=== PATIENT | male | born 1965 | race Caucasian/White ===

== ENCOUNTER → 2022-07-23 | Outpatient (CLI) | payer BC ==
--- NOTE | 2022-07-23 12:33 | NM ---
EXAMINATION TYPE: NM stress lexiscan cardiolite DATE OF EXAM: 07/23/2022 COMPARISON: NONE CLINICAL INDICATION: Male, 57 years old with history of I25.10 atherosclerotic heart disease; TECHNIQUE: After the intravenous administration of 10.07 mCi Tc 99m Sestamibi - Cardiolite resting S PECT images acquired 45 minutes post injection. The patient received 0.4mg Lexiscan, 25.3 mCi Tc 99m Sestamibi - Stress images obtained [address] injection FINDINGS: Review of stress and rest SPECT images demonstrates no distinct perfusion abnormality. Gated analysi s shows normal wall motion with an estimated left ventricular ejection fraction of 55 %. IMPRESSION: No scintigraphic evidence for reversible ischemia.
--- NOTE | 2022-07-24 18:45 | CA ---
Lexiscan Nuclear Stress Test Report Name: Darien Chen Exam Date: 07/23/2022 09:19 Exam Location: [facility] Stress Ht (in): 68 Wt (lb): 168 BSA: 1.90 Ordering Phys: Sammy James MD Referring Phys: SAMMY JAMES,, Technologist: PARMINDER,, Age: 57 Gender: M : 1965 Procedure CPT: Indications: I25.10 aterosclerotic heart disease ICD-10 Codes: Patient History: ASCAD Medications: Meds past 24 hrs: Pretest Chest Pain: STRESS TEST Lexiscan Protocol Exercise Duration (min:sec): 02:[address] Depressions (mm): Angina Score: Arboleda Score: Resting HR (bpm): 64 Peak HR (bpm): 82 Resting BP (mmHg): 116 / 77 Peak BP (mmHg): 130 / 83 MPHR: 163 Target HR: 139 % MPHR: 50 METS: 1.0 Total Dose: Peak Dose: Atropine: Double Product: 89423 BP Response: Stress Termination: Infusion complete Stress Symptoms: No chest pain or symptoms Stress Summary: ECG ANALYSIS Resting ECG: Stress ECG: CONCLUSIONS Nondiagnostic stress test Dr. Luis Miguel Hampton MD (Electronically Signed) Final Date: 24 July 2022 18:44
== END | disposition home or self-care (01) ==
LOC: RADNMMAIN 07:54
PROVIDERS: ATTEND Family Medicine
DX: I25.10 Atherosclerotic heart disease of native coronary artery without angina pectoris (principal)
CPT/HCPCS: 93017; 78452; A9500

== ENCOUNTER 2022-10-15 13:20 | Day surgery (SDC) | payer BC ==
[~2022-10-15 13:20] MED LIST: SODIUM CHLORIDE 0.9% 500 ML 500 ML in EMPTY BAG 1 BAG IV PRN
[2022-10-15 13:43] VITALS: RESP 18; TEMP 98
--- NOTE | 2022-10-15 14:19 | XR ---
EXAMINATION TYPE: XR chest 1V portable DATE OF EXAM: 10/15/2022 COMPARISON: NONE HISTORY: Postthoracentesis TECHNIQUE: Single frontal view of the chest is obtained. FINDINGS: There is approximate 30-40% right-sided pneumothorax. Mediport catheter noted. Left lung c lear. Apical bullous changes compatible COPD. Surgical clips in the abdomen. Arthropathy of the shoul ders. IMPRESSION: 1. No sizable fluid but there is a 30-40% right-sided pneumothorax. Report called to the referring cl inician to 10/15/2022 at 2:17 pm.
--- NOTE | 2022-10-15 14:35 | P.PCN ---
Date of Procedure: 10/15/22 Preoperative Diagnosis: pleural fluid, side Postoperative Diagnosis: pleural fluid, right sided Procedure(s) Performed: thoracentesis Anesthesia: local Surgeon: Obdulia Serra Estimated Blood Loss (ml): 0 Pathology: other Condition: stable Disposition: same day Description of Procedure: A time out was performed and the chest x-ray was reviewed, the appropriate side was confirmed and marked. My hands were washed immediately prior to the procedure. I wore a surgical cap, mask with protective eyewear, sterile gown and sterile gloves throughout the procedure. The patient was prepped and draped in a sterile manner using chlorhexidine scrub after the appropriate level was percussed and confirmed by ultrasound. 1% lidocaine was used to anesthesize the skin, subcutaneous tissue, superior aspect of the rib periosteum and parietal pleura. A finder needle was then introduced over the superior aspect of the rib to locate the pleural fluid; 2colored fluid was aspirated at a depth of approximately 2 cm. A 10-blade scalpel was used to abhi the skin at the insertion site. The [id number] needle was then introduced through the skin incision into the pleural space using negative aspiration pressure and the red colometric indicator to confirm appropriate positioning of the needle. The thoracentesis catheter was then threaded without difficulty. 800ml of turbid colored fluid was removed without difficulty. The catheter was then removed. No immediate complications were noted during the procedure. A post-procedure chest x-ray showed elevated right lower lobe pneumothorax. This is pneumothorax ex vacuo probably related to trapped lungs due to his underlying stage IV lung cancer. The patient remains clinically stable. In fact his shortness of breath improved following thoracentesis. His pulse ox was 98% on 2 L of oxygen by nasal cannula. As such, the patient will be sent home.. The fluid will not be sent for studies. Estimated blood loss is 0cc Plan Plan for Pleurx catheter insertion at the later stage. Will work for Pleurx catheter insertion with the thoracic surgeons.
[2022-10-15 15:03] VITALS: BP 108/67; PULSE 102
== END 2022-10-15 15:42 | disposition home or self-care (01) ==
LOC: PROCWHC3 13:20
PROVIDERS: ATTEND Internal Medicine Critical Care Medicine
DX: J93.9 Pneumothorax, unspecified (principal); J44.9 Chronic obstructive pulmonary disease, unspecified; I10 Essential (primary) hypertension; Z79.51 Long term (current) use of inhaled steroids; Z79.52 Long term (current) use of systemic steroids; Z79.899 Other long term (current) drug therapy; Z90.49 Acquired absence of other specified parts of digestive tract; Z80.9 Family history of malignant neoplasm, unspecified
CPT/HCPCS: 32554; 71045

== ENCOUNTER 2022-10-26 13:11 | Observation (INO) | payer BC ==
[2022-10-26 14:30] LABS: HCT 25.4 % (39.0-53.0); HGB 8.8 gm/dL (13.0-17.5); MCH 30.9 pg (25.0-35.0); MCHC 34.8 g/dL (31.0-37.0); MCV 88.7 fL (80.0-100.0); Mean Platelet Volume 9.8; Platelet Count 129 k/uL (150-450); RBC 2.86 m/uL (4.30-5.90); WBC 2.9 k/uL (3.8-10.6)
[2022-10-26 14:34] LABS: ALT 18 U/L (4-49); AST 26 U/L (17-59); African American GFR (CKD) >90 (>60 ml/min/1.73 sqM); Albumin 3.4 g/dL (3.5-5.0); Alkaline Phosphatase 73 U/L (38-126); Anion Gap 10 mmol/L; Blood Urea Nitrogen 14 mg/dL (9-20); Carbon Dioxide 27 mmol/L (22-30); Chloride 99 mmol/L (98-107); Glucose 88 mg/dL (74-99); Non-African American GFR(CKD) >90 (>60 ml/min/1.73 sqM); Sodium 136 mmol/L (137-145); Total Bilirubin 0.9 mg/dL (0.2-1.3); Total Protein 6.6 g/dL (6.3-8.2)
[2022-10-26 14:46] LABS: Potassium 2.7 mmol/L (3.5-5.1)
[2022-10-26 14:47] LABS: Magnesium 0.9 mg/dL (1.6-2.3)
[2022-10-26] MEDS ORDERED: POTASSIUM CHLORIDE ER 20 MEQ TAB.ER PO STA (15:08)
[2022-10-26] MEDS ORDERED: ACETAMINOPHEN TAB 325 MG TAB PO PRN (15:41)
[2022-10-26] MEDS ORDERED: HYDROmorphone 0.5 MG/0.5 ML SYRINGE IVP PRN (15:41)
[2022-10-26] MEDS ORDERED: NALOXONE 0.4 MG/ML 1 ML VIAL IV PRN (15:41)
--- NOTE | 2022-10-26 15:48 | ED ---
General Adult HPI - General Chief complaint: Recheck/Abnormal Lab/Rx Stated complaint: abnormal labs Time Seen by Provider: 10/26/22 13:18 Source: patient, RN notes reviewed, old records reviewed Mode of arrival: ambulatory Limitations: no limitations - History of Present Illness Initial comments: 57-year-old male who presents with abnormal outpatient lab testing. Patient had an outpatient lab testing of potassium at 2.4 and was requested to present to the emergency department for replacement. He's scheduled for catheter placement for right-sided pleural effusion secondary to cancer diagnosis. - Related Data Home Medications Medication Instructions Recorded Confirmed Atorvastatin [Lipitor] 40 mg PO DAILY 10/26/22 10/26/22 Benzonatate [Tessalon Perles] 100 mg PO DAILY PRN 10/26/22 10/26/22 Cholecalciferol [Vitamin D3 (25 50 mcg PO DAILY 10/26/22 10/26/22 Mcg = 1000 Iu)] Cyanocobalamin (Vitamin B-12) 2,000 mcg PO DAILY 10/26/22 10/26/22 [Vitamin B-12] FLUoxetine HCL [PROzac] 20 mg PO QAM 10/26/22 10/26/22 Fludrocortisone [Florinef] 0.1 mg PO QAM PRN 10/26/22 10/26/22 Folic Acid 1 mg PO DAILY 10/26/22 10/26/22 Hydrocortisone [Cortef] 5 mg PO BID 10/26/22 10/26/22 Ibuprofen [Advil] 200 - 400 mg PO Q8HR PRN 10/26/22 10/26/22 Zolpidem Tartrate [Zolpidem 6.25 mg PO HS 10/26/22 10/26/22 Tartrate ER] Previous Rx's Medication Instructions Recorded Magnesium Oxide [Mag-Ox] 400 mg PO ONCE #1 tablet 10/26/22 Potassium Chloride ER [K-Dur 20] 40 meq PO ONCE #1 tab 10/26/22 Allergies Allergy/AdvReac Type Severity Reaction Status Date / Time No Known Allergies Allergy Verified 10/26/22 13:19 Review of Systems ROS Statement: Those systems with pertinent positive or pertinent negative responses have been documented in the HPI. ROS Other: All systems not noted in ROS Statement are negative. Past Medical History Past Medical History: COPD, Pneumonia Additional Past Medical History / Comment(s): Wears O2@3L NC ATC,recurrent rt lung CA receiving chemo last dose 10-08-22 @ [facility] due 10-29-22/ thorocentesis in last 5 weeks, 1rst dx 2020 of stage 4 lung CA and adrenal left gland, had pneumonitis, 17 day stay in ICU with intial chemo and immuno therapy, emphysema,b/p runs low now since cancer dx and treatment had prior htn hx-has dizziness w/ falls at times improved with cortef History of Any Multi-Drug Resistant Organisms: None Reported Past Surgical History: Cholecystectomy Additional Past Surgical History / Comment(s): rt port a cath (power port) Past Anesthesia/Blood Transfusion Reactions: No Reported Reaction Additional Past Anesthesia/Blood Transfusion Reaction / Comment(s): no hx blood transfusions Past Psychological History: Anxiety Smoking Status: Former smoker - Past Family History Mother Family Medical History: No Reported History Father Family Medical History: Cancer Additional Family Medical History / Comment(s): rt lung CA General Exam Limitations: no limitations General appearance: alert, in no apparent distress Head exam: Present: atraumatic, normocephalic Eye exam: Present: normal appearance, PERRL Respiratory exam: Present: decreased breath sounds. Absent: respiratory distress Cardiovascular Exam: Present: regular rate, normal rhythm GI/Abdominal exam: Present: soft. Absent: distended, tenderness Course Vital Signs 10/26/22 13:19 Temperature 98.1 F Pulse Rate 84 Respiratory 16 Rate Blood Pressure 93/65 O2 Sat by Pulse 98 Oximetry Medical Decision Making - Medical Decision Making Was pt. sent in by a medical professional or institution (, PA, COMPTOMETER OPERATOR, urgent care, hospital, or half-way...) When possible be specific @ -[Sent in by cardiothoracic surgery for electrolyte replacement Did you speak to anyone other than the patient for history (EMS, parent, family, police, friend...)? What history was obtained from this source @ -No Did you review nursing and triage notes (agree or disagree)? Why? @ -I reviewed and agree with nursing and triage notes Were old charts reviewed (outside hosp., previous admission, EMS record, old EKG, old radiological studies, urgent care reports/EKG's, half-way records)? Report findings @ -No old charts were reviewed Differential Diagnosis (chest pain, altered mental status, abdominal pain women, abdominal pain men, vaginal bleeding, weakness, fever, dyspnea, syncope, headache, dizziness, GI bleed, back pain, seizure, CVA, palpatations, mental health, musculoskeletal)? @ -Hypokalemia, hypomagnesemia EKG interpreted by me (3pts min.). @ Sinus rhythm rate of 83, incomplete right bundle-branch block, CA interval 156, QRS duration 93, QTC 405, no ST segment elevation. X-rays interpreted by me (1pt min.). @ -None done CT interpreted by me (1pt min.). @ -None done U/S interpreted by me (1pt. min.). @ -None done What testing was considered but not performed or refused? (CT, X-rays, U/S, labs)? Why? @ -None What meds were considered but not given or refused? Why? @ -None Did you discuss the management of the patient with other professionals (professionals i.e. , PA, COMPTOMETER OPERATOR, lab, RT, psych nurse, social services director, analyst market intelligence, teacher, enforcement officer, case resolution specialist)? Give summary @ -[Admitted to cardiothoracic surgery for electrolyte replacement Was smoking cessation discussed for >3mins.? @ -No Was critical care preformed (if so, how long)? @ -No Were there social determinants of health that impacted care today? How? (Homelessness, low income, unemployed, alcoholism, drug addiction, transportati on, low edu. Level, literacy, decrease access to med. care, snf, rehab)? @ -No Was there de-escalation of care discussed even if they declined (Discuss DNR or withdrawal of care, Hospice)? DNR status @ -No What co-morbidities impacted this encounter? (DM, HTN, Smoking, COPD, CAD, Cancer, CVA, ARF, Chemo, Hep., AIDS, mental health diagnosis, sleep apnea, morbid obesity)? @ -[ cancer with metastases, electrolyte abnormalities Was patient admitted / discharged? Hospital course, mention meds given and route, prescriptions, significant lab abnormalities, going to OR and other pertinent info. @ Repeat laboratory testing is obtained, shows that he is hypokalemic and hypomagnesemic. He is in the sinus rhythm with stable vitals. He will be admitted for electrolyte replacement and scheduled procedure tomorrow. Undiagnosed new problem with uncertain prognosis? @ -No Drug Therapy requiring intensive monitoring for toxicity (Heparin, Nitro, Insulin, Cardizem)? @ -No Were any procedures done? @ -No Diagnosis/symptom? @ -Hypokalemia, hypomagnesemia, pleural effusion Acute, or Chronic, or Acute on Chronic? @ -[Acute on chronic Uncomplicated (without systemic symptoms) or Complicated (systemic symptoms)? @ -[Complicated Side effects of treatment? @ -No Exacerbation, Progression, or Severe Exacerbation? @ -No Poses a threat to life or bodily function? How? (Chest pain, USA, MT, pneumonia, PE, COPD, DKA, ARF, appy, cholecystitis, CVA, Diverticulitis, Homicidal, Suicidal, threat to staff... and all critical care pts) @ -[Yes, electrolyte abnormality, arrhythmia - Lab Data Result diagrams: 10/26/22 13:58 10/26/22 13:58 Lab Results 10/26/22 10/26/22 Range/Units 13:58 13:58 WBC 2.9 L (3.8-10.6) k/uL RBC 2.86 L (4.30-5.90) m/uL Hgb 8.8 L (13.0-17.5) gm/dL Hct 25.4 L (39.0-53.0) % MCV 88.7 (80.0-100.0) fL MCH 30.9 (25.0-35.0) pg MCHC 34.8 (31.0-37.0) g/dL RDW 15.0 (11.5-15.5) % Plt Count 129 L (150-450) k/uL MPV 9.8 Sodium 136 L (137-145) mmol/L Potassium 2.7 L* (3.5-5.1) mmol/L Chloride 99 (98-107) mmol/L Carbon Dioxide 27 (22-30) mmol/L Anion Gap 10 mmol/L BUN 14 (9-20) mg/dL Creatinine 0.72 (0.66-1.25) mg/dL Est GFR (CKD-EPI)AfAm >90 (>60 ml/min/1.73 sqM) Est GFR (CKD-EPI)NonAf >90 (>60 ml/min/1.73 sqM) Glucose 88 (74-99) mg/dL Calcium 9.0 (8.4-10.2) mg/dL Magnesium 0.9 L* (1.6-2.3) mg/dL Total Bilirubin 0.9 (0.2-1.3) mg/dL AST 26 (17-59) U/L ALT 18 (4-49) U/L Alkaline Phosphatase 73 (38-126) U/L Total Protein 6.6 (6.3-8.2) g/dL Albumin 3.4 L (3.5-5.0) g/dL Disposition Clinical Impression: Hypokalemia, Hypomagnesemia Disposition: ADMITTED IP TO THIS HOSP Condition: Stable Prescriptions: Potassium Chloride ER [K-Dur 20] 40 meq PO ONCE #1 tab Magnesium Oxide [Mag-Ox] 400 mg PO ONCE #1 tablet Is patient prescribed a controlled substance at d/c from ED?: No Referrals: Sammy James MD [Primary Care Provider] - 1-2 days Time of Disposition: 15:47
[2022-10-26] MEDS ORDERED: POTASSIUM CHLORIDE 10 MEQ in WATER FOR INJECTION 1 100ML.BAG IVPB SCH (16:00)
--- NOTE | 2022-10-26 16:01 | P.GSHP ---
History of Present Illness H&P Date: 10/26/22 Chief Complaint: Recurrent right-sided malignant pleural effusions This is a 57-year-old gentleman who follows outpatient with Dr. Nadeem lieberman for primary care, and Dr. Serra for pulmonology, and he follows at the [facility] in [place] for his lung cancer. He has a previous medical history of stage IV adenocarcinoma of the lung, adrenal adenoma, emphysema/COPD on home oxygen [id number], previous tobacco dependence, hypertension, GERD. This gentleman has had recurrent right-sided malignant pleural effusions and has undergone right-sided thoracentesis 4 times since August 2022, each train draining 1-2 L of fluid. He is receiving outpatient systemic chemotherapy with carboplatinum and alimta. He continues to complain of shortness of breath. He was referred to Dr. Martinez for right-sided Pleurx catheter placement for palliative home removal of right-sided effusion. Right-sided Pleurx catheter was to be placed tomorrow, 10/27/2022 as an outpatient procedure, however preoperative labs indicated severe hypokalemia and hypomagnesemia and the patient was instructed to report to the emergency room for IV electrolyte replacement. - Review of Systems Comment: The of systems was completed and was negative except as noted - Respiratory Respiratory: Reports dyspnea Past Medical History Past Medical History: Cancer, COPD, Hypertension, Pneumonia Additional Past Medical History / Comment(s): Wears O2@3L [place] ATC,recurrent rt lung CA receiving chemo last dose 10-08-22 @ [facility]-Next cheom due 10-29-22 thorocentesis in last 5 weeks, 1rst dx 2020 of stage 4 lung CA and adrenal left gland, had pneumonitis, 17 day stay in ICU with intial chemo and immuno therapy, emphysema,b/p runs low now since cancer dx and treatment had prior htn hx-has dizziness w/ falls at times improved with cortef; recurrent right-sided malignant pleural effusion History of Any Multi-Drug Resistant Organisms: None Reported Past Surgical History: Cholecystectomy Additional Past Surgical History / Comment(s): rt port a cath (power port); right sided thoracentesis 4 Past Anesthesia/Blood Transfusion Reactions: No Reported Reaction Additional Past Anesthesia/Blood Transfusion Reaction / Comment(s): no hx blood transfusions Past Psychological History: Anxiety Smoking Status: Former smoker Past Drug Use History: Marijuana - Past Family History Mother Family Medical History: No Reported History Father Family Medical History: Cancer Additional Family Medical History / Comment(s): rt lung CA Medications and Allergies Home Medications Medication Instructions Recorded Confirmed Type Atorvastatin [Lipitor] 40 mg PO DAILY 10/26/22 10/26/22 History Benzonatate [Tessalon Perles] 100 mg PO DAILY PRN 10/26/22 10/26/22 History Cholecalciferol [Vitamin D3 (25 50 mcg PO DAILY 10/26/22 10/26/22 History Mcg = 1000 Iu)] Cyanocobalamin (Vitamin B-12) 2,000 mcg PO DAILY 10/26/22 10/26/22 History [Vitamin B-12] FLUoxetine HCL [PROzac] 20 mg PO QAM 10/26/22 10/26/22 History Fludrocortisone [Florinef] 0.1 mg PO QAM PRN 10/26/22 10/26/22 History Folic Acid 1 mg PO DAILY 10/26/22 10/26/22 History Hydrocortisone [Cortef] 5 mg PO BID 10/26/22 10/26/22 History Ibuprofen [Advil] 200 - 400 mg PO Q8HR PRN 10/26/22 10/26/22 History Magnesium Oxide [Mag-Ox] 400 mg PO ONCE #1 tablet 10/26/22 Rx Potassium Chloride ER [K-Dur 20] 40 meq PO ONCE #1 tab 10/26/22 Rx Zolpidem Tartrate [Zolpidem 6.25 mg PO HS 10/26/22 10/26/22 History Tartrate ER] Allergies Allergy/AdvReac Type Severity Reaction Status Date / Time No Known Allergies Allergy Verified 10/26/22 13:19 Surgical - Exam Vital Signs Temp Pulse Resp BP Pulse Ox 98.1 F 84 16 93/65 98 10/26/22 13:19 10/26/22 13:19 10/26/22 13:19 10/26/22 13:10/26/22 13:19 CONSTITUTIONAL: Awake and alert, appears comfortable, cooperative, well- developed, well-nourished, no pain, no acute distress EYES: Pupils equal, round, reactive to light, normal ocular movement ENT: Moist mucous membranes without oral lesions present NECK: No masses, no bruits, trachea midline RESPIRATORY: Lungs sounds are diminished on the right. Respirations even, nonlabored. Currently on 2 L nasal cannula CARDIOVASCULAR: S1, S2 present. Regular rate and rhythm. Palpable peripheral pulses bilaterally. No edema present GASTROINTESTINAL: Abdomen soft, nontender, nondistended without masses or organomegaly noted. There is no rebound or guarding present. Active bowel sounds present 4 quadrants. GENITOURINARY: Deferred INTEGUMENTARY: Skin is warm and dry with evidence of good perfusion. NEUROLOGIC: Cranial nerves II through XII intact, normal coordination, no obvi ous motor or sensory deficits, speech is normal MUSKULOSKELETAL: Able to move all extremities, strength equal bilaterally, normal posture PSYCHIATRIC: Alert and oriented to person place and time, appropriate affect, intact judgment and insight Results - Labs 10/26/22 13:58 10/26/22 13:58 Abnormal Lab Results - Last 24 Hours (Table) 10/26/22 10/26/22 Range/Units 13:58 13:58 WBC 2.9 L (3.8-10.6) k/uL RBC 2.86 L (4.30-5.90) m/uL Hgb 8.8 L (13.0-17.5) gm/dL Hct 25.4 L (39.0-53.0) % Plt Count 129 L (150-450) k/uL Sodium 136 L (137-145) mmol/L Potassium 2.7 L* (3.5-5.1) mmol/L Magnesium 0.9 L* (1.6-2.3) mg/dL Albumin 3.4 L (3.5-5.0) g/dL Diabetes panel 10/26/22 Range/Units 13:58 Sodium 136 L (137-145) mmol/L Potassium 2.7 L* (3.5-5.1) mmol/L Chloride 99 (98-107) mmol/L Carbon Dioxide 27 (22-30) mmol/L BUN 14 (9-20) mg/dL Creatinine 0.72 (0.66-1.25) mg/dL Glucose 88 (74-99) mg/dL Calcium 9.0 (8.4-10.2) mg/dL AST 26 (17-59) U/L ALT 18 (4-49) U/L Alkaline Phosphatase 73 (38-126) U/L Total Protein 6.6 (6.3-8.2) g/dL Albumin 3.4 L (3.5-5.0) g/dL Calcium panel 10/26/22 Range/Units 13:58 Calcium 9.0 (8.4-10.2) mg/dL Albumin 3.4 L (3.5-5.0) g/dL Pituitary panel 10/26/22 Range/Units 13:58 Sodium 136 L (137-145) mmol/L Potassium 2.7 L* (3.5-5.1) mmol/L Chloride 99 (98-107) mmol/L Carbon Dioxide 27 (22-30) mmol/L BUN 14 (9-20) mg/dL Creatinine 0.72 (0.66-1.25) mg/dL Glucose 88 (74-99) mg/dL Calcium 9.0 (8.4-10.2) mg/dL Adrenal panel 10/26/22 Range/Units 13:58 Sodium 136 L (137-145) mmol/L Potassium 2.7 L* (3.5-5.1) mmol/L Chloride 99 (98-107) mmol/L Carbon Dioxide 27 (22-30) mmol/L BUN 14 (9-20) mg/dL Creatinine 0.72 (0.66-1.25) mg/dL Glucose 88 (74-99) mg/dL Calcium 9.0 (8.4-10.2) mg/dL Total Bilirubin 0.9 (0.2-1.3) mg/dL AST 26 (17-59) U/L ALT 18 (4-49) U/L Alkaline Phosphatase 73 (38-126) U/L Total Protein 6.6 (6.3-8.2) g/dL Albumin 3.4 L (3.5-5.0) g/dL Assessment and Plan Assessment: Hypokalemia, hypomagnesemia Pancytopenia Stage IV adenocarcinoma of the lung, currently receiving chemotherapy Recurrent right-sided malignant pleural effusion, status post thoracentesis 4 Adrenal adenoma Emphysema/COPD on home oxygen [id number] Previous tobacco dependence Hypertension GERD Plan: The patient was seen and examined in the emergency room. Multiple conversations had with the patient via phone regarding need for electrolyte replacement. The patient came into the emergency room to receive IV potassium and magnesium, will take several hours so patient will remain in the hospital overnight on the observation unit with plans for right-sided Pleurx catheter placement tomorrow, 10/27/[address] Martinez. He will be nothing by mouth after midnight. We will repeat labs in the morning and replace as necessary. Home care will be ordered to follow after discharge for Pleurx drainage and teaching. Increase activity as tolerated. Home meds will be reordered. Patient will be discharged to home tomorrow after Pleurx catheter placement. Follow-up appointments will be made.
[2022-10-26] MEDS: MAGNESIUM SULFATE-D5W PMX 1 GM in DEXTROSE/WATER 1 100ML.BAG IVPB SCH ×2 (16:04→16:15)
[2022-10-26] MEDS ORDERED: FLUDROCORTISONE 0.1 MG TAB PO PRN (17:13)
[2022-10-26] MEDS ORDERED: IBUPROFEN 200 MG TAB PO PRN (17:13)
[2022-10-26] MEDS ORDERED: DOCUSATE 100 MG CAP PO PRN (17:13)
[2022-10-26] MEDS ORDERED: ALPRAZolam 0.25 MG TAB PO PRN (17:13)
[2022-10-26] MEDS ORDERED: polyethylene glycoL 3350 17 GM POWD.PACK PO PRN (17:13)
[2022-10-26] MEDS ORDERED: ALBUTEROL HFA INHALER INHALATION PRN (17:13)
[2022-10-26] MEDS ORDERED: BENZONATATE 100 MG CAP PO PRN (17:13)
[2022-10-26] MEDS ORDERED: IPRATROPIUM-ALBUTEROL 3 ML NEB INHALATION PRN (17:13)
[2022-10-26] MEDS ORDERED: MAGNESIUM SULFATE-D5W PMX 1 GM in DEXTROSE/WATER 1 100ML.BAG IVPB ONE (17:30)
[2022-10-26] MEDS: POTASSIUM CHLORIDE 10 MEQ in WATER FOR INJECTION 1 100ML.BAG IVPB SCH ×3 (17:41→21:16)
[2022-10-26 17:48] LABS: Band Neutrophils % 2 %; Eosinophils # (M) 0.12 k/uL (0-0.7); Lymphocytes # (M) 0.46 k/uL (1.0-4.8); Monocytes # (M) 0.44 k/uL (0-1.0); Myelocytes # (M) 0.03 k/uL (0); Myelocytes % 1 %; Neutrophils % (M) 64 %; Nucleated Red Blood Cells 0 /100 WBC (0-0); Total Cells Counted 200
[2022-10-26] MEDS: SYMBICORT 160-4.5 MCG INHALER INHALATION SCH (19:45)
[2022-10-26] MEDS: IPRATROPIUM 0.5 MG/2.5 ML NEBU INHALATION SCH (19:48)
[2022-10-26] MEDS: HYDROCORTISONE 10 MG TAB PO SCH (20:24)
[2022-10-26] MEDS: ONDANSETRON 4 MG TAB PO SCH (20:24)
[2022-10-26] MEDS ORDERED: ZOLPIDEM 5 MG TAB PO SCH (21:00)
[2022-10-27 05:56] LABS: African American GFR (CKD) >90 (>60 ml/min/1.73 sqM); Anion Gap 9 mmol/L; Blood Urea Nitrogen 13 mg/dL (9-20); Calcium 8.5 mg/dL (8.4-10.2); Carbon Dioxide 26 mmol/L (22-30); Chloride 100 mmol/L (98-107); Glucose 98 mg/dL (74-99); Magnesium 1.4 mg/dL (1.6-2.3); Non-African American GFR(CKD) >90 (>60 ml/min/1.73 sqM); Potassium 3.2 mmol/L (3.5-5.1); Sodium 135 mmol/L (137-145)
[2022-10-27] MEDS ORDERED: Potassium Replacement Protocol 1 EACH MISC MISCELLANE PRN (06:57)
[2022-10-27] MEDS ORDERED: Magnesium Replacement Protocol 1 EACH MISC MISCELLANE PRN (06:58)
[2022-10-27] MEDS ORDERED: POTASSIUM BICARBONATE/CIT AC 20 MEQ TABLET.EFF PO STA (06:59)
[2022-10-27] MEDS: IPRATROPIUM 0.5 MG/2.5 ML NEBU INHALATION SCH ×2 (08:27→12:25)
[2022-10-27] MEDS: SYMBICORT 160-4.5 MCG INHALER INHALATION SCH (08:27)
[2022-10-27] MEDS: HYDROCORTISONE 10 MG TAB PO SCH (08:49)
[2022-10-27] MEDS: POTASSIUM CHLORIDE 10 MEQ in WATER FOR INJECTION 1 100ML.BAG IVPB SCH ×3 (08:50→11:07)
[2022-10-27] MEDS: MAGNESIUM SULFATE-D5W PMX 1 GM in DEXTROSE/WATER 1 100ML.BAG IVPB SCH ×2 (08:51→09:34)
[2022-10-27] MEDS ORDERED: FOLIC ACID 1 MG TAB PO SCH (09:00)
[2022-10-27] MEDS ORDERED: ATORVASTATIN 40 MG TAB PO SCH (09:00)
[2022-10-27] MEDS ORDERED: FLUoxetine HCL 20 MG CAP PO SCH (09:00)
[2022-10-27] MEDS ORDERED: CHOLECALCIFEROL 25 MCG (1000 IU) TABLET PO SCH (09:00)
[2022-10-27] MEDS ORDERED: PANTOPRAZOLE 40 MG TABLET PO SCH (09:00)
[2022-10-27] MEDS ORDERED: CYANOCOBALAMIN 500 MCG TAB PO SCH (09:00)
[2022-10-27] MEDS: ONDANSETRON 4 MG TAB PO SCH (09:33)
[2022-10-27] MEDS ORDERED: IV FLUID CONTINUATION 500 ML IV ONE (13:01)
[2022-10-27] MEDS ORDERED: SODIUM CHLORIDE 0.9% 100 ML BAG ONE (13:18)
[2022-10-27] MEDS ORDERED: fentaNYL (PF) 50 MCG/ML 2 ML AMP ONE (13:18)
[2022-10-27] MEDS ORDERED: MIDAZOLAM 2 MG/2 ML VIAL ONE (13:18)
[2022-10-27] MEDS ORDERED: ceFAZolin 1,000 MG VIAL ONE (13:18)
[2022-10-27] MEDS ORDERED: PROPOFOL 10 MG/ML 20 ML VIAL IV ONE (13:18)
[2022-10-27] MEDS ORDERED: KETAMINE 10 MG/ML 20 ML VIAL ONE (13:18)
[2022-10-27] MEDS ORDERED: SODIUM CHLORIDE 0.9% 50 ML with ceFAZolin 2,000 MG IV ONE ×2 (13:38)
[2022-10-27] MEDS ORDERED: LIDOCAINE 1% INJ 10MG/ML (20 ML MDV) SQ ONE ×2 (13:42)
[2022-10-27] MEDS ORDERED: HYDROmorphone 0.5 MG/0.5 ML SYRINGE IVP ONE (14:20)
[2022-10-27 14:26] VITALS: TEMP 96.8
--- NOTE | 2022-10-27 14:51 | XR ---
EXAMINATION TYPE: XR chest 1V portable DATE OF EXAM: 10/27/2022 COMPARISON: NONE HISTORY: post pleurx cath TECHNIQUE: Single frontal view of the chest is obtained. FINDINGS: A chest tube seen with the resolution of pneumothorax. Large area of midlung consolidation and apical pleural thickening stable. A somewhat irregular density in the left lung apex seen defini tively on prior exam could be in the basis of atelectasis. There is a chronic elevation of the right hemidiaphragm. Surgical clips in the abdomen. Underlying COPD. Heart enlarged. Cardiomegaly noted. Me diport catheter is incidentally noted. IMPRESSION: 1. Chest tube appears in good position with resolution of pneumothorax. Persistent masslike area of c onsolidation in the right lung stable. Right apical pleural thickening stable. 2. COPD. Suspect irregular density in the left suprahilar region may be related to superimposed struc tures. Follow-up PA and lateral view of the chest recommended as the patient's condition tolerates.
--- NOTE | 2022-10-27 15:28 | OP ---
OPERATIVE REPORT DATE OF SERVICE : 10/27/2022 ANESTHESIA: Local with IV sedation. PREOPERATIVE DIAGNOSIS: Recurrent malignant right pleural effusion, partially trapped lung. POSTOPERATIVE DIAGNOSIS: Recurrent malignant right pleural effusion, partially trapped lung. PROCEDURE PERFORMED: Insertion of a right PleurX catheter. INDICATION FOR SURGERY: The patient is a 57-year-old with a known recurrence of primary adenocarcinoma of the right lung. The patient had a total of 3 thoracocentesis within 6 weeks. The last one was around 1 week ago with partial relief. His x-ray post thoracentesis showed trapped lung and some air-fluid level. Discussion with the patient followed and he seemed to have improved clinically after the last thoracocentesis despite the trapped lung. Discussion with the grapple yarder operator also followed and decision was made to proceed with the right PleurX catheter, hoping for some partial relief. Risks, benefits, and alternatives including infection and bleeding were discussed with him. DESCRIPTION OF THE PROCEDURE: The patient in supine position. IV sedation was administered. The chest and abdomen were prepped and draped using ChloraPrep. Local anesthesia was ensured with a total of 20 mL of 1% lidocaine without epinephrine. We initially accessed with fine needle with pleural cavity and got air and fluid. With that, an exit site at the level of the right upper quadrant was marked and the potential tunnel between the chest access incision and the exit point was anesthetized with lidocaine 1%. A counter incision was made in the right upper quadrant and a PleurX catheter was tunneled with exit at the level of the small incision at the chest entry site. Subsequently, over a Seldinger technique, a dilator and subsequently peel-away sheath were inserted into the right pleural cavity with exit of a lot of fluid. The catheter was pushed into the peel-away sheath, which was split and removed and the catheter pushed in place ensuring no kinking. The catheter was connected to a vacuum bottle and we got initial 500 mL, but also mixed of air and fluid. He had pain and I thought that might be a little more air and another vacuum bottle was used and that evacuated more air than fluid and the patient had relief. For that reason, I decided to connect him to a Pleur-evac, which at this point shows no leak. We will be repeating the x-ray at this point. MMODL / IJN: [id number] /
[2022-10-27 15:42] VITALS: BP 105/70; PULSE 71; RESP 17
[2022-10-27] MEDS ORDERED: HEPARIN SODIUM,PORCINE 100 UNIT/ML 5 ML VIAL IV ONE (15:51)
== END 2022-10-27 16:02 | disposition home health service (06) ==
LOC: EC 13:11 → 5NMEDONC 15:41
PROVIDERS: ADMIT Surgery; ATTEND Surgery
DX: J91.0 Malignant pleural effusion (principal); C34.90 Malignant neoplasm of unspecified part of unspecified bronchus or lung; D35.00 Benign neoplasm of unspecified adrenal gland; J43.9 Emphysema, unspecified; Z99.81 Dependence on supplemental oxygen; Z87.891 Personal history of nicotine dependence; I10 Essential (primary) hypertension; K21.9 Gastro-esophageal reflux disease without esophagitis; E87.6 Hypokalemia; E83.42 Hypomagnesemia; C34.91 Malignant neoplasm of unspecified part of right bronchus or lung; Z90.49 Acquired absence of other specified parts of digestive tract; F41.9 Anxiety disorder, unspecified; Z79.899 Other long term (current) drug therapy
CPT/HCPCS: 96368 ×2; 96365; 96366 ×2; 96375; 99284; 99285; 36415; 94640 ×3; 93005; 80053; 80048; 83735 ×2; 85025; 71045; G0378 ×2; J2250; J1642; J0690; J2001; J3010; J3475 ×2; J3480 ×2; J2704; J1170

== ENCOUNTER 2022-11-06 09:34 | Inpatient (IN) | payer BC ==
--- NOTE | 2022-11-06 10:15 | ED ---
General Adult HPI - General Chief complaint: Shortness of Breath Stated complaint: swelling in neck and chest Time Seen by Provider: 11/06/22 09:35 Source: patient, RN notes reviewed, old records reviewed Mode of arrival: ambulatory Limitations: no limitations - History of Present Illness Initial comments: This is a 57-year-old male who presents emergency department stating that he's got swelling in his chest and up into his neck. Patient states he had a tube in his chest to drain fluid and that is been removed but over the last few days she's noticed increased swelling today was pushing on his throat and it made his throat somewhat worse so he decided come to the emergency department. Patient states he is mildly short of breath. Patient does have a history of stage IV lung cancer. Patient denies any anterior chest pain he does state that the swelling is chronic and she when he presses on it. Patient denies fever chills. Patient denies lightheadedness or dizziness. - Related Data Home Medications Medication Instructions Recorded Confirmed ALPRAZolam [Xanax] 0.25 mg PO DAILY PRN 10/26/22 11/06/22 Albuterol Sulfate [Albuterol 2 puff PO RT-Q6H PRN 10/26/22 11/06/22 Sulfate Hfa] Atorvastatin [Lipitor] 40 mg PO DAILY 10/26/22 11/06/22 Benzonatate [Tessalon Perles] 100 mg PO TID PRN 10/26/22 11/06/22 Budesonide/Glycopyr/Formoterol 2 puff INHALATION RT-BID 10/26/22 11/06/22 [Breztri Aerosphere Inhaler] Cholecalciferol [Vitamin D3 (25 50 mcg PO DAILY 10/26/22 11/06/22 Mcg = 1000 Iu)] Cyanocobalamin (Vitamin B-12) 2,000 mcg PO DAILY 10/26/22 11/06/22 [Vitamin B-12] Docusate Sodium [Dok] 100 mg PO BID PRN 10/26/22 11/06/22 FLUoxetine HCL [PROzac] 20 mg PO DAILY 10/26/22 11/06/22 Fludrocortisone [Florinef] 0.1 mg PO QAM PRN 10/26/22 11/06/22 Folic Acid 1 mg PO DAILY 10/26/22 11/06/22 Hydrocortisone [Cortef] 10 mg PO AC-SUPPER 10/26/22 11/06/22 Ibuprofen [Advil] 200 - 400 mg PO Q8HR PRN 10/26/22 11/06/22 Ipratropium-Albuterol Nebulize 3 ml INHALATION RT-TID PRN 10/26/22 11/06/22 [Duoneb 0.5 mg-3 mg/3 ml Soln] Pantoprazole Sodium [Protonix] 40 mg PO DAILY 10/26/22 11/06/22 Zolpidem Tartrate [Zolpidem 6.25 mg PO HS 10/26/22 11/06/22 Tartrate ER] ondansetron HCL [Zofran] 8 mg PO BID 10/26/22 11/06/22 polyethylene glycoL 3350 [Miralax] 17 gm PO DAILY PRN 10/26/22 11/06/22 Hydrocortisone [Cortef] 20 mg PO DAILY 11/06/22 11/06/22 Potassium Chloride [Klor-Con M20] 20 meq PO DAILY 11/06/22 11/06/22 Sennosides-Docusate Sodium 1 tab PO HS 11/06/22 11/06/22 [Senokot-S] Slow-Mag 71.5mg 143 mg PO DAILY 11/06/22 11/06/22 Previous Rx's Medication Instructions Recorded Acetaminophen Tab [Tylenol] 650 mg PO Q6HR PRN tab 10/27/22 HYDROcodone/APAP 5-325MG [Bertrand 2 tab PO Q6HR PRN 3 Days #24 tab 10/28/22 5-325] Allergies Allergy/AdvReac Type Severity Reaction Status Date / Time No Known Allergies Allergy Verified 11/06/22 10:36 Review of Systems ROS Statement: Those systems with pertinent positive or pertinent negative responses have been documented in the HPI. ROS Other: All systems not noted in ROS Statement are negative. Past Medical History Past Medical History: Cancer, COPD, Hypertension, Pneumonia Additional Past Medical History / Comment(s): Wears O2@3L NC ATC,recurrent rt lung CA receiving chemo last dose 10-08-22 @ [facility] due 10-29-22/ thorocentesis in last 5 weeks, 1rst dx 2020 of stage 4 lung CA and adrenal left gland, had pneumonitis, 17 day stay in ICU with intial chemo and immuno therapy, emphysema,b/p runs low now since cancer dx and treatment had prior htn hx-has dizziness w/ falls at times improved with cortef; recurrent right-sided malignant pleural effusion History of Any Multi-Drug Resistant Organisms: None Reported Past Surgical History: Cholecystectomy Additional Past Surgical History / Comment(s): rt port a cath (power port); right sided thoracentesis 4 Past Anesthesia/Blood Transfusion Reactions: No Reported Reaction Additional Past Anesthesia/Blood Transfusion Reaction / Comment(s): no hx blood transfusions Past Psychological History: Anxiety Smoking Status: Former smoker Past Alcohol Use History: None Reported Past Drug Use History: Marijuana - Past Family History Mother Family Medical History: No Reported History Father Family Medical History: Cancer Additional Family Medical History / Comment(s): rt lung CA General Exam - General Exam Comments Initial Comments: GENERAL: Patient is well-developed and well-nourished. Patient is nontoxic and well- hydrated and is in mild distress. ENT: Neck is soft and supple. No significant lymphadenopathy is noted. Oropharynx is clear. Moist mucous membranes. Neck has full range of motion without eliciting any pain. EYES: The sclera were anicteric and conjunctiva were pink and moist. Extraocular movements were intact and pupils were equal round and reactive to light. Eyelids were unremarkable. PULMONARY: Patient has diminished breath sounds on the right upper CARDIOVASCULAR: Patient is tachycardic at about 110 bpm. Patient has subcutaneous air in the upper chest and into the neck ABDOMEN: Soft and nontender with normal bowel sounds. SKIN: Skin is clear with no lesions or rashes and otherwise unremarkable. NEUROLOGIC: Patient is alert and oriented x3. Cranial nerves II through XII are grossly intact. Motor and sensory are also intact. Normal speech, volume and content. Symmetrical smile. MUSCULOSKELETAL: Normal extremities with adequate strength and full range of motion. No lower extremity swelling or edema. No calf tenderness. LYMPHATICS: No significant lymphadenopathy is noted PSYCHIATRIC: Normal psychiatric evaluation. Limitations: no limitations Course Vital Signs 11/06/22 11/06/22 09:35 13:26 Temperature 98.4 F Pulse Rate 111 H 100 Respiratory 28 H 18 Rate Blood Pressure 87/62 104/79 O2 Sat by Pulse 100 99 Oximetry Medical Decision Making - Medical Decision Making EKG is interpreted by myself. EKG shows a sinus rhythm at 96 bpm SD interval 168 QRSs 86 QT interval 319 QTC is [address] segment elevation. Was pt. sent in by a medical professional or institution (, [facility], ADOLESCENT PSYCHIATRIST, urgent care, hospital, or prison...) When possible be specific @ -No Did you speak to anyone other than the patient for history (EMS, parent, family, police, friend...)? What history was obtained from this source @ -No Did you review nursing and triage notes (agree or disagree)? Why? @ -I reviewed and agree with nursing and triage notes Were old charts reviewed (outside hosp., previous admission, EMS record, old EKG, old radiological studies, urgent care reports/EKG's, prison records)? Report findings @ -I reviewed prior lab work and prior charts on this patient Differential Diagnosis (chest pain, altered mental status, abdominal pain women, abdominal pain men, vaginal bleeding, weakness, fever, dyspnea, syncope, headache, dizziness, GI bleed, back pain, seizure, CVA, palpatations, mental health, musculoskeletal)? @ -Differential Dyspnea: Coronary syndrome, arrhythmia, tamponade, asthma, COPD, pulmonary embolism, pneumonia, pneumothorax, pulmonary effusion, anaphylaxis, diabetic ketoacidosis, flailed chest, pulmonary contusion, diaphragmatic rupture, anemia, neuromuscular, this is not meant to be an all-inclusive list. EKG interpreted by me (3pts min.). @ -As above X-rays interpreted by me (1pt min.). @ -Chest x-ray shows a questionable pneumothorax CT interpreted by me (1pt min.). @ -Computed tomography scan shows a hydropneumothorax U/S interpreted by me (1pt. min.). @ -None done What testing was considered but not performed or refused? (CT, X-rays, U/S, labs)? Why? @ -None What meds were considered but not given or refused? Why? @ -None Did you discuss the management of the patient with other professionals (professionals i.e. [facility] Roger, ADOLESCENT PSYCHIATRIST, lab, RT, psych nurse, protective services social worker, yardmaster, teacher, ammunition officer, spring encaser)? Give summary @ -I spoke to cardiology thoracic surgery and they agree to be on consult and will come down and see the patient Was smoking cessation discussed for >3mins.? @ -No Was critical care preformed (if so, how long)? @ -No Were there social determinants of health that impacted care today? How? (Homelessness, low income, unemployed, alcoholism, drug addiction, transportatio n, low edu. Level, literacy, decrease access to med. care, snf, rehab)? @ -No Was there de-escalation of care discussed even if they declined (Discuss DNR or withdrawal of care, Hospice)? DNR status @ -No What co-morbidities impacted this encounter? (DM, HTN, Smoking, COPD, CAD, Cancer, CVA, ARF, Chemo, Hep., AIDS, mental health diagnosis, sleep apnea, morbid obesity)? @ -None Was patient admitted / discharged? Hospital course, mention meds given and route, prescriptions, significant lab abnormalities, going to OR and other pertinent info. @ -Cardiothoracic surgery came down and saw the patient emergency department and the patient up to a pleural vac. I spoke with Dr. Smieon she agreed to admit the patient and the patient wrote admitting orders and consulted cardiothoracic surgery Undiagnosed new problem with uncertain prognosis? @ -No Drug Therapy requiring intensive monitoring for toxicity (Heparin, Nitro, Insulin, Cardizem)? @ -No Were any procedures done? @ -No Diagnosis/symptom? @ -Hydropneumothorax Acute, or Chronic, or Acute on Chronic? @ -Acute on chronic Uncomplicated (without systemic symptoms) or Complicated (systemic symptoms)? @ -Complicated Side effects of treatment? @ -No Exacerbation, Progression, or Severe Exacerbation? @ -No Poses a threat to life or bodily function? How? (Chest pain, USA, DC, pneumonia, PE, COPD, DKA, ARF, appy, cholecystitis, CVA, Diverticulitis, Homicidal, Suicidal, threat to staff... and all critical care pts) @ -No - Lab Data Result diagrams: 11/06/22 10:07 11/06/22 10:07 Lab Results 11/06/22 11/06/22 11/06/22 Range/Units 10:07 10:07 10:07 WBC 3.1 L (3.8-10.6) k/uL RBC 2.71 L (4.30-5.90) m/uL Hgb 8.5 L (13.0-17.5) gm/dL Hct 24.3 L (39.0-53.0) % MCV 89.6 (80.0-100.0) fL MCH 31.5 (25.0-35.0) pg MCHC 35.1 (31.0-37.0) g/dL RDW 15.7 H (11.5-15.5) % Plt Count 128 L (150-450) k/uL MPV 9.4 Neutrophils % 78 % Lymphocytes % 16 % Monocytes % 3 % Eosinophils % 1 % Basophils % 0 % Neutrophils # 2.4 (1.3-7.7) k/uL Lymphocytes # 0.5 L (1.0-4.8) k/uL Monocytes # 0.1 (0-1.0) k/uL Eosinophils # 0.0 (0-0.7) k/uL Basophils # 0.0 (0-0.2) k/uL Sodium 136 L (137-145) mmol/L Potassium 3.5 (3.5-5.1) mmol/L Chloride 103 (98-107) mmol/L Carbon Dioxide 24 (22-30) mmol/L Anion Gap 9 mmol/L BUN 19 (9-20) mg/dL Creatinine 0.69 (0.66-1.25) mg/dL Est GFR (CKD-EPI)AfAm >90 (>60 ml/min/1.73 sqM) Est GFR (CKD-EPI)NonAf >90 (>60 ml/min/1.73 sqM) Glucose 89 (74-99) mg/dL Calcium 9.0 (8.4-10.2) mg/dL Total Bilirubin 1.2 (0.2-1.3) mg/dL AST 30 (17-59) U/L ALT 26 (4-49) U/L Alkaline Phosphatase 79 (38-126) U/L Troponin I <0.012 (0.000-0.034) ng/mL Total Protein 6.7 (6.3-8.2) g/dL Albumin 3.6 (3.5-5.0) g/dL Disposition Clinical Impression: Hydropneumothorax Disposition: ADMITTED IP TO THIS [facility] Referrals: Sammy James MD [Primary Care Provider] - 1-2 days Time of Disposition: 14:25
[2022-11-06 10:26] LABS: Basophils % (A) 0 %; Eosinophils % (A) 1 %; HCT 24.3 % (39.0-53.0); HGB 8.5 gm/dL (13.0-17.5); Lymphocytes # (A) 0.5 k/uL (1.0-4.8); Lymphocytes % (A) 16 %; MCH 31.5 pg (25.0-35.0); MCHC 35.1 g/dL (31.0-37.0); MCV 89.6 fL (80.0-100.0); Mean Platelet Volume 9.4; Monocytes # (A) 0.1 k/uL (0-1.0); Monocytes % (A) 3 %; Neutrophils # (A) 2.4 k/uL (1.3-7.7); Neutrophils % (A) 78 %; Platelet Count 128 k/uL (150-450); RBC 2.71 m/uL (4.30-5.90); RDW 15.7 % (11.5-15.5); WBC 3.1 k/uL (3.8-10.6)
--- NOTE | 2022-11-06 10:33 | XR ---
EXAMINATION TYPE: XR chest 1V portable DATE OF EXAM: 11/06/2022 COMPARISON: 10/27/2022 HISTORY: Subcutaneous air TECHNIQUE: Single frontal view of the chest is obtained. FINDINGS: There is extensive subcutaneous emphysema greater on the right. Chest tube on the right wi th Mediport catheter and volume loss. Cannot exclude a right-sided pneumothorax. Left lung is clear w ith biapical pleural thickening. Atherosclerotic change aorta. Right perihilar soft tissue density no yoly stable. IMPRESSION: Diffuse right-sided subcutaneous emphysema. Cannot exclude a lower lobe pneumothorax.
[2022-11-06 10:53] LABS: ALT 26 U/L (4-49); AST 30 U/L (17-59); African American GFR (CKD) >90 (>60 ml/min/1.73 sqM); Albumin 3.6 g/dL (3.5-5.0); Alkaline Phosphatase 79 U/L (38-126); Anion Gap 9 mmol/L; Blood Urea Nitrogen 19 mg/dL (9-20); Carbon Dioxide 24 mmol/L (22-30); Chloride 103 mmol/L (98-107); Glucose 89 mg/dL (74-99); Non-African American GFR(CKD) >90 (>60 ml/min/1.73 sqM); Potassium 3.5 mmol/L (3.5-5.1); Sodium 136 mmol/L (137-145); Total Bilirubin 1.2 mg/dL (0.2-1.3); Total Protein 6.7 g/dL (6.3-8.2)
--- NOTE | 2022-11-06 12:06 | CT ---
EXAMINATION TYPE: CT chest wo con DATE OF EXAM: 11/06/2022 COMPARISON: None available. HISTORY: Evaluate subcutaneous air. CT DLP: 368.1 mGycm. Automated Exposure Control for Dose Reduction was Utilized. TECHNIQUE: CT scan of the thorax is performed without IV contrast. FINDINGS: CHEST WALL: Right-sided Mediport has its catheter tip in the superior vena cava. There is extensive s ubcutaneous emphysema seen throughout the right chest wall. Mediastinum and Eugenia: There is no axillary, mediastinal or hilar lymphadenopathy. Pleural and Pericardial spaces: There is a large right hydropneumothorax. A pigtail catheter chest tu be is seen within the posterior pleural space on the right side. Upper Abdomen: There is a 3.9 cm mass within the dome of the right lobe of the liver which may repres ent a metastatic lesion. There is some scattered colonic diverticuli seen throughout the visualized p ortions of the colon. Cardiovascular: The thoracic aorta is normal in size. Lung Parenchyma and Airways: Large right-sided hydropneumothorax is seen. Right suprahilar mass measu res approximately 8.6 x 3.3 cm in diameter. There is centrilobular and paraseptal emphysema with larg e bulla in the apices. Bones: No fracture or aggressive osseous lesion. IMPRESSION: 1. Large right-sided hydropneumothorax with small chest tube in place in the posterior pleural space. 2. Large right suprahilar mass suspicious for malignancy. 3. Moderate to significant emphysema. 4. Liver mass could represent a metastatic lesion or malignancy.
[2022-11-06] MEDS ORDERED: HYDROmorphone 0.5 MG/0.5 ML SYRINGE IVP STA (13:16)
[2022-11-06] MEDS ORDERED: HYDROmorphone 0.5 MG/0.5 ML SYRINGE IVP PRN (14:29)
[2022-11-06] MEDS ORDERED: HYDROcodone/APAP 5-325MG 1 EACH TAB PO PRN ×2 (16:29→16:30)
[2022-11-06] MEDS ORDERED: MELATONIN 3 MG TABLET PO PRN (16:29)
[2022-11-06] MEDS ORDERED: ONDANSETRON 4 MG/2 ML VIAL IVP PRN (16:29)
[2022-11-06] MEDS ORDERED: ACETAMINOPHEN TAB 325 MG TAB PO PRN ×2 (16:29→16:30)
[2022-11-06] MEDS ORDERED: NALOXONE 0.4 MG/ML 1 ML VIAL IV PRN (16:29)
[2022-11-06] MEDS ORDERED: IPRATROPIUM-ALBUTEROL 3 ML NEB INHALATION PRN (16:30)
[2022-11-06] MEDS ORDERED: ALBUTEROL NEBULIZED 2.5 MG/3 ML INHALATION PRN (16:30)
[2022-11-06] MEDS ORDERED: IBUPROFEN 400 MG TAB PO PRN (16:30)
--- NOTE | 2022-11-06 16:36 | P.HPIM ---
History of Present Illness H&P Date: 11/06/22 Chief Complaint: swelling Patient is a 57-year-old male with known adenocarcinoma of the lung stage IV being followed at, [facility] complicated by adrenal insufficiency, HLD, Chornic hypoxic respiraotry failure on 3L NC, and CPOD who presented to the ER with complaints of swelling over his left chest and neck. Patient had a right-sided Pleurx catheter placed on 10/27/22. On arrival to the ER he was tachycardic with a pulse of 111 and a respiratory rate of 28. He was slightly hypotensive with a blood pressure of 87/62. Laboratory analysis included CBC, basic metabolic profile, liver enzymes, and troponin which were remarkable for white blood cell count 3.1, hemoglobin 8.5, and platelets of 128. Initial checks x-ray demonstrated diffuse right-sided subcutaneous emphysema. CT of the chest demonstrated large right-sided hydropneumothorax with small chest tube in place in the posterior pleural space, large right suprahilar mass suspicious for malignancy, moderate emphysema, and possible liver mass. Cardiothoracic surgery was contacted by the ER. Arrangements were made for admission. Patient seen and examined at bedside. He reports he was initially doing well after placement of his Pleurx catheter. However several days later he noted some swelling around the catheter site and starting approximately 5 days ago sig nificant swelling extending up into his right neck. Some crepitus was noted as well. Him and his noted that he was having some difficulty with breathing again, and that his voice sounded different. He has not had any difficulty swallowing or eating. He has not had any unusual weakness. He had one episode of vomiting on the way to the hospital today has otherwise been in his typical state of health since starting chemo again in August. He states that he has known masses in bilateral lungs, and that he had masses in the adrenal gland which were radiated and caused adrenal insufficiency, but no other lesions. Vital signs reviewed General: nontoxic, no distress, appears older than stated age Derm: warm, dry Eyes: EOMI, no lid lag, anicteric sclera, pupils equal round reactive to light ENT: Nose and ears atraumatic, no thrush, no pharyngeal erythema Cardiovascular: S1S2 reg, no murmur, positive posterior tibial pulse bilateral, no edema, capillary refill less than 2 seconds Lungs: crackles right base, no rhonchi, no rales, no wheeze, no accessory muscle use Abdominal: soft, nontender to palpation, no guarding, no appreciable organomegaly, normal bowel sounds Ext: no gross muscle atrophy, no contractures Neuro: CN II-XII grossly intact, lno focal neuro deficits Psych: Alert, oriented, appropriate affect Assessment/Plan: Right sided hydropneumothorax s/p pigtail cath on 10/27/22 Stage IV lung cancer COPD without exacerbation Chronic hypoxic respiratory failure at 3 L nasal cannula Adrenal insufficiency related to treatment Chronic: Prior hypertension now has episodes of hypotension Dyslipidemia Imaging: As per HPI Data Review: As per HPI The patient is admitted with an anticipated greater than 2 midnight stay for evaluation of hydropneuthorax. Surrogate decision-maker: CODE STATUS:full, no prolonged mechanical ventilation DVT prophylaxis: lovenox Anticipated discharge date: Pending Clinical course Anticipated discharge place: Pending Clinical course This dictation was prepared using [employer] voice recognition software. Though every attempt is made to correct errors during dictation some may still exist. Past Medical History Past Medical History: Cancer, COPD, Hypertension, Pneumonia Additional Past Medical History / Comment(s): Wears O2@3L NC ATC,recurrent rt lung CA receiving chemo last dose 10-08-22 @ [facility] due 10-29-22 thorocentesis in last 5 weeks, 1rst dx 2020 of stage 4 lung CA and adrenal left gland, had pneumonitis, 17 day stay in ICU with intial chemo and immuno therapy, emphysema,b/p runs low now since cancer dx and treatment had prior htn hx-has dizziness w/ falls at times improved with cortef; recurrent right-sided malignant pleural effusion History of Any Multi-Drug Resistant Organisms: None Reported Past Surgical History: Cholecystectomy Additional Past Surgical History / Comment(s): rt port a cath (power port); righ t sided thoracentesis 4 Past Anesthesia/Blood Transfusion Reactions: No Reported Reaction Additional Past Anesthesia/Blood Transfusion Reaction / Comment(s): no hx blood transfusions Past Psychological History: Anxiety Smoking Status: Former smoker Past Alcohol Use History: None Reported Past Drug Use History: Marijuana - Past Family History Mother Family Medical History: No Reported History Father Family Medical History: Cancer Additional Family Medical History / Comment(s): rt lung CA Medications and Allergies Home Medications Medication Instructions Recorded Confirmed Type ALPRAZolam [Xanax] 0.25 mg PO DAILY PRN 10/26/22 11/06/22 History Albuterol Sulfate [Albuterol 2 puff PO RT-Q6H PRN 10/26/22 11/06/22 History Sulfate Hfa] Atorvastatin [Lipitor] 40 mg PO DAILY 10/26/22 11/06/22 History Benzonatate [Tessalon Perles] 100 mg PO TID PRN 10/26/22 11/06/22 History Budesonide/Glycopyr/Formoterol 2 puff INHALATION RT-BID 10/26/22 11/06/22 History [Breztri Aerosphere Inhaler] Cholecalciferol [Vitamin D3 (25 50 mcg PO DAILY 10/26/22 11/06/22 History Mcg = 1000 Iu)] Cyanocobalamin (Vitamin B-12) 2,000 mcg PO DAILY 10/26/22 11/06/22 History [Vitamin B-12] Docusate Sodium [Dok] 100 mg PO BID PRN 10/26/22 11/06/22 History FLUoxetine HCL [PROzac] 20 mg PO DAILY 10/26/22 11/06/22 History Fludrocortisone [Florinef] 0.1 mg PO QAM 10/26/22 11/06/22 History Folic Acid 1 mg PO DAILY 10/26/22 11/06/22 History Hydrocortisone [Cortef] 10 mg PO AC-SUPPER 10/26/22 11/06/22 History Ibuprofen [Advil] 200 - 400 mg PO Q8HR PRN 10/26/22 11/06/22 History Ipratropium-Albuterol Nebulize 3 ml INHALATION RT-TID PRN 10/26/22 11/06/22 History [Duoneb 0.5 mg-3 mg/3 ml Soln] Pantoprazole Sodium [Protonix] 40 mg PO DAILY 10/26/22 11/06/22 History Zolpidem Tartrate [Zolpidem 6.25 mg PO HS 10/26/22 11/06/22 History Tartrate ER] ondansetron HCL [Zofran] 8 mg PO BID 10/26/22 11/06/22 History polyethylene glycoL 3350 [Miralax] 17 gm PO DAILY PRN 10/26/22 11/06/22 History Acetaminophen Tab [Tylenol] 650 mg PO Q6HR PRN tab 10/27/22 11/06/22 Rx HYDROcodone/APAP 5-325MG [Braddock 2 tab PO Q6HR PRN 3 Days #24 tab 10/28/22 Rx 5-325] Hydrocortisone [Cortef] 20 mg PO DAILY 11/06/22 11/06/22 History Hydrocortisone [Cortef] 20 mg PO DAILY 11/06/22 11/06/22 History Potassium Chloride [Klor-Con M20] 20 meq PO DAILY 11/06/22 11/06/22 History Sennosides-Docusate Sodium 1 tab PO HS 11/06/22 11/06/22 History [Senokot-S] Slow-Mag 71.5mg 143 mg PO DAILY 11/06/22 11/06/22 History Allergies Allergy/AdvReac Type Severity Reaction Status Date / Time No Known Allergies Allergy Verified 11/06/22 10:36 Physical Exam Osteopathic Statement: *. No significant issues noted on an osteopathic structural exam other than those noted in the History and Physical/Consult. Vitals: Vital Signs Temp Pulse Resp BP Pulse Ox 11/06/22 13:26 100 18 104/79 99 11/06/22 09:35 98.4 F 111 H 28 H 87/62 100 Intake and Output 11/06/22 11/06/22 11/06/22 06:59 14:59 22:59 Other: Weight 71.214 kg Results CBC & Chem 7: 11/06/22 10:07 11/06/22 10:07 Labs: Abnormal Lab Results - Last 24 Hours (Table) 11/06/22 11/06/22 Range/Units 10:07 10:07 WBC 3.1 L (3.8-10.6) k/uL RBC 2.71 L (4.30-5.90) m/uL Hgb 8.5 L (13.0-17.5) gm/dL Hct 24.3 L (39.0-53.0) % RDW 15.7 H (11.5-15.5) % Plt Count 128 L (150-450) k/uL Lymphocytes # 0.5 L (1.0-4.8) k/uL Sodium 136 L (137-145) mmol/L
[2022-11-06] MEDS ORDERED: HYDROCORTISONE 10 MG TAB PO ONE (17:00)
[2022-11-06] MEDS: MORPHINE SULFATE 4 MG/ML SYRINGE IVP PRN (17:12)
[2022-11-06] MEDS: BENZONATATE 100 MG CAP PO PRN (18:06)
--- NOTE | 2022-11-06 18:13 | P.GSCN ---
History of Present Illness Consult date: 11/06/22 Reason for Consult: Right-sided hydropneumothorax, subcu emphysema Requesting physician: Ryder Fowler History of present illness: This is a 57-year-old gentleman who follows on an outpatient basis with Dr. James for his primary care, Dr. Serra for his pulmonary management and with [facility] for his lung cancer. He is a past medical history significant for stage IV adenocarcinoma of the lung, adrenal adenoma, recurrent right sided malignant pleural effusions and subsequent right Pleurx catheter placement on 10/27/2022, emphysema/COPD and is on home oxygen 3 L nasal cannula as an outpatient, remote history of tobacco dependence, history of hypertension, recently hypotensive and GERD. The patient presented to the emergency department here at [facility] today with complaints of swelling in his chest and neck with complaints of hoarseness due to the swelling. He also had some complaints of nausea and vomiting. He denies any recent fever, sore throat, constipation, diarrhea, dizziness, chest pain, shortness of breath, lightheadedness, headache, presyncope or syncope. The patient reports since he has had his right Pleurx catheter placed he has had some crackling feeling to his right chest. Subsequently the swelling worsened over the last 24 hours and decided to present to the emergency department. A 12-lead EKG was completed which showed normal sinus rhythm, with a left anterior fascicular block with a heart rate of 96 BPM. A chest x-ray was completed which showed diffuse right-sided subcutaneous emphysema and could not exclude a lower lobe pneumothorax. For further evaluation a computed tomography scan of the chest was completed without contrast which demonstrated a large right-sided hydropneumothorax with small chest tube in place in the posterior pleural space, large right-sided suprahilar mass suspicious for malignancy, moderate to significant subcutaneous emphysema emphysema and a liver mass which could represent a metastatic lesion or malignancy. Laboratory results in the emergency department showed a WBC count of 3.1, hemoglobin 8.5, hematocrit 24.3, platelets 128, sodium 136, potassium 3.5, BUN 19, creatinine 0.69, glucose 89, calcium 9.0, AST 30, ALT 26, troponin less than 0.012, and albumin 3.6. Subsequently due to the patient's subcutaneous emphysema a consult was placed to Dr. Sudhir Martinez from cardiothoracic surgery for further evaluation and treatment recommendations. Review of Systems A 14 point review of systems was completed and was negative except as mentioned in the HPI. Past Medical History Past Medical History: Cancer, COPD, Hyperlipidemia, Hypertension, Pneumonia Additional Past Medical History / Comment(s): Wears O2@3L NC ATC,recurrent rt lung CA receiving chemo last dose 10-08-22 @ [facility]-Next cheom due 10-29-22/ thorocentesis in last 5 weeks, 1rst dx 2020 of stage 4 lung CA and adrenal left gland, had pneumonitis, 17 day stay in ICU with intial chemo and immuno therapy, emphysema,b/p runs low now since cancer dx and treatment had prior htn hx-has dizziness w/ falls at times improved with cortef; recurrent right-sided malignant pleural effusion History of Any Multi-Drug Resistant Organisms: None Reported Past Surgical History: Cholecystectomy Additional Past Surgical History / Comment(s): rt port a cath (power port); right sided thoracentesis 4, status post right Pleurx catheter placement on 10/27/2022 Past Anesthesia/Blood Transfusion Reactions: No Reported Reaction Additional Past Anesthesia/Blood Transfusion Reaction / Comm: no hx blood transfusions Past Psychological History: Anxiety Smoking Status: Former smoker Past Alcohol Use History: None Reported Past Drug Use History: Marijuana - Past Family History Father Family Medical History: Cancer Additional Family Medical History / Comment(s): rt lung CA Mother Additional Family Medical History / Comment(s): Kidney failure, status post kidney transplant history of manic depressive Medications and Allergies Home Medications Medication Instructions Recorded Confirmed Type ALPRAZolam [Xanax] 0.25 mg PO DAILY PRN 10/26/22 11/06/22 History Albuterol Sulfate [Albuterol 2 puff PO RT-Q6H PRN 10/26/22 11/06/22 History Sulfate Hfa] Atorvastatin [Lipitor] 40 mg PO DAILY 10/26/22 11/06/22 History Benzonatate [Tessalon Perles] 100 mg PO TID PRN 10/26/22 11/06/22 History Budesonide/Glycopyr/Formoterol 2 puff INHALATION RT-BID 10/26/22 11/06/22 History [Breztri Aerosphere Inhaler] Cholecalciferol [Vitamin D3 (25 50 mcg PO DAILY 10/26/22 11/06/22 History Mcg = 1000 Iu)] Cyanocobalamin (Vitamin B-12) 2,000 mcg PO DAILY 10/26/22 11/06/22 History [Vitamin B-12] Docusate Sodium [Dok] 100 mg PO BID PRN 10/26/22 11/06/22 History FLUoxetine HCL [PROzac] 20 mg PO DAILY 10/26/22 11/06/22 History Fludrocortisone [Florinef] 0.1 mg PO QAM 10/26/22 11/06/22 History Folic Acid 1 mg PO DAILY 10/26/22 11/06/22 History Hydrocortisone [Cortef] 10 mg PO AC-SUPPER 10/26/22 11/06/22 History Ibuprofen [Advil] 200 - 400 mg PO Q8HR PRN 10/26/22 11/06/22 History Ipratropium-Albuterol Nebulize 3 ml INHALATION RT-TID PRN 10/26/22 11/06/22 History [Duoneb 0.5 mg-3 mg/3 ml Soln] Pantoprazole Sodium [Protonix] 40 mg PO DAILY 10/26/22 11/06/22 History Zolpidem Tartrate [Zolpidem 6.25 mg PO HS 10/26/22 11/06/22 History Tartrate ER] ondansetron HCL [Zofran] 8 mg PO BID 10/26/22 11/06/22 History polyethylene glycoL 3350 [Miralax] 17 gm PO DAILY PRN 10/26/22 11/06/22 History Acetaminophen Tab [Tylenol] 650 mg PO Q6HR PRN tab 10/27/22 11/06/22 Rx HYDROcodone/APAP 5-325MG [[place] 2 tab PO Q6HR PRN 3 Days #24 tab 10/28/22 11/06/22 Rx 5-325] Hydrocortisone [Cortef] 20 mg PO DAILY 11/06/22 11/06/22 History Hydrocortisone [Cortef] 20 mg PO DAILY 11/06/22 11/06/22 History Potassium Chloride [Klor-Con M20] 20 meq PO DAILY 11/06/22 11/06/22 History Sennosides-Docusate Sodium 1 tab PO HS 11/06/22 11/06/22 History [Senokot-S] Slow-Mag 71.5mg 143 mg PO DAILY 11/06/22 11/06/22 History Allergies Allergy/AdvReac Type Severity Reaction Status Date / Time No Known Allergies Allergy Verified 11/06/22 10:36 Surgical - Exam Vital Signs Temp Pulse Resp BP Pulse Ox 98.4 F 111 H 28 H 87/62 100 11/06/22 09:35 11/06/22 09:35 11/06/22 09:35 11/06/22 09:35 11/06/22 09:35 - General Mild pain with palpation to his right neck subcutaneous emphysema well developed, well nourished, no distress, chronically ill - Eyes PERRL, normal ocular movement, no pale, no icteric - ENT normal pinna, normal nares, normal mucosa, no hearing loss, no congestion - Neck Subcutaneous emphysema to his neck no masses, no bruits, trachea midline, no venous distension - Respiratory Lung sounds essentially diminished throughout his right lobes with crackles to his right lower lobe. No rhonchi, rales or wheezes. Respirations are symmetrical and nonlabored. Oxygen saturation 99% on 3 L nasal cannula. - Cardiovascular Regular rhythm and rate. S1 and S2 present, negative for S3, gallop or murmur. No edema present. - Abdomen Abdomen is soft, nontender and nondistended. Active bowel sounds present in all 4 abdominal quadrants. No guarding or rigidity. No organomegaly appreciated. - Genitourinary Deferred - Rectum Deferred - Integumentary Subcutaneous emphysema present to his right chest and neck, some mild tenderness with palpation. Skin is warm, dry without cyanosis or clubbing. no rash, no growths, no abnormal pigmentation - Neurologic No focal deficit. normal coordination, normal sensation - Musculoskeletal Moves all 4 extremities with equal strength bilateral. - Psychiatric oriented to time, oriented to person, oriented to place, speech is normal, memory intact Results - Labs 11/12/22 06:00 11/12/22 06:00 Abnormal Lab Results - Last 24 Hours (Table) 11/06/22 11/06/22 Range/Units 10:07 10:07 WBC 3.1 L (3.8-10.6) k/uL RBC 2.71 L (4.30-5.90) m/uL Hgb 8.5 L (13.0-17.5) gm/dL Hct 24.3 L (39.0-53.0) % RDW 15.7 H (11.5-15.5) % Plt Count 128 L (150-450) k/uL Lymphocytes # 0.5 L (1.0-4.8) k/uL Sodium 136 L (137-145) mmol/L Diabetes panel 11/06/22 Range/Units 10:07 Sodium 136 L (137-145) mmol/L Potassium 3.5 (3.5-5.1) mmol/L Chloride 103 (98-107) mmol/L Carbon Dioxide 24 (22-30) mmol/L BUN 19 (9-20) mg/dL Creatinine 0.69 (0.66-1.25) mg/dL Glucose 89 (74-99) mg/dL Calcium 9.0 (8.4-10.2) mg/dL AST 30 (17-59) U/L ALT 26 (4-49) U/L Alkaline Phosphatase 79 (38-126) U/L Total Protein 6.7 (6.3-8.2) g/dL Albumin 3.6 (3.5-5.0) g/dL Calcium panel 11/06/22 Range/Units 10:07 Calcium 9.0 (8.4-10.2) mg/dL Albumin 3.6 (3.5-5.0) g/dL Pituitary panel 11/06/22 Range/Units 10:07 Sodium 136 L (137-145) mmol/L Potassium 3.5 (3.5-5.1) mmol/L Chloride 103 (98-107) mmol/L Carbon Dioxide 24 (22-30) mmol/L BUN 19 (9-20) mg/dL Creatinine 0.69 (0.66-1.25) mg/dL Glucose 89 (74-99) mg/dL Calcium 9.0 (8.4-10.2) mg/dL Adrenal panel 11/06/22 Range/Units 10:07 Sodium 136 L (137-145) mmol/L Potassium 3.5 (3.5-5.1) mmol/L Chloride 103 (98-107) mmol/L Carbon Dioxide 24 (22-30) mmol/L BUN 19 (9-20) mg/dL Creatinine 0.69 (0.66-1.25) mg/dL Glucose 89 (74-99) mg/dL Calcium 9.0 (8.4-10.2) mg/dL Total Bilirubin 1.2 (0.2-1.3) mg/dL AST 30 (17-59) U/L ALT 26 (4-49) U/L Alkaline Phosphatase 79 (38-126) U/L Total Protein 6.7 (6.3-8.2) g/dL Albumin 3.6 (3.5-5.0) g/dL - Imaging Chest x-ray: report reviewed, image reviewed CT scan - chest: report reviewed, image reviewed Assessment and Plan Assessment: Right-sided hydropneumothorax with subcutaneous emphysema to his right chest and neck History of recurrent right-sided malignant pleural effusions, status post right Pleurx catheter placement on 10/27/2022 Stage IV lung cancer COPD without exacerbation Chronic hypoxic respiratory failure on 3 L nasal cannula continuously as an outpatient Adrenal insufficiency related to treatment History of hypertension History of hypotension Dyslipidemia Anxiety Plan: The patient was seen and examined at his bedside in the emergency department wi th his present at his bedside. The patient was seen and examined in conjunction with Dr. Sudhir Martinez from cardiothoracic surgery. His chart and diagnostic were reviewed. Due to the findings on the computed tomography scan of the chest and obvious subcutaneous emphysema to his right chest and neck his right Pleurx catheter has been placed to low continuous wall suction -30 centimeters H2O. Once his chest tube was placed to low continuous wall suction there was a intermittent air leak present to his Pleur-evac. His subcutaneous emphysema was also reduced with manual compression. The patient reports he feels somewhat better since the chest tube has been placed to low continuous wall suction and after manual compression of his subcutaneous emphysema. We will continue to monitor his daily chest x-rays. Encourage use of his incentive spirometry 10 times every hour while awake. Medical management and other comorbidities per primary care service. More recommendations to follow based on patient's clinical course. Thank you for this consult and we'll look for to working with you in the care of this patient. I have personally seen and examined the patient, performed the documentation and the assessment and plan as written. 30 minutes spent on the visit . Arnold BRISCOE I have personally seen and examined the patient and agree with the assessment and plan as dictated by the DOOR TO DOOR SALES REPRESENTATIVE. 40 min spent on visit. Mimi Martinez MD
[2022-11-06] MEDS: IPRATROPIUM 0.5 MG/2.5 ML NEBU INHALATION SCH (19:28)
[2022-11-06] MEDS: SYMBICORT 160-4.5 MCG INHALER INHALATION SCH (19:28)
[2022-11-06] MEDS ORDERED: NON FORMULARY DRUG (Budesonide/Glycopyr/Formoterol [Breztri Aerosphere Inhaler] 10.7 GM Gm INHALATION SCH (20:00)
[2022-11-06] MEDS ORDERED: ZOLPIDEM 5 MG TAB PO SCH (21:00)
[2022-11-06] MEDS: HYDROcodone/APAP 5-325MG 1 EACH TAB PO PRN (21:47)
[2022-11-06] MEDS: ALPRAZolam 0.25 MG TAB PO PRN (21:48)
[2022-11-06] MEDS: SENNOSIDES-DOCUSATE SODIUM 1 EACH TAB PO SCH (21:48)
[2022-11-06] MEDS: ONDANSETRON 4 MG TAB PO SCH (21:48)
[2022-11-07] MEDS: BENZONATATE 100 MG CAP PO PRN ×3 (06:31→20:49)
[2022-11-07] MEDS: MORPHINE SULFATE 4 MG/ML SYRINGE IVP PRN ×4 (06:31→20:49)
[2022-11-07 07:48] LABS: HCT 22.8 % (39.0-53.0); HGB 7.9 gm/dL (13.0-17.5); MCH 31.6 pg (25.0-35.0); MCHC 34.6 g/dL (31.0-37.0); MCV 91.5 fL (80.0-100.0); Mean Platelet Volume 10.6; Platelet Count 105 k/uL (150-450); RBC 2.49 m/uL (4.30-5.90); RDW 15.8 % (11.5-15.5); WBC 3.3 k/uL (3.8-10.6)
--- NOTE | 2022-11-07 08:01 | XR ---
EXAMINATION TYPE: XR chest 1V portable DATE OF EXAM: 11/07/2022 CLINICAL HISTORY: Difficulty breathing progress study. Right-sided hydropneumothorax and subcutaneou s emphysema TECHNIQUE: Single AP portable upright view of the chest is obtained. COMPARISON: Chest x-ray and CT from one day earlier FINDINGS: Stable right-sided Mediport catheter. Background chronic emphysematous change with extensive right-sided subcutaneous emphysema extending i nto the left neck redemonstrated. Right basilar pneumothorax again seen. Adjacent right lung atelecta sis redemonstrated. Left lung remains clear. Cardiac silhouette size stable and within normal limits. Osseous structures are intact. Cholecystectomy clips are redemonstrated. IMPRESSION: 1. Right basilar pneumothorax with adjacent right lung atelectasis and extensive overlying subcutaneo us emphysema on background chronic emphysematous changes are all redemonstrated. No significant medellin e from most recent studies.
[2022-11-07 08:17] LABS: African American GFR (CKD) >90 (>60 ml/min/1.73 sqM); Anion Gap 8 mmol/L; Blood Urea Nitrogen 25 mg/dL (9-20); Calcium 8.8 mg/dL (8.4-10.2); Carbon Dioxide 27 mmol/L (22-30); Chloride 101 mmol/L (98-107); Glucose 88 mg/dL (74-99); Non-African American GFR(CKD) >90 (>60 ml/min/1.73 sqM); Potassium 4.2 mmol/L (3.5-5.1); Sodium 136 mmol/L (137-145)
[2022-11-07] MEDS: SYMBICORT 160-4.5 MCG INHALER INHALATION SCH ×2 (08:59→19:16)
[2022-11-07] MEDS: IPRATROPIUM 0.5 MG/2.5 ML NEBU INHALATION SCH ×4 (08:59→19:16)
[2022-11-07] MEDS: FLUDROCORTISONE 0.1 MG TAB PO SCH (09:59)
[2022-11-07] MEDS: FLUoxetine HCL 20 MG CAP PO SCH (09:59)
[2022-11-07] MEDS: ATORVASTATIN 40 MG TAB PO SCH (09:59)
[2022-11-07] MEDS: HYDROCORTISONE 20 MG TAB PO SCH (09:59)
[2022-11-07] MEDS: POTASSIUM CHLORIDE ER 20 MEQ TAB.ER PO SCH (09:59)
[2022-11-07] MEDS: PANTOPRAZOLE 40 MG TABLET PO SCH (09:59)
[2022-11-07] MEDS: CHOLECALCIFEROL 25 MCG (1000 IU) TABLET PO SCH (09:59)
[2022-11-07] MEDS: FOLIC ACID 1 MG TAB PO SCH (09:59)
[2022-11-07] MEDS: ONDANSETRON 4 MG TAB PO SCH ×2 (09:59→20:49)
[2022-11-07] MEDS: CYANOCOBALAMIN 500 MCG TAB PO SCH (09:59)
[2022-11-07] MEDS: MAGNESIUM OXIDE 400 MG TAB PO SCH (09:59)
[2022-11-07] MEDS: ENOXAPARIN 40 MG/0.4 ML SYRINGE SQ SCH (10:00)
--- NOTE | 2022-11-07 11:04 | P.PN ---
Subjective Progress Note Date: 11/07/22 Principal diagnosis: Right-sided hydropneumothorax, subcu emphysema. Past medical history significant for stage IV adenocarcinoma of the lung, adrenal adenoma, recurrent right sided malignant pleural effusions and subsequent right Pleurx catheter placement on 10/27/2022, emphysema/COPD and is on home oxygen 3 L nasal cannula as an outpatient, remote history of tobacco dependence, history of hypertension, recently hypotensive and GERD. The patient was seen and examined in follow-up today 11/07/2022 at his bedside on the third floor cardiac stepdown unit. Currently he is sitting up in bed eating his breakfast, is awake, alert, oriented 3 and is in no acute distress. Denies any complaints of pain or shortness of breath at this time and reports he feels much improved today since his right Pleurx catheter was placed to low continuous wall suction. Oxygen saturation are 100% on 3 L nasal cannula and he is achieving 1500 mL on his incentive spirometry was encouraged. Remote telemetry showing normal sinus rhythm heart rate 84 BPM. Right Pleurx catheter is connected to a Pleur-evac system on low continuous wall suction at -30 cm H2O, intermittent air leak is present. Draining thin serosanguineous drainage with 70 mL output in the last 8 hours and 170 mL output in the last 24 hours. Patient does continue to have some subcutaneous emphysema present to his neck and right chest, although is much improved from yesterday. Chest x-ray was reviewed. Objective - Vital Signs Vital signs: Vital Signs Temp 97.7 F 11/07/22 09:48 Pulse 90 11/07/22 10:26 Resp 18 11/07/22 10:26 BP 104/69 11/07/22 09:48 Pulse Ox 98 11/07/22 09:48 FiO2 Intake & Output 11/06/22 11/07/22 11/07/22 18:59 06:59 18:59 Intake Total 240 Output Total 170 Balance -170 240 Weight 71.214 kg 71.214 kg Intake: Oral 240 Output: Chest Tube Drainage 170 Pleural Catheter Right 170 Lower Other: Voiding Method Bedside Commode Bedside Commode Urinal Urinal # Voids 1 - Exam CONSTITUTIONAL: Appears comfortable, cooperative, no acute distress RESPIRATORY: Lungs sounds diminished bilaterally. Respirations are symmetrical, nonlabored. Currently on 3 L nasal cannula with oxygen saturation 100%. Able to achieve 1500 mL on incentive spirometry. Strong cough. CARDIOVASCULAR: S1, S2 present. Regular rate and rhythm, sinus rhythm on telemetry. Palpable peripheral pulses bilaterally. No edema present. No calf pain or tenderness noted. SCDs present. GASTROINTESTINAL: Abdomen soft, nontender, nondistended. Active bowel sounds present 4 quadrants. Tolerating diet. Positive bowel movement. GENITOURINARY: Continues to void clear, yellow urine INTEGUMENTARY: Skin is warm and dry with evidence of good perfusion. Right chest Pleurx catheter dressing clean, dry and intact. Subcutaneous emphysema present to his right chest and neck. NEUROLOGIC: Cranial nerves II through XII intact. No focal deficits. MUSKULOSKELETAL: Able to move all extremities, strength equal bilaterally, gait normal PSYCHIATRIC: Alert and oriented to person place and time, appropriate affect, intact judgment and insight INVASIVE LINES AND TUBES: Pleurx catheter is connected to Pleur-evac on low continuous wall suction -30 cm H2O. Intermittent air leak is present. Draining thin serosanguineous drainage. - Allied health notes Allied health notes reviewed: nursing - Labs CBC & Chem 7: 11/07/22 07:30 11/07/22 07:30 Labs: Abnormal Lab Results - Last 24 Hours (Table) 11/07/22 11/07/22 Range/Units 07:30 07:30 WBC 3.3 L (3.8-10.6) k/uL RBC 2.49 L (4.30-5.90) m/uL Hgb 7.9 L (13.0-17.5) gm/dL Hct 22.8 L (39.0-53.0) % RDW 15.8 H (11.5-15.5) % Plt Count 105 L (150-450) k/uL Sodium 136 L (137-145) mmol/L BUN 25 H (9-20) mg/dL - Imaging and Cardiology Chest x-ray: report reviewed, image reviewed Assessment and Plan Assessment: Right-sided hydropneumothorax with subcutaneous emphysema to his right chest and neck History of recurrent right-sided malignant pleural effusions, status post right Pleurx catheter placement on 10/27/2022 Stage IV lung cancer COPD without exacerbation Chronic hypoxic respiratory failure on 3 L nasal cannula continuously as an outpatient Adrenal insufficiency related to treatment History of hypertension History of hypotension Dyslipidemia Anxiety Plan: Keep right Pleurx catheter connected to Pleur-evac on low continuous wall suction -30 cm H2O. Continue to record strict inaccurate I's and O's. Encourage use of incentive spirometry 10 times every hour while awake. Pain control per current when necessary orders. Increase activity as tolerated May add suction extension tubing to the Pleur- evac to allow the patient ambulate in his room. Medical management and other comorbidities per primary care service. Continue to monitor daily chest x-rays. More recommendations follow based on patient's clinical course. Time with Patient: Less than 30
[2022-11-07] MEDS ORDERED: ZOLPIDEM 5 MG TAB PO PRN (15:10)
--- NOTE | 2022-11-07 15:11 | P.PN ---
Subjective Progress Note Date: 11/07/22 (delayed charting seen at 0930) Patient is a 57-year-old male with known adenocarcinoma of the lung stage IV being followed at, [facility] complicated by adrenal insufficie ncy, HLD, Chornic hypoxic respiraotry failure on 3L NC, and CPOD who presented to the ER with complaints of swelling over his left chest and neck. Patient had a right-sided Pleurx catheter placed on 10/27/22. On arrival to the ER he was tachycardic with a pulse of 111 and a respiratory rate of 28. He was slightly hypotensive with a blood pressure of 87/62. Laboratory analysis included CBC, basic metabolic profile, liver enzymes, and troponin which were remarkable for white blood cell count 3.1, hemoglobin 8.5, and platelets of 128. Initial checks x-ray demonstrated diffuse right-sided subcutaneous emphysema. CT of the chest demonstrated large right-sided hydropneumothorax with small chest tube in place in the posterior pleural space, large right suprahilar mass suspicious for malignancy, moderate emphysema, and possible liver mass. Cardiothoracic surgery was contacted by the ER. Arrangements were made for admission. His pleurx cath was hooked to a chest tube and sucction. Patient seen and examined at bedside. He is feeling less pressure in his neck but states that some of the crepitus has progressed to the left side with th right-sided swelling going down significantly as well. Left chest wall. He denies any worsening shortness of breath or chest discomfort. Denies any nausea or vomiting. Vital signs reviewed General: nontoxic, no distress, appears older than stated age Cardiovascular: S1S2 reg, no murmur, positive posterior tibial pulse bilateral, Lungs: Decreased bs right, crepitus over right chest wall, no rhonchi, no rales , no accessory muscle use,pleurx in place with air bubbles Abdominal: soft, nontender to palpation, no guarding, no appreciable organomegaly, Ext: no gross muscle atrophy, no edema b/l lower extremities, no contractures Neuro: CN II-XI grossly intact, no focal neuro deficits Psych: Alert, oriented, appropriate affect Assessment/Plan: Right sided hydropneumothorax s/p pigtail cath on 10/27/22 Stage IV lung cancer COPD without exacerbation Chronic hypoxic respiratory failure at 3 L nasal cannula Thrombocytopenia - Pleurx cath to suction - CT surgery note reviewed: continue to suction, daily CXR - follow CBC - Albuterol every 6 hours and needed, Symbicort 2 puffs twice daily -Follow CBC -Continue with O2 supplementation to maintain SpO2 greater than or equal to 90% - incentive spirometer Adrenal insufficiency, secondary related to lung cancer treatment -Florinef 0.1 mg in the morning, Cortef 10 mg in the morning and 10 mg at night Chronic: Prior hypertension now has episodes of hypotension Dyslipidemia Imaging: CXR as reviewed by myself on 11/07: continue subcutaneous air with residual pneumothorax Data Review: Vitals reviewed in afebrile for the last 24 hours. DVT prophylaxis: lovenox Anticipated discharge date: Pending Clinical course Anticipated discharge place: Pending Clinical course This dictation was prepared using [employer] voice recognition software. Though every attempt is made to correct errors during dictation some may still exist. Objective - Vital Signs Vital signs: Vital Signs Temp 97.7 F 11/07/22 09:48 Pulse 64 11/07/22 14:22 Resp 18 11/07/22 14:22 BP 107/75 11/07/22 11:21 Pulse Ox 100 11/07/22 11:21 FiO2 Intake & Output 11/06/22 11/07/22 11/07/22 18:59 06:59 18:59 Intake Total 480 Output Total 170 Balance -170 480 Weight 71.214 kg 71.214 kg Intake: Oral 480 Output: Chest Tube Drainage 170 Pleural Catheter Right 170 Lower Other: Voiding Method Bedside Commode Bedside Commode Urinal Urinal # Voids 1 - Labs CBC & Chem 7: 11/07/22 07:30 11/07/22 07:30 Labs: Abnormal Lab Results - Last 24 Hours (Table) 11/07/22 11/07/22 Range/Units 07:30 07:30 WBC 3.3 L (3.8-10.6) k/uL RBC 2.49 L (4.30-5.90) m/uL Hgb 7.9 L (13.0-17.5) gm/dL Hct 22.8 L (39.0-53.0) % RDW 15.8 H (11.5-15.5) % Plt Count 105 L (150-450) k/uL Sodium 136 L (137-145) mmol/L BUN 25 H (9-20) mg/dL
[2022-11-07] MEDS: HYDROCORTISONE 10 MG TAB PO SCH (17:07)
[2022-11-07] MEDS: ALPRAZolam 0.25 MG TAB PO PRN (20:49)
[2022-11-07] MEDS: SENNOSIDES-DOCUSATE SODIUM 1 EACH TAB PO SCH (20:49)
[2022-11-08] MEDS: MORPHINE SULFATE 4 MG/ML SYRINGE IVP PRN ×3 (00:59→11:19)
--- NOTE | 2022-11-08 07:05 | XR ---
EXAMINATION TYPE: XR chest 1V portable DATE OF EXAM: 11/08/2022 CLINICAL HISTORY: Difficulty breathing progress study. TECHNIQUE: Single AP portable upright view of the chest is obtained. COMPARISON: Chest x-ray from one day earlier and older studies. FINDINGS: Stable right-sided Mediport catheter. Background chronic emphysematous change with extensive right-sided subcutaneous emphysema extending i nto the left neck redemonstrated. Right basilar pneumothorax remains present. Adjacent right mid to l ower lung lung atelectasis redemonstrated. Left lung remains clear. Cardiac silhouette size stable an d upper limits of normal. Osseous structures are intact. Cholecystectomy clips are redemonstrated. IMPRESSION: Right basilar pneumothorax with adjacent right lung atelectasis and extensive overlying subcutaneous emphysema on background chronic emphysematous changes are all redemonstrated. No signifi cant change from one day earlier.
[2022-11-08] MEDS: BENZONATATE 100 MG CAP PO PRN ×2 (08:06→21:20)
[2022-11-08] MEDS: MAGNESIUM OXIDE 400 MG TAB PO SCH (08:06)
[2022-11-08] MEDS: CYANOCOBALAMIN 500 MCG TAB PO SCH (08:06)
[2022-11-08] MEDS: PANTOPRAZOLE 40 MG TABLET PO SCH (08:06)
[2022-11-08] MEDS: POTASSIUM CHLORIDE ER 20 MEQ TAB.ER PO SCH (08:06)
[2022-11-08] MEDS: CHOLECALCIFEROL 25 MCG (1000 IU) TABLET PO SCH (08:06)
[2022-11-08] MEDS: ONDANSETRON 4 MG TAB PO SCH ×2 (08:06→21:20)
[2022-11-08] MEDS: ATORVASTATIN 40 MG TAB PO SCH (08:06)
[2022-11-08] MEDS: FLUoxetine HCL 20 MG CAP PO SCH (08:06)
[2022-11-08] MEDS: FOLIC ACID 1 MG TAB PO SCH (08:06)
[2022-11-08] MEDS: HYDROCORTISONE 20 MG TAB PO SCH (08:06)
[2022-11-08] MEDS: FLUDROCORTISONE 0.1 MG TAB PO SCH (08:07)
[2022-11-08] MEDS: ENOXAPARIN 40 MG/0.4 ML SYRINGE SQ SCH (08:07)
[2022-11-08] MEDS: SYMBICORT 160-4.5 MCG INHALER INHALATION SCH ×2 (08:35→20:17)
[2022-11-08] MEDS: IPRATROPIUM 0.5 MG/2.5 ML NEBU INHALATION SCH ×4 (08:39→20:18)
--- NOTE | 2022-11-08 08:52 | P.PN ---
Subjective Progress Note Date: 11/08/22 Principal diagnosis: Right-sided hydropneumothorax, subcu emphysema. Past medical history significant for stage IV adenocarcinoma of the lung, adrenal adenoma, recurrent right sided malignant pleural effusions and subsequent right Pleurx catheter placement on 10/27/2022, emphysema/COPD and is on home oxygen 3 L nasal cannula as an outpatient, remote history of tobacco dependence, history of hypertension, recently hypotensive and GERD. The patient was seen and examined in follow-up today's 2022 at his bedside on the third floor cardiac stepdown unit. Currently sitting up in bed, is awake, alert, oriented 3 and is in no acute apparent distress. Tolerating his breakfast. Denies any complaints of pain or shortness of breath at this time and reports his voice is almost back to normal. His subcutaneous emphysema has significantly improved, he does report when chewing he can hear some crepitus or crackling behind his right ear. There is still some subcutaneous emphysema present with palpitation to his right chest, to his right and left neck and to his right back. Chest x-ray was reviewed. Oxygen saturations are 100% on 3 L nasal cannula and he is achieving 1850 mL on his incentive spirometry the encouragement. Right chest Pleurx catheter remains in place to Pleur-evac which is connected to low continuous wall suction -30 cm H2O. Intermittent air leak is present. Draining thin serosanguineous drainage with 160 mL output in the last 24 hours. Objective - Vital Signs Vital signs: Vital Signs Temp 98.1 F 11/08/22 08:00 Pulse 85 11/08/22 08:00 Resp 18 11/08/22 08:00 BP 108/72 11/08/22 08:00 Pulse Ox 100 11/08/22 08:00 FiO2 Intake & Output 11/07/22 11/08/22 11/08/22 18:59 06:59 18:59 Intake Total 480 Output Total 680 Balance 480 -680 Intake: Oral 480 Output: Chest Tube Drainage 180 Pleural Catheter Right 180 Lower Urine 500 Other: Voiding Method Bedside Commode Bedside Commode Urinal Urinal # Voids 1 - Exam CONSTITUTIONAL: Appears comfortable, cooperative, no acute distress RESPIRATORY: Lungs sounds diminished to his right lobes, essentially clear to his left lobes. Respirations are symmetrical, nonlabored. Currently on 3 L nasal cannula with oxygen saturation 100%. Able to achieve 1850 mL on his incentive spirometry. Strong cough. CARDIOVASCULAR: S1, S2 present. Regular rate and rhythm, sinus rhythm on telemetry. Palpable peripheral pulses bilaterally. No edema present. No calf pain or tenderness noted. GASTROINTESTINAL: Abdomen soft, nontender, nondistended. Active bowel sounds present 4 quadrants. Tolerating diet. GENITOURINARY: Continues to void clear, yellow urine. INTEGUMENTARY: Skin is warm and dry with evidence of good perfusion. Right chest Pleurx catheter dressing clean, dry and intact. Subcutaneous emphysema improved, although remains present with palpitation to his right chest, right and left neck and to his right back. NEUROLOGIC: Cranial nerves II through XII intact. No focal deficits. MUSKULOSKELETAL: Able to move all extremities, strength equal bilaterally, gait normal PSYCHIATRIC: Alert and oriented to person place and time, appropriate affect, intact judgment and insight INVASIVE LINES AND TUBES: Pleurx catheter is connected to Pleur-evac on low continuous wall suction -30 cm H2O. Intermittent air leak is present. Draining thin serosanguineous drainage. - Allied health notes Allied health notes reviewed: nursing - Labs CBC & Chem 7: 11/07/22 07:30 11/07/22 07:30 - Imaging and Cardiology Chest x-ray: report reviewed, image reviewed Assessment and Plan Assessment: Right-sided hydropneumothorax with subcutaneous emphysema to his right chest and neck History of recurrent right-sided malignant pleural effusions, status post right Pleurx catheter placement on 10/27/2022 Stage IV lung cancer COPD without exacerbation Chronic hypoxic respiratory failure on 3 L nasal cannula continuously as an outpatient Adrenal insufficiency related to treatment History of hypertension History of hypotension Dyslipidemia Anxiety Plan: Keep right Pleurx catheter connected to Pleur-evac on low continuous wall suction -30 cm H2O. Continue to record strict inaccurate I's and O's. Encourage use of incentive spirometry 10 times every hour while awake. Pain control per current when necessary orders. Increase activity as tolerated extension tubing added to the Pleur-evac to allow the patient ambulate in his room. Medical management and other comorbidities per primary care service. Continue to monitor daily chest x-rays. More recommendations follow based on patient's clinical course. Time with Patient: Less than 30
[2022-11-08 12:01] LABS: HCT 21.7 % (39.0-53.0); HGB 7.5 gm/dL (13.0-17.5); MCH 31.1 pg (25.0-35.0); MCHC 34.5 g/dL (31.0-37.0); MCV 90.1 fL (80.0-100.0); Mean Platelet Volume 11.3; RBC 2.41 m/uL (4.30-5.90); RDW 15.7 % (11.5-15.5); WBC 3.1 k/uL (3.8-10.6)
[2022-11-08 12:02] LABS: African American GFR (CKD) >90 (>60 ml/min/1.73 sqM); Anion Gap 6 mmol/L; Blood Urea Nitrogen 22 mg/dL (9-20); Calcium 8.8 mg/dL (8.4-10.2); Carbon Dioxide 33 mmol/L (22-30); Chloride 95 mmol/L (98-107); Glucose 102 mg/dL (74-99); Non-African American GFR(CKD) >90 (>60 ml/min/1.73 sqM); Potassium 3.7 mmol/L (3.5-5.1); Sodium 134 mmol/L (137-145)
[2022-11-08 12:14] LABS: Platelet Count 75 k/uL (150-450)
--- NOTE | 2022-11-08 14:34 | P.PN ---
Subjective Progress Note Date: 11/08/22 (delayed charting seen at 10 am) Patient is a 57-year-old male with known adenocarcinoma of the lung stage IV being followed at, [facility] complicated by adrenal insuffici ency, HLD, Chornic hypoxic respiraotry failure on 3L NC, and CPOD who presented to the ER with complaints of swelling over his left chest and neck. Patient had a right-sided Pleurx catheter placed on 10/27/22. On arrival to the ER he was tachycardic with a pulse of 111 and a respiratory rate of 28. He was slightly hypotensive with a blood pressure of 87/62. Laboratory analysis included CBC, basic metabolic profile, liver enzymes, and troponin which were remarkable for white blood cell count 3.1, hemoglobin 8.5, and platelets of 128. Initial checks x-ray demonstrated diffuse right-sided subcutaneous emphysema. CT of the chest demonstrated large right-sided hydropneumothorax with small chest tube in place in the posterior pleural space, large right suprahilar mass suspicious for malignancy, moderate emphysema, and possible liver mass. Cardiothoracic surgery was contacted by the ER. Arrangements were made for admission. His pleurx cath was hooked to a chest tube and sucction. Patient seen and examined at bedside. He continues to have some chest discomfort from the crepitus. He states his neck swelling is slightly better. He has no other complaints currently. He has not yet had a bowel movement. Vital signs reviewed General: nontoxic, no distress, appears older than stated age Cardiovascular: S1S2 reg, no murmur, positive posterior tibial pulse bilateral, Lungs: Decreased bs right, crepitus over right chest wall, no rhonchi, no rales , no accessory muscle use,pleurx in place with air bubbles Abdominal: soft, nontender to palpation, no guarding, no appreciable organomegaly, Ext: no gross muscle atrophy, no edema b/l lower extremities, no contractures Neuro: CN II-XI grossly intact, no focal neuro deficits Psych: Alert, oriented, appropriate affect Assessment/Plan: Right sided hydropneumothorax s/p pigtail cath on 10/27/22 Stage IV lung cancer COPD without exacerbation Chronic hypoxic respiratory failure at 3 L nasal cannula Thrombocytopenia, chronic but worsening - Pleurx cath to suction - case discussed with cardiothoracic surgery. Suction has been decreased from - 30 to -20. We'll continue to monitor. - Albuterol every 6 hours and needed, Symbicort 2 puffs twice daily - Continue with O2 supplementation to maintain SpO2 greater than or equal to 90% - incentive spirometer - Discontinue Lovenox - repeat CBC in AM Adrenal insufficiency, secondary related to lung cancer treatment -Florinef 0.1 mg in the morning, Cortef 10 mg in the morning and 10 mg at night Chronic: Prior hypertension now has episodes of hypotension Dyslipidemia Imaging: Chest x-ray as reviewed by myself from 11/08/22, continue to significant subcutaneous emphysema with right basilar pneumothorax Data Review: Vital signs reviewed and afebrile the last 24 hours. Labs reviewed included CBC and basic metabolic profile which are remarkable for white blood cell count 3.1, hemoglobin 7.5, platelets 75, sodium 134, BUN 22 DVT prophylaxis: lovenox Anticipated discharge date: Pending Clinical course Anticipated discharge place: Pending Clinical course This dictation was prepared using Head[employer] voice recognition software. Though every attempt is made to correct errors during dictation some may still exist. Objective - Vital Signs Vital signs: Vital Signs Temp 98.1 F 11/08/22 08:00 Pulse 88 11/08/22 11:47 Resp 18 11/08/22 09:40 BP 108/72 11/08/22 08:00 Pulse Ox 100 11/08/22 08:00 FiO2 Intake & Output 11/07/22 11/08/22 11/08/22 18:59 06:59 18:59 Intake Total 480 120 Output Total 680 Balance 480 -680 120 Intake: Oral 480 120 Output: Chest Tube Drainage 180 Pleural Catheter Right 180 Lower Urine 500 Other: Voiding Method Bedside Commode Bedside Commode Bedside Commode Urinal Urinal Urinal # Voids 1 - Labs CBC & Chem 7: 11/08/22 11:33 11/08/22 11:33 Labs: Abnormal Lab Results - Last 24 Hours (Table) 11/08/22 11/08/22 Range/Units 11:33 11:33 WBC 3.1 L (3.8-10.6) k/uL RBC 2.41 L (4.30-5.90) m/uL Hgb 7.5 L (13.0-17.5) gm/dL Hct 21.7 L (39.0-53.0) % RDW 15.7 H (11.5-15.5) % Plt Count 75 L (150-450) k/uL Sodium 134 L (137-145) mmol/L Chloride 95 L (98-107) mmol/L Carbon Dioxide 33 H (22-30) mmol/L BUN 22 H (9-20) mg/dL Glucose 102 H (74-99) mg/dL
[2022-11-08] MEDS: HYDROmorphone 0.5 MG/0.5 ML SYRINGE IVP PRN ×2 (16:48→21:19)
[2022-11-08] MEDS: HYDROCORTISONE 10 MG TAB PO SCH (16:48)
[2022-11-08] MEDS: ALPRAZolam 0.25 MG TAB PO PRN (21:20)
[2022-11-08] MEDS: SENNOSIDES-DOCUSATE SODIUM 1 EACH TAB PO SCH (21:20)
[2022-11-08] MEDS: BACITRACIN OINT 1 EACH PACKET TOPICAL SCH (21:42)
[2022-11-09] MEDS: SYMBICORT 160-4.5 MCG INHALER INHALATION SCH ×2 (07:59→20:41)
[2022-11-09] MEDS: IPRATROPIUM 0.5 MG/2.5 ML NEBU INHALATION SCH ×4 (08:00→20:41)
[2022-11-09] MEDS: BACITRACIN OINT 1 EACH PACKET TOPICAL SCH ×3 (08:20→20:44)
[2022-11-09] MEDS: CYANOCOBALAMIN 500 MCG TAB PO SCH (08:20)
[2022-11-09] MEDS: ATORVASTATIN 40 MG TAB PO SCH (08:20)
[2022-11-09] MEDS: CHOLECALCIFEROL 25 MCG (1000 IU) TABLET PO SCH (08:20)
[2022-11-09] MEDS: HYDROCORTISONE 20 MG TAB PO SCH (08:21)
[2022-11-09] MEDS: BENZONATATE 100 MG CAP PO PRN ×2 (08:21→20:38)
[2022-11-09] MEDS: FLUoxetine HCL 20 MG CAP PO SCH (08:21)
[2022-11-09] MEDS: FLUDROCORTISONE 0.1 MG TAB PO SCH (08:21)
[2022-11-09] MEDS: FOLIC ACID 1 MG TAB PO SCH (08:21)
[2022-11-09] MEDS: POTASSIUM CHLORIDE ER 20 MEQ TAB.ER PO SCH (08:32)
[2022-11-09] MEDS: MAGNESIUM OXIDE 400 MG TAB PO SCH (08:33)
[2022-11-09] MEDS: PANTOPRAZOLE 40 MG TABLET PO SCH (08:33)
[2022-11-09] MEDS: ONDANSETRON 4 MG TAB PO SCH ×2 (08:36→20:38)
[2022-11-09 09:24] LABS: Basophils % (A) 0 %; Eosinophils # (A) 0.1 k/uL (0-0.7); Eosinophils % (A) 2 %; HGB 7.5 gm/dL (13.0-17.5); Lymphocytes # (A) 0.3 k/uL (1.0-4.8); Lymphocytes % (A) 10 %; MCH 31.1 pg (25.0-35.0); MCHC 34.2 g/dL (31.0-37.0); MCV 90.8 fL (80.0-100.0); Mean Platelet Volume 10.4; Monocytes # (A) 0.2 k/uL (0-1.0); Monocytes % (A) 7 %; Neutrophils # (A) 2.2 k/uL (1.3-7.7); Neutrophils % (A) 80 %; RBC 2.42 m/uL (4.30-5.90); RDW 15.4 % (11.5-15.5); WBC 2.8 k/uL (3.8-10.6)
[2022-11-09 09:28] LABS: Platelet Count 47 k/uL (150-450)
[2022-11-09 09:40] LABS: African American GFR (CKD) >90 (>60 ml/min/1.73 sqM); Anion Gap 9 mmol/L; Blood Urea Nitrogen 27 mg/dL (9-20); Calcium 9.1 mg/dL (8.4-10.2); Carbon Dioxide 31 mmol/L (22-30); Chloride 94 mmol/L (98-107); Glucose 106 mg/dL (74-99); Non-African American GFR(CKD) >90 (>60 ml/min/1.73 sqM); Potassium 3.3 mmol/L (3.5-5.1); Sodium 134 mmol/L (137-145)
--- NOTE | 2022-11-09 10:19 | P.PN ---
Subjective Progress Note Date: 11/09/22 Principal diagnosis: Right-sided hydropneumothorax, subcu emphysema. Past medical history significant for stage IV adenocarcinoma of the lung, adrenal adenoma, recurrent right sided malignant pleural effusions and subsequent right Pleurx catheter placement on 10/27/2022, emphysema/COPD and is on home oxygen 3 L nasal cannula as an outpatient, remote history of tobacco dependence, history of hypertension, recently hypotensive and GERD. Patient was seen and examined in follow-up today 11/09/2022 at his bedside on the third floor cardiac stepdown unit. Currently sitting up in bed, eating his breakfast, is awake, alert, oriented 3 and is in no acute apparent distress. Denies any complaints of pain or shortness of breath at this time. He states that he feels like the subcutaneous emphysema has much improved since admission. Still reports hearing some crackling behind his right ear with chewing, and still has some subcu emphysema present to his right chest, right arm, and to his right and left neck. Oxygen saturation are 100% on 3 L nasal cannula and he is achieving 1500 mL to 1850 mL on his incentive spirometry with encouragement. Right Pleurx catheter remains in place and connected to Pleur-evac system on low continuous wall suction -20 cm H2O. Continuous air leak is present. He's been draining thin serosanguineous drainage with 150 mL output in the last 24 hours. The patient reports she has been up ambulating in his room independently. Chest x-ray was reviewed. Objective - Vital Signs Vital signs: Vital Signs Temp 98.2 F 11/09/22 08:13 Pulse 88 11/09/22 08:13 Resp 18 11/09/22 08:13 BP 98/66 11/09/22 08:13 Pulse Ox 99 11/09/22 08:13 FiO2 Intake & Output 11/08/22 11/09/22 11/09/22 18:59 06:59 18:59 Intake Total 120 118 Output Total 150 Balance 120 -150 118 Intake: Oral 120 118 Output: Chest Tube Drainage 150 Pleural Catheter Right 150 Lower Other: Voiding Method Bedside Commode Bedside Commode Bedside Commode Urinal Urinal Urinal # Voids 2 - Exam CONSTITUTIONAL: Appears comfortable, cooperative, no acute distress RESPIRATORY: Lungs sounds diminished to his right lobes, essentially clear to his left lobes. Respirations are symmetrical, nonlabored. Currently on 3 L nasal cannula with oxygen saturation 100%. Able to achieve 8235-0221 mL on his incentive spirometry. Strong cough. CARDIOVASCULAR: S1, S2 present. Regular rate and rhythm, sinus rhythm on telemetry. Palpable peripheral pulses bilaterally. No edema present. No calf pain or tenderness noted. GASTROINTESTINAL: Abdomen soft, nontender, nondistended. Active bowel sounds present 4 quadrants. Tolerating diet. GENITOURINARY: Continues to void clear, yellow urine. INTEGUMENTARY: Skin is warm and dry with evidence of good perfusion. Right chest Pleurx catheter dressing clean, dry and intact. Subcutaneous emphysema improved, although remains present with palpitation to his right chest, right arm, right and left neck. a NEUROLOGIC: Cranial nerves II through XII intact. No focal deficits. MUSKULOSKELETAL: Able to move all extremities, strength equal bilaterally, gait normal PSYCHIATRIC: Alert and oriented to person place and time, appropriate affect, intact judgment and insight INVASIVE LINES AND TUBES: Pleurx catheter is connected to Pleur-evac on low continuous wall suction -20 cm H2O. Continuous air leak is present. Draining thin serosanguineous drainage. - Allied health notes Allied health notes reviewed: nursing - Labs CBC & Chem 7: 11/09/22 08:51 11/09/22 08:51 Labs: Abnormal Lab Results - Last 24 Hours (Table) 11/08/22 11/08/22 11/09/22 Range/Units 11:33 11:33 08:51 WBC 3.1 L (3.8-10.6) k/uL RBC 2.41 L (4.30-5.90) m/uL Hgb 7.5 L (13.0-17.5) gm/dL Hct 21.7 L (39.0-53.0) % RDW 15.7 H (11.5-15.5) % Plt Count 75 L (150-450) k/uL Lymphocytes # (1.0-4.8) k/uL Sodium 134 L 134 L (137-145) mmol/L Potassium 3.3 L (3.5-5.1) mmol/L Chloride 95 L 94 L (98-107) mmol/L Carbon Dioxide 33 H 31 H (22-30) mmol/L BUN 22 H 27 H (9-20) mg/dL Glucose 102 H 106 H (74-99) mg/dL 09/25/23 Range/Units 08:51 WBC 2.8 L (3.8-10.6) k/uL RBC 2.42 L (4.30-5.90) m/uL Hgb 7.5 L (13.0-17.5) gm/dL Hct 22.0 L (39.0-53.0) % RDW (11.5-15.5) % Plt Count 47 L (150-450) k/uL Lymphocytes # 0.3 L (1.0-4.8) k/uL Sodium (137-145) mmol/L Potassium (3.5-5.1) mmol/L Chloride (98-107) mmol/L Carbon Dioxide (22-30) mmol/L BUN (9-20) mg/dL Glucose (74-99) mg/dL - Imaging and Cardiology Chest x-ray: report reviewed, image reviewed Assessment and Plan Assessment: Right-sided hydropneumothorax with subcutaneous emphysema to his right chest and neck History of recurrent right-sided malignant pleural effusions, status post right Pleurx catheter placement on 10/27/2022 Stage IV lung cancer COPD without exacerbation Chronic hypoxic respiratory failure on 3 L nasal cannula continuously as an outpatient Adrenal insufficiency related to treatment History of hypertension History of hypotension Dyslipidemia Anxiety Plan: Keep right Pleurx catheter connected to Pleur-evac on low continuous wall suction -20 cm H2O. Continue to record strict inaccurate I's and O's. Encourage use of incentive spirometry 10 times every hour while awake. Pain control per current when necessary orders. Increase activity as tolerated, extra extension tubing added to the Pleur-evac to allow the patient ambulate in his room. Medical management and other comorbidities per primary care service. Continue to monitor daily chest x-rays. More recommendations follow based on patient's clinical course. Time with Patient: Greater than 30
[2022-11-09] MEDS: HYDROcodone/APAP 5-325MG 1 EACH TAB PO PRN ×2 (10:38→20:38)
[2022-11-09] MEDS ORDERED: POTASSIUM CHLORIDE ER 20 MEQ TAB.ER PO STA (13:20)
[2022-11-09] MEDS ORDERED: LIDOCAINE 1% INJ 10MG/ML (20 ML MDV) ONE (14:55)
[2022-11-09] MEDS ORDERED: HYDROmorphone 2 MG TAB PO STA (15:17)
[2022-11-09] MEDS ORDERED: HYDROmorphone 1 MG/ML 1 ML SYRINGE IVP STA (15:20)
--- NOTE | 2022-11-09 15:59 | XR ---
EXAMINATION TYPE: XR chest 1V DATE OF EXAM: 11/09/2022 COMPARISON: 11/09/2022 INDICATION: Chest tube TECHNIQUE: Single frontal view of the chest is obtained. FINDINGS: The heart size is normal. The pulmonary vasculature is normal. Right-sided chest tube is present. Right basilar pneumothorax is present. Subcutaneous emphysema is p resent at the neck bilaterally and along the right lateral chest. Second chest tube may lie along the posterior diaphragm on the right. Port is present on the right with the tip in the superior vena cav a region. IMPRESSION: 1. Loculated right base pneumothorax. A second new chest tube is been placed at the right costophreni c angle. 2. Extensive subcutaneous emphysema along the right lateral chest and bilaterally at the neck. 3. Findings appear stable from comparison.
[2022-11-09] MEDS: HYDROCORTISONE 10 MG TAB PO SCH (17:17)
--- NOTE | 2022-11-09 17:18 | P.PN ---
Subjective Progress Note Date: 11/09/22 (delayed charting seen at 1045) Patient is a 57-year-old male with known adenocarcinoma of the lung stage IV being followed at, [facility] complicated by adrenal insufficie ncy, HLD, Chornic hypoxic respiraotry failure on 3L NC, and CPOD who presented to the ER with complaints of swelling over his left chest and neck. Patient had a right-sided Pleurx catheter placed on 10/27/22. On arrival to the ER he was tachycardic with a pulse of 111 and a respiratory rate of 28. He was slightly hypotensive with a blood pressure of 87/62. Laboratory analysis included CBC, basic metabolic profile, liver enzymes, and troponin which were remarkable for white blood cell count 3.1, hemoglobin 8.5, and platelets of 128. Initial checks x-ray demonstrated diffuse right-sided subcutaneous emphysema. CT of the chest demonstrated large right-sided hydropneumothorax with small chest tube in place in the posterior pleural space, large right suprahilar mass suspicious for malignancy, moderate emphysema, and possible liver mass. Cardiothoracic surgery was contacted by the ER. Arrangements were made for admission. His pleurx cath was hooked to a chest tube and sucction. Patient seen and examined at bedside with present. His swelling in his back is much better than yesterday. His breathing is unchanged. He has been eating well but did vomit twice yesterday. All questions answered. Vital signs reviewed General: nontoxic, no distress, appears older than stated age, improved crepitus over right and left neck Cardiovascular: S1S2 reg, no murmur, positive posterior tibial pulse bilateral, Lungs: Decreased bs right, crepitus over right chest wall, no rhonchi, no rales , no accessory muscle use ,pleurx in place with air bubbles Abdominal: soft, nontender to palpation, no guarding, no appreciable organomegaly, Ext: no gross muscle atrophy, no edema b/l lower extremities, no contractures Neuro: CN II-XI grossly intact, no focal neuro deficits Psych: Alert, oriented, appropriate affect Assessment/Plan: Right sided hydropneumothorax s/p pigtail cath on 10/27/22 Stage IV lung cancer COPD without exacerbation Chronic hypoxic respiratory failure at 3 L nasal cannula - Pleurx cath to suction - Cardio thorasic note reviewed: continue CT to suction - Albuterol every 6 hours and needed, Symbicort 2 puffs twice daily - Continue with O2 supplementation to maintain SpO2 greater than or equal to 90% - incentive spirometer - Discontinue Lovenox Pancytopenia, worsening with plt 47 - alerted to look for signs of bleeding -No indication for transfusion at this time - Consult hematology oncology. Patient is currently being treated for metastatic lung cancer. On 10/29 he underwent chemotherapy with carbo and an additional agent. - off lovenox Adrenal insufficiency, secondary related to lung cancer treatment -Florinef 0.1 mg in the morning, Cortef 20 mg in the morning and 10 mg at night Chronic: Prior hypertension now has episodes of hypotension Dyslipidemia Imaging: Chest x-ray as reviewed by myself from 11/09/22, continue to significant subcutaneous emphysema with right basilar pneumothorax Data Review: Vitals were reviewed and patient afebrile the last 24 hours. Labs reviewed included CBC, basic metabolic profile. CBC remarkable for white blood cell count 2.8, hemoglobin 7.5, platelets of 47, BMP remarkable for sodium 134, potassium 3.3, chloride 94, Carbon dioxide 31, BUN 27, and glucose 106. DVT prophylaxis: SCDs Anticipated discharge date: Pending Clinical course Anticipated discharge place: Pending Clinical course This dictation was prepared using [employer] voice recognition software. Though every attempt is made to correct errors during dictation some may still exist. Objective - Vital Signs Vital signs: Vital Signs Temp 98.2 F 11/09/22 16:00 Pulse 86 11/09/22 16:00 Resp 18 11/09/22 16:00 BP 110/75 11/09/22 16:00 Pulse Ox 100 11/09/22 11:44 FiO2 Intake & Output 11/08/22 11/09/22 11/09/22 18:59 06:59 18:59 Intake Total 120 236 Output Total 150 125 Balance 120 -150 111 Intake: Oral 120 236 Output: Chest Tube Drainage 150 Pleural Catheter Right 150 Lower Urine 125 Other: Voiding Method Bedside Commode Bedside Commode Bedside Commode Urinal Urinal Urinal # Voids 2 1 - Labs CBC & Chem 7: 11/09/22 08:51 11/09/22 08:51 Labs: Abnormal Lab Results - Last 24 Hours (Table) 11/09/22 11/09/22 Range/Units 08:51 08:51 WBC 2.8 L (3.8-10.6) k/uL RBC 2.42 L (4.30-5.90) m/uL Hgb 7.5 L (13.0-17.5) gm/dL Hct 22.0 L (39.0-53.0) % Plt Count 47 L (150-450) k/uL Lymphocytes # 0.3 L (1.0-4.8) k/uL Sodium 134 L (137-145) mmol/L Potassium 3.3 L (3.5-5.1) mmol/L Chloride 94 L (98-107) mmol/L Carbon Dioxide 31 H (22-30) mmol/L BUN 27 H (9-20) mg/dL Glucose 106 H (74-99) mg/dL
[2022-11-09] MEDS: HYDROmorphone 0.5 MG/0.5 ML SYRINGE IVP PRN ×2 (18:52→21:46)
[2022-11-09] MEDS: SENNOSIDES-DOCUSATE SODIUM 1 EACH TAB PO SCH (20:38)
[2022-11-09] MEDS: ALPRAZolam 0.25 MG TAB PO PRN (20:42)
--- NOTE | 2022-11-09 22:38 | XR ---
EXAMINATION TYPE: XR chest 1V portable DATE OF EXAM: 11/09/2022 6:50 AM CLINICAL INDICATION:Male, 57 years old with history of Right hydropneumothorax; [facility] COMPARISON: Chest radiographs from 11/08/2022 TECHNIQUE: XR chest 1V portable Frontal view of the chest. FINDINGS: Lungs/Pleura: Blunting of the right costophrenic angle with likely pneumothorax remaining present. Th ere is no evidence of left pleural effusion, focal consolidation, or left pneumothorax. Pulmonary vascularity: Unremarkable. Heart/mediastinum: Cardiomediastinal silhouette is unremarkable. Musculoskeletal: No acute osseous pathology. Other findings: Subcutaneous emphysema scattered throughout the visualized thorax. Lines/Tubes: [id number] projecting over the right hemithorax with distal tip at the cavoatrial junction. Right thoracotomy tube is present without evidence of pneumothorax. IMPRESSION: 1. Similar subcutaneous emphysema. Right chest wall [id number] is present. 2. Right thoracotomy tube present suspected persistent right hydropneumothorax.. The subcutaneous em physema does obscure evaluation for pneumothorax.
[2022-11-10] MEDS: HYDROmorphone 0.5 MG/0.5 ML SYRINGE IVP PRN ×6 (01:21→21:46)
[2022-11-10] MEDS: HYDROcodone/APAP 5-325MG 1 EACH TAB PO PRN ×2 (03:01→15:07)
[2022-11-10] MEDS: SYMBICORT 160-4.5 MCG INHALER INHALATION SCH ×2 (08:09→20:48)
[2022-11-10] MEDS: IPRATROPIUM 0.5 MG/2.5 ML NEBU INHALATION SCH ×4 (08:10→20:50)
[2022-11-10] MEDS: ATORVASTATIN 40 MG TAB PO SCH (08:12)
[2022-11-10] MEDS: PANTOPRAZOLE 40 MG TABLET PO SCH (08:12)
[2022-11-10] MEDS: MAGNESIUM OXIDE 400 MG TAB PO SCH (08:12)
[2022-11-10] MEDS: FLUoxetine HCL 20 MG CAP PO SCH (08:12)
[2022-11-10] MEDS: CHOLECALCIFEROL 25 MCG (1000 IU) TABLET PO SCH (08:12)
[2022-11-10] MEDS: ONDANSETRON 4 MG TAB PO SCH ×2 (08:12→20:10)
[2022-11-10] MEDS: CYANOCOBALAMIN 500 MCG TAB PO SCH (08:13)
[2022-11-10] MEDS: FLUDROCORTISONE 0.1 MG TAB PO SCH (08:13)
[2022-11-10] MEDS: POTASSIUM CHLORIDE ER 20 MEQ TAB.ER PO SCH (08:13)
[2022-11-10] MEDS: BENZONATATE 100 MG CAP PO PRN ×2 (08:13→18:03)
[2022-11-10] MEDS: FOLIC ACID 1 MG TAB PO SCH (08:13)
[2022-11-10] MEDS: HYDROCORTISONE 20 MG TAB PO SCH (08:14)
[2022-11-10] MEDS: BACITRACIN OINT 1 EACH PACKET TOPICAL SCH ×3 (08:14→20:11)
[2022-11-10] MEDS ORDERED: POTASSIUM CHLORIDE ER 20 MEQ TAB.ER PO SCH (09:00)
[2022-11-10 09:30] LABS: Basophils % (A) 0 %; Eosinophils # (A) 0.1 k/uL (0-0.7); Eosinophils % (A) 4 %; Lymphocytes # (A) 0.4 k/uL (1.0-4.8); Lymphocytes % (A) 16 %; MCH 30.9 pg (25.0-35.0); MCHC 34.5 g/dL (31.0-37.0); MCV 89.7 fL (80.0-100.0); Mean Platelet Volume 11.1; Monocytes # (A) 0.1 k/uL (0-1.0); Monocytes % (A) 6 %; Neutrophils # (A) 1.6 k/uL (1.3-7.7); Neutrophils % (A) 71 %; RBC 2.16 m/uL (4.30-5.90); RDW 15.3 % (11.5-15.5); WBC 2.2 k/uL (3.8-10.6)
[2022-11-10 09:32] LABS: African American GFR (CKD) >90 (>60 ml/min/1.73 sqM); Anion Gap 5 mmol/L; Blood Urea Nitrogen 25 mg/dL (9-20); Calcium 8.7 mg/dL (8.4-10.2); Carbon Dioxide 31 mmol/L (22-30); Chloride 96 mmol/L (98-107); Glucose 92 mg/dL (74-99); Non-African American GFR(CKD) >90 (>60 ml/min/1.73 sqM); Potassium 3.7 mmol/L (3.5-5.1); Sodium 132 mmol/L (137-145)
--- NOTE | 2022-11-10 09:33 | P.PN ---
Subjective Progress Note Date: 11/10/22 Principal diagnosis: Right-sided hydropneumothorax, subcu emphysema. Past medical history significant for stage IV adenocarcinoma of the lung, adrenal adenoma, recurrent right sided malignant pleural effusions and subsequent right Pleurx catheter placement on 10/27/2022, emphysema/COPD and is on home oxygen 3 L nasal cannula as an outpatient, remote history of tobacco dependence, history of hypertension, recently hypotensive and GERD. Status post day #1 placement of right chest tube The patient was seen and examined in follow-up today 11/10/2022 at his bedside on the cardiac stepdown unit. He is sitting up in his bed, eating his breakfast, is awake, alert, oriented 3 and is in no acute distress. Oxygen saturation are 97% on 3 L nasal cannula and he is achieving 1500 mL on his incentive spirometry. The patient underwent a right chest tube placement yesterday 11/09/[address] Lu. Patient tolerated the procedure well. The right pleural chest tube and right Pleurx catheter remains in place with Pleur- evac and low continuous wall suction -20 cm H2O. No air leak present on the Pleurx catheter today, although there is an intermittent air leak on the right pleural chest tube. No drainage from the right pleural chest tube. 80 mL of thin serosanguineous drainage output in the last 24 hours from the right Pleurx catheter. Remote telemetry showing sinus tachycardia 106 bpm heart rate. Patient reports he has been up ambulating in his room independently. Chest x- ray was reviewed. Denies any complaints of shortness of breath at this time, although is complaining of some pain to his right chest tube insertion site, which is being controlled with his current pain medication regimen. Objective - Vital Signs Vital signs: Vital Signs Temp 97.4 F L 11/10/22 08:00 Pulse 63 11/10/22 08:00 Resp 18 11/10/22 08:00 BP 100/69 11/10/22 08:00 Pulse Ox 97 11/10/22 08:11 FiO2 Intake & Output 11/09/22 11/10/22 11/10/22 18:59 06:59 18:59 Intake Total 476 10 200 Output Total 125 480 Balance 351 -470 200 Intake: IV 10 0.9 10 Oral 476 200 Output: Chest Tube Drainage 130 Chest Tube Right Lateral 0 Chest Pleural Catheter Right 130 Lower Urine 125 350 Other: Voiding Method Bedside Commode Bedside Commode Urinal Urinal # Voids 1 1 - Exam CONSTITUTIONAL: Appears comfortable, cooperative, no acute distress RESPIRATORY: Lungs sounds diminished to his right lobes, essentially clear to his left lobes. Respirations are symmetrical, nonlabored. Currently on 3 L nasal cannula with oxygen saturation 97%. Able to achieve 1500 mL on his incentive spirometry. Strong cough. CARDIOVASCULAR: S1, S2 present. Regular rate and rhythm, sinus rhythm on telemetry. Palpable peripheral pulses bilaterally. No edema present. No calf pain or tenderness noted. GASTROINTESTINAL: Abdomen soft, nontender, nondistended. Active bowel sounds present 4 quadrants. Tolerating diet. GENITOURINARY: Continues to void clear, yellow urine. INTEGUMENTARY: Skin is warm and dry with evidence of good perfusion. Right ch est Pleurx catheter dressing clean, dry and intact. Subcutaneous emphysema improved, although remains present with palpitation to his right chest, right arm, right and left neck. Dressing to his right sided chest tube remained clean, dry and intact. NEUROLOGIC: Cranial nerves II through XII intact. No focal deficits. MUSKULOSKELETAL: Able to move all extremities, strength equal bilaterally, gait normal PSYCHIATRIC: Alert and oriented to person place and time, appropriate affect, intact judgment and insight INVASIVE LINES AND TUBES: Pleurx catheter is connected to Pleur-evac on low continuous wall suction -20 cm H2O. Continuous air leak is present. Draining thin serosanguineous drainage. Right pleural chest tube connected to low continuous wall suction -20 cm H2O. Intermittent air leak is present. No drainage present. - Allied health notes Allied health notes reviewed: nursing - Labs CBC & Chem 7: 11/09/22 08:51 11/09/22 08:51 Labs: Abnormal Lab Results - Last 24 Hours (Table) 11/09/22 11/09/22 Range/Units 08:51 08:51 WBC 2.8 L (3.8-10.6) k/uL RBC 2.42 L (4.30-5.90) m/uL Hgb 7.5 L (13.0-17.5) gm/dL Hct 22.0 L (39.0-53.0) % Plt Count 47 L (150-450) k/uL Lymphocytes # 0.3 L (1.0-4.8) k/uL Sodium 134 L (137-145) mmol/L Potassium 3.3 L (3.5-5.1) mmol/L Chloride 94 L (98-107) mmol/L Carbon Dioxide 31 H (22-30) mmol/L BUN 27 H (9-20) mg/dL Glucose 106 H (74-99) mg/dL - Imaging and Cardiology Chest x-ray: report reviewed, image reviewed Assessment and Plan Assessment: Right-sided hydropneumothorax with subcutaneous emphysema to his right chest and neck History of recurrent right-sided malignant pleural effusions, status post right Pleurx catheter placement on 10/27/2022 Stage IV lung cancer COPD without exacerbation Chronic hypoxic respiratory failure on 3 L nasal cannula continuously as an outpatient Adrenal insufficiency related to treatment History of hypertension History of hypotension Dyslipidemia Anxiety Plan: Keep right Pleurx catheter and right pleural chest tube connected to Pleur-evac on low continuous wall suction -20 cm H2O. Continue to record strict inaccurate I's and O's. Encourage use of incentive spirometry 10 times every hour while awake. Pain control per current when necessary orders. Increase activity as tolerated, extra extension tubing added to the Pleur-evac to allow the patient ambulate in his room. Medical management and other comorbidities per primary care service. Continue to monitor daily chest x-rays. More recommendations follow based on patient's clinical course. Time with Patient: Greater than 30
[2022-11-10 09:44] LABS: HCT 19.3 % (39.0-53.0); HGB 6.7 gm/dL (13.0-17.5); Platelet Count 27 k/uL (150-450)
--- NOTE | 2022-11-10 10:37 | XR ---
EXAMINATION TYPE: XR chest 1V portable DATE OF EXAM: 11/10/2022 COMPARISON: 11/09/2022 HISTORY: Right hydropneumothorax TECHNIQUE: Single frontal view of the chest is obtained. FINDINGS: Diffuse subcutaneous and cemented. There is no sizable pneumothorax is seen. Chest tube se en in position. Volume loss and right-sided consolidation stable. Left lung clear. Heart size stable. Osseous structures stable. IMPRESSION: 1. Diffuse right-sided subcutaneous emphysema extending in the left neck. No sizable pneumothorax. St able right-sided consolidation.
--- NOTE | 2022-11-10 14:26 | P.CONS ---
History of Present Illness - Reason for Consult Consult date: 11/10/22 thrombocytopenia Requesting physician: Marlene Simeon - Chief Complaint hydropneumothorax - History of Present Illness Mr Chen is a 57-year-old patient with we have been asked to see because of pancytopenia. Patient hashistory stage IV lung cancer, metastatic to bilateral adrenal glands at the time of diagnosis, back in 2020 at [facility] in [place], followed currently by Med Onc Dr. Dawson. He was treated first-line carbo/Alimta/keytruda, followed by maintenance Alimta and keytruda. On follow- up 05/06 patient was found to have a pulmonary nodule with increased FDG a ctivity, lesion was treated with SBRT. He also received radiation to right hilar lymph nodes. He continued on Alimta and Keytruda until July 2021 when patient had symptoms and imaging suggestive of pneumonitis. IO was held, he was started on a steroid taper. His symptoms recurred several times over the next few months, he was hospitalized for acute on chronic hypoxic respiratory failure. [place] that pt had incompletely treated pneumonia versus a drug-induced pneumonitis. He ultimately recovered and was back on room air by Nov. He did well on nothing until April 2022, imaging showed a new lesion in the left adrenal gland, this was treated with SBRT. August 2022 patient had enlarging left upper lobe mass, liquid biopsy performed, no targetable mutations found. He ultimately resumed carboplatin and Alimta, he is currently status post 3 cycles, his last cycle was 10/29/22. In the past 6 weeks patient has had thoracentesis approximately 4 times. He did have a Pleurx catheter placed 10/27/22. Just prior to admit patient was complaining of a fullness sensation in his neck, when his took a look at him she noted his neck was significantly swollen, felt like "rice crispies" when touched, there was swelling in the chest, back and arms. Came to the ER, CXR reports diffuse right-sided subcutaneous emphysema, could not exclude a lower lobe pneumothorax. CT chest without contrast reports large right-sided hydropneumothorax with small chest tube in place in the posterior pleural space, large right-sided suprahilar mass, subcutaneous emphysema and a liver mass, which could represent a metastatic lesion or malignancy. He was seen by CTS, 2 chest tubes are inserted currently. Patient reporting significant improvement in subcutaneous emphysema. Today WBC 2.2, ANC 1.6, hemoglobin 6.7, 1 unit of PRBCs is ordered, platelets are 27,000. No unusual bleeding to report at this time. Patient denies G-CSF administration now or in the past. He has no history of transfusion of PRBCs or platelets, he did have a delay in treatment about 1 year ago for low platelet counts. He t akes potassium and magnesium supplements. Review of Systems 10 point review of systems is negative except as stated in HPI Past Medical History Past Medical History: Cancer, COPD, Hyperlipidemia, Hypertension, Pneumonia Additional Past Medical History / Comment(s): Wears O2@3L NC ATC,recurrent rt lung CA receiving chemo last dose 10/29/22 [facility]. 4 thorocentesis in last 5 weeks, Dx 2020 IV NSCLC, adrenal left gland, had pneumonitis, 17 day stay in ICU with intial chemo and immuno therapy, emphysema,b/p runs low now since cancer dx and treatment had prior htn hx-has dizziness w/ falls at times im proved with cortef; recurrent right-sided malignant pleural effusion History of Any Multi-Drug Resistant Organisms: None Reported Past Surgical History: Cholecystectomy Additional Past Surgical History / Comment(s): rt port a cath (power port); right sided thoracentesis 4, status post right Pleurx catheter placement on 01/2023 Past Anesthesia/Blood Transfusion Reactions: No Reported Reaction Additional Past Anesthesia/Blood Transfusion Reaction / Comm: no hx blood tr ansfusions Past Psychological History: Anxiety Smoking Status: Former smoker Past Alcohol Use History: None Reported Additional Past Alcohol Use History / Comment(s): quit smoking 2011,<1 ppd Past Drug Use History: Marijuana Additional Drug Use History / Comment(s): use marijuana gummies at bedtime - Past Family History Mother Family Medical History: No Reported History Additional Family Medical History / Comment(s): Kidney failure, status post kidney transplant history of manic depressive Father Family Medical History: Cancer Additional Family Medical History / Comment(s): rt lung CA Medications and Allergies Home Medications Medication Instructions Recorded Confirmed Type ALPRAZolam [Xanax] 0.25 mg PO DAILY PRN 10/26/22 11/06/22 History Albuterol Sulfate [Albuterol 2 puff PO RT-Q6H PRN 10/26/22 11/06/22 History Sulfate Hfa] Atorvastatin [Lipitor] 40 mg PO DAILY 10/26/22 11/06/22 History Benzonatate [Tessalon Perles] 100 mg PO TID PRN 10/26/22 11/06/22 History Budesonide/Glycopyr/Formoterol 2 puff INHALATION RT-BID 10/26/22 11/06/22 History [Breztri Aerosphere Inhaler] Cholecalciferol [Vitamin D3 (25 50 mcg PO DAILY 10/26/22 11/06/22 History Mcg = 1000 Iu)] Cyanocobalamin (Vitamin B-12) 2,000 mcg PO DAILY 10/26/22 11/06/22 History [Vitamin B-12] Docusate Sodium [Dok] 100 mg PO BID PRN 10/26/22 11/06/22 History FLUoxetine HCL [PROzac] 20 mg PO DAILY 10/26/22 11/06/22 History Fludrocortisone [Florinef] 0.1 mg PO QAM 10/26/22 11/06/22 History Folic Acid 1 mg PO DAILY 10/26/22 11/06/22 History Hydrocortisone [Cortef] 10 mg PO AC-SUPPER 10/26/22 11/06/22 History Ibuprofen [Advil] 200 - 400 mg PO Q8HR PRN 10/26/22 11/06/22 History Ipratropium-Albuterol Nebulize 3 ml INHALATION RT-TID PRN 10/26/22 11/06/22 History [Duoneb 0.5 mg-3 mg/3 ml Soln] Pantoprazole Sodium [Protonix] 40 mg PO DAILY 10/26/22 11/06/22 History Zolpidem Tartrate [Zolpidem 6.25 mg PO HS 10/26/22 11/06/22 History Tartrate ER] ondansetron HCL [Zofran] 8 mg PO BID 10/26/22 11/06/22 History polyethylene glycoL 3350 [Miralax] 17 gm PO DAILY PRN 10/26/22 11/06/22 History Acetaminophen Tab [Tylenol] 650 mg PO Q6HR PRN tab 10/27/22 11/06/22 Rx HYDROcodone/APAP 5-325MG [[place] 2 tab PO Q6HR PRN 3 Days #24 tab 10/28/22 11/06/22 Rx 5-325] Hydrocortisone [Cortef] 20 mg PO DAILY 11/06/22 11/06/22 History Hydrocortisone [Cortef] 20 mg PO DAILY 11/06/22 11/06/22 History Potassium Chloride [Klor-Con M20] 20 meq PO DAILY 11/06/22 11/06/22 History Sennosides-Docusate Sodium 1 tab PO HS 11/06/22 11/06/22 History [Senokot-S] Slow-Mag 71.5mg 143 mg PO DAILY 11/06/22 11/06/22 History Allergies Allergy/AdvReac Type Severity Reaction Status Date / Time No Known Allergies Allergy Verified 11/06/22 10:36 Physical Exam Vitals: Vital Signs Temp Pulse Pulse Resp BP Pulse Ox 11/10/22 08:11 97 11/10/22 08:00 97.4 F L 63 18 100/69 11/10/22 04:00 97.8 F 99 18 114/72 97 11/10/22 02:00 88 18 11/10/22 00:00 97.9 F 88 18 105/71 99 11/09/22 20:00 98.0 F 89 18 119/83 98 11/09/22 16:00 98.2 F 86 18 110/75 11/09/22 13:54 89 18 11/09/22 11:46 96 11/09/22 11:44 97.6 F 89 18 106/65 100 11/09/22 11:33 92 Intake and Output 11/09/22 11/10/22 11/10/22 22:59 06:59 14:59 Intake Total 250 200 Output Total 230 250 Balance 20 -250 200 Intake: IV 10 0.9 10 Oral 240 200 Output: Chest Tube Drainage 80 50 Chest Tube Right Lateral 0 0 Chest Pleural Catheter Right 80 50 Lower Urine 150 200 Other: Voiding Method Bedside Commode Bedside Commode Urinal Urinal # Voids 1 1 Subcutaneous emphysema palpated upper chest, bilateral neck, Right flank - Constitutional General appearance: average body habitus, cooperative, no acute distress - EENT Eyes: anicteric sclerae, EOMI ENT: hearing grossly normal - Neck Neck: no lymphadenopathy - Respiratory 2 chest tube insertion sites on the right side Respiratory: right: diminished, left: CTA - Cardiovascular Rhythm: regular Heart sounds: normal: S1, S2 Abnormal Heart Sounds: no systolic murmur, no diastolic murmur, no rub, no S3 Gallop, no S4 Gallop, no click, no other leg Peripheral Edema: bilateral: None - Gastrointestinal General gastrointestinal: no absent bowel sounds, no decreased bowel sounds, no distended, no hepatomegaly, no hyperactive bowel sounds, normal bowel sounds, no organomegaly, no rigid, no scaphoid, soft, no splenomegaly, no tenderness, no umbilical hernia, no ventral hernia - Integumentary Integumentary: normal - Neurologic Neurologic: CNII-XII intact - Musculoskeletal Musculoskeletal: strength equal bilaterally - Psychiatric Psychiatric: A&O x's 3, appropriate affect, intact judgment & insight Results CBC & Chem 7: 11/10/22 09:00 11/10/22 09:00 Labs: Abnormal Lab Results - Last 24 Hours (Table) 11/09/22 11/09/22 Range/Units 08:51 08:51 WBC 2.8 L (3.8-10.6) k/uL RBC 2.42 L (4.30-5.90) m/uL Hgb 7.5 L (13.0-17.5) gm/dL Hct 22.0 L (39.0-53.0) % Plt Count 47 L (150-450) k/uL Lymphocytes # 0.3 L (1.0-4.8) k/uL Sodium 134 L (137-145) mmol/L Potassium 3.3 L (3.5-5.1) mmol/L Chloride 94 L (98-107) mmol/L Carbon Dioxide 31 H (22-30) mmol/L BUN 27 H (9-20) mg/dL Glucose 106 H (74-99) mg/dL Chest x-ray: report reviewed CT scan - chest: report reviewed Assessment and Plan (1) Antineoplastic chemotherapy induced pancytopenia Current Visit: Yes Status: Acute Priority: High Code(s): D61.810 - ANTINEOPLASTIC CHEMOTHERAPY INDUCED PANCYTOPENIA; T45.1X5A - ADVERSE EFFECT OF ANTINEOPLASTIC AND IMMUNOSUP DRUGS, INIT SNOMED Code(s): 030781832332381 Plan: Air leak from Pleurx catheter, severe subcutaneous emphysema -Significantly improved since admit -Chest tube management CTS Chemotherapy-induced pancytopenia -Patient received treatment 12 days ago. Patient is currently in solange. His solange is being exacerbated by acute condition. -Agree with transfusion of PRBCs for hemoglobin of 6.7. Transfuse for a hem oglobin less than 7 or if patient is symptomatic -WBCs of 2.2, ANC adequate 1.6. No G-CSF at this time -Platelet had decreased pretty steadily since admit. At 27,000, no anticoagulation, aspirin, NSAIDs. SCDs for DVT prophylaxis at this time. Transfuse for platelets less than 10,000 or if symptomatic. Nothing on exam to suggest acute bleeding. Will check hit antibody as patient was on Lovenox. Check coags and fibrinogen, though less likely DIC situation. -CBC daily Metastatic non-small cell lung cancer -Treatment obviously on hold at this time pending resolution/stability of current situation -Continue follow-up at [facility] in [place] as planned.
--- NOTE | 2022-11-10 15:26 | P.PN ---
Subjective Progress Note Date: 11/10/22 Patient is a 57-year-old male with known adenocarcinoma of the lung stage IV being followed at, [facility] complicated by adrenal insufficiency, HLD, [place] hypoxic respiraotry failure on 3L NC, and CPOD who presented to the ER with complaints of swelling over his left chest and neck. Patient had a right-sided Pleurx catheter placed on 10/27/22. On arrival to the ER he was tachycardic with a pulse of 111 and a respiratory rate of 28. He was slightly hypotensive with a blood pressure of 87/62. Laboratory analysis included CBC, basic metabolic profile, liver enzymes, and troponin which were remarkable for white blood cell count 3.1, hemoglobin 8.5, and platelets of 128. Initial checks x-ray demonstrated diffuse right-sided subcutaneous emphysema. CT of the chest demonstrated large right-sided hydropneumothorax with small chest tube in place in the posterior pleural space, large right suprahilar mass suspicious for malignancy, moderate emphysema, and possible liver mass. Cardiothoracic surgery was contacted by the ER. Arrangements were made for admission. His pleurx cath was hooked to a chest tube and sucction. 11/10 Patient was seen and examined. Currently with chest tube to suction. Currently on 3L NC. He reports improvement in his breathing. Pain well control led on current pain regimen. 80 cc output from R pleurx catheter over the past 24H. reports last BM was on Wednesday. CBC shows WBC count 2.2, Hg 6.7, Hct 19.3, Plt 27. BMP shows Na 132, Cl 96, bicarb 31, BUN 25. CXR shows improved right subQ emphysema, no PTX, right chest consolidation. Vital signs reviewed General: nontoxic, no distress, appears older than stated age, improved crepitus over right and left neck Cardiovascular: S1S2 reg, no murmur Lungs: Decreased bs right, crepitus over right chest wall, no rhonchi, no rales , no accessory muscle use, pleurx in place Abdominal: soft, nontender to palpation, no guarding, no appreciable organomegaly, + BS Ext: no gross muscle atrophy, no edema b/l lower extremities, no contractures Neuro: no focal neuro deficits Psych: Alert, oriented, appropriate affect Right sided hydropneumothorax s/p pigtail cath on 10/27/22 Stage IV lung cancer COPD without exacerbation Chronic hypoxic respiratory failure at 3 L nasal cannula Pancytopenia, worsening with Hg 6.7 and Plt 27 Adrenal insufficiency, secondary related to lung cancer treatment Chronic: Prior hypertension now has episodes of hypotension, Dyslipidemia Based on my assessment of this patient, this patient meets a high complexity level of care. Patient has an acute diagnosis of right hydroPTX that poses a threat to life or bodily function. He also has worsening pancytopenia with Hg 6.7 today requiring 1 PRBC and Plt 27. Right sided hydropneumothorax s/p pigtail cath on 10/27/22: CT surgery note reviewed, continue chest tube to suction with strict Ins and Outs, daily CXRs. Stage IV lung cancer: Hematology/Oncology consulted and on board. COPD without exacerbation: Tessalon pearles PRN for cough. Synbicort INH. Atrovent INH QID. DuoNeb PRN for SOB. Chronic hypoxic respiratory failure at 3 L nasal cannula Pancytopenia, worsening with Hg 6.7 and Plt 27: Transfuse 1 unit PRBC today. Transfuse PRBC if Hg < 7.Transfuse Plt if signs of bleeding of < 10. HIT panel ordered. Adrenal insufficiency, secondary related to lung cancer treatment: Cortef 10 mg PO QHS. Cortef 20 mg PO QD. Lovenox SQ for DVT prophylaxis. FULL CODE. I have reviewed the following cycle consultant notes: Hematology, CT surgery note. I have reviewed the results of the following tests: CBC. BMP. I have ordered the following tests: Agree with daily CXR. Agree with CBC, CMP. I have discussed the care of this patient with the following independent historian: I have independently interpreted the following test below: CXR as above. I have discussed the management of this patient with the following physician: Objective - Vital Signs Vital signs: Vital Signs Temp 98.2 F 11/10/22 14:56 Pulse 81 11/10/22 14:56 Resp 17 11/10/22 14:56 BP 115/72 11/10/22 14:56 Pulse Ox 100 11/10/22 14:56 FiO2 Intake & Output 11/09/22 11/10/22 11/10/22 18:59 06:59 18:59 Intake Total 476 10 800 Output Total 125 480 70 Balance 351 -470 730 Intake: IV 10 0.9 10 Oral 476 800 Blood Product 0 Unit 0 Output: Chest Tube Drainage 130 70 Chest Tube Right Lateral 0 30 Chest Pleural Catheter Right 130 40 Lower Urine 125 350 Other: Voiding Method Bedside Commode Bedside Commode Bedside Commode Urinal Urinal Urinal # Voids 1 1 2 - Labs CBC & Chem 7: 11/10/22 09:00 11/10/22 09:00 Labs: Abnormal Lab Results - Last 24 Hours (Table) 11/10/22 11/10/22 11/10/22 Range/Units 09:00 09:00 11:30 WBC 2.2 L (3.8-10.6) k/uL RBC 2.16 L (4.30-5.90) m/uL Hgb 6.7 L* (13.0-17.5) gm/dL Hct 19.3 L* (39.0-53.0) % Plt Count 27 L (150-450) k/uL Lymphocytes # 0.4 L (1.0-4.8) k/uL Sodium 132 L (137-145) mmol/L Chloride 96 L (98-107) mmol/L Carbon Dioxide 31 H (22-30) mmol/L BUN 25 H (9-20) mg/dL Crossmatch See Detail
[2022-11-10] MEDS: HYDROCORTISONE 10 MG TAB PO SCH (18:02)
[2022-11-10 18:30] LABS: Prothrombin Time 10.3 sec (9.0-12.0)
[2022-11-10] MEDS: SENNOSIDES-DOCUSATE SODIUM 1 EACH TAB PO SCH (20:11)
[2022-11-10] MEDS: ALPRAZolam 0.25 MG TAB PO PRN (21:47)
[2022-11-11] MEDS: HYDROmorphone 0.5 MG/0.5 ML SYRINGE IVP PRN ×5 (00:50→20:50)
[2022-11-11] MEDS: BENZONATATE 100 MG CAP PO PRN ×2 (04:23→18:36)
--- NOTE | 2022-11-11 08:25 | XR ---
EXAMINATION TYPE: XR chest 1V portable DATE OF EXAM: 11/11/2022 COMPARISON: 11/11/2019 HISTORY: Right hydropneumothorax TECHNIQUE: Single frontal view of the chest is obtained. FINDINGS: Diffuse subcutaneous and cemented. There is no sizable pneumothorax is seen. Chest tube se en in position. Volume loss and right-sided consolidation stable. Left lung clear. Heart size stable. Osseous structures stable. IMPRESSION: Stable diffuse subcutaneous emphysema, volume loss on the right. Consolidation. No sizab le pneumothorax
--- NOTE | 2022-11-11 08:41 | P.PN ---
Subjective Progress Note Date: 11/11/22 Principal diagnosis: Right-sided hydropneumothorax with subcutaneous emphysema. History of recurrent right-sided malignant pleural effusions status post right Pleurx catheter plac ement on 10/27/2022, stage IV lung cancer, COPD, chronic hypoxic respiratory failure on 3 L nasal cannula continuously as an outpatient, adrenal insufficiency related to treatment, hypertension, dyslipidemia, anxiety POD#2 placement of additional right sided chest tube The patient was seen and examined sitting up in bed on the cardiac stepdown unit in no acute distress eating breakfast. States he feels better than when he came into the hospital, subq emphysema much less present. Has been ambulatory in the room. Right pleurx cath and extra chest tube to continuous wall suction, continuous air leak with expiration in both tubes. Objective - Vital Signs Vital signs: Vital Signs Temp 98.0 F 11/11/22 04:16 Pulse 86 11/11/22 04:16 Resp 17 11/11/22 04:16 BP 107/71 11/11/22 04:16 Pulse Ox 100 11/11/22 04:16 FiO2 Intake & Output 11/10/22 11/11/22 11/11/22 18:59 06:59 18:59 Intake Total 1110 Output Total 310 369 Balance 800 -369 Intake: Oral 800 Blood Product 310 Rc As-1 Unit 310 [id number] Output: Chest Tube Drainage 70 94 Chest Tube Right Lateral 30 34 Chest Pleural Catheter Right 40 60 Lower Urine 240 275 Other: Voiding Method Bedside Commode Bedside Commode Urinal Urinal # Voids 2 2 - Exam CONSTITUTIONAL: Appears comfortable, cooperative, no acute distress RESPIRATORY: Lungs sounds diminished bilaterally. Respirations even, nonlabored. Currently on 3 LPM NC with oxygen saturation 100%. Able to achieve 1500 mL on incentive spirometry. Strong cough. CARDIOVASCULAR: S1, S2 present. Regular rate and rhythm, sinus rhythm on telemetry. Palpable peripheral pulses bilaterally. No edema present GASTROINTESTINAL: Abdomen soft, nontender, nondistended. Active bowel sounds present 4 quadrants. Tolerating diet GENITOURINARY: Continues to void INTEGUMENTARY: Skin is warm and dry with evidence of good perfusion NEUROLOGIC: Cranial nerves II through XII intact MUSKULOSKELETAL: Able to move all extremities, strength equal bilaterally, gait normal PSYCHIATRIC: Alert and oriented to person place and time, appropriate affect, intact judgment and insight INVASIVE LINES AND TUBES: Right pleurx cath present and connected to wall suction, continuous air leak present with expiration, 34 mL serosanguineous drainage overnight, 200 mL in the last 24 hours. Right pleural chest tube no drainage, continuous air leak present with expiration - Allied health notes Allied health notes reviewed: nursing - Labs CBC & Chem 7: 11/10/22 09:00 11/10/22 09:00 Labs: Abnormal Lab Results - Last 24 Hours (Table) 11/10/22 11/10/22 11/10/22 Range/Units 09:00 09:00 11:30 WBC 2.2 L (3.8-10.6) k/uL RBC 2.16 L (4.30-5.90) m/uL Hgb 6.7 L* (13.0-17.5) gm/dL Hct 19.3 L* (39.0-53.0) % Plt Count 27 L (150-450) k/uL Lymphocytes # 0.4 L (1.0-4.8) k/uL Fibrinogen (200-500) mg/dL Sodium 132 L (137-145) mmol/L Chloride 96 L (98-107) mmol/L Carbon Dioxide 31 H (22-30) mmol/L BUN 25 H (9-20) mg/dL Crossmatch See Detail 11/10/22 Range/Units 14:26 WBC (3.8-10.6) k/uL RBC (4.30-5.90) m/uL Hgb (13.0-17.5) gm/dL Hct (39.0-53.0) % Plt Count (150-450) k/uL Lymphocytes # (1.0-4.8) k/uL Fibrinogen 574 H (200-500) mg/dL Sodium (137-145) mmol/L Chloride (98-107) mmol/L Carbon Dioxide (22-30) mmol/L BUN (9-20) mg/dL Crossmatch - Imaging and Cardiology Chest x-ray: image reviewed Assessment and Plan Assessment: Right-sided hydropneumothorax with subcutaneous emphysema to his right chest and neck, status post placement of additional right pleural chest tube History of recurrent right-sided malignant pleural effusions, status post right Pleurx catheter placement on 10/27/2022 Stage IV lung cancer COPD without exacerbation Chronic hypoxic respiratory failure on 3 L nasal cannula continuously as an outpatient Adrenal insufficiency related to treatment History of hypertension History of hypotension Dyslipidemia Anxiety Plan: Keep right Pleurx catheter and right pleural chest tube connected to Pleur-evac on low continuous wall suction -20 cm H2O. Continue to record strict inaccurate I's and O's. Encourage use of incentive spirometry 10 times every hour while awake. Pain control per current when necessary orders. Increase activity as tolerated, extra extension tubing added to the Pleur-evac to allow the patient ambulate in his room. Medical management and other comorbidities per primary care service. Continue to monitor daily chest x-rays. More recommendations follow based on patient's clinical course.
[2022-11-11] MEDS: SYMBICORT 160-4.5 MCG INHALER INHALATION SCH ×2 (09:19→21:03)
[2022-11-11] MEDS: IPRATROPIUM 0.5 MG/2.5 ML NEBU INHALATION SCH ×4 (09:20→21:07)
[2022-11-11] MEDS: PANTOPRAZOLE 40 MG TABLET PO SCH (09:37)
[2022-11-11] MEDS: ONDANSETRON 4 MG TAB PO SCH ×2 (09:37→20:50)
[2022-11-11] MEDS: FLUoxetine HCL 20 MG CAP PO SCH (09:38)
[2022-11-11] MEDS: FOLIC ACID 1 MG TAB PO SCH (09:38)
[2022-11-11] MEDS: FLUDROCORTISONE 0.1 MG TAB PO SCH (09:38)
[2022-11-11] MEDS: POTASSIUM CHLORIDE ER 20 MEQ TAB.ER PO SCH (09:38)
[2022-11-11] MEDS: BACITRACIN OINT 1 EACH PACKET TOPICAL SCH ×3 (09:38→20:58)
[2022-11-11] MEDS: CYANOCOBALAMIN 500 MCG TAB PO SCH (09:38)
[2022-11-11] MEDS: ATORVASTATIN 40 MG TAB PO SCH (09:39)
[2022-11-11] MEDS: CHOLECALCIFEROL 25 MCG (1000 IU) TABLET PO SCH (09:39)
[2022-11-11] MEDS: HYDROCORTISONE 20 MG TAB PO SCH (09:39)
[2022-11-11] MEDS: MAGNESIUM OXIDE 400 MG TAB PO SCH (09:39)
[2022-11-11] MEDS: HYDROcodone/APAP 5-325MG 1 EACH TAB PO PRN ×2 (11:34→17:03)
[2022-11-11 12:00] LABS: Basophils % (A) 0 %; Eosinophils # (A) 0.1 k/uL (0-0.7); Eosinophils % (A) 5 %; HCT 20.5 % (39.0-53.0); HGB 7.4 gm/dL (13.0-17.5); Lymphocytes # (A) 0.3 k/uL (1.0-4.8); Lymphocytes % (A) 11 %; MCHC 35.9 g/dL (31.0-37.0); MCV 89.2 fL (80.0-100.0); Mean Platelet Volume 11.4; Monocytes # (A) 0.3 k/uL (0-1.0); Monocytes % (A) 10 %; Neutrophils % (A) 72 %; RDW 14.6 % (11.5-15.5); WBC 2.7 k/uL (3.8-10.6)
[2022-11-11 12:18] LABS: ALT 19 U/L (4-49); AST 23 U/L (17-59); African American GFR (CKD) >90 (>60 ml/min/1.73 sqM); Albumin 3.2 g/dL (3.5-5.0); Alkaline Phosphatase 73 U/L (38-126); Anion Gap 7 mmol/L; Blood Urea Nitrogen 17 mg/dL (9-20); Calcium 8.4 mg/dL (8.4-10.2); Carbon Dioxide 31 mmol/L (22-30); Chloride 92 mmol/L (98-107); Glucose 100 mg/dL (74-99); Non-African American GFR(CKD) >90 (>60 ml/min/1.73 sqM); Potassium 3.4 mmol/L (3.5-5.1); Sodium 130 mmol/L (137-145); Total Bilirubin 0.9 mg/dL (0.2-1.3)
[2022-11-11 12:37] LABS: Platelet Count 17 k/uL (150-450)
--- NOTE | 2022-11-11 16:45 | P.PN ---
Subjective Progress Note Date: 11/11/22 Patient is a 57-year-old male with known adenocarcinoma of the lung stage IV being followed at, [facility] complicated by adrenal insufficiency, HLD, Chornic hypoxic respiraotry failure on 3L NC, and CPOD who presented to the ER with complaints of swelling over his left chest and neck. Patient had a right-sided Pleurx catheter placed on 10/27/22. On arrival to the ER he was tachycardic with a pulse of 111 and a respiratory rate of 28. He was slightly hypotensive with a blood pressure of 87/62. Laboratory analysis included CBC, basic metabolic profile, liver enzymes, and troponin which were remarkable for white blood cell count 3.1, hemoglobin 8.5, and platelets of 128. Initial checks x-ray demonstrated diffuse right-sided subcutaneous emphysema. CT of the chest demonstrated large right-sided hydropneumothorax with small chest tube in place in the posterior pleural space, large right suprahilar mass suspicious for malignancy, moderate emphysema, and possible liver mass. Cardiothoracic surgery was contacted by the ER. Arrangements were made for admission. His pleurx cath was hooked to a chest tube and suction. 11/10 Patient was seen and examined. Currently with chest tube to suction. Currently on 3L NC. He reports improvement in his breathing. Pain well controll ed on current pain regimen. 80 cc output from R pleurx catheter over the past 24H. reports last BM was on Wednesday. CBC shows WBC count 2.2, Hg 6.7, Hct 19.3, Plt 27. BMP shows Na 132, Cl 96, bicarb 31, BUN 25. CXR shows improved right subQ emphysema, no PTX, right chest consolidation. 11/11 Patient was seen and examined. Breathing is stable. Currently with chest tube to suction. He was transfused [address] surgery recommends continued suction with daily CXR. CBC shows WBC count 2.7, Hg 7.4, Hct 20.5, Plt 17. BMP shows Na 130, K 3.4, Cl 92, bicarb 31, Cr 0.65. Mag 1.0. CXR shows stable right subQ emphysema, no PTX, right chest consolidation. Vital signs reviewed General: nontoxic, no distress, appears older than stated age, improved crepitus over right and left neck Cardiovascular: S1S2 reg, no murmur Lungs: Decreased bs right, crepitus over right chest wall, no rhonchi, no rales , no accessory muscle use, pleurx in place Abdominal: soft, nontender to palpation, no guarding, no appreciable organomegaly, + BS Ext: no gross muscle atrophy, no edema b/l lower extremities, no contractures Neuro: no focal neuro deficits Psych: Alert, oriented, appropriate affect Right sided hydropneumothorax s/p pigtail cath on 10/27/22 Stage IV lung cancer COPD without exacerbation Chronic hypoxic respiratory failure at 3 L nasal cannula Pancytopenia, worsening with Hg 6.7 and Plt 27 HypoMag Adrenal insufficiency, secondary related to lung cancer treatment Chronic: Prior hypertension now has episodes of hypotension, Dyslipidemia Based on my assessment of this patient, this patient meets a high complexity level of care. Patient has an acute diagnosis of right hydroPTX that poses a threat to life or bodily function. He also has worsening pancytopenia with Hg 6.7 today requiring 1 PRBC and Plt 27. Right sided hydropneumothorax s/p pigtail cath on 10/27/22: CT surgery note reviewed, continue chest tube to suction with strict Ins and Outs, daily CXRs. Stage IV lung cancer: Hematology/Oncology consulted and on board. COPD without exacerbation: Tessalon pearles PRN for cough. Synbicort INH. Atrovent INH QID. DuoNeb PRN for SOB. Chronic hypoxic respiratory failure at 3 L nasal cannula Pancytopenia, worsening with Hg 6.7-7.4 and Plt 27-17: s/p 1 unit PRBC 11/10. T ransfuse PRBC if Hg < 7.Transfuse Plt if signs of bleeding of < 10. HIT panel ordered. HypoMag Mag sulfate IV. Adrenal insufficiency, secondary related to lung cancer treatment: Cortef 10 mg PO QHS. Cortef 20 mg PO QD. Lovenox SQ for DVT prophylaxis. FULL CODE. I have reviewed the following cardiology clinical consultant notes: CT surgery note. I have reviewed the results of the following tests: CBC. BMP. Mag I have ordered the following tests: Agree with daily CXR. CBC, CMP, Mg. I have discussed the care of this patient with the following independent historian: I have independently interpreted the following test below: CXR as above. I have discussed the management of this patient with the following physician: Objective - Vital Signs Vital signs: Vital Signs Temp 98.6 F 11/11/22 11:14 Pulse 79 11/11/22 11:14 Resp 18 11/11/22 11:14 BP 104/67 11/11/22 11:14 Pulse Ox 100 11/11/22 11:14 FiO2 Intake & Output 11/10/22 11/11/22 11/11/22 18:59 06:59 18:59 Intake Total 1110 670 Output Total 310 369 570 Balance 800 -369 100 Intake: IV 10 Invasive Line 1 10 Oral 800 660 Blood Product 310 Rc As-1 Unit 310 [id number] Output: Chest Tube Drainage 70 94 70 Chest Tube Right Lateral 30 34 30 Chest Pleural Catheter Right 40 60 40 Lower Urine 240 275 500 Other: Voiding Method Bedside Commode Bedside Commode Bedside Commode Urinal Urinal Urinal # Voids 2 2 - Labs CBC & Chem 7: 11/11/22 11:50 11/11/22 11:50 Labs: Abnormal Lab Results - Last 24 Hours (Table) 11/10/22 11/10/22 11/11/22 Range/Units 11:30 14:26 11:50 WBC (3.8-10.6) k/uL RBC (4.30-5.90) m/uL Hgb (13.0-17.5) gm/dL Hct (39.0-53.0) % Plt Count (150-450) k/uL Lymphocytes # (1.0-4.8) k/uL Fibrinogen 574 H (200-500) mg/dL Sodium 130 L (137-145) mmol/L Potassium 3.4 L (3.5-5.1) mmol/L Chloride 92 L (98-107) mmol/L Carbon Dioxide 31 H (22-30) mmol/L Creatinine 0.65 L (0.66-1.25) mg/dL Glucose 100 H (74-99) mg/dL Magnesium (1.6-2.3) mg/dL Total Protein 6.0 L (6.3-8.2) g/dL Albumin 3.2 L (3.5-5.0) g/dL Crossmatch See Detail 11/11/22 11/11/22 Range/Units 11:50 11:50 WBC 2.7 L (3.8-10.6) k/uL RBC 2.30 L (4.30-5.90) m/uL Hgb 7.4 L (13.0-17.5) gm/dL Hct 20.5 L (39.0-53.0) % Plt Count 17 L* (150-450) k/uL Lymphocytes # 0.3 L (1.0-4.8) k/uL Fibrinogen (200-500) mg/dL Sodium (137-145) mmol/L Potassium (3.5-5.1) mmol/L Chloride (98-107) mmol/L Carbon Dioxide (22-30) mmol/L Creatinine (0.66-1.25) mg/dL Glucose (74-99) mg/dL Magnesium 1.0 L (1.6-2.3) mg/dL Total Protein (6.3-8.2) g/dL Albumin (3.5-5.0) g/dL Crossmatch
[2022-11-11] MEDS: HYDROCORTISONE 10 MG TAB PO SCH (17:03)
[2022-11-11] MEDS: MAGNESIUM SULFATE-D5W PMX 1 GM in DEXTROSE/WATER 1 100ML.BAG IVPB SCH ×4 (17:05→22:38)
[2022-11-11] MEDS: polyethylene glycoL 3350 17 GM POWD.PACK PO PRN (17:18)
--- NOTE | 2022-11-11 17:34 | P.PN ---
Subjective Progress Note Date: 11/11/22 Principal diagnosis: Stage IV non-small cell lung cancer, I do pneumothorax In follow-up today patient is doing pretty well, with assistance he is getting up and around the room, he denies any fevers, bleeding. Objective - Vital Signs Vital signs: Vital Signs Temp 98.3 F 11/11/22 16:30 Pulse 85 11/11/22 16:30 Resp 18 11/11/22 16:30 BP 101/68 11/11/22 16:30 Pulse Ox 99 11/11/22 16:30 FiO2 Intake & Output 11/10/22 11/11/22 11/11/22 18:59 06:59 18:59 Intake Total 1110 670 Output Total 310 369 570 Balance 800 -369 100 Intake: IV 10 Invasive Line 1 10 Oral 800 660 Blood Product 310 Rc As-1 Unit 310 [id number] Output: Chest Tube Drainage 70 94 70 Chest Tube Right Lateral 30 34 30 Chest Pleural Catheter Right 40 60 40 Lower Urine 240 275 500 Other: Voiding Method Bedside Commode Bedside Commode Bedside Commode Urinal Urinal Urinal # Voids 2 2 - Constitutional General appearance: Present: average body habitus, cooperative, no acute distress - EENT Eyes: Present: anicteric sclerae, EOMI ENT: Present: hearing grossly normal - Respiratory Details: Respirations even and unlabored at rest - Cardiovascular Details: Skin warm and dry to the touch - Peripheral edema leg Peripheral Edema: bilateral: None - Integumentary Integumentary: Present: normal - Neurologic Neurologic: Present: CNII-XII intact - Musculoskeletal Musculoskeletal: Present: strength equal bilaterally - Psychiatric Psychiatric: Present: A&O x's 3, appropriate affect, intact judgment & insight - Labs CBC & Chem 7: 11/11/22 11:50 11/11/22 11:50 Labs: Abnormal Lab Results - Last 24 Hours (Table) 11/10/22 11/10/22 11/11/22 Range/Units 11:30 14:26 11:50 WBC (3.8-10.6) k/uL RBC (4.30-5.90) m/uL Hgb (13.0-17.5) gm/dL Hct (39.0-53.0) % Plt Count (150-450) k/uL Lymphocytes # (1.0-4.8) k/uL Fibrinogen 574 H (200-500) mg/dL Sodium 130 L (137-145) mmol/L Potassium 3.4 L (3.5-5.1) mmol/L Chloride 92 L (98-107) mmol/L Carbon Dioxide 31 H (22-30) mmol/L Creatinine 0.65 L (0.66-1.25) mg/dL Glucose 100 H (74-99) mg/dL Magnesium (1.6-2.3) mg/dL Total Protein 6.0 L (6.3-8.2) g/dL Albumin 3.2 L (3.5-5.0) g/dL Crossmatch See Detail 11/11/22 11/11/22 Range/Units 11:50 11:50 WBC 2.7 L (3.8-10.6) k/uL RBC 2.30 L (4.30-5.90) m/uL Hgb 7.4 L (13.0-17.5) gm/dL Hct 20.5 L (39.0-53.0) % Plt Count 17 L* (150-450) k/uL Lymphocytes # 0.3 L (1.0-4.8) k/uL Fibrinogen (200-500) mg/dL Sodium (137-145) mmol/L Potassium (3.5-5.1) mmol/L Chloride (98-107) mmol/L Carbon Dioxide (22-30) mmol/L Creatinine (0.66-1.25) mg/dL Glucose (74-99) mg/dL Magnesium 1.0 L (1.6-2.3) mg/dL Total Protein (6.3-8.2) g/dL Albumin (3.5-5.0) g/dL Crossmatch - Imaging and Cardiology Chest x-ray: report reviewed Assessment and Plan (1) Antineoplastic chemotherapy induced pancytopenia Current Visit: Yes Status: Acute Priority: High Code(s): D61.810 - ANTINEOPLASTIC CHEMOTHERAPY INDUCED PANCYTOPENIA; T45.1X5A - ADVERSE EFFECT OF A NTINEOPLASTIC AND IMMUNOSUP DRUGS, INIT SNOMED Code(s): 547445817599399 Plan: Air leak from Pleurx catheter, severe subcutaneous emphysema -Significantly improved since admit -Chest tube management CTS Chemotherapy-induced pancytopenia -Patient received treatment 13 days ago. Patient is currently in solange. His solange is being exacerbated by acute condition. -Hemoglobin 7.4 after 1 unit of PRBCs for hemoglobin of 6.7. Transfuse for a hemoglobin less than 7 or if patient is symptomatic -WBCs of 2.7, ANC is 2 No G-CSF needed, vital signs are been stable, patient has been afebrile -Platelet Continue to decrease, 17,000 today. No anticoagulation, aspirin, NSAIDs. SCDs for DVT prophylaxis at this time. Transfuse for platelets less t bartholomew 10,000 or if symptomatic. Nothing on exam to suggest acute bleeding. Hit antibody was negative. Coags were within normal limits. Fibrinogen greater than 500. No DIC -Continue CBC daily Metastatic non-small cell lung cancer -Treatment obviously on hold at this time pending resolution/stability of current situation -Continue follow-up at [facility] in [place] as planned. Low potassium and magnesium -This is chronic for patient's he is on oral supplementation at home -Potassium today 3.4, magnesium level checked it was 1. Supplementation ordered. -Recheck lab values after additional supplementation
[2022-11-11] MEDS: SENNOSIDES-DOCUSATE SODIUM 1 EACH TAB PO SCH (20:50)
[2022-11-11] MEDS: ALPRAZolam 0.25 MG TAB PO PRN (22:38)
[2022-11-12] MEDS: HYDROmorphone 0.5 MG/0.5 ML SYRINGE IVP PRN ×6 (00:42→20:45)
--- NOTE | 2022-11-12 03:01 | P.CNPUL ---
History of Present Illness Consult date: 11/12/22 Requesting physician: Trista Rodriguez Reason for consult: pneumothorax Chief complaint: Neck and chest swelling after Pleurx catheter insertion History of present illness: I am seeing this patient in new consultation today 11/12/2022 after presenting to the emergency room back on November 06 for neck and chest swelling after Pleurx catheter insertion 10 days earlier. We were not consulted until yesterday afternoon. 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 This was reportedly diagnosed at an outside facility back in May,. He has been following with Dr. Williamson in the office over the last year. He follows with his oncologist Dr. Dawson out of [facility]. He is status post chemo/radiation. Previously maintained on a combination of CarboplatinAlimta/Keytruda. Apparently, back in May 2022 he started having issues with a right-sided pleural effusion. He's had the pleural effusion drained 3 times at [facility] and once at [facility]. A right sided Pleurx catheter was inserted by cardiothoracic surgery on his most recent admission back on October 27. 4 days after discharge, he started to notice increased chest and neck swelling. He states that when he moved his jaw it sounded like "Rice Krispies". He did come back to the emergency room back on November 06 for these symptoms. Chest CT showed a large right-sided hydropneumothorax with small chest tube in the posterior pleural space. There is a significant amount of subcutaneous emphysema. There was a large right suprahilar mass consistent with patient's known history of malignancy. Moderate to severe bullous emphysema. And a liver mass which could represent metastatic lesion or malignancy. Patient's Pleurx chest tube was hooked to a Pleur-evac and suction. Patient's hydropneumothorax persisted, and a large bore right thoracotomy tube was placed on November 09 by cardiothoracic surgery. Patient is currently sitting up in bed, on 3 L/m nasal cannula, in no acute d istress. There are 2 chest tubes as described above. Both Pleur-evacs have intermittent air leak and are hooked to suction at -20 cm H20. Most recent chest x-ray from yesterday continues to show significant amount of subcutaneous emphysema. Which makes it difficult to evaluate for small pneumothorax, however, no large pneumothorax appreciated. Incentive spirometry is at bedside. Most recent CBC from yesterday shows a WBC count of 2.7, hemoglobin 7.4, hematocrit 20.5, platelets 17,000. Patient did receive 1 unit PRBC 2 days ago for a hemoglobin of 6.7. BMP from yesterday shows sodium 130, potassium 3.4, chloride 92, serum bicarbonate 31, BUN 17, creatinine 0.65, glucose 100. Normal saline is infusing at 75 ml/hr. Patient appears hemodynamically stable at this time. Review of Systems REVIEW OF SYSTEMS: CONSTITUTIONAL: Denies any recent significant weight loss or weight gain. EYES: Denies change in vision. EARS, NOSE, MOUTH, THROAT: Denies headaches, denies sore throat. CARDIOVASCULAR: Denies palpitations or syncopal episodes. Admits some localized pain surrounding chest tube insertion site. RESPIRATORY: Denies shortness of breath, cough, congestion or hemoptysis. GASTROINTESTINAL: Denies change in appetite, abdominal pain, nausea and vomiting, or diarrhea GENITOURINARY: Denies hematuria, denies infections. MUSKULOSKELETAL: Denies pain, denies swelling. INTEGUMENTARY: Denies rash, denies eczema. NEUROLOGICAL: Denies recent memory loss, no recent seizure activity. PSYCHIATRIC: Denies anxiety, denies depression. HEMATOLOGIC/LYMPHATIC: Denies anemia, denies enlarged lymph node Past Medical History Past Medical History: Cancer, COPD, Hyperlipidemia, Hypertension, Pneumonia Additional Past Medical History / Comment(s): Wears O2@3L NC ATC,recurrent rt lung CA receiving chemo last dose 10/29/22 [facility]. 4 thorocentesis in last 5 weeks, Dx 2020 IV NSCLC, adrenal left gland, had pneumonitis, 17 day stay in ICU with intial chemo and immuno therapy, emphysema,b/p runs low now since cancer dx and treatment had prior htn hx-has dizziness w/ falls at times improved with cortef; recurrent right-sided malignant pleural effusion History of Any Multi-Drug Resistant Organisms: None Reported Past Surgical History: Cholecystectomy Additional Past Surgical History / Comment(s): rt port a cath (power port); right sided thoracentesis 4, status post right Pleurx catheter placement on 10/27/2022 Past Anesthesia/Blood Transfusion Reactions: No Reported Reaction Additional Past Anesthesia/Blood Transfusion Reaction / Comment(s): no hx blood transfusions Past Psychological History: Anxiety Smoking Status: Former smoker Past Alcohol Use History: None Reported Additional Past Alcohol Use History / Comment(s): quit smoking 2011,<1 ppd Past Drug Use History: Marijuana Additional Drug Use History / Comment(s): use marijuana gummies at bedtime - Past Family History Mother Family Medical History: No Reported History Additional Family Medical History / Comment(s): Kidney failure, status post kidney transplant history of manic depressive Father Family Medical History: Cancer Additional Family Medical History / Comment(s): rt lung CA Medications and Allergies Home Medications Medication Instructions Recorded Confirmed Type ALPRAZolam [Xanax] 0.25 mg PO DAILY PRN 10/26/22 11/06/22 History Albuterol Sulfate [Albuterol 2 puff PO RT-Q6H PRN 10/26/22 11/06/22 History Sulfate Hfa] Atorvastatin [Lipitor] 40 mg PO DAILY 10/26/22 11/06/22 History Benzonatate [Tessalon Perles] 100 mg PO TID PRN 10/26/22 11/06/22 History Budesonide/Glycopyr/Formoterol 2 puff INHALATION RT-BID 10/26/22 11/06/22 History [Breztri Aerosphere Inhaler] Cholecalciferol [Vitamin D3 (25 50 mcg PO DAILY 10/26/22 11/06/22 History Mcg = 1000 Iu)] Cyanocobalamin (Vitamin B-12) 2,000 mcg PO DAILY 10/26/22 11/06/22 History [Vitamin B-12] Docusate Sodium [Dok] 100 mg PO BID PRN 10/26/22 11/06/22 History FLUoxetine HCL [PROzac] 20 mg PO DAILY 10/26/22 11/06/22 History Fludrocortisone [Florinef] 0.1 mg PO QAM 10/26/22 11/06/22 History Folic Acid 1 mg PO DAILY 10/26/22 11/06/22 History Hydrocortisone [Cortef] 10 mg PO AC-SUPPER 10/26/22 11/06/22 History Ibuprofen [Advil] 200 - 400 mg PO Q8HR PRN 10/26/22 11/06/22 History Ipratropium-Albuterol Nebulize 3 ml INHALATION RT-TID PRN 10/26/22 11/06/22 History [Duoneb 0.5 mg-3 mg/3 ml Soln] Pantoprazole Sodium [Protonix] 40 mg PO DAILY 10/26/22 11/06/22 History Zolpidem Tartrate [Zolpidem 6.25 mg PO HS 10/26/22 11/06/22 History Tartrate ER] ondansetron HCL [Zofran] 8 mg PO BID 10/26/22 11/06/22 History polyethylene glycoL 3350 [Miralax] 17 gm PO DAILY PRN 10/26/22 11/06/22 History Acetaminophen Tab [Tylenol] 650 mg PO Q6HR PRN tab 10/27/22 11/06/22 Rx HYDROcodone/APAP 5-325MG [Savery 2 tab PO Q6HR PRN 3 Days #24 tab 10/28/22 11/06/22 Rx 5-325] Hydrocortisone [Cortef] 20 mg PO DAILY 11/06/22 11/06/22 History Hydrocortisone [Cortef] 20 mg PO DAILY 11/06/22 11/06/22 History Potassium Chloride [Klor-Con M20] 20 meq PO DAILY 11/06/22 11/06/22 History Sennosides-Docusate Sodium 1 tab PO HS 11/06/22 11/06/22 History [Senokot-S] Slow-Mag 71.5mg 143 mg PO DAILY 11/06/22 11/06/22 History Allergies Allergy/AdvReac Type Severity Reaction Status Date / Time No Known Allergies Allergy Verified 11/06/22 10:36 Physical Exam Vitals: Vital Signs Temp Pulse Resp BP Pulse Ox 11/12/22 00:39 88 18 125/79 99 11/11/22 20:40 98.2 F 79 18 112/74 99 11/11/22 20:00 79 11/11/22 16:30 98.3 F 85 18 101/68 99 11/11/22 11:14 98.6 F 79 18 104/67 100 11/11/22 08:00 85 18 11/11/22 07:48 98.1 F 85 18 109/73 100 11/11/22 04:16 98.0 F 86 17 107/71 100 Intake and Output 11/11/22 11/11/22 11/12/22 14:59 22:59 06:59 Intake Total 670 Output Total 270 1414 30 Balance 400 -1414 -30 Intake: IV 10 Invasive Line 1 10 Oral 660 Output: Chest Tube Drainage 70 54 30 Chest Tube Right Lateral 30 24 10 Chest Pleural Catheter Right 40 30 20 Lower Urine 200 1360 Other: Voiding Method Urinal Bedside Commode Urinal # Voids 1 GENERAL EXAM: Alert, 57-year-old white male appearing stated age, comfortable in no apparent distress. HEAD: Normocephalic and atraumatic EYES: Normal reaction of pupils, equal size. NOSE: Clear with pink turbinates. THROAT: No erythema or exudates. NECK: No masses, no JVD. CHEST: There are 2 thoracotomy chest tubes, which are hooked to Pleur-evac's and suction. There is still subcutaneous emphysema particularly on the right chest but going up to the patient's right neck and even extending down to the abdomen. There is a right chest Mediport. LUNGS: Equal air entry with no crackles, wheeze, rhonchi or dullness. on 3 L/m nasal cannula. No conversational dyspnea or accessory muscle use.. CVS: S1 and S2 normal with no audible murmur, regular rhythm. No extra heart sounds ABDOMEN: No hepatosplenomegaly, active bowel sounds, no guarding or rigidity. SPINE: No scoliosis or deformity SKIN: No rashes CENTRAL NERVOUS SYSTEM: No focal deficits, tone is normal in all 4 extremities. EXTREMITIES: There is no peripheral edema, clubbing, or cyanosis. Peripheral pulses are intact. Results - Laboratory Findings CBC and BMP: 11/11/22 11:50 11/11/22 11:50 PT/INR, D-dimer PT 10.3 sec (9.0-12.0) 11/10/22 14:26 INR 1.0 (<1.2) 11/10/22 14:26 Abnormal lab findings: Abnormal Labs 11/06/22 11/06/22 11/07/22 10:07 10:07 07:30 WBC 3.1 L 3.3 L RBC 2.71 L 2.49 L Hgb 8.5 L 7.9 L Hct 24.3 L 22.8 L RDW 15.7 H 15.8 H Plt Count 128 L 105 L Lymphocytes # 0.5 L Fibrinogen Sodium 136 L Potassium Chloride Carbon Dioxide BUN Creatinine Glucose Magnesium Total Protein Albumin Crossmatch 11/07/22 11/08/22 11/08/22 07:30 11:33 11:33 WBC 3.1 L RBC 2.41 L Hgb 7.5 L Hct 21.7 L RDW 15.7 H Plt Count 75 L Lymphocytes # Fibrinogen Sodium 136 L 134 L Potassium Chloride 95 L Carbon Dioxide 33 H BUN 25 H 22 H Creatinine Glucose 102 H Magnesium Total Protein Albumin Crossmatch 11/09/22 11/09/22 11/10/22 08:51 08:51 09:00 WBC 2.8 L 2.2 L RBC 2.42 L 2.16 L Hgb 7.5 L 6.7 L* Hct 22.0 L 19.3 L* RDW Plt Count 47 L 27 L Lymphocytes # 0.3 L 0.4 L Fibrinogen Sodium 134 L Potassium 3.3 L Chloride 94 L Carbon Dioxide 31 H BUN 27 H Creatinine Glucose 106 H Magnesium Total Protein Albumin Crossmatch 11/10/22 11/10/22 11/10/22 09:00 11:30 14:26 WBC RBC Hgb Hct RDW Plt Count Lymphocytes # Fibrinogen 574 H Sodium 132 L Potassium Chloride 96 L Carbon Dioxide 31 H BUN 25 H Creatinine Glucose Magnesium Total Protein Albumin Crossmatch See Detail 11/11/22 11/11/22 11/11/22 11:50 11:50 11:50 WBC 2.7 L RBC 2.30 L Hgb 7.4 L Hct 20.5 L RDW Plt Count 17 L* Lymphocytes # 0.3 L Fibrinogen Sodium 130 L Potassium 3.4 L Chloride 92 L Carbon Dioxide 31 H BUN Creatinine 0.65 L Glucose 100 H Magnesium 1.0 L Total Protein 6.0 L Albumin 3.2 L Crossmatch - Diagnostic Findings Chest x-ray: image reviewed CT scan - chest: image reviewed Assessment and Plan Assessment: Right-sided hydropneumothorax, with subcutaneous emphysema to his right chest an d neck, status post placement of additional right pleural chest tube. Continues to have a persistent intermittent air leak. History of recurrent right-sided pleural effusion, status post multiple th oracentesis and ultimately right Pleurx catheter placement on 10/27/2022. Metastatic non-small cell lung cancer Pancytopenia, related to systemic chemotherapy. Status post transfusion 1 unit PRBC. Hypokalemia, being replaced Hypomagnesemia, being replaced COPD, without exacerbation Chronic hypoxemic respiratory failure, on 3 L/m nasal cannula History of iatrogenic pneumonitis, related to Keytruda. Adrenal insufficiency from treatment, maintained on Cortef Benign essential hypertension Hyperlipidemia General anxiety disorder Plan: Patient's medications, labs, imaging reviewed Continue supplemental oxygen Continue chest tubes to suction, there continues to be a persistent intermittent air leak from both Pleur-evacs. Encourage incentive spirometer Repeat chest x-ray in the morning We will continue to follow, and further recommendations are forthcoming I have personally seen and examined the patient, performed the documentation and the assessment and plan as written. Number of minutes spent on the visit:20 . Time with Patient: Greater than 30
[2022-11-12] MEDS: BENZONATATE 100 MG CAP PO PRN ×2 (07:03→16:56)
[2022-11-12] MEDS: HYDROcodone/APAP 5-325MG 1 EACH TAB PO PRN ×3 (07:03→23:38)
[2022-11-12] MEDS: PANTOPRAZOLE 40 MG TABLET PO SCH (08:09)
[2022-11-12] MEDS: FLUoxetine HCL 20 MG CAP PO SCH (08:09)
[2022-11-12] MEDS: CYANOCOBALAMIN 500 MCG TAB PO SCH (08:09)
[2022-11-12] MEDS: POTASSIUM CHLORIDE ER 20 MEQ TAB.ER PO SCH ×3 (08:09→18:10)
[2022-11-12] MEDS: ONDANSETRON 4 MG TAB PO SCH ×2 (08:09→20:06)
[2022-11-12] MEDS: MAGNESIUM OXIDE 400 MG TAB PO SCH (08:09)
[2022-11-12] MEDS: FLUDROCORTISONE 0.1 MG TAB PO SCH (08:09)
[2022-11-12] MEDS: CHOLECALCIFEROL 25 MCG (1000 IU) TABLET PO SCH (08:09)
[2022-11-12] MEDS: FOLIC ACID 1 MG TAB PO SCH (08:09)
[2022-11-12] MEDS: ATORVASTATIN 40 MG TAB PO SCH (08:09)
--- NOTE | 2022-11-12 08:09 | XR ---
EXAMINATION TYPE: XR chest 1V portable DATE OF EXAM: 11/12/2022 Comparison: 11/11/2022 Clinical History: 57-year-old male pneumothorax Findings: Right anterior chest wall injection port with catheter tip at the cavoatrial junction. 2 right-sided chest tube is in place. Prominent subcutaneous emphysema persists along the right chest wall and also at the base of of the neck on both sides. Suspect similar ongoing loculated right basilar pneumothor ax. Patchy opacity throughout the right mid and lower lung is similar. Impression: 1. Suspect ongoing small loculated right basilar pneumothorax. Two right basilar chest tubes remain i n place. 2. Similar patchy opacities throughout the right mid and lower lung and ongoing subcutaneous emphysem a along the right side of chest and at the base of the neck on both sides.
[2022-11-12] MEDS: HYDROCORTISONE 20 MG TAB PO SCH (08:10)
[2022-11-12] MEDS: BACITRACIN OINT 1 EACH PACKET TOPICAL SCH ×3 (08:10→22:03)
[2022-11-12] MEDS: IPRATROPIUM 0.5 MG/2.5 ML NEBU INHALATION SCH ×4 (08:12→20:31)
[2022-11-12 08:26] LABS: ALT 19 U/L (4-49); AST 23 U/L (17-59); African American GFR (CKD) >90 (>60 ml/min/1.73 sqM); Albumin 3.2 g/dL (3.5-5.0); Alkaline Phosphatase 74 U/L (38-126); Anion Gap 4 mmol/L; Blood Urea Nitrogen 10 mg/dL (9-20); Calcium 8.5 mg/dL (8.4-10.2); Carbon Dioxide 34 mmol/L (22-30); Chloride 95 mmol/L (98-107); Glucose 80 mg/dL (74-99); Magnesium 1.8 mg/dL (1.6-2.3); Non-African American GFR(CKD) >90 (>60 ml/min/1.73 sqM); Sodium 133 mmol/L (137-145); Total Bilirubin 0.5 mg/dL (0.2-1.3); Total Protein 6.1 g/dL (6.3-8.2)
[2022-11-12 08:36] LABS: HCT 20.4 % (39.0-53.0); HGB 7.1 gm/dL (13.0-17.5); MCH 30.7 pg (25.0-35.0); MCV 87.6 fL (80.0-100.0); Mean Platelet Volume 10.1; RBC 2.32 m/uL (4.30-5.90); RDW 14.6 % (11.5-15.5); WBC 2.8 k/uL (3.8-10.6)
[2022-11-12 08:39] LABS: Platelet Count 17 k/uL (150-450)
--- NOTE | 2022-11-12 09:41 | P.PN ---
Subjective Progress Note Date: 11/12/22 Principal diagnosis: Right-sided hydropneumothorax, subcu emphysema. Past medical history significant for stage IV adenocarcinoma of the lung, adrenal adenoma, recurrent right sided malignant pleural effusions and subsequent right Pleurx catheter placement on 10/27/2022, emphysema/COPD and is on home oxygen 3 L nasal cannula as an outpatient, remote history of tobacco dependence, history of hypertension, recently hypotensive and GERD. Status post day #3 placement of right chest tube bu Dr Abhishek Lu The patient was seen and examined in follow-up today 11/12/2022 at his bedside on the third floor cardiac stepdown unit. Currently he is sitting up in bed, is awake, alert, oriented 3 and is in no acute apparent distress. He is tolerating his breakfast, denies any complaints of pain or shortness of breath at this time. He remains complaining of some subcutaneous emphysema to his right chest, right arm, and to his right and left neck. Denies any complaints of trouble swallowing. Oxygen saturations are 99% on 3 L nasal cannula and he is achieving 1767-6656 mL on his incentive spirometry with encouragement. Right Pleurx catheter and right pleural chest tube remained in place to low continuous wall suction -20 cm H2O. Continuous air leak present with the right pleural chest tube and it intermittent air leak present to the right rectus catheter chest tube with coughing. Right pleural chest tube with no drainage in the last 24 hours. Right chest Pleurx catheter with 110 mL output in the last 24 hours of thin serosanguineous drainage. He remains afebrile and the last 24 hours. Chest x-ray reviewed. It was discussed with the patient by Dr. Lu possible transfer to [facility] for [place] valve placement by interventional pulmonology. Objective - Vital Signs Vital signs: Vital Signs Temp 98.0 F 11/12/22 07:43 Pulse 82 11/12/22 07:43 Resp 18 11/12/22 07:43 BP 103/70 11/12/22 07:43 Pulse Ox 99 11/12/22 07:43 FiO2 Intake & Output 11/11/22 11/12/22 11/12/22 18:59 06:59 18:59 Intake Total 670 430 Output Total 608 1846 313 Balance 62 -1846 117 Intake: IV 10 10 Invasive Line 1 10 10 Oral 660 420 Output: Chest Tube Drainage 108 46 38 Chest Tube Right Lateral 48 16 8 Chest Pleural Catheter Right 60 30 30 Lower Urine 500 1800 275 Other: Voiding Method Bedside Commode Bedside Commode Urinal Urinal # Voids 1 - Exam CONSTITUTIONAL: Appears comfortable, cooperative, no acute distress RESPIRATORY: Lungs sounds diminished to his right lobes, essentially clear to his left lobes. Respirations are symmetrical, nonlabored. Currently on 3 L nasal cannula with oxygen saturation 99%. Able to achieve 1814-1195 mL on his incentive spirometry. Strong cough. CARDIOVASCULAR: S1, S2 present. Regular rate and rhythm, sinus rhythm on telemetry. Palpable peripheral pulses bilaterally. No edema present. No calf pain or tenderness noted. GASTROINTESTINAL: Abdomen soft, nontender, nondistended. Active bowel sounds present 4 quadrants. Tolerating diet. GENITOURINARY: Continues to void clear, yellow urine. INTEGUMENTARY: Skin is warm and dry with evidence of good perfusion. Right chest Pleurx catheter dressing clean, dry and intact. Subcutaneous emphysema improved, although remains present with palpitation to his right chest, right arm, right and left neck. Dressing to his right sided chest tube remained clean, dry and intact. NEUROLOGIC: Cranial nerves II through XII intact. No focal deficits. MUSKULOSKELETAL: Able to move all extremities, strength equal bilaterally, gait normal PSYCHIATRIC: Alert and oriented to person place and time, appropriate affect, intact judgment and insight INVASIVE LINES AND TUBES: Pleurx catheter is connected to Pleur-evac on low continuous wall suction -20 cm H2O. Intermittent air leak present to his right Pleurx catheter chest tube with coughing. Draining thin serosanguineous drainage. Right pleural chest tube connected to low continuous wall suction -20 cm H2O. Intermittent air leak is present. No drainage present. - Allied health notes Allied health notes reviewed: nursing - Labs CBC & Chem 7: 11/12/22 06:00 11/12/22 06:00 Labs: Abnormal Lab Results - Last 24 Hours (Table) 11/11/22 11/11/22 11/11/22 Range/Units 11:50 11:50 11:50 WBC 2.7 L (3.8-10.6) k/uL RBC 2.30 L (4.30-5.90) m/uL Hgb 7.4 L (13.0-17.5) gm/dL Hct 20.5 L (39.0-53.0) % Plt Count 17 L* (150-450) k/uL Lymphocytes # 0.3 L (1.0-4.8) k/uL Sodium 130 L (137-145) mmol/L Potassium 3.4 L (3.5-5.1) mmol/L Chloride 92 L (98-107) mmol/L Carbon Dioxide 31 H (22-30) mmol/L Creatinine 0.65 L (0.66-1.25) mg/dL Glucose 100 H (74-99) mg/dL Magnesium 1.0 L (1.6-2.3) mg/dL Total Protein 6.0 L (6.3-8.2) g/dL Albumin 3.2 L (3.5-5.0) g/dL 11/12/22 11/12/22 Range/Units 06:00 06:00 WBC 2.8 L (3.8-10.6) k/uL RBC 2.32 L (4.30-5.90) m/uL Hgb 7.1 L (13.0-17.5) gm/dL Hct 20.4 L (39.0-53.0) % Plt Count 17 L* (150-450) k/uL Lymphocytes # (1.0-4.8) k/uL Sodium 133 L (137-145) mmol/L Potassium 3.0 L (3.5-5.1) mmol/L Chloride 95 L (98-107) mmol/L Carbon Dioxide 34 H (22-30) mmol/L Creatinine 0.65 L (0.66-1.25) mg/dL Glucose (74-99) mg/dL Magnesium (1.6-2.3) mg/dL Total Protein 6.1 L (6.3-8.2) g/dL Albumin 3.2 L (3.5-5.0) g/dL - Imaging and Cardiology Chest x-ray: report reviewed, image reviewed Assessment and Plan Assessment: Right-sided hydropneumothorax with subcutaneous emphysema to his right chest and neck History of recurrent right-sided malignant pleural effusions, status post right Pleurx catheter placement on 10/27/2022 Stage IV lung cancer COPD without exacerbation Chronic hypoxic respiratory failure on 3 L nasal cannula continuously as an outpatient Adrenal insufficiency related to treatment History of hypertension History of hypotension Dyslipidemia Anxiety Remote history of nicotine dependence Plan: Keep right Pleurx catheter and right pleural chest tube connected to Pleur-evac on low continuous wall suction -20 cm H2O. Continue to record strict inaccurate I's and O's. Encourage use of incentive spirometry 10 times every hour while awake. Pain control per current when necessary orders. Increase activity as tolerated, extra extension tubing added to the Pleur-evac to allow the patient ambulate in his room. Medical management and other comorbidities per primary care service. Continue to monitor daily chest x-rays. Discussed with the patient the possible transferred to [facility] for possible [place] valve placement by interventional pulmonology. More recommendations follow based on patient's clinical course. Time with Patient: Less than 30
[2022-11-12] MEDS: SYMBICORT 160-4.5 MCG INHALER INHALATION SCH ×2 (11:38→20:30)
[2022-11-12] MEDS: bisacodyL 5 MG TABLET.DR PO PRN (11:44)
[2022-11-12] MEDS: DOCUSATE 100 MG CAP PO PRN (11:44)
[2022-11-12 13:37] VITALS: BMI 24.5
--- NOTE | 2022-11-12 14:36 | P.PN ---
Subjective Progress Note Date: 11/12/22 Principal diagnosis: Stage IV non-small cell lung cancer, I do pneumothorax In follow-up today patient is doing pretty well, with assistance he is getting up and around the room, he denies any fevers, bleeding. Objective - Vital Signs Vital signs: Vital Signs Temp 98.3 F 11/12/22 11:22 Pulse 75 11/12/22 11:22 Resp 18 11/12/22 11:22 BP 110/70 11/12/22 11:22 Pulse Ox 99 11/12/22 11:22 FiO2 Intake & Output 11/11/22 11/12/22 11/12/22 18:59 06:59 18:59 Intake Total 670 430 Output Total 608 1846 388 Balance 62 -1846 42 Weight 71.214 kg Intake: IV 10 10 Invasive Line 1 10 10 Oral 660 420 Output: Chest Tube Drainage 108 46 113 Chest Tube Right Lateral 48 16 23 Chest Pleural Catheter Right 60 30 90 Lower Urine 500 1800 275 Other: Voiding Method Bedside Commode Bedside Commode Bedside Commode Urinal Urinal Urinal # Voids 1 - Constitutional General appearance: Present: average body habitus, cooperative, no acute distress - EENT Eyes: Present: anicteric sclerae, EOMI ENT: Present: hearing grossly normal - Respiratory Details: rt chest tubes x 2 Resp are even and unlabored at rest - Cardiovascular Details: skin warm and dry to touch - Peripheral edema leg Peripheral Edema: bilateral: None - Neurologic Neurologic: Present: CNII-XII intact - Musculoskeletal Musculoskeletal: Present: strength equal bilaterally - Psychiatric Psychiatric: Present: A&O x's 3, appropriate affect, intact judgment & insight - Labs CBC & Chem 7: 11/12/22 06:00 11/12/22 06:00 Labs: Abnormal Lab Results - Last 24 Hours (Table) 11/12/22 11/12/22 Range/Units 06:00 06:00 WBC 2.8 L (3.8-10.6) k/uL RBC 2.32 L (4.30-5.90) m/uL Hgb 7.1 L (13.0-17.5) gm/dL Hct 20.4 L (39.0-53.0) % Plt Count 17 L* (150-450) k/uL Sodium 133 L (137-145) mmol/L Potassium 3.0 L (3.5-5.1) mmol/L Chloride 95 L (98-107) mmol/L Carbon Dioxide 34 H (22-30) mmol/L Creatinine 0.65 L (0.66-1.25) mg/dL Total Protein 6.1 L (6.3-8.2) g/dL Albumin 3.2 L (3.5-5.0) g/dL - Imaging and Cardiology Chest x-ray: report reviewed Assessment and Plan (1) Antineoplastic chemotherapy induced pancytopenia Current Visit: Yes Status: Acute Priority: High Code(s): D61.810 - ANTINEOPLASTIC CHEMOTHERAPY INDUCED PANCYTOPENIA; T45.1X5A - ADVERSE EFFECT OF ANTINEOPLASTIC AND IMMUNOSUP DRUGS, INIT SNOMED Code(s): 965059822516824 Plan: Air leak from Pleurx catheter, severe subcutaneous emphysema -Chest tube management CTS Chemotherapy-induced pancytopenia -Patient received treatment 14 days ago. He is at the end of solange. Would anticipate counts to stabilize here forward but, effects could be prolonged by acute condition. -Hemoglobin 7.1 today. Transfuse for a hemoglobin less than 7 or if patient is symptomatic -WBCs of 2.8, vital signs stable, patient has been afebrile -Platelet stable at 17,000 today. No anticoagulation, aspirin, NSAIDs. SCDs for DVT prophylaxis at this time. Transfuse for platelets less than 10,000 or if symptomatic. Nothing on exam to suggest acute bleeding at this time. Hit antibody was negative. Coags were within normal limits. Fibrinogen greater th an 500. No DIC -Continue CBC daily Metastatic non-small cell lung cancer -Treatment obviously on hold at this time pending resolution/stability of current situation -Continue follow-up at [facility] in [place] as planned. Low potassium and magnesium -This is chronic for patient's he is on oral supplementation at home -Potassium today 3 magnesium level after supplement 1.8. K+ Supplementation ordered. -Recheck lab values after additional supplementation
[2022-11-12] MEDS ORDERED: Potassium Replacement Protocol 1 EACH MISC MISCELLANE PRN (14:38)
--- NOTE | 2022-11-12 16:42 | P.PN ---
Subjective Progress Note Date: 11/12/22 Patient is a 57-year-old male with known adenocarcinoma of the lung stage IV being followed at, [facility] complicated by adrenal insufficiency, HLD, [place] hypoxic respiraotry failure on 3L NC, and CPOD who presented to the ER with complaints of swelling over his left chest and neck. Patient had a right-sided Pleurx catheter placed on 10/27/22. On arrival to the ER he was tachycardic with a pulse of 111 and a respiratory rate of 28. He was slightly hypotensive with a blood pressure of 87/62. Laboratory analysis included CBC, basic metabolic profile, liver enzymes, and troponin which were remarkable for white blood cell count 3.1, hemoglobin 8.5, and platelets of 128. Initial checks x-ray demonstrated diffuse right-sided subcutaneous emphysema. CT of the chest demonstrated large right-sided hydropneumothorax with small chest tube in place in the posterior pleural space, large right suprahilar mass suspicious for malignancy, moderate emphysema, and possible liver mass. Cardiothoracic surgery was contacted by the ER. Arrangements were made for admission. His pleurx cath was hooked to a chest tube and suction. 11/10 Patient was seen and examined. Currently with chest tube to suction. Currently on 3L NC. He reports improvement in his breathing. Pain well controll ed on current pain regimen. 80 cc output from R pleurx catheter over the past 24H. reports last BM was on Wednesday. CBC shows WBC count 2.2, Hg 6.7, Hct 19.3, Plt 27. BMP shows Na 132, Cl 96, bicarb 31, BUN 25. CXR shows improved right subQ emphysema, no PTX, right chest consolidation. 11/11 Patient was seen and examined. Breathing is stable. Currently with chest tube to suction. He was transfused [address] surgery recommends continued suction with daily CXR. CBC shows WBC count 2.7, Hg 7.4, Hct 20.5, Plt 17. BMP shows Na 130, K 3.4, Cl 92, bicarb 31, Cr 0.65. Mag 1.0. CXR shows stable right subQ emphysema, no PTX, right chest consolidation. 11/12 Patient was seen and examined this morning. No changes in clinical condition. CT surgery recommends continued suction with daily CXR with possible transfer for [place] valve placement by interventional pulmonology. CBC shows WBC count 2.8, Hg 7.1, Hct 20.4, Plt 17. BMP shows Na 133, K 3, Cl 95, bicarb 34, Cr 0.65. Mag 1.8. CXR shows stable right subQ emphysema, small loculated right basilar PTX, right chest consolidation. Vital signs reviewed General: nontoxic, no distress, appears older than stated age, improved crepitu s over right and left neck Cardiovascular: S1S2 reg, no murmur Lungs: Decreased bs right, crepitus over right chest wall, no rhonchi, no rales , no accessory muscle use, pleurx in place Abdominal: soft, nontender to palpation, no guarding, no appreciable organomegaly, + BS Ext: no gross muscle atrophy, no edema b/l lower extremities, no contractures Neuro: no focal neuro deficits Psych: Alert, oriented, appropriate affect Right sided hydropneumothorax s/p pigtail cath on 10/27/22 Stage IV lung cancer COPD without exacerbation Chronic hypoxic respiratory failure at 3 L nasal cannula Pancytopenia, worsening with Hg 6.7 and Plt 27 HypoMag Adrenal insufficiency, secondary related to lung cancer treatment Chronic: Prior hypertension now has episodes of hypotension, Dyslipidemia Based on my assessment of this patient, this patient meets a high complexity level of care. Patient has an acute diagnosis of right hydroPTX that poses a threat to life or bodily function. He also has worsening pancytopenia with Hg 6.7 today requiring 1 PRBC and Plt 27. Right sided hydropneumothorax s/p pigtail cath on 10/27/22: CT surgery note reviewed, continue chest tube to suction with strict Ins and Outs, daily CXRs. Stage IV lung cancer: Hematology/Oncology consulted and on board. COPD without exacerbation: Tessalon pearles PRN for cough. Synbicort INH. Atrovent INH QID. DuoNeb PRN for SOB. Chronic hypoxic respiratory failure at 3 L nasal cannula Pancytopenia, worsening with Hg 6.7-7.4-7.1 and Plt 27-17-17: s/p 1 unit PRBC 11/10. Transfuse PRBC if Hg < 7.Transfuse Plt if signs of bleeding of < 10. HIT panel ordered. HypoMag Mag sulfate IV. Adrenal insufficiency, secondary related to lung cancer treatment: Cortef 10 mg PO QHS. Cortef 20 mg PO QD. Lovenox SQ for DVT prophylaxis. FULL CODE. I have reviewed the following health analytics consultant notes: CT surgery note. I have reviewed the results of the following tests: CBC. BMP. Mag I have ordered the following tests: Agree with daily CXR. CBC, BMP, Mg. I have discussed the care of this patient with the following independent historian: I have independently interpreted the following test below: CXR as above. I have discussed the management of this patient with the following physician: Objective - Vital Signs Vital signs: Vital Signs Temp 98.3 F 11/12/22 11:22 Pulse 75 11/12/22 11:22 Resp 18 11/12/22 11:22 BP 110/70 11/12/22 11:22 Pulse Ox 99 11/12/22 11:22 FiO2 Intake & Output 11/11/22 11/12/22 11/12/22 18:59 06:59 18:59 Intake Total 670 440 Output Total 608 1846 638 Balance 62 -1846 -198 Weight 71.214 kg Intake: IV 10 20 Invasive Line 1 10 20 Oral 660 420 Output: Chest Tube Drainage 108 46 113 Chest Tube Right Lateral 48 16 23 Chest Pleural Catheter Right 60 30 90 Lower Urine 500 1800 525 Other: Voiding Method Bedside Commode Bedside Commode Bedside Commode Urinal Urinal Urinal # Voids 1 # Bowel Movements 1 - Labs CBC & Chem 7: 11/12/22 06:00 11/12/22 06:00 Labs: Abnormal Lab Results - Last 24 Hours (Table) 11/12/22 11/12/22 Range/Units 06:00 06:00 WBC 2.8 L (3.8-10.6) k/uL RBC 2.32 L (4.30-5.90) m/uL Hgb 7.1 L (13.0-17.5) gm/dL Hct 20.4 L (39.0-53.0) % Plt Count 17 L* (150-450) k/uL Sodium 133 L (137-145) mmol/L Potassium 3.0 L (3.5-5.1) mmol/L Chloride 95 L (98-107) mmol/L Carbon Dioxide 34 H (22-30) mmol/L Creatinine 0.65 L (0.66-1.25) mg/dL Total Protein 6.1 L (6.3-8.2) g/dL Albumin 3.2 L (3.5-5.0) g/dL
[2022-11-12] MEDS: HYDROCORTISONE 10 MG TAB PO SCH (16:56)
[2022-11-12] MEDS: SENNOSIDES-DOCUSATE SODIUM 1 EACH TAB PO SCH (20:06)
[2022-11-12] MEDS: ALPRAZolam 0.25 MG TAB PO PRN (22:25)
[2022-11-13] MEDS: BENZONATATE 100 MG CAP PO PRN ×2 (01:00→18:16)
[2022-11-13] MEDS: HYDROmorphone 0.5 MG/0.5 ML SYRINGE IVP PRN ×7 (01:00→23:15)
[2022-11-13] MEDS: HYDROcodone/APAP 5-325MG 1 EACH TAB PO PRN ×3 (06:48→20:44)
[2022-11-13] MEDS: IPRATROPIUM 0.5 MG/2.5 ML NEBU INHALATION SCH ×4 (07:39→21:25)
[2022-11-13] MEDS: SYMBICORT 160-4.5 MCG INHALER INHALATION SCH ×2 (07:39→21:25)
--- NOTE | 2022-11-13 08:24 | XR ---
EXAMINATION TYPE: XR chest 1V portable DATE OF EXAM: 11/13/2022 COMPARISON: 923 HISTORY: Pneumothorax TECHNIQUE: Single frontal view of the chest is obtained. FINDINGS: Right-sided chest tube with subcutaneous emphysema. There is a approximately 5% right side d thorax. Right-sided consolidation and volume loss stable. Mediport seen in the left side is clear with surgical clips in the right upper quadrant. IMPRESSION: Diffuse subcutaneous emphysema and small approximate 5% pneumothorax.
[2022-11-13] MEDS: ONDANSETRON 4 MG TAB PO SCH ×2 (09:18→19:54)
[2022-11-13] MEDS: CHOLECALCIFEROL 25 MCG (1000 IU) TABLET PO SCH (09:18)
[2022-11-13] MEDS: FLUoxetine HCL 20 MG CAP PO SCH (09:18)
[2022-11-13] MEDS: polyethylene glycoL 3350 17 GM POWD.PACK PO PRN (09:18)
[2022-11-13] MEDS: FLUDROCORTISONE 0.1 MG TAB PO SCH (09:18)
[2022-11-13] MEDS: FOLIC ACID 1 MG TAB PO SCH (09:18)
[2022-11-13] MEDS: PANTOPRAZOLE 40 MG TABLET PO SCH (09:18)
[2022-11-13] MEDS: MAGNESIUM OXIDE 400 MG TAB PO SCH (09:18)
[2022-11-13] MEDS: HYDROCORTISONE 20 MG TAB PO SCH (09:18)
[2022-11-13] MEDS: CYANOCOBALAMIN 500 MCG TAB PO SCH (09:18)
[2022-11-13] MEDS: BACITRACIN OINT 1 EACH PACKET TOPICAL SCH ×3 (09:19→22:42)
[2022-11-13] MEDS: POTASSIUM CHLORIDE ER 20 MEQ TAB.ER PO SCH (09:19)
[2022-11-13] MEDS: ATORVASTATIN 40 MG TAB PO SCH (09:24)
[2022-11-13 10:09] LABS: HCT 20.1 % (39.0-53.0); HGB 7.3 gm/dL (13.0-17.5); MCH 32.7 pg (25.0-35.0); MCHC 36.3 g/dL (31.0-37.0); MCV 89.9 fL (80.0-100.0); Mean Platelet Volume 10.9; RBC 2.23 m/uL (4.30-5.90); RDW 14.9 % (11.5-15.5); WBC 2.5 k/uL (3.8-10.6)
[2022-11-13 10:30] LABS: Platelet Count 16 k/uL (150-450)
[2022-11-13 10:36] LABS: ALT 18 U/L (4-49); AST 20 U/L (17-59); African American GFR (CKD) >90 (>60 ml/min/1.73 sqM); Alkaline Phosphatase 67 U/L (38-126); Anion Gap 6 mmol/L; Blood Urea Nitrogen 11 mg/dL (9-20); Calcium 8.4 mg/dL (8.4-10.2); Carbon Dioxide 32 mmol/L (22-30); Chloride 92 mmol/L (98-107); Glucose 115 mg/dL (74-99); Magnesium 1.1 mg/dL (1.6-2.3); Non-African American GFR(CKD) >90 (>60 ml/min/1.73 sqM); Potassium 3.4 mmol/L (3.5-5.1); Sodium 130 mmol/L (137-145); Total Bilirubin 0.7 mg/dL (0.2-1.3); Total Protein 5.8 g/dL (6.3-8.2)
--- NOTE | 2022-11-13 11:22 | P.PN ---
Subjective Progress Note Date: 11/13/22 Principal diagnosis: Right-sided hydropneumothorax with subcutaneous emphysema. History of recurrent right-sided malignant pleural effusions status post right Pleurx catheter plac ement on 10/27/2022, stage IV lung cancer with adenocarcinoma, COPD, chronic hypoxic respiratory failure on 3 L nasal cannula continuously as an outpatient, adrenal insufficiency related to treatment, hypertension, dyslipidemia, anxiety POD#4 placement of additional right sided chest tube, persistent air leak Pancytopenia, hypokalemia, hypomagnesemia The patient was seen and examined with Dr. Lu sitting up in bed on the cardiac stepdown unit in no acute distress. States he continues to feel good. Has been ambulatory in the room. Right pleurx cath and extra chest tube to continuous wall suction, no air leak this morning in pleurx, positive air leak with expiration in chest tube. Dr. Lu met with the patient and family today, discussed taking chest tubes off suction, if no increase in air leak may put heimlich valve in place over the weekend. If remains stable may discharge home early next week to follow up at [facility] as an outpatient. If patient doesn't improve will need transfer to [facility] Wednesday for [place] valve replacement. Objective - Vital Signs Vital signs: Vital Signs Temp 98.0 F 11/13/22 09:04 Pulse 103 H 11/13/22 09:04 Resp 20 11/13/22 09:04 BP 100/63 11/13/22 09:04 Pulse Ox 98 11/13/22 09:04 FiO2 Intake & Output 11/12/22 11/13/22 11/13/22 18:59 06:59 18:59 Intake Total 440 30 20 Output Total 704 685 Balance -264 -655 20 Weight 71.214 kg 68.2 kg Intake: IV 20 30 20 Invasive Line 1 20 30 20 Oral 420 Output: Chest Tube Drainage 179 85 Chest Tube Right Lateral 39 15 Chest Pleural Catheter Right 140 70 Lower Urine 525 600 Other: Voiding Method Bedside Commode Bedside Commode Urinal Urinal # Bowel Movements 1 - Exam CONSTITUTIONAL: Appears comfortable, cooperative, no acute distress RESPIRATORY: Lungs sounds diminished bilaterally. Respirations even, nonlabored. Currently on 3 LPM NC with oxygen saturation 98%. Able to achieve 1700 mL on incentive spirometry. Strong cough. CARDIOVASCULAR: S1, S2 present. Regular rate and rhythm, sinus rhythm on telemetry. Palpable peripheral pulses bilaterally. No edema present GASTROINTESTINAL: Abdomen soft, nontender, nondistended. Active bowel sounds present 4 quadrants. Tolerating diet GENITOURINARY: Continues to void INTEGUMENTARY: Skin is warm and dry with evidence of good perfusion NEUROLOGIC: Cranial nerves II through XII intact MUSKULOSKELETAL: Able to move all extremities, strength equal bilaterally, gait normal PSYCHIATRIC: Alert and oriented to person place and time, appropriate affect, intact judgment and insight INVASIVE LINES AND TUBES: Right pleurx cath present and connected to wall suction, no air leak today, 70 mL serosanguineous drainage overnight, 400 mL in the last 24 hours. Right pleural chest tube connected to wall suction with air leak present with expiration, 15 mL serous drainage overnight, 180 mL in the last 24 hours. - Allied health notes Allied health notes reviewed: nursing - Labs CBC & Chem 7: 11/13/22 09:40 11/13/22 09:40 - Imaging and Cardiology Chest x-ray: report reviewed, image reviewed Assessment and Plan Assessment: Right-sided hydropneumothorax with subcutaneous emphysema to his right chest and neck, status post placement of additional right pleural chest tube History of recurrent right-sided malignant pleural effusions, status post right Pleurx catheter placement on 10/27/2022 Stage IV lung cancer COPD without exacerbation Chronic hypoxic respiratory failure on 3 L nasal cannula continuously as an outpatient Adrenal insufficiency related to treatment History of hypertension History of hypotension Dyslipidemia Anxiety Plan: Right Pleurx catheter and right pleural chest tube placed to water seal Will repeat CXR at 2 pm Will cap pleurx tomorrow If same or decreased air leak in right pleural chest tube will place heimlich valve over the weekend Encourage use of incentive spirometry 10 times every hour while awake. Pain control per current when necessary orders. Increase activity as tolerated Medical management and other comorbidities per primary care service. Continue to monitor daily chest x-rays. More recommendations follow based on patient's clinical course.
[2022-11-13] MEDS: MAGNESIUM SULFATE-D5W PMX 1 GM in DEXTROSE/WATER 1 100ML.BAG IVPB SCH ×4 (12:27→17:09)
--- NOTE | 2022-11-13 13:35 | P.PN ---
Subjective Progress Note Date: 11/13/22 Principal diagnosis: Shortness of breath, pneumothorax. I am seeing this patient in new consultation today 11/12/2022 after presenting to the emergency room back on November 06 for neck and chest swelling after Pleurx catheter insertion 10 days earlier. We were not consulted until yesterday afternoon. 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 This was reportedly diagnosed at an outside facility back in May,. He has been following with Dr. Williamson in the office over the last year. He follows with his oncologist Dr. Dawson out of [facility]. He is status post chemo/radiation. Previously maintained on a combination of CarboplatinAlimta/Keytruda. Apparently, back in May 2022 he started having issues with a right-sided pleural effusion. He's had the pleural effusion drained 3 times at [facility] and once at [facility]. A right sided Pleurx catheter was inserted by cardiothoracic surgery on his most recent admission back on October 27. 4 days after discharge, he started to notice increased chest and neck swelling. He states that when he moved his jaw it sounded like "Rice Krispies". He did come back to the emergency room back on November 06 for these symptoms. Chest CT showed a large right-sided hydropneumothorax with small chest tube in the posterior pleural space. There is a significant amount of subcutaneous emphysema. There was a large right suprahilar mass consistent with patient's known history of malignancy. Moderate to severe bullous emphysema. And a liver mass which could represent metastatic lesion or malignancy. Patient's Pleurx chest tube was hooked to a Pleur-evac and suction. Patient's hydropneumothorax persisted, and a large bore right thoracotomy tube was placed on November 09 by cardiothoracic surgery. Patient is currently sitting up in bed, on 3 L/m nasal cannula, in no acute distress. There are 2 chest tubes as described above. Both Pleur-evacs have intermittent air leak and are hooked to suction at -20 cm H20. Most recent chest x-ray from yesterday continues to show significant amount of subcutaneous emphysema. Which makes it difficult to evaluate for small pneumothorax, however, no large pneumothorax appreciated. Incentive spirometry is at bedside. Most recent CBC from yesterday shows a WBC count of 2.7, hemoglobin 7.4, hematocrit 20.5, platelets 17,000. Patient did receive 1 unit PRBC 2 days ago for a hemoglobin of 6.7. BMP from yesterday shows sodium 130, potassium 3.4, chloride 92, serum bicarbonate 31, BUN 17, creatinine 0.65, glucose 100. Normal saline is infusing at 75 ml/hr. Patient appears hemodynamically stable at this time. Progress note dated 11/13/2022. 57-year-old male, who was seen in consultation yesterday. The patient has histo ry of metastatic lung adenocarcinoma. The patient developed significant subcutaneous emphysema, and had a Pleurx catheter placed for a malignant pleural effusion. Subsequent to that, the patient developed a hydropneumothorax and required a formal chest tube placement. Therefore, on the right side, the patient has both a Pleurx catheter, and a large bore chest tube. Both her to low continuous suction. I did speak to cardiothoracic surgery about the patient, and they're recommending continuous suction over the weekend. Should the pneumothorax improved, a Heimlich valve will be placed. If it does not improve, they recommended sending patient to [facility], for consideration of a [place] valve. The patient is currently on 3 L. He is not receiving any IV fluids. White count 2.5, heme him 7.3, hematocrit 20.1, and platelet count 16,000. Sodium 130, potassium 3.4, chlorides 92, CO2 32, BUN 11, creatinine 0.63. Chest x-ray shows diffuse subcutaneous emphysema, and a small right-sided pneumothorax. Objective - Vital Signs Vital signs: Vital Signs Temp 98.0 F 11/13/22 09:04 Pulse 99 11/13/22 12:34 Resp 18 11/13/22 12:34 BP 97/62 11/13/22 12:34 Pulse Ox 100 11/13/22 12:34 FiO2 Intake & Output 11/12/22 11/13/22 11/13/22 18:59 06:59 18:59 Intake Total 440 30 20 Output Total 468 685 375 Balance -264 -655 -355 Weight 71.214 kg 68.2 kg Intake: IV 20 30 20 Invasive Line 1 20 30 20 Oral 420 Output: Chest Tube Drainage 179 85 Chest Tube Right Lateral 39 15 Chest Pleural Catheter Right 140 70 Lower Urine 525 600 375 Other: Voiding Method Bedside Commode Bedside Commode Bedside Commode Urinal Urinal Urinal # Bowel Movements 1 - Exam No acute distress, oriented 3. Currently on nasal O2 at 3 L. No conversational dyspnea or use of accessory muscles. HEENT examination is grossly unremarkable. Neck supple. Full range of motion. No adenopathy thyromegaly or neck vein distention. Cardiovascular examination reveals regular rhythm rate. S1-S2 normal. No S3 or S4. No discernible murmur noted. Heart sounds are distant. Heart rate 99 bpm. Lungs reveal diminished breath sounds over the right chest. Scattered rhonchi and crackles are noted. The patient does have subcutaneous emphysema over the right chest area. Lung sounds on the left, seen reasonably clear. 3 L is 100%. Abdomen soft bowel sounds are heard. No masses or tenderness. Extremities are intact. No cyanosis clubbing or edema. Skin is without rash or lesion. Neurologic examination is brief but nonfocal. - Labs CBC & Chem 7: 11/13/22 09:40 11/13/22 09:40 Labs: Abnormal Lab Results - Last 24 Hours (Table) 11/13/22 11/13/22 Range/Units 09:40 09:40 WBC 2.5 L (3.8-10.6) k/uL RBC 2.23 L (4.30-5.90) m/uL Hgb 7.3 L (13.0-17.5) gm/dL Hct 20.1 L (39.0-53.0) % Plt Count 16 L* (150-450) k/uL Sodium 130 L (137-145) mmol/L Potassium 3.4 L (3.5-5.1) mmol/L Chloride 92 L (98-107) mmol/L Carbon Dioxide 32 H (22-30) mmol/L Creatinine 0.63 L (0.66-1.25) mg/dL Glucose 115 H (74-99) mg/dL Magnesium 1.1 L (1.6-2.3) mg/dL Total Protein 5.8 L (6.3-8.2) g/dL Albumin 3.0 L (3.5-5.0) g/dL Assessment and Plan Assessment: Right-sided hydropneumothorax, with subcutaneous emphysema to his right chest and neck, status post placement of additional right pleural chest tube. Continues to have a persistent intermittent air leak. History of recurrent right-sided pleural effusion, status post multiple thoracentesis and ultimately right Pleurx catheter placement on 10/27/2022. Metastatic non-small cell lung cancer. Pancytopenia, related to systemic chemotherapy. Hypokalemia. Hypomagnesemia. COPD, inactive. Chronic hypoxemic respiratory failure, on 3 L/m nasal cannula. 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 Adrenal insufficiency. Benign essential hypertension. Hyperlipidemia. General anxiety disorder. Plan: Plan dated 11/13/2022. The patient's doing reasonably well, and is reasonably stable. He's been here in the hospital now for 7 days. I spoke to cardiothoracic surgery about this patient. The plan is to keep the Pleurx catheter in the large-bore chest tube, to continuous low suction should pneumothorax, improved we'll, we may try a Heimlich valve. Should it not, we may send the patient to [facility] for consideration of a [place] valve. Labs, x-rays, and medications are reviewed. Prognosis is guarded. We will continue to follow and make r ecommendations along the way. Time with Patient: Less than 30
--- NOTE | 2022-11-13 14:02 | XR ---
EXAMINATION TYPE: XR chest 1V portable DATE OF EXAM: 11/13/2022 COMPARISON: 11/13/2022 HISTORY: Follow-up pneumothorax TECHNIQUE: Single frontal view of the chest is obtained. FINDINGS: Right-sided chest tube with subcutaneous emphysema. There is a approximately 5% right side d thorax. Right-sided consolidation and volume loss stable. Mediport seen in the left side is clear w ith surgical clips in the right upper quadrant. IMPRESSION: 1. A chest tube again appears in good position with a 5% or less right-sided pneumothorax and right-s ided consolidation stable. 2. Diffuse subcutaneous emphysema.
--- NOTE | 2022-11-13 15:17 | P.PN ---
Subjective Progress Note Date: 11/13/22 Principal diagnosis: SOB Patient is resting comfortably in bed, spouse of bedside. Patient reports improvement in breathing. Thoravent and Pleurx in place. SPO2 98% on 3 L. Den ies any acute episodes of bleeding Objective - Vital Signs Vital signs: Vital Signs Temp 98.0 F 11/13/22 09:04 Pulse 99 11/13/22 12:34 Resp 18 11/13/22 12:34 BP 97/62 11/13/22 12:34 Pulse Ox 100 11/13/22 12:34 FiO2 Intake & Output 11/12/22 11/13/22 11/13/22 18:59 06:59 18:59 Intake Total 440 30 242 Output Total 704 685 375 Balance -951 -911 -923 Weight 71.214 kg 68.2 kg Intake: IV 20 30 20 Invasive Line 1 20 30 20 Oral 420 222 Output: Chest Tube Drainage 179 85 Chest Tube Right Lateral 39 15 Chest Pleural Catheter Right 140 70 Lower Urine 525 600 375 Other: Voiding Method Bedside Commode Bedside Commode Bedside Commode Urinal Urinal Urinal # Bowel Movements 1 - Constitutional General appearance: Present: average body habitus, no acute distress - EENT Eyes: Present: anicteric sclerae, EOMI ENT: Present: hearing grossly normal - Respiratory Details: breathing even and unlabored - Cardiovascular Details: skin warm and dry - Integumentary Integumentary Comment(s): no petechiae Integumentary: Present: pale. Absent: cyanotic - Musculoskeletal Musculoskeletal: Present: strength equal bilaterally - Psychiatric Psychiatric: Present: A&O x's 3, appropriate affect, intact judgment & insight - Labs CBC & Chem 7: 11/13/22 09:40 11/13/22 09:40 Labs: Abnormal Lab Results - Last 24 Hours (Table) 11/13/22 11/13/22 Range/Units 09:40 09:40 WBC 2.5 L (3.8-10.6) k/uL RBC 2.23 L (4.30-5.90) m/uL Hgb 7.3 L (13.0-17.5) gm/dL Hct 20.1 L (39.0-53.0) % Plt Count 16 L* (150-450) k/uL Sodium 130 L (137-145) mmol/L Potassium 3.4 L (3.5-5.1) mmol/L Chloride 92 L (98-107) mmol/L Carbon Dioxide 32 H (22-30) mmol/L Creatinine 0.63 L (0.66-1.25) mg/dL Glucose 115 H (74-99) mg/dL Magnesium 1.1 L (1.6-2.3) mg/dL Total Protein 5.8 L (6.3-8.2) g/dL Albumin 3.0 L (3.5-5.0) g/dL Assessment and Plan (1) Non-small cell lung cancer Current Visit: Yes Status: Acute Priority: Medium Code(s): C34.90 - MALIGNANT NEOPLASM OF UNSP PART OF UNSP BRONCHUS OR LUNG SNOMED Code(s): 645596194 (2) Hydropneumothorax Current Visit: Yes Status: Acute Priority: High Code(s): J94.8 - OTHER SPECIFIED PLEURAL CONDITIONS SNOMED Code(s): 49583408 (3) Antineoplastic chemotherapy induced pancytopenia Current Visit: Yes Status: Acute Priority: High Code(s): D61.810 - ANTINEOPLASTIC CHEMOTHERAPY INDUCED PANCYTOPENIA; T45.1X5A - ADVERSE EFFECT OF ANTINEOPLASTIC AND IMMUNOSUP DRUGS, INIT SNOMED Code(s): 528442103080269 Plan: Air leak from Pleurx catheter, severe subcutaneous emphysema -Chest tube in place, management CTS Chemotherapy-induced pancytopenia -Patient received treatment 14 days ago. He is at the end of solange. Would anticipate counts to stabilize here forward but, effects could be prolonged by acute condition. -Hemoglobin 7.3 today. Transfuse for a hemoglobin less than 7 or if patient is symptomatic -WBCs 2.5, vital signs stable, patient has been afebrile -Platelet stable at 16,000 today. No anticoagulation, aspirin, NSAIDs. SCDs for DVT prophylaxis at this time. Transfuse for platelets less than 10,000 or if symptomatic. Nothing on exam to suggest acute bleeding at this time. Hit antibody was negative. Coags were within normal limits. Fibrinogen greater than 500. No DIC -Continue CBC daily -Patient has home care scheduled through his oncologist for weekly blood draws. Encouraged close f/u with oncology to closely monitor counts. Bleeding precautions discussed with pt and spouse Metastatic non-small cell lung cancer -Treatment on hold at this time pending resolution/stability of current si tuation -[facility] [place] as [facility]. Low potassium and magnesium -This is chronic for patient. He is on oral supplementation at home -Potassium today 3.4, magnesium 1.1. Potassium and magnesium supplementation ordered. -Will continue to monitor
--- NOTE | 2022-11-13 15:48 | P.PN ---
Subjective Progress Note Date: 11/13/22 Patient is a 57-year-old male with known adenocarcinoma of the lung stage IV being followed at, [facility] complicated by adrenal insufficiency, HLD, Chornic hypoxic respiraotry failure on 3L NC, and CPOD who presented to the ER with complaints of swelling over his left chest and neck. Patient had a right-sided Pleurx catheter placed on 10/27/22. On arrival to the ER he was tachycardic with a pulse of 111 and a respiratory rate of 28. He was slightly hypotensive with a blood pressure of 87/62. Laboratory analysis included CBC, basic metabolic profile, liver enzymes, and troponin which were remarkable for white blood cell count 3.1, hemoglobin 8.5, and platelets of 128. Initial checks x-ray demonstrated diffuse right-sided subcutaneous emphysema. CT of the chest demonstrated large right-sided hydropneumothorax with small chest tube in place in the posterior pleural space, large right suprahilar mass suspicious for malignancy, moderate emphysema, and possible liver mass. Cardiothoracic surgery was contacted by the ER. Arrangements were made for admission. His pleurx cath was hooked to a chest tube and suction. 11/10 Patient was seen and examined. Currently with chest tube to suction. Currently on 3L NC. He reports improvement in his breathing. Pain well controll ed on current pain regimen. 80 cc output from R pleurx catheter over the past 24H. reports last BM was on Wednesday. CBC shows WBC count 2.2, Hg 6.7, Hct 19.3, Plt 27. BMP shows Na 132, Cl 96, bicarb 31, BUN 25. CXR shows improved right subQ emphysema, no PTX, right chest consolidation. 11/11 Patient was seen and examined. Breathing is stable. Currently with chest tube to suction. He was transfused [address] surgery recommends continued suction with daily CXR. CBC shows WBC count 2.7, Hg 7.4, Hct 20.5, Plt 17. BMP shows Na 130, K 3.4, Cl 92, bicarb 31, Cr 0.65. Mag 1.0. CXR shows stable right subQ emphysema, no PTX, right chest consolidation. 11/12 Patient was seen and examined this morning. No changes in clinical condition. CT surgery recommends continued suction with daily CXR with possible transfer for Kelly valve placement by interventional pulmonology. CBC shows WBC count 2.8, Hg 7.1, Hct 20.4, Plt 17. BMP shows Na 133, K 3, Cl 95, bicarb 34, Cr 0.65. Mag 1.8. CXR shows stable right subQ emphysema, small loculated right basilar PTX, right chest consolidation. 11/13 Patient was seen and examined. Clinical condition unchanged. CBC shows WBC count 2.5, Hg 7.3 and Plt 16. BMP shows Na 130, K 3.4, Cl 92, bicarb 32, Cr 0.63, glucose 115. Mag 1.1. Albumin 3.0. CT surgery recommends taking the patient off suction, heimlich valve if improvement over the weekend. If he worsens, will need transfer for interventional pulmonary eval at [facility]. CXR shows diffuse SQ emphysema and 5% PTX. Vital signs reviewed General: nontoxic, no distress, appears older than stated age, improved crepitus over right and left neck Cardiovascular: S1S2 reg, no murmur Lungs: Decreased bs right, crepitus over right chest wall, no rhonchi, no rales , no accessory muscle use, pleurx in place Abdominal: soft, nontender to palpation, no guarding, no appreciable organomegaly, + BS Ext: no gross muscle atrophy, no edema b/l lower extremities, no contractures Neuro: no focal neuro deficits Psych: Alert, oriented, appropriate affect Right sided hydropneumothorax s/p pigtail cath on 10/27/22 Stage IV lung cancer COPD without exacerbation Chronic hypoxic respiratory failure at 3 L nasal cannula Pancytopenia, worsening with Hg 6.7 and Plt 27 HypoMag Adrenal insufficiency, secondary related to lung cancer treatment Chronic: Prior hypertension now has episodes of hypotension, Dyslipidemia Based on my assessment of this patient, this patient meets a high complexity level of care. Patient has an acute diagnosis of right hydroPTX that poses a threat to life or bodily function. He also has worsening pancytopenia with Hg 6.7 today requiring 1 PRBC and Plt 27. Right sided hydropneumothorax s/p pigtail cath on 10/27/22: CT surgery note reviewed, continue chest tube to suction with strict Ins and Outs, daily CXRs. Stage IV lung cancer: Hematology/Oncology consulted and on board. COPD without exacerbation: Tessalon pearles PRN for cough. Synbicort INH. Atrovent INH QID. DuoNeb PRN for SOB. Chronic hypoxic respiratory failure at 3 L nasal cannula Pancytopenia, worsening with Hg 6.7-7.4-7.1-7.3 and Plt 27-17-17-16: s/p 1 unit PRBC 11/10. Transfuse PRBC if Hg < 7.Transfuse Plt if signs of bleeding of < 10. HIT panel negative. HypoMag Mag sulfate IV. Adrenal insufficiency, secondary related to lung cancer treatment: Cortef 10 mg PO QHS. Cortef 20 mg PO QD. Lovenox SQ for DVT prophylaxis. FULL CODE. I have reviewed the following jewelry consultant notes: CT surgery, Pulmonology note. I have reviewed the results of the following tests: CBC. BMP. Mag I have ordered the following tests: Agree with daily CXR. CBC, BMP, Mg. I have discussed the care of this patient with the following independent historian: I have independently interpreted the following test below: CXR as above. I have discussed the management of this patient with the following physician: Objective - Vital Signs Vital signs: Vital Signs Temp 98.0 F 11/13/22 09:04 Pulse 99 11/13/22 12:34 Resp 18 11/13/22 12:34 BP 97/62 11/13/22 12:34 Pulse Ox 100 11/13/22 12:34 FiO2 Intake & Output 11/12/22 11/13/22 11/13/22 18:59 06:59 18:59 Intake Total 440 30 242 Output Total 704 685 375 Balance -615 -655 -133 Weight 71.214 kg 68.2 kg Intake: IV 20 30 20 Invasive Line 1 20 30 20 Oral 420 222 Output: Chest Tube Drainage 179 85 Chest Tube Right Lateral 39 15 Chest Pleural Catheter Right 140 70 Lower Urine 525 600 375 Other: Voiding Method Bedside Commode Bedside Commode Bedside Commode Urinal Urinal Urinal # Bowel Movements 1 - Labs CBC & Chem 7: 11/13/22 09:40 11/13/22 09:40 Labs: Abnormal Lab Results - Last 24 Hours (Table) 11/13/22 11/13/22 Range/Units 09:40 09:40 WBC 2.5 L (3.8-10.6) k/uL RBC 2.23 L (4.30-5.90) m/uL Hgb 7.3 L (13.0-17.5) gm/dL Hct 20.1 L (39.0-53.0) % Plt Count 16 L* (150-450) k/uL Sodium 130 L (137-145) mmol/L Potassium 3.4 L (3.5-5.1) mmol/L Chloride 92 L (98-107) mmol/L Carbon Dioxide 32 H (22-30) mmol/L Creatinine 0.63 L (0.66-1.25) mg/dL Glucose 115 H (74-99) mg/dL Magnesium 1.1 L (1.6-2.3) mg/dL Total Protein 5.8 L (6.3-8.2) g/dL Albumin 3.0 L (3.5-5.0) g/dL
[2022-11-13] MEDS: HYDROCORTISONE 10 MG TAB PO SCH (17:08)
[2022-11-13] MEDS: SENNOSIDES-DOCUSATE SODIUM 1 EACH TAB PO SCH (19:54)
[2022-11-13] MEDS: ALPRAZolam 0.25 MG TAB PO PRN (22:20)
[2022-11-14] MEDS: HYDROcodone/APAP 5-325MG 1 EACH TAB PO PRN ×3 (03:05→23:07)
[2022-11-14] MEDS: HYDROmorphone 0.5 MG/0.5 ML SYRINGE IVP PRN ×7 (03:06→23:08)
[2022-11-14] MEDS: BENZONATATE 100 MG CAP PO PRN ×4 (03:13→20:20)
[2022-11-14 07:25] LABS: ALT 18 U/L (4-49); AST 21 U/L (17-59); African American GFR (CKD) >90 (>60 ml/min/1.73 sqM); Albumin 2.9 g/dL (3.5-5.0); Alkaline Phosphatase 81 U/L (38-126); Anion Gap 5 mmol/L; Blood Urea Nitrogen 10 mg/dL (9-20); Calcium 8.4 mg/dL (8.4-10.2); Carbon Dioxide 33 mmol/L (22-30); Chloride 92 mmol/L (98-107); Glucose 98 mg/dL (74-99); Magnesium 1.7 mg/dL (1.6-2.3); Non-African American GFR(CKD) >90 (>60 ml/min/1.73 sqM); Potassium 3.2 mmol/L (3.5-5.1); Sodium 130 mmol/L (137-145); Total Bilirubin 0.8 mg/dL (0.2-1.3); Total Protein 5.6 g/dL (6.3-8.2)
[2022-11-14 07:30] LABS: MCH 31.5 pg (25.0-35.0); MCHC 35.2 g/dL (31.0-37.0); MCV 89.5 fL (80.0-100.0); Mean Platelet Volume 10.4; RDW 15.1 % (11.5-15.5); WBC 2.4 k/uL (3.8-10.6)
[2022-11-14 07:35] LABS: HCT 19.7 % (39.0-53.0); HGB 6.9 gm/dL (13.0-17.5)
[2022-11-14 07:36] LABS: Platelet Count 19 k/uL (150-450)
--- NOTE | 2022-11-14 07:42 | XR ---
EXAMINATION TYPE: XR chest 1V portable DATE OF EXAM: 11/14/2022 COMPARISON: 11/13/2022 HISTORY: Hydropneumothorax TECHNIQUE: Single frontal view of the chest is obtained. FINDINGS: There is a right chest 2V tip positioned in the right lung base. There is a small loculated pneumotho rax in the right lung base. There is a wedge-shaped consolidative opacity in the right mid lower lung which is stable. There is moderate subcutaneous emphysema which is stable. There is a Mediport catheter in the right with the tip in the SVC/R junction. The left lung remains clear. The osseous structures are intact IMPRESSION: 1. Right chest tube with small loculated pneumothorax in the right lung base. 2. No change in the right lung opacity. 3. No change in the subcutaneous emphysema. 4. Stable clear left lung and no pulmonary vascular congestion.
[2022-11-14] MEDS: IPRATROPIUM 0.5 MG/2.5 ML NEBU INHALATION SCH ×4 (08:47→21:55)
[2022-11-14] MEDS: SYMBICORT 160-4.5 MCG INHALER INHALATION SCH ×2 (08:47→21:53)
[2022-11-14] MEDS: CYANOCOBALAMIN 500 MCG TAB PO SCH (09:36)
[2022-11-14] MEDS: PANTOPRAZOLE 40 MG TABLET PO SCH (09:36)
[2022-11-14] MEDS: POTASSIUM CHLORIDE 10 MEQ in WATER FOR INJECTION 1 100ML.BAG IVPB SCH ×4 (09:36→20:21)
[2022-11-14] MEDS: ONDANSETRON 4 MG TAB PO SCH ×2 (09:36→20:20)
[2022-11-14] MEDS: FLUoxetine HCL 20 MG CAP PO SCH (09:36)
[2022-11-14] MEDS: bisacodyL 5 MG TABLET.DR PO PRN (09:36)
[2022-11-14] MEDS: FOLIC ACID 1 MG TAB PO SCH (09:36)
[2022-11-14] MEDS: POTASSIUM CHLORIDE ER 20 MEQ TAB.ER PO SCH (09:36)
[2022-11-14] MEDS: ATORVASTATIN 40 MG TAB PO SCH (09:36)
[2022-11-14] MEDS: CHOLECALCIFEROL 25 MCG (1000 IU) TABLET PO SCH (09:36)
[2022-11-14] MEDS: MAGNESIUM OXIDE 400 MG TAB PO SCH (09:36)
[2022-11-14] MEDS: HYDROCORTISONE 20 MG TAB PO SCH (09:37)
[2022-11-14] MEDS: BACITRACIN OINT 1 EACH PACKET TOPICAL SCH ×3 (09:37→22:41)
[2022-11-14] MEDS: FLUDROCORTISONE 0.1 MG TAB PO SCH (09:38)
[2022-11-14] MEDS ORDERED: bisacodyL 10 MG SUPP RECTAL STA (11:01)
--- NOTE | 2022-11-14 11:34 | P.PN ---
Subjective Progress Note Date: 11/14/22 Principal diagnosis: Right-sided hydropneumothorax with subcutaneous emphysema. History of recurrent right-sided malignant pleural effusions status post right Pleurx catheter plac ement on 10/27/2022, stage IV lung cancer with adenocarcinoma, COPD, chronic hypoxic respiratory failure on 3 L nasal cannula continuously as an outpatient, adrenal insufficiency related to treatment, hypertension, dyslipidemia, anxiety POD#5 placement of additional right sided chest tube, persistent air leak Pancytopenia, hypokalemia, hypomagnesemia The patient was seen and examined sitting up in bed on the cardiac stepdown unit in no acute distress. States he continues to feel good. Has been ambulatory in the room. Right pleurx cath and extra chest tube to waterseal, no air leak this morning in pleurx, positive air leak with expiration in chest tube. No increased subcu emphysema, air leak not worse. Patient states he doesn't feel any worse. His only complaint is lack of bowel movement. Objective - Vital Signs Vital signs: Vital Signs Temp 98.2 F 11/14/22 03:29 Pulse 90 11/14/22 03:29 Resp 22 11/14/22 03:29 BP 105/77 11/14/22 03:29 Pulse Ox 99 11/14/22 03:29 FiO2 Intake & Output 11/13/22 11/14/22 11/14/22 18:59 06:59 18:59 Intake Total 242 Output Total 575 100 Balance -333 -100 Intake: IV 20 Invasive Line 1 20 Oral 222 Output: Chest Tube Drainage 100 100 Chest Tube Right Lateral 10 80 Chest Pleural Catheter Right 90 20 Lower Urine 475 Other: Voiding Method Bedside Commode Bedside Commode Urinal Urinal # Voids 1 - Exam CONSTITUTIONAL: Appears comfortable, cooperative, no acute distress RESPIRATORY: Lungs sounds diminished bilaterally. Respirations even, nonlabored. Currently on 3 LPM NC with oxygen saturation 99%. Able to achieve 1500 mL on incentive spirometry. Strong cough. CARDIOVASCULAR: S1, S2 present. Regular rate and rhythm, sinus rhythm on telemetry. Palpable peripheral pulses bilaterally. No edema present GASTROINTESTINAL: Abdomen soft, nontender, nondistended. Active bowel sounds present 4 quadrants. Tolerating diet GENITOURINARY: Continues to void INTEGUMENTARY: Skin is warm and dry with evidence of good perfusion NEUROLOGIC: Cranial nerves II through XII intact MUSKULOSKELETAL: Able to move all extremities, strength equal bilaterally, gait normal PSYCHIATRIC: Alert and oriented to person place and time, appropriate affect, intact judgment and insight INVASIVE LINES AND TUBES: Right pleurx cath present to water seal, no air leak today. Right pleural chest tube to water seal with air leak present with expiration. - Allied health notes Allied health notes reviewed: nursing - Labs CBC & Chem 7: 11/14/22 06:27 11/14/22 06:27 Labs: Abnormal Lab Results - Last 24 Hours (Table) 11/13/22 11/13/22 11/14/22 Range/Units 09:40 09:40 06:27 WBC 2.5 L 2.4 L (3.8-10.6) k/uL RBC 2.23 L 2.20 L (4.30-5.90) m/uL Hgb 7.3 L 6.9 L* (13.0-17.5) gm/dL Hct 20.1 L 19.7 L* (39.0-53.0) % Plt Count 16 L* 19 L* (150-450) k/uL Sodium 130 L (137-145) mmol/L Potassium 3.4 L (3.5-5.1) mmol/L Chloride 92 L (98-107) mmol/L Carbon Dioxide 32 H (22-30) mmol/L Creatinine 0.63 L (0.66-1.25) mg/dL Glucose 115 H (74-99) mg/dL Magnesium 1.1 L (1.6-2.3) mg/dL Total Protein 5.8 L (6.3-8.2) g/dL Albumin 3.0 L (3.5-5.0) g/dL 11/14/22 Range/Units 06:27 WBC (3.8-10.6) k/uL RBC (4.30-5.90) m/uL Hgb (13.0-17.5) gm/dL Hct (39.0-53.0) % Plt Count (150-450) k/uL Sodium 130 L (137-145) mmol/L Potassium 3.2 L (3.5-5.1) mmol/L Chloride 92 L (98-107) mmol/L Carbon Dioxide 33 H (22-30) mmol/L Creatinine 0.61 L (0.66-1.25) mg/dL Glucose (74-99) mg/dL Magnesium (1.6-2.3) mg/dL Total Protein 5.6 L (6.3-8.2) g/dL Albumin 2.9 L (3.5-5.0) g/dL - Imaging and Cardiology Chest x-ray: report reviewed, image reviewed Assessment and Plan Assessment: Right-sided hydropneumothorax with subcutaneous emphysema to his right chest and neck, status post placement of additional right pleural chest tube History of recurrent right-sided malignant pleural effusions, status post right Pleurx catheter placement on 10/27/2022 Stage IV lung cancer COPD without exacerbation Chronic hypoxic respiratory failure on 3 L nasal cannula continuously as an outpatient Adrenal insufficiency related to treatment History of hypertension History of hypotension Dyslipidemia Anxiety Plan: Right Pleurx catheter capped. Right pleural chest tube to remain to water seal If same or decreased air leak in right pleural chest tube tomorrow will place heimlich valve Encourage use of incentive spirometry 10 times every hour while awake. Pain control per current when necessary orders. Increase activity as tolerated Medical management and other comorbidities per primary care service. Continue to monitor daily chest x-rays. Suppository added to bowel regimen More recommendations follow based on patient's clinical course.
--- NOTE | 2022-11-14 11:35 | P.PN ---
Subjective Progress Note Date: 11/14/22 Patient is a 57-year-old male with known adenocarcinoma of the lung stage IV being followed at, [facility] complicated by adrenal insufficiency, HLD, Chornic hypoxic respiraotry failure on 3L NC, and CPOD who presented to the ER with complaints of swelling over his left chest and neck. Patient had a right-sided Pleurx catheter placed on 10/27/22. On arrival to the ER he was tachycardic with a pulse of 111 and a respiratory rate of 28. He was slightly hypotensive with a blood pressure of 87/62. Laboratory analysis included CBC, basic metabolic profile, liver enzymes, and troponin which were remarkable for white blood cell count 3.1, hemoglobin 8.5, and platelets of 128. Initial checks x-ray demonstrated diffuse right-sided subcutaneous emphysema. CT of the chest demonstrated large right-sided hydropneumothorax with small chest tube in place in the posterior pleural space, large right suprahilar mass suspicious for malignancy, moderate emphysema, and possible liver mass. Cardiothoracic surgery was contacted by the ER. Arrangements were made for admission. His pleurx cath was hooked to a chest tube and suction. 11/10 Patient was seen and examined. Currently with chest tube to suction. Currently on 3L NC. He reports improvement in his breathing. Pain well controll ed on current pain regimen. 80 cc output from R pleurx catheter over the past 24H. reports last BM was on Wednesday. CBC shows WBC count 2.2, Hg 6.7, Hct 19.3, Plt 27. BMP shows Na 132, Cl 96, bicarb 31, BUN 25. CXR shows improved right subQ emphysema, no PTX, right chest consolidation. 11/11 Patient was seen and examined. Breathing is stable. Currently with chest tube to suction. He was transfused [address] surgery recommends continued suction with daily CXR. CBC shows WBC count 2.7, Hg 7.4, Hct 20.5, Plt 17. BMP shows Na 130, K 3.4, Cl 92, bicarb 31, Cr 0.65. Mag 1.0. CXR shows stable right subQ emphysema, no PTX, right chest consolidation. 11/12 Patient was seen and examined this morning. No changes in clinical condition. CT surgery recommends continued suction with daily CXR with possible transfer for [place] valve placement by interventional pulmonology. CBC shows WBC count 2.8, Hg 7.1, Hct 20.4, Plt 17. BMP shows Na 133, K 3, Cl 95, bicarb 34, Cr 0.65. Mag 1.8. CXR shows stable right subQ emphysema, small loculated right basilar PTX, right chest consolidation. 11/13 Patient was seen and examined. Clinical condition unchanged. CBC shows WBC count 2.5, Hg 7.3 and Plt 16. BMP shows Na 130, K 3.4, Cl 92, bicarb 32, Cr 0.63, glucose 115. Mag 1.1. Albumin 3.0. CT surgery recommends taking the patient off suction, heimlich valve if improvement over the weekend. If he worsens, will need transfer for interventional pulmonary eval at [facility]. CXR shows diffuse SQ emphysema and 5% PTX. 11/14 Patient was seen and examined. Clinical condition unchanged. No new complaints. Right pleurex catheter and chest tube placed to water seal. CBC shows WBC count 2.4, Hg 6.9 and Plt 19. BMP shows Na 130, K 3.2, Cl 92, bicarb 33, Cr 0.61. Mag 1.7. Albumin 2.9. Plans to transfuse 1 unit PRBC. CXR shows no changes from yesterday, stable. Vital signs reviewed General: nontoxic, no distress, appears older than stated age, improved crepitus over right and left neck Cardiovascular: S1S2 reg, no murmur Lungs: Decreased bs right, crepitus over right chest wall, no rhonchi, no rales , no accessory muscle use, pleurx in place Abdominal: soft, nontender to palpation, no guarding, no appreciable organomegaly, + BS Ext: no gross muscle atrophy, no edema b/l lower extremities, no contractures Neuro: no focal neuro deficits Psych: Alert, oriented, appropriate affect Right sided hydropneumothorax s/p pigtail cath on 10/27/22 Stage IV lung cancer COPD without exacerbation Chronic hypoxic respiratory failure at 3 L nasal cannula Pancytopenia, worsening with Hg 6.7 and Plt 27 Adrenal insufficiency, secondary related to lung cancer treatment Chronic: Prior hypertension now has episodes of hypotension, Dyslipidemia Based on my assessment of this patient, this patient meets a high complexity level of care. Patient has an acute diagnosis of right hydroPTX that poses a threat to life or bodily function. He also has worsening pancytopenia with Hg 6.9 today requiring 1 PRBC and Plt 19. Right sided hydropneumothorax s/p pigtail cath on 10/27/22: CT surgery note reviewed, right pleurex catheter and chest tube placed to water seal, heimlich valve if improvement over the weekend. Daily CXRs. Stage IV lung cancer: Hematology/Oncology consulted and on board. COPD without exacerbation: Tessalon pearles PRN for cough. Synbicort INH. Atrovent INH QID. DuoNeb PRN for SOB. Chronic hypoxic respiratory failure at 3 L nasal cannula Pancytopenia, worsening with Hg 6.7-7.4-7.1-7.3-6.9 and Plt 32-37-67-16-19: s/p 1 unit PRBC 11/10. 1 PRBC ordered 11/14. Transfuse PRBC if Hg < 7.Transfuse Plt if signs of bleeding of < 10. HIT panel negative. Adrenal insufficiency, secondary related to lung cancer treatment: Cortef 10 mg PO QHS. Cortef 20 mg PO QD. Lovenox SQ for DVT prophylaxis. FULL CODE. I have reviewed the following pharmacy consultant notes: I have reviewed the results of the following tests: CBC. BMP. Mag I have ordered the following tests: Agree with daily CXR. CBC, BMP, Mg. I have discussed the care of this patient with the following independent historian: I have independently interpreted the following test below: CXR as above. I have discussed the management of this patient with the following physician: Objective - Vital Signs Vital signs: Vital Signs Temp 98.0 F 11/14/22 08:00 Pulse 110 H 11/14/22 08:00 Resp 22 11/14/22 08:00 BP 124/79 11/14/22 08:00 Pulse Ox 97 11/14/22 08:00 FiO2 Intake & Output 11/13/22 11/14/22 11/14/22 18:59 06:59 18:59 Intake Total 242 340 Output Total 575 100 Balance -333 -100 340 Intake: IV 20 Invasive Line 1 20 Intake, IV Titration 100 Amount Magnesium Sulfate-D5w Pmx 100 1 gm In Dextrose/Water 1 100ml.bag @ 100 mls/hr IVPB Q1H NANI Rx#: [id number] Oral 222 240 Output: Chest Tube Drainage 100 100 Chest Tube Right Lateral 10 80 Chest Pleural Catheter Right 90 20 Lower Urine 475 Other: Voiding Method Bedside Commode Bedside Commode Bedside Commode Urinal Urinal Urinal # Voids 1 - Labs CBC & Chem 7: 11/14/22 06:27 11/14/22 06:27 Labs: Abnormal Lab Results - Last 24 Hours (Table) 11/14/22 11/14/22 11/14/22 Range/Units 06:27 06:27 09:06 WBC 2.4 L (3.8-10.6) k/uL RBC 2.20 L (4.30-5.90) m/uL Hgb 6.9 L* (13.0-17.5) gm/dL Hct 19.7 L* (39.0-53.0) % Plt Count 19 L* (150-450) k/uL Sodium 130 L (137-145) mmol/L Potassium 3.2 L (3.5-5.1) mmol/L Chloride 92 L (98-107) mmol/L Carbon Dioxide 33 H (22-30) mmol/L Creatinine 0.61 L (0.66-1.25) mg/dL Total Protein 5.6 L (6.3-8.2) g/dL Albumin 2.9 L (3.5-5.0) g/dL Crossmatch See Detail
[2022-11-14 12:28] LABS: Eosinophils # (M) 0.19 k/uL (0-0.7); Lymphocytes # (M) 0.48 k/uL (1.0-4.8); Monocytes # (M) 0.48 k/uL (0-1.0); Neutrophils # (M) 1.25 k/uL (1.3-7.7); Neutrophils % (M) 52 %; Nucleated Red Blood Cells 0 /100 WBC (0-0); Total Cells Counted 100
--- NOTE | 2022-11-14 14:03 | P.PN ---
Subjective Progress Note Date: 11/14/22 Principal diagnosis: Shortness of breath, pneumothorax. I am seeing this patient in new consultation today 11/12/2022 after presenting to the emergency room back on November 06 for neck and chest swelling after Pleurx catheter insertion 10 days earlier. We were not consulted until yesterday afternoon. 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 This was reportedly diagnosed at an outside facility back in May,. He has been following with Dr. Williamson in the office over the last year. He follows with his oncologist Dr. Dawson out of [facility]. He is status post chemo/radiation. Previously maintained on a combination of CarboplatinAlimta/Keytruda. Apparently, back in May 2022 he started having issues with a right-sided pleural effusion. He's had the pleural effusion drained 3 times at [facility] and once at [facility]. A right sided Pleurx catheter was inserted by cardiothoracic surgery on his most recent admission back on October 27. 4 days after discharge, he started to notice increased chest and neck swelling. He states that when he moved his jaw it sounded like "Rice Krispies". He did come back to the emergency room back on November 06 for these symptoms. Chest CT showed a large right-sided hydropneumothorax with small chest tube in the posterior pleural space. There is a significant amount of subcutaneous emphysema. There was a large right suprahilar mass consistent with patient's known history of malignancy. Moderate to severe bullous emphysema. And a liver mass which could represent metastatic lesion or malignancy. Patient's Pleurx chest tube was hooked to a Pleur-evac and suction. Patient's hydropneumothorax persisted, and a large bore right thoracotomy tube was placed on November 09 by cardiothoracic surgery. Patient is currently sitting up in bed, on 3 L/m nasal cannula, in no acute distress. There are 2 chest tubes as described above. Both Pleur-evacs have intermittent air leak and are hooked to suction at -20 cm H20. Most recent chest x-ray from yesterday continues to show significant amount of subcutaneous emphysema. Which makes it difficult to evaluate for small pneumothorax, however, no large pneumothorax appreciated. Incentive spirometry is at bedside. Most recent CBC from yesterday shows a WBC count of 2.7, hemoglobin 7.4, hematocrit 20.5, platelets 17,000. Patient did receive 1 unit PRBC 2 days ago for a hemoglobin of 6.7. BMP from yesterday shows sodium 130, potassium 3.4, chloride 92, serum bicarbonate 31, BUN 17, creatinine 0.65, glucose 100. Normal saline is infusing at 75 ml/hr. Patient appears hemodynamically stable at this time. Progress note dated 11/13/2022. 57-year-old male, who was seen in consultation yesterday. The patient has histo ry of metastatic lung adenocarcinoma. The patient developed significant subcutaneous emphysema, and had a Pleurx catheter placed for a malignant pleural effusion. Subsequent to that, the patient developed a hydropneumothorax and required a formal chest tube placement. Therefore, on the right side, the patient has both a Pleurx catheter, and a large bore chest tube. Both her to low continuous suction. I did speak to cardiothoracic surgery about the patient, and they're recommending continuous suction over the weekend. Should the pneumothorax improved, a Heimlich valve will be placed. If it does not improve, they recommended sending patient to [facility], for consideration of a Holliday valve. The patient is currently on 3 L. He is not receiving any IV fluids. White count 2.5, heme him 7.3, hematocrit 20.1, and platelet count 16,000. Sodium 130, potassium 3.4, chlorides 92, CO2 32, BUN 11, creatinine 0.63. Chest x-ray shows diffuse subcutaneous emphysema, and a small right-sided pneumothorax. Progress note dated 11/14/2022. 57-year-old male with a history of lung cancer, which is metastatic, and, a right-sided pneumothorax, status post Pleurx catheter placement, as well as placement of a large bore chest tube. The patient has a persistent hydropneumothorax, with an air leak. Cardiothoracic surgery saw the patient today and recommended In the Pleurx catheter, and keeping the large bore chest tube, to continuous suction. If the chest x-ray improves, or the week improves, they may choose a Heimlich valve, and discharge. Currently, the patient's getting saline at 10 mL an hour. He is also on oxygen at 3 L. Clinically he is about the same. White count 2.4, hemoglobin 6.9, hematocrit 19.7, and platelet count is 19,000. Sodium 130, potassium 3.2, chlorides 92, CO2 33, BUN 10, creatinine 0.61. The patient's chest x-ray shows no change in right lung opacity, and no change in the patient's subcutaneous emphysema. There is a small loculated pneumothorax at the right lung base. Objective - Vital Signs Vital signs: Vital Signs Temp 98.0 F 11/14/22 08:00 Pulse 96 11/14/22 12:00 Resp 22 11/14/22 08:00 BP 93/58 11/14/22 12:00 Pulse Ox 96 11/14/22 12:00 FiO2 Intake & Output 11/13/22 11/14/22 11/14/22 18:59 06:59 18:59 Intake Total 242 340 Output Total 575 100 Balance -333 -100 340 Intake: IV 20 Invasive Line 1 20 Intake, IV Titration 100 Amount Magnesium Sulfate-D5w Pmx 100 1 gm In Dextrose/Water 1 100ml.bag @ 100 mls/hr IVPB Q1H [facility] Rx#: [id number] Oral 222 240 Output: Chest Tube Drainage 100 100 Chest Tube Right Lateral 10 80 Chest Pleural Catheter Right 90 20 Lower Urine 475 Other: Voiding Method Bedside Commode Bedside Commode Bedside Commode Urinal Urinal Urinal # Voids 1 - Exam No acute distress, oriented 3. Currently on nasal O2 at 3 L. No conversational dyspnea or use of accessory muscles. HEENT examination is grossly unremarkable. Neck supple. Full range of motion. No adenopathy thyromegaly or neck vein distention. Cardiovascular examination reveals regular rhythm rate. S1-S2 normal. No S3 or S4. No discernible murmur noted. Heart sounds are distant. Heart rate 96 bpm. Lungs reveal diminished breath sounds over the right chest. Scattered rhonchi and crackles are noted. The patient does have subcutaneous emphysema over the right chest area. Lung sounds on the left, seen reasonably clear. 3 L is 96%. Abdomen soft bowel sounds are heard. No masses or tenderness. Extremities are intact. No cyanosis clubbing or edema. Skin is without rash or lesion. Neurologic examination is brief but nonfocal. - Labs CBC & Chem 7: 11/14/22 06:27 11/14/22 06:27 Labs: Abnormal Lab Results - Last 24 Hours (Table) 11/14/22 11/14/22 11/14/22 Range/Units 06:27 06:27 09:06 WBC 2.4 L (3.8-10.6) k/uL RBC 2.20 L (4.30-5.90) m/uL Hgb 6.9 L* (13.0-17.5) gm/dL Hct 19.7 L* (39.0-53.0) % Plt Count 19 L* (150-450) k/uL Neutrophils # (Manual) 1.25 L (1.3-7.7) k/uL Lymphocytes # (Manual) 0.48 L (1.0-4.8) k/uL Sodium 130 L (137-145) mmol/L Potassium 3.2 L (3.5-5.1) mmol/L Chloride 92 L (98-107) mmol/L Carbon Dioxide 33 H (22-30) mmol/L Creatinine 0.61 L (0.66-1.25) mg/dL Total Protein 5.6 L (6.3-8.2) g/dL Albumin 2.9 L (3.5-5.0) g/dL Crossmatch See Detail Assessment and Plan Assessment: Right-sided hydropneumothorax, with subcutaneous emphysema to his right chest and neck, status post placement of additional right pleural chest tube. Continues to have a persistent intermittent air leak. History of recurrent right-sided pleural effusion, status post multiple thoracentesis and ultimately right Pleurx catheter placement on 10/27/2022. Metastatic non-small cell lung cancer. Pancytopenia, related to systemic chemotherapy. Hypokalemia. Hypomagnesemia. COPD, inactive. Chronic hypoxemic respiratory failure, on 3 L/m nasal cannula. 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 Adrenal insufficiency. Benign essential hypertension. Hyperlipidemia. General anxiety disorder. Plan: Plan dated 11/13/2022. The patient's doing reasonably well, and is reasonably stable. He's been here in the hospital now for 7 days. I spoke to cardiothoracic surgery about this patient. The plan is to keep the Pleurx catheter in the large-bore chest tube, to continuous low suction should pneumothorax, improved we'll, we may try a Heimlich valve. Should it not, we may send the patient to [facility] for consideration of a Holliday valve. Labs, x-rays, and medications are reviewed. Prognosis is guarded. We will continue to follow and make recommendations along the way. Plan dated 11/14/2022. The patient was seen by cardiothoracic surgery today. They recommended keeping the large-bore chest tube, to continuous suction. They recommended capping off the Pleurx catheter. A chest x-ray will be done tomorrow. They may choose to use a Heimlich valve, on the large-bore chest tube. Additional recommendations and suggestions are forthcoming. The patient continues on oxygen at 3 L. The patient's overall prognosis remains guarded. A small loculated pneumothorax remains in the right lung base. Time with Patient: Less than 30
[2022-11-14] MEDS: HYDROCORTISONE 10 MG TAB PO SCH (16:02)
[2022-11-14] MEDS: SENNOSIDES-DOCUSATE SODIUM 1 EACH TAB PO SCH (20:20)
[2022-11-15] MEDS: HYDROmorphone 0.5 MG/0.5 ML SYRINGE IVP PRN ×7 (03:02→22:59)
[2022-11-15] MEDS: HYDROcodone/APAP 5-325MG 1 EACH TAB PO PRN (05:47)
[2022-11-15] MEDS: BENZONATATE 100 MG CAP PO PRN ×2 (05:49→16:43)
--- NOTE | 2022-11-15 08:44 | XR ---
EXAMINATION TYPE: XR chest 1V portable DATE OF EXAM: 11/15/2022 COMPARISON: 11/14/2022 HISTORY: Pneumothorax TECHNIQUE: Single frontal view of the chest is obtained. FINDINGS: There is a right-sided chest tube the tip of which is in the right lung base unchanged in position. T here is no definite pneumothorax on the right. The right mid lower lung infiltrate is unchanged. There is a Mediport catheter unchanged in position. The left lung remains clear. Heart size normal and the vasculature is not congested. The osseous structures are intact. There is moderate subcutaneous emphysema which is stable. IMPRESSION: 1.No definite right lung pneumothorax. 2. No change in the right chest tube position. 3. no change in the right lung infiltrate and subcutaneous emphysema. IMPRESSION: No acute process.
[2022-11-15 08:52] LABS: HCT 21.8 % (39.0-53.0); HGB 7.9 gm/dL (13.0-17.5); MCHC 36.2 g/dL (31.0-37.0); MCV 88.2 fL (80.0-100.0); Mean Platelet Volume 10.8; RBC 2.47 m/uL (4.30-5.90); RDW 15.9 % (11.5-15.5); WBC 2.4 k/uL (3.8-10.6)
--- NOTE | 2022-11-15 08:59 | P.PN ---
Subjective Progress Note Date: 11/15/22 Principal diagnosis: Right-sided hydropneumothorax with subcutaneous emphysema. History of recurrent right-sided malignant pleural effusions status post right Pleurx catheter plac ement on 10/27/2022, stage IV lung cancer with adenocarcinoma, COPD, chronic hypoxic respiratory failure on 3 L nasal cannula continuously as an outpatient, adrenal insufficiency related to treatment, hypertension, dyslipidemia, anxiety POD#6 placement of additional right sided chest tube, persistent air leak Pancytopenia, hypokalemia, hypomagnesemia The patient was seen and examined sitting up in bed on the cardiac stepdown unit in no acute distress. States he continues to feel good. Has been ambulatory in the room. Right pleurx cath capped yesterday, extra chest tube remains to waterseal, minimal air leak with coughing in chest tube. No increased subcu emphysema. Objective - Vital Signs Vital signs: Vital Signs Temp 98 F 11/15/22 03:22 Pulse 80 11/15/22 03:22 Resp 18 11/15/22 03:22 BP 105/69 11/15/22 03:22 Pulse Ox 100 11/15/22 03:22 FiO2 Intake & Output 11/14/22 11/15/22 11/15/22 18:59 06:59 18:59 Intake Total 1030 Output Total 0 120 Balance 1030 -120 Intake: Intake, IV Titration 300 Amount Magnesium Sulfate-D5w Pmx 100 1 gm In Dextrose/Water 1 100ml.bag @ 100 mls/hr IVPB Q1H [facility] Rx#: [id number] Potassium Chloride 10 meq 200 In Water For Injection 1 100ml.bag @ 100 mls/hr IVPB Q1HR [facility] Rx#: [id number] Oral 420 Blood Product 310 Rc As-1 Unit 310 [id number] Output: Chest Tube Drainage 0 120 Chest Tube Right Lateral 0 120 Chest Pleural Catheter Right 0 Lower Other: Voiding Method Bedside Commode Bedside Commode Urinal Urinal - Exam CONSTITUTIONAL: Appears comfortable, cooperative, no acute distress RESPIRATORY: Lungs sounds diminished bilaterally. Respirations even, nonlabored. Currently on 3 LPM NC with oxygen saturation 100%. Able to achieve 1500 mL on incentive spirometry. Strong cough. CARDIOVASCULAR: S1, S2 present. Regular rate and rhythm, sinus rhythm on telemetry. Palpable peripheral pulses bilaterally. No edema present GASTROINTESTINAL: Abdomen soft, nontender, nondistended. Active bowel sounds present 4 quadrants. Tolerating diet GENITOURINARY: Continues to void INTEGUMENTARY: Skin is warm and dry with evidence of good perfusion NEUROLOGIC: Cranial nerves II through XII intact MUSKULOSKELETAL: Able to move all extremities, strength equal bilaterally, gait normal PSYCHIATRIC: Alert and oriented to person place and time, appropriate affect, intact judgment and insight INVASIVE LINES AND TUBES: Right pleurx cath capped. Right pleural chest tube to water seal with minimal air leak present with coughing. - Allied health notes Allied health notes reviewed: nursing - Labs CBC & Chem 7: 11/15/22 08:09 11/14/22 06:27 Labs: Abnormal Lab Results - Last 24 Hours (Table) 11/14/22 11/14/22 Range/Units 06:27 09:06 Neutrophils # (Manual) 1.25 L (1.3-7.7) k/uL Lymphocytes # (Manual) 0.48 L (1.0-4.8) k/uL Crossmatch See Detail - Imaging and Cardiology Chest x-ray: report reviewed, image reviewed Assessment and Plan Assessment: Right-sided hydropneumothorax with subcutaneous emphysema to his right chest and neck, status post placement of additional right pleural chest tube History of recurrent right-sided malignant pleural effusions, status post right Pleurx catheter placement on 10/27/2022 Stage IV lung cancer COPD without exacerbation Chronic hypoxic respiratory failure on 3 L nasal cannula continuously as an outpatient Adrenal insufficiency related to treatment History of hypertension History of hypotension Dyslipidemia Anxiety Plan: Right Pleurx catheter capped. Will place a Heimlich valve to right pleural chest tube today Encourage use of incentive spirometry 10 times every hour while awake. Pain control per current when necessary orders. Increase activity as tolerated Medical management and other comorbidities per primary care service. Continue to monitor daily chest x-rays. More recommendations follow based on patient's clinical course.
[2022-11-15 09:01] LABS: Platelet Count 30 k/uL (150-450)
[2022-11-15] MEDS: SYMBICORT 160-4.5 MCG INHALER INHALATION SCH ×2 (09:06→20:04)
[2022-11-15] MEDS: IPRATROPIUM 0.5 MG/2.5 ML NEBU INHALATION SCH ×4 (09:10→20:04)
[2022-11-15] MEDS: polyethylene glycoL 3350 17 GM POWD.PACK PO PRN (09:29)
[2022-11-15] MEDS: bisacodyL 5 MG TABLET.DR PO PRN (09:30)
[2022-11-15] MEDS: CYANOCOBALAMIN 500 MCG TAB PO SCH (09:30)
[2022-11-15] MEDS: PANTOPRAZOLE 40 MG TABLET PO SCH (09:30)
[2022-11-15] MEDS: MAGNESIUM OXIDE 400 MG TAB PO SCH (09:30)
[2022-11-15] MEDS: ATORVASTATIN 40 MG TAB PO SCH (09:30)
[2022-11-15] MEDS: FLUoxetine HCL 20 MG CAP PO SCH (09:30)
[2022-11-15] MEDS: BACITRACIN OINT 1 EACH PACKET TOPICAL SCH ×3 (09:30→21:51)
[2022-11-15] MEDS: CHOLECALCIFEROL 25 MCG (1000 IU) TABLET PO SCH (09:30)
[2022-11-15] MEDS: FOLIC ACID 1 MG TAB PO SCH (09:30)
[2022-11-15] MEDS: POTASSIUM CHLORIDE ER 20 MEQ TAB.ER PO SCH ×3 (09:30→12:50)
[2022-11-15] MEDS: FLUDROCORTISONE 0.1 MG TAB PO SCH (09:31)
[2022-11-15] MEDS: DOCUSATE 100 MG CAP PO PRN (09:31)
[2022-11-15] MEDS: ONDANSETRON 4 MG TAB PO SCH ×2 (09:31→21:51)
[2022-11-15] MEDS: HYDROCORTISONE 20 MG TAB PO SCH (09:31)
[2022-11-15 09:35] LABS: African American GFR (CKD) >90 (>60 ml/min/1.73 sqM); Anion Gap 8 mmol/L; Blood Urea Nitrogen 11 mg/dL (9-20); Calcium 8.5 mg/dL (8.4-10.2); Carbon Dioxide 29 mmol/L (22-30); Chloride 94 mmol/L (98-107); Glucose 111 mg/dL (74-99); Magnesium 1.3 mg/dL (1.6-2.3); Non-African American GFR(CKD) >90 (>60 ml/min/1.73 sqM); Potassium 3.1 mmol/L (3.5-5.1); Sodium 131 mmol/L (137-145)
[2022-11-15] MEDS ORDERED: Magnesium Replacement Protocol 1 EACH MISC MISCELLANE PRN (10:22)
[2022-11-15] MEDS ORDERED: Potassium Replacement Protocol 1 EACH MISC MISCELLANE PRN (10:23)
[2022-11-15] MEDS: MAGNESIUM SULFATE-D5W PMX 1 GM in DEXTROSE/WATER 1 100ML.BAG IVPB SCH ×4 (10:45→16:32)
--- NOTE | 2022-11-15 12:37 | P.PN ---
Subjective Progress Note Date: 11/15/22 Patient is a 57-year-old male with known adenocarcinoma of the lung stage IV being followed at, [facility] complicated by adrenal insufficiency, HLD, Chornic hypoxic respiraotry failure on 3L NC, and CPOD who presented to the ER with complaints of swelling over his left chest and neck. Patient had a right-sided Pleurx catheter placed on 10/27/22. On arrival to the ER he was tachycardic with a pulse of 111 and a respiratory rate of 28. He was slightly hypotensive with a blood pressure of 87/62. Laboratory analysis included CBC, basic metabolic profile, liver enzymes, and troponin which were remarkable for white blood cell count 3.1, hemoglobin 8.5, and platelets of 128. Initial checks x-ray demonstrated diffuse right-sided subcutaneous emphysema. CT of the chest demonstrated large right-sided hydropneumothorax with small chest tube in place in the posterior pleural space, large right suprahilar mass suspicious for malignancy, moderate emphysema, and possible liver mass. Cardiothoracic surgery was contacted by the ER. Arrangements were made for admission. His pleurx cath was hooked to a chest tube and suction. 11/10 Patient was seen and examined. Currently with chest tube to suction. Currently on 3L NC. He reports improvement in his breathing. Pain well controll ed on current pain regimen. 80 cc output from R pleurx catheter over the past 24H. reports last BM was on Wednesday. CBC shows WBC count 2.2, Hg 6.7, Hct 19.3, Plt 27. BMP shows Na 132, Cl 96, bicarb 31, BUN 25. CXR shows improved right subQ emphysema, no PTX, right chest consolidation. 11/11 Patient was seen and examined. Breathing is stable. Currently with chest tube to suction. He was transfused [address] surgery recommends continued suction with daily CXR. CBC shows WBC count 2.7, Hg 7.4, Hct 20.5, Plt 17. BMP shows Na 130, K 3.4, Cl 92, bicarb 31, Cr 0.65. Mag 1.0. CXR shows stable right subQ emphysema, no PTX, right chest consolidation. 11/12 Patient was seen and examined this morning. No changes in clinical condition. CT surgery recommends continued suction with daily CXR with possible transfer for [place] valve placement by interventional pulmonology. CBC shows WBC count 2.8, Hg 7.1, Hct 20.4, Plt 17. BMP shows Na 133, K 3, Cl 95, bicarb 34, Cr 0.65. Mag 1.8. CXR shows stable right subQ emphysema, small loculated right basilar PTX, right chest consolidation. 11/13 Patient was seen and examined. Clinical condition unchanged. CBC shows WBC count 2.5, Hg 7.3 and Plt 16. BMP shows Na 130, K 3.4, Cl 92, bicarb 32, Cr 0.63, glucose 115. Mag 1.1. Albumin 3.0. CT surgery recommends taking the patient off suction, heimlich valve if improvement over the weekend. If he worsens, will need transfer for interventional pulmonary eval at [facility]. CXR shows diffuse SQ emphysema and 5% PTX. 11/14 Patient was seen and examined. Clinical condition unchanged. No new complaints. Right pleurex catheter and chest tube placed to water seal. CBC shows WBC count 2.4, Hg 6.9 and Plt 19. BMP shows Na 130, K 3.2, Cl 92, bicarb 33, Cr 0.61. Mag 1.7. Albumin 2.9. Plans to transfuse 1 unit PRBC. CXR shows no changes from yesterday, stable. 11/15 Patient was seen and examined. Right Pleurx catheter capped plans for Heimlich valve to right pleural chest tube today. Small bowel movement yesterday. Pain well controlled. CBC shows WBC count 2.4, Hg 7.9 and Plt 30. BMP shows Na 131, K 3.1, Cl 94, Cr 0.6, glucose 111. Mag 1.3. CXR shows no changes from yesterday, stable. Vital signs reviewed General: nontoxic, no distress, appears older than stated age, improved crepitus over right and left neck Cardiovascular: S1S2 reg, no murmur Lungs: Decreased bs right, crepitus over right chest wall, no rhonchi, no rales , no accessory muscle use, pleurx in place Abdominal: soft, nontender to palpation, no guarding, no appreciable organomegaly, + BS Ext: no gross muscle atrophy, no edema b/l lower extremities, no contractures Neuro: no focal neuro deficits Psych: Alert, oriented, appropriate affect Right sided hydropneumothorax s/p pigtail cath on 10/27/22 Stage IV lung cancer COPD without exacerbation Chronic hypoxic respiratory failure at 3 L nasal cannula Pancytopenia, worsening with Hg 6.7 and Plt 27 Adrenal insufficiency, secondary related to lung cancer treatment Chronic: Prior hypertension now has episodes of hypotension, Dyslipidemia Based on my assessment of this patient, this patient meets a high complexity level of care. Patient has an acute diagnosis of right hydroPTX that poses a threat to life or bodily function. He also has worsening pancytopenia status post 2 units PRBC. Right sided hydropneumothorax s/p pigtail cath on 10/27/22: CT surgery note re viewed, right pleurex catheter and chest tube placed to water seal, heimlich valve if improvement over the weekend. Daily CXRs. Stage IV lung cancer: Hematology/Oncology consulted and on board. COPD without exacerbation: Tessalon pearles PRN for cough. Synbicort INH. Atrovent INH QID. DuoNeb PRN for SOB. Chronic hypoxic respiratory failure at 3 L nasal cannula Pancytopenia, worsening with Hg 6.7-7.4-7.1-7.3-6.9-7.9 and Plt 43-41-43-16-19-30: s/p 1 unit PRBC 11/10 and 11/14. Transfuse PRBC if Hg < 7.Transfuse Plt if signs of bleeding of < 10. HIT panel negative. Adrenal insufficiency, secondary related to lung cancer treatment: Cortef 10 mg PO QHS. Cortef 20 mg PO QD. Lovenox SQ for DVT prophylaxis. FULL CODE. I have reviewed the following fitness sales consultant notes: I have reviewed the results of the following tests: CBC. BMP. Mag I have ordered the following tests: Agree with daily CXR. CBC, BMP, Mg. I have discussed the care of this patient with the following independent historian: I have independently interpreted the following test below: CXR as above. I have discussed the management of this patient with the following physician: Case discussed with Dr. Romero at bedside. Objective - Vital Signs Vital signs: Vital Signs Temp 98.0 F 11/15/22 08:00 Pulse 79 11/15/22 08:00 Resp 18 11/15/22 08:00 BP 102/67 11/15/22 08:00 Pulse Ox 100 11/15/22 08:00 FiO2 Intake & Output 11/14/22 11/15/22 11/15/22 18:59 06:59 18:59 Intake Total 1030 240 Output Total 0 120 Balance 1030 -120 240 Intake: Intake, IV Titration 300 Amount Magnesium Sulfate-D5w Pmx 100 1 gm In Dextrose/Water 1 100ml.bag @ 100 mls/hr IVPB Q1H [facility] Rx#: [id number] Potassium Chloride 10 meq 200 In Water For Injection 1 100ml.bag @ 100 mls/hr IVPB Q1HR [facility] Rx#: [id number] Oral 420 240 Blood Product 310 Rc As-1 Unit 310 [id number] Output: Chest Tube Drainage 0 120 Chest Tube Right Lateral 0 120 Chest Pleural Catheter Right 0 Lower Other: Voiding Method Bedside Commode Bedside Commode Bedside Commode Urinal Urinal Urinal - Labs CBC & Chem 7: 11/15/22 08:09 11/15/22 08:09 Labs: Abnormal Lab Results - Last 24 Hours (Table) 11/14/22 11/15/22 11/15/22 Range/Units 09:06 08:09 08:09 WBC 2.4 L (3.8-10.6) k/uL RBC 2.47 L (4.30-5.90) m/uL Hgb 7.9 L (13.0-17.5) gm/dL Hct 21.8 L (39.0-53.0) % RDW 15.9 H (11.5-15.5) % Plt Count 30 L D (150-450) k/uL Sodium 131 L (137-145) mmol/L Potassium 3.1 L (3.5-5.1) mmol/L Chloride 94 L (98-107) mmol/L Creatinine 0.60 L (0.66-1.25) mg/dL Glucose 111 H (74-99) mg/dL Magnesium 1.3 L (1.6-2.3) mg/dL Crossmatch See Detail
--- NOTE | 2022-11-15 13:18 | P.PN ---
Subjective Progress Note Date: 11/15/22 I am seeing this patient in new consultation today 11/12/2022 after presenting to the emergency room back on November 06 for neck and chest swelling after Pleurx catheter insertion 10 days earlier. We were not consulted until yesterday afternoon. 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 This was reportedly diagnosed at an outside facility back in May,. He has been following with Dr. Williamson in the office over the last year. He follows with his oncologist Dr. Dawson out of [facility]. He is status post chemo/radiation. Previously maintained on a combination of CarboplatinAlimta/Keytruda. Apparently, back in May 2022 he started having issues with a right-sided pleural effusion. He's had the pleural effusion drained 3 times at [facility] and once at [facility]. A right sided Pleurx catheter was inserted by cardiothoracic surgery on his most recent admission back on October 27. 4 days after discharge, he started to notice increased chest and neck swelling. He states that when he moved his jaw it sounded like "Rice Krispies". He did come back to the emergency room back on November 06 for these symptoms. Chest CT showed a large right-sided h ydropneumothorax with small chest tube in the posterior pleural space. There is a significant amount of subcutaneous emphysema. There was a large right suprahilar mass consistent with patient's known history of malignancy. Moderate to severe bullous emphysema. And a liver mass which could represent metastatic lesion or malignancy. Patient's Pleurx chest tube was hooked to a Pleur-evac and suction. Patient's hydropneumothorax persisted, and a large bore right thoracotomy tube was placed on November 09 by cardiothoracic surgery. Patient is currently sitting up in bed, on 3 L/m nasal cannula, in no acute distress. There are 2 chest tubes as described above. Both Pleur-evacs have intermittent air leak and are hooked to suction at -20 cm H20. Most recent chest x-ray from yesterday continues to show significant amount of subcutaneous emphysema. Which makes it difficult to evaluate for small pneumothorax, however, no large pneumothorax appreciated. Incentive spirometry is at bedside. Most recent CBC from yesterday shows a WBC count of 2.7, hemoglobin 7.4, hematocrit 20.5, platelets 17,000. Patient did receive 1 unit PRBC 2 days ago for a hemoglobin of 6.7. BMP from yesterday shows sodium 130, potassium 3.4, chloride 92, serum bicarbonate 31, BUN 17, creatinine 0.65, glucose 100. Normal saline is infusing at 75 ml/hr. Patient appears hemodynamically stable at this time. Progress note dated 11/13/2022. 57-year-old male, who was seen in consultation yesterday. The patient has history of metastatic lung adenocarcinoma. The patient developed significant subcutaneous emphysema, and had a Pleurx catheter placed for a malignant pleural effusion. Subsequent to that, the patient developed a hydropneumothorax and required a formal chest tube placement. Therefore, on the right side, the patient has both a Pleurx catheter, and a large bore chest tube. Both her to low continuous suction. I did speak to cardiothoracic surgery about the patient, and they're recommending continuous suction over the weekend. Should the pneumothorax improved, a Heimlich valve will be placed. If it does not improve, they recommended sending patient to [facility], for c onsideration of a Gilmer valve. The patient is currently on 3 L. He is not receiving any IV fluids. White count 2.5, heme him 7.3, hematocrit 20.1, and platelet count 16,000. Sodium 130, potassium 3.4, chlorides 92, CO2 32, BUN 11, creatinine 0.63. Chest x-ray shows diffuse subcutaneous emphysema, and a small right-sided pneumothorax. Progress note dated 11/14/2022. 57-year-old male with a history of lung cancer, which is metastatic, and, a right-sided pneumothorax, status post Pleurx catheter placement, as well as placement of a large bore chest tube. The patient has a persistent hydr opneumothorax, with an air leak. Cardiothoracic surgery saw the patient today and recommended In the Pleurx catheter, and keeping the large bore chest tube, to continuous suction. If the chest x-ray improves, or the week improves, they may choose a Heimlich valve, and discharge. Currently, the patient's getting saline at 10 mL an hour. He is also on oxygen at 3 L. Clinically he is about the same. White count 2.4, hemoglobin 6.9, hematocrit 19.7, and platelet count is 19,000. Sodium 130, potassium 3.2, chlorides 92, CO2 33, BUN 10, creatinine 0.61. The patient's chest x-ray shows no change in right lung opacity, and no change in the patient's subcutaneous emphysema. There is a small loculated pneumothorax at the right lung base. The patient is seen today 11/15/2022 in follow-up on the selective care unit. He is currently sitting up in chair. Awake and alert in no acute distress. He is maintaining good O2 saturations up to 100% on 3 L/m per nasal cannula. He's been afebrile. Hemodynamically stable. Today's chest x-ray reveals no definite right lung pneumothorax. No change in the right chest tube position. No change in the right lung infiltrate and subcutaneous emphysema. Right Pleurx catheter remains capped. Main chest tube remains to waterseal with minimal air leak with cough. He continues well with the incentive spirometer. White count 2.4. Hemoglobin 7.9. Platelets 30,000. Sodium 131. Potassium 3.1. Bicarb 29. BUN 11. Creatinine 0.60. He is status post 2 units of packed red blood cells this admission. He remains on DuoNeb inhalations, Symbicort, Cortef. Objective - Vital Signs Vital signs: Vital Signs Temp 98.0 F 11/15/22 08:00 Pulse 79 11/15/22 08:00 Resp 18 11/15/22 08:00 BP 102/67 11/15/22 08:00 Pulse Ox 100 11/15/22 08:00 FiO2 Intake & Output 11/14/22 11/15/22 11/15/22 18:59 06:59 18:59 Intake Total 1030 240 Output Total 0 120 Balance 1030 -120 240 Intake: Intake, IV Titration 300 Amount Magnesium Sulfate-D5w Pmx 100 1 gm In Dextrose/Water 1 100ml.bag @ 100 mls/hr IVPB Q1H [facility] Rx#: [id number] Potassium Chloride 10 meq 200 In Water For Injection 1 100ml.bag @ 100 mls/hr IVPB Q1HR [facility] Rx#: [id number] Oral 420 240 Blood Product 310 Rc As-1 Unit 310 [id number] Output: Chest Tube Drainage 0 120 Chest Tube Right Lateral 0 120 Chest Pleural Catheter Right 0 Lower Other: Voiding Method Bedside Commode Bedside Commode Bedside Commode Urinal Urinal Urinal - Exam GENERAL EXAM: Alert, pleasant 57-year-old male, on 3 L nasal cannula, fairly comfortable in no apparent distress. HEAD: Normocephalic. EYES: Normal reaction of pupils, equal size. NOSE: Clear with pink turbinates. THROAT: No erythema or exudates. NECK: No masses, no JVD. CHEST: No chest wall deformity. Subcutaneous emphysema over right chest. Right- sided Pleurx catheter and chest tube remain in place LUNGS: Equal air entry with crackles, diminished right chest. CVS: S1 and S2 normal with no audible murmur, regular rhythm. ABDOMEN: No hepatosplenomegaly, normal bowel sounds, no guarding or rigidity. SPINE: No scoliosis or deformity SKIN: No rashes CENTRAL NERVOUS SYSTEM: No focal deficits, tone is normal in all 4 extremities. EXTREMITIES: There is no peripheral edema. No clubbing, no cyanosis. Peripheral pulses are intact. - Labs CBC & Chem 7: 11/15/22 08:09 11/15/22 08:09 Labs: Abnormal Lab Results - Last 24 Hours (Table) 11/14/22 11/15/22 11/15/22 Range/Units 09:06 08:09 08:09 WBC 2.4 L (3.8-10.6) k/uL RBC 2.47 L (4.30-5.90) m/uL Hgb 7.9 L (13.0-17.5) gm/dL Hct 21.8 L (39.0-53.0) % RDW 15.9 H (11.5-15.5) % Plt Count 30 L D (150-450) k/uL Sodium 131 L (137-145) mmol/L Potassium 3.1 L (3.5-5.1) mmol/L Chloride 94 L (98-107) mmol/L Creatinine 0.60 L (0.66-1.25) mg/dL Glucose 111 H (74-99) mg/dL Magnesium 1.3 L (1.6-2.3) mg/dL Crossmatch See Detail Assessment and Plan Assessment: Right-sided hydropneumothorax, with subcutaneous emphysema to his right chest and neck, status post placement of additional right pleural chest tube. Continues to have a persistent intermittent air leak History of recurrent right-sided pleural effusion, status post multiple thoracentesis and ultimately right Pleurx catheter placement on 10/27/2022. Pleurx catheter capped 11/14/2022 Metastatic non-small cell lung cancer Pancytopenia, related to systemic chemotherapy Hypokalemia Hypomagnesemia COPD, inactive Chronic hypoxemic respiratory failure, on 3 L/m nasal cannula History of iatrogenic pneumonitis, related to Keytruda Adrenal insufficiency Benign essential hypertension Hyperlipidemia General anxiety disorder Plan: The patient was seen and evaluated Chest x-ray, labs and medications reviewed Pleurx catheter currently capped Regular chest tube with intermittent leak CT services considering Heimlich valve placement Start down the FiO2 as tolerated We will continue to follow I have personally seen and examined the patient, performed the documentation and the assessment and plan as written. Number of minutes spent on the visit: 10.
[2022-11-15] MEDS ORDERED: bisacodyL 10 MG SUPP RECTAL STA (15:21)
[2022-11-15] MEDS: HYDROCORTISONE 10 MG TAB PO SCH (16:32)
[2022-11-15 18:26] LABS: Magnesium 2.4 mg/dL (1.6-2.3); Potassium 3.1 mmol/L (3.5-5.1)
[2022-11-15] MEDS: SENNOSIDES-DOCUSATE SODIUM 1 EACH TAB PO SCH (21:51)
[2022-11-15] MEDS: ALPRAZolam 0.25 MG TAB PO PRN (21:53)
[2022-11-16] MEDS: POTASSIUM CHLORIDE ER 20 MEQ TAB.ER PO SCH ×3 (01:08→08:22)
[2022-11-16] MEDS: HYDROmorphone 0.5 MG/0.5 ML SYRINGE IVP PRN ×7 (02:12→21:20)
[2022-11-16] MEDS: PANTOPRAZOLE 40 MG TABLET PO SCH (08:21)
[2022-11-16] MEDS: CYANOCOBALAMIN 500 MCG TAB PO SCH (08:21)
[2022-11-16] MEDS: ONDANSETRON 4 MG TAB PO SCH ×2 (08:21→21:20)
[2022-11-16] MEDS: MAGNESIUM OXIDE 400 MG TAB PO SCH (08:21)
[2022-11-16] MEDS: CHOLECALCIFEROL 25 MCG (1000 IU) TABLET PO SCH (08:21)
[2022-11-16] MEDS: FLUoxetine HCL 20 MG CAP PO SCH (08:22)
[2022-11-16] MEDS: ATORVASTATIN 40 MG TAB PO SCH (08:22)
[2022-11-16] MEDS: FOLIC ACID 1 MG TAB PO SCH (08:22)
[2022-11-16] MEDS: FLUDROCORTISONE 0.1 MG TAB PO SCH (08:23)
[2022-11-16] MEDS: HYDROCORTISONE 20 MG TAB PO SCH (08:23)
[2022-11-16] MEDS: BACITRACIN OINT 1 EACH PACKET TOPICAL SCH ×3 (08:23→21:20)
[2022-11-16] MEDS: BENZONATATE 100 MG CAP PO PRN ×2 (08:30→16:50)
--- NOTE | 2022-11-16 08:33 | XR ---
EXAMINATION TYPE: XR chest 2V DATE OF EXAM: 11/16/2022 COMPARISON: 11/15/2022 TECHNIQUE: PA and lateral views submitted. HISTORY: Follow-up pneumothorax FINDINGS: There is a right-sided hydropneumothorax is stable. Area of consolidation in the right lung is unchan ged. Left lung clear. Heart size normal. Mediport catheter and surgical clips in the upper quadrant n oted. IMPRESSION: 1. Stable right-sided hydropneumothorax with the area of right mid lung consolidation\mass.
--- NOTE | 2022-11-16 08:34 | P.PN ---
Subjective Progress Note Date: 11/16/22 Principal diagnosis: Right-sided hydropneumothorax with subcutaneous emphysema. History of recurrent right-sided malignant pleural effusions status post right Pleurx catheter plac ement on 10/27/2022, stage IV lung cancer with adenocarcinoma, COPD, chronic hypoxic respiratory failure on 3 L nasal cannula continuously as an outpatient, adrenal insufficiency related to treatment, hypertension, dyslipidemia, anxiety POD#7 placement of additional right sided chest tube, persistent air leak Pancytopenia, hypokalemia, hypomagnesemia The patient was seen and examined sitting up in bed on the cardiac stepdown unit in no acute distress. Has been ambulatory in the room. Right pleural chest tube placed to Heimlich valve although patient continued to have more drainage than able to be captured comfortably in bag, nursing connected atrium for drainage collection. Air leak present with forceful coughing only. No increased subcu emphysema. Objective - Vital Signs Vital signs: Vital Signs Temp 98.5 F 11/16/22 04:55 Pulse 85 11/16/22 04:55 Resp 18 11/16/22 04:55 BP 103/67 11/16/22 04:55 Pulse Ox 99 11/16/22 04:55 FiO2 Intake & Output 11/15/22 11/16/22 11/16/22 18:59 06:59 18:59 Intake Total 640 Output Total 402 Balance 640 -402 Intake: Intake, IV Titration 400 Amount Magnesium Sulfate-D5w Pmx 400 1 gm In Dextrose/Water 1 100ml.bag @ 100 mls/hr IVPB Q1H [facility] Rx#: [id number] Oral 240 Output: Chest Tube Drainage 42 Chest Tube Right Lateral 42 Chest Urine 360 Other: Voiding Method Bedside Commode Bedside Commode Urinal Urinal # Voids 1 - Exam CONSTITUTIONAL: Appears comfortable, cooperative, no acute distress RESPIRATORY: Lungs sounds diminished bilaterally. Respirations even, nonlabored. Currently on 3 LPM NC with oxygen saturation 98%. Able to achieve 1500 mL on incentive spirometry. Strong cough. CARDIOVASCULAR: S1, S2 present. Regular rate and rhythm, sinus rhythm on telem etry. Palpable peripheral pulses bilaterally. No edema present GASTROINTESTINAL: Abdomen soft, nontender, nondistended. Active bowel sounds present 4 quadrants. Tolerating diet GENITOURINARY: Continues to void INTEGUMENTARY: Skin is warm and dry with evidence of good perfusion NEUROLOGIC: Cranial nerves II through XII intact MUSKULOSKELETAL: Able to move all extremities, strength equal bilaterally, gait normal PSYCHIATRIC: Alert and oriented to person place and time, appropriate affect, intact judgment and insight INVASIVE LINES AND TUBES: Right pleurx cath capped. Right pleural chest tube with Heimlich valve connected to pleura vac, 80 mL in atrium, air leak with coughing only - Allied health notes Allied health notes reviewed: nursing - Labs CBC & Chem 7: 11/16/22 08:33 11/16/22 08:33 Labs: Abnormal Lab Results - Last 24 Hours (Table) 11/15/22 11/15/22 11/15/22 Range/Units 08:09 08:09 17:47 WBC 2.4 L (3.8-10.6) k/uL RBC 2.47 L (4.30-5.90) m/uL Hgb 7.9 L (13.0-17.5) gm/dL Hct 21.8 L (39.0-53.0) % RDW 15.9 H (11.5-15.5) % Plt Count 30 L D (150-450) k/uL Sodium 131 L (137-145) mmol/L Potassium 3.1 L 3.1 L (3.5-5.1) mmol/L Chloride 94 L (98-107) mmol/L Creatinine 0.60 L (0.66-1.25) mg/dL Glucose 111 H (74-99) mg/dL Magnesium 1.3 L 2.4 H (1.6-2.3) mg/dL - Imaging and Cardiology Chest x-ray: image reviewed Assessment and Plan Assessment: Right-sided hydropneumothorax with subcutaneous emphysema to his right chest and neck, status post placement of additional right pleural chest tube History of recurrent right-sided malignant pleural effusions, status post right Pleurx catheter placement on 10/27/2022 Stage IV lung cancer COPD without exacerbation Chronic hypoxic respiratory failure on 3 L nasal cannula continuously as an outpatient Adrenal insufficiency related to treatment History of hypertension History of hypotension Dyslipidemia Anxiety Plan: Pleurx cath drained for about 100 cc. Heimlich valve clamped to see how much air accumulates in 24 hours Encourage use of incentive spirometry 10 times every hour while awake. Pain control per current when necessary orders. Increase activity as tolerated Medical management and other comorbidities per primary care service. Continue to monitor daily chest x-rays. More recommendations follow based on patient's clinical course.
[2022-11-16] MEDS: SYMBICORT 160-4.5 MCG INHALER INHALATION SCH ×2 (09:21→21:10)
[2022-11-16] MEDS: IPRATROPIUM 0.5 MG/2.5 ML NEBU INHALATION SCH ×4 (09:22→21:10)
[2022-11-16 09:26] LABS: Magnesium 1.5 mg/dL (1.6-2.3)
[2022-11-16 09:46] LABS: Potassium 3.2 mmol/L (3.5-5.1)
[2022-11-16 10:27] LABS: HGB 7.7 gm/dL (13.0-17.5); MCH 31.6 pg (25.0-35.0); MCHC 35.2 g/dL (31.0-37.0); MCV 89.7 fL (80.0-100.0); Mean Platelet Volume 10.3; RBC 2.45 m/uL (4.30-5.90); RDW 15.8 % (11.5-15.5); WBC 1.9 k/uL (3.8-10.6)
[2022-11-16 10:30] LABS: Platelet Count 39 k/uL (150-450)
[2022-11-16] MEDS: bisacodyL 10 MG SUPP RECTAL SCH (11:48)
[2022-11-16] MEDS: POTASSIUM CHLORIDE 10 MEQ in WATER FOR INJECTION 1 100ML.BAG IVPB SCH ×4 (11:49→18:14)
[2022-11-16] MEDS ORDERED: Magnesium Replacement Protocol 1 EACH MISC MISCELLANE PRN (11:56)
--- NOTE | 2022-11-16 12:43 | P.PN ---
Subjective Progress Note Date: 11/16/22 Principal diagnosis: SOB Patient is resting comfortably in bed, spouse of bedside. Patient reports improvement in breathing. Thoravent and Pleurx in place. Reporting pain at robina st tube insertion site. SPO2 98% on 3 L. Denies any acute episodes of bleeding Objective - Vital Signs Vital signs: Vital Signs Temp 98.2 F 11/16/22 08:00 Pulse 81 11/16/22 11:59 Resp 16 11/16/22 11:59 BP 112/79 11/16/22 11:59 Pulse Ox 100 11/16/22 11:59 FiO2 Intake & Output 11/15/22 11/16/22 11/16/22 18:59 06:59 18:59 Intake Total 640 180 Output Total 402 Balance 640 -402 180 Intake: Intake, IV Titration 400 Amount Magnesium Sulfate-D5w Pmx 400 1 gm In Dextrose/Water 1 100ml.bag @ 100 mls/hr IVPB Q1H [facility] Rx#: [id number] Oral 240 180 Output: Chest Tube Drainage 42 Chest Tube Right Lateral 42 Chest Urine 360 Other: Voiding Method Bedside Commode Bedside Commode Bedside Commode Urinal Urinal Urinal # Voids 1 - Constitutional General appearance: Present: average body habitus, no acute distress - EENT Eyes: Present: anicteric sclerae, EOMI ENT: Present: hearing grossly normal - Respiratory Details: breathing is even and unlabored - Cardiovascular Details: skin warm and dry - Integumentary Integumentary: Present: pale. Absent: cyanotic - Neurologic Neurologic Comment(s): grossly intact - Musculoskeletal Musculoskeletal: Present: strength equal bilaterally - Psychiatric Psychiatric: Present: A&O x's 3, appropriate affect, intact judgment & insight - Labs CBC & Chem 7: 11/16/22 08:33 11/16/22 08:33 Labs: Abnormal Lab Results - Last 24 Hours (Table) 11/15/22 11/16/22 11/16/22 Range/Units 17:47 08:33 08:33 WBC 1.9 L (3.8-10.6) k/uL RBC 2.45 L (4.30-5.90) m/uL Hgb 7.7 L (13.0-17.5) gm/dL Hct 22.0 L (39.0-53.0) % RDW 15.8 H (11.5-15.5) % Plt Count 39 L (150-450) k/uL Potassium 3.1 L 3.2 L (3.5-5.1) mmol/L Magnesium 2.4 H 1.5 L (1.6-2.3) mg/dL - Imaging and Cardiology Chest x-ray: report reviewed Assessment and Plan (1) Non-small cell lung cancer Current Visit: Yes Status: Acute Priority: Medium Code(s): C34.90 - MALIGNANT NEOPLASM OF UNSP PART OF UNSP BRONCHUS OR LUNG SNOMED Code(s): 023921253 (2) Hydropneumothorax Current Visit: Yes Status: Acute Priority: High Code(s): J94.8 - OTHER SPECIFIED PLEURAL CONDITIONS SNOMED Code(s): 33093173 (3) Antineoplastic chemotherapy induced pancytopenia Current Visit: Yes Status: Acute Priority: High Code(s): D61.810 - ANTINEOPLASTIC CHEMOTHERAPY INDUCED PANCYTOPENIA; T45.1X5A - ADVERSE EFFECT OF ANTINEOPLASTIC AND IMMUNOSUP DRUGS, INIT SNOMED Code(s): 274577949026149 Plan: Air leak from Pleurx catheter, severe subcutaneous emphysema -Chest tube in place, management CTS -Repeat chest x-ray today revealed stable right-sided hydropneumothorax Chemotherapy-induced pancytopenia -Patient received treatment approx 3 weeks ago. He is at the end of solange. Would anticipate counts to stabilize but effects could be prolonged by acute condition. -Hemoglobin 7.7 today. Transfuse for a hemoglobin less than 7 or if patient is symptomatic -WBCs 1.9, vital signs stable, patient has been afebrile -Platelet improved, 39,000 today. No anticoagulation, aspirin, NSAIDs. SCDs for DVT prophylaxis at this time. Transfuse for platelets less than 10,000 or if symptomatic. Nothing on exam to suggest acute bleeding at this time. Hit antibody was negative. Coags were within normal limits. Fibrinogen greater than 500. No DIC -Continue CBC daily -Patient has home care scheduled through his oncologist for weekly blood draws. Encouraged close f/u with oncology to closely monitor counts. Bleeding precautions discussed with pt and spouse Metastatic non-small cell lung cancer -Treatment on hold at this time pending resolution/stability of current situation -Continue follow-up at [facility] in [place] as planned. Low potassium and magnesium -This is chronic for patient. He is on oral supplementation at home -Potassium today 3.2, magnesium 1.5. Potassium and magnesium supplementation o rdered. -Will continue to monitor
--- NOTE | 2022-11-16 13:26 | P.PN ---
Subjective Progress Note Date: 11/16/22 Patient is a 57-year-old male with known adenocarcinoma of the lung stage IV being followed at, [facility] complicated by adrenal insufficiency, HLD, Chornic hypoxic respiraotry failure on 3L NC, and CPOD who presented to the ER with complaints of swelling over his left chest and neck. Patient had a right-sided Pleurx catheter placed on 10/27/22. On arrival to the ER he was tachycardic with a pulse of 111 and a respiratory rate of 28. He was slightly hypotensive with a blood pressure of 87/62. Laboratory analysis included CBC, basic metabolic profile, liver enzymes, and troponin which were remarkable for white blood cell count 3.1, hemoglobin 8.5, and platelets of 128. Initial checks x-ray demonstrated diffuse right-sided subcutaneous emphysema. CT of the chest demonstrated large right-sided hydropneumothorax with small chest tube in place in the posterior pleural space, large right suprahilar mass suspicious for malignancy, moderate emphysema, and possible liver mass. Cardiothoracic surgery was contacted by the ER. Arrangements were made for admission. His pleurx cath was hooked to a chest tube and suction. 11/10 Patient was seen and examined. Currently with chest tube to suction. Currently on 3L NC. He reports improvement in his breathing. Pain well controll ed on current pain regimen. 80 cc output from R pleurx catheter over the past 24H. reports last BM was on Wednesday. CBC shows WBC count 2.2, Hg 6.7, Hct 19.3, Plt 27. BMP shows Na 132, Cl 96, bicarb 31, BUN 25. CXR shows improved right subQ emphysema, no PTX, right chest consolidation. 11/11 Patient was seen and examined. Breathing is stable. Currently with chest tube to suction. He was transfused [address] surgery recommends continued suction with daily CXR. CBC shows WBC count 2.7, Hg 7.4, Hct 20.5, Plt 17. BMP shows Na 130, K 3.4, Cl 92, bicarb 31, Cr 0.65. Mag 1.0. CXR shows stable right subQ emphysema, no PTX, right chest consolidation. 11/12 Patient was seen and examined this morning. No changes in clinical condition. CT surgery recommends continued suction with daily CXR with possible transfer for Grandy valve placement by interventional pulmonology. CBC shows WBC count 2.8, Hg 7.1, Hct 20.4, Plt 17. BMP shows Na 133, K 3, Cl 95, bicarb 34, Cr 0.65. Mag 1.8. CXR shows stable right subQ emphysema, small loculated right basilar PTX, right chest consolidation. 11/13 Patient was seen and examined. Clinical condition unchanged. CBC shows WBC count 2.5, Hg 7.3 and Plt 16. BMP shows Na 130, K 3.4, Cl 92, bicarb 32, Cr 0.63, glucose 115. Mag 1.1. Albumin 3.0. CT surgery recommends taking the patient off suction, heimlich valve if improvement over the weekend. If he worsens, will need transfer for interventional pulmonary eval at [facility]. CXR shows diffuse SQ emphysema and 5% PTX. 11/14 Patient was seen and examined. Clinical condition unchanged. No new complaints. Right pleurex catheter and chest tube placed to water seal. CBC shows WBC count 2.4, Hg 6.9 and Plt 19. BMP shows Na 130, K 3.2, Cl 92, bicarb 33, Cr 0.61. Mag 1.7. Albumin 2.9. Plans to transfuse 1 unit PRBC. CXR shows no changes from yesterday, stable. 11/15 Patient was seen and examined. Right Pleurx catheter capped plans for Heimlich valve to right pleural chest tube today. Small bowel movement yesterday. Pain well controlled. CBC shows WBC count 2.4, Hg 7.9 and Plt 30. BMP shows Na 131, K 3.1, Cl 94, Cr 0.6, glucose 111. Mag 1.3. CXR shows no changes from yesterday, stable. 11/16 Patient was seen and examined. CT surgery on board. Small bowel movement yesterday. Has received 2 suppositories over the past 2 days. Pain well controlled. CBC shows WBC count 1.9, Hg 7.7 and Plt 39. K 3.2, Mag 1.5. CXR shows stable changes. Vital signs reviewed General: nontoxic, no distress, appears older than stated age, improved crepitus over right and left neck Cardiovascular: S1S2 reg, no murmur Lungs: Decreased bs right, crepitus over right chest wall, no rhonchi, no rales , no accessory muscle use, pleurx in place Abdominal: soft, nontender to palpation, no guarding, no appreciable org anomegaly, + BS Ext: no gross muscle atrophy, no edema b/l lower extremities, no contractures Neuro: no focal neuro deficits Psych: Alert, oriented, appropriate affect Right sided hydropneumothorax s/p pigtail cath on 10/27/22 Stage IV lung cancer COPD without exacerbation Chronic hypoxic respiratory failure at 3 L nasal cannula Pancytopenia, worsening with Hg 6.7 and Plt 27 Adrenal insufficiency, secondary related to lung cancer treatment Chronic: Prior hypertension now has episodes of hypotension, Dyslipidemia Based on my assessment of this patient, this patient meets a high complexity lev el of care. Patient has an acute diagnosis of right hydroPTX that poses a threat to life or bodily function. He also has worsening pancytopenia status post 2 units PRBC. Right sided hydropneumothorax s/p pigtail cath on 10/27/22: CT surgery note reviewed, right Pleurx catheter capped, will remove atrium, will drain pleurx cath. Daily CXRs. Stage IV lung cancer: Hematology/Oncology consulted and on board. COPD without exacerbation: Tessalon pearles PRN for cough. Synbicort INH. Atrovent INH QID. DuoNeb PRN for SOB. Chronic hypoxic respiratory failure at 3 L nasal cannula Pancytopenia, worsening with Hg 6.7-7.4-7.1-7.3-6.9-7.9-7.7 and Plt [id number]: s/p 1 unit PRBC 11/10 and 11/14. Transfuse PRBC if Hg < 7.Transfuse Plt if signs of bleeding of < 10. HIT panel negative. Adrenal insufficiency, secondary related to lung cancer treatment: Cortef 10 mg PO QHS. Cortef 20 mg PO QD. Lovenox SQ for DVT prophylaxis. FULL CODE. I have reviewed the following food consultant notes: CT surgery and hematology note. I have reviewed the results of the following tests: CBC. K. Mag. CXR I have ordered the following tests: Agree with daily CXR. CBC, BMP, Mg. KUB to evaluate for constipation. I have discussed the care of this patient with the following independent historian: I have independently interpreted the following test below: I have discussed the management of this patient with the following physician: Objective - Vital Signs Vital signs: Vital Signs Temp 98.2 F 11/16/22 08:00 Pulse 81 11/16/22 11:59 Resp 16 11/16/22 11:59 BP 112/79 11/16/22 11:59 Pulse Ox 100 11/16/22 11:59 FiO2 Intake & Output 11/15/22 11/16/22 11/16/22 18:59 06:59 18:59 Intake Total 640 180 Output Total 402 Balance 640 -402 180 Intake: Intake, IV Titration 400 Amount Magnesium Sulfate-D5w Pmx 400 1 gm In Dextrose/Water 1 100ml.bag @ 100 mls/hr IVPB Q1H [facility] Rx#: [id number] Oral 240 180 Output: Chest Tube Drainage 42 Chest Tube Right Lateral 42 Chest Urine 360 Other: Voiding Method Bedside Commode Bedside Commode Bedside Commode Urinal Urinal Urinal # Voids 1 - Labs CBC & Chem 7: 11/16/22 08:33 11/16/22 08:33 Labs: Abnormal Lab Results - Last 24 Hours (Table) 11/15/22 11/16/22 11/16/22 Range/Units 17:47 08:33 08:33 WBC 1.9 L (3.8-10.6) k/uL RBC 2.45 L (4.30-5.90) m/uL Hgb 7.7 L (13.0-17.5) gm/dL Hct 22.0 L (39.0-53.0) % RDW 15.8 H (11.5-15.5) % Plt Count 39 L (150-450) k/uL Potassium 3.1 L 3.2 L (3.5-5.1) mmol/L Magnesium 2.4 H 1.5 L (1.6-2.3) mg/dL
--- NOTE | 2022-11-16 14:00 | P.PN ---
Subjective Progress Note Date: 11/16/22 I am seeing this patient in new consultation today 11/12/2022 after presenting to the emergency room back on November 06 for neck and chest swelling after Pleurx catheter insertion 10 days earlier. We were not consulted until yesterday afternoon. 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 This was reportedly diagnosed at an outside facility back in May,. He has been following with Dr. Williamson in the office over the last year. He follows with his oncologist Dr. Dawosn out of [facility]. He is status post chemo/radiation. Previously maintained on a combination of CarboplatinAlim ta/Keytruda. Apparently, back in May 2022 he started having issues with a right-sided pleural effusion. He's had the pleural effusion drained 3 times at [facility] and once at [facility]. A right sided Pleurx catheter was inserted by cardiothoracic surgery on his most recent admission back on October 27. 4 days after discharge, he started to notice increased chest and neck swelling. He states that when he moved his jaw it sounded like "Rice Krispies". He did come back to the emergency room back on November 06 for these symptoms. Chest CT showed a large right-sided hydropneumothorax with small chest tube in the posterior pleural space. There is a significant amount of subcutaneous emphysema. There was a large right suprahilar mass consistent with patient's known history of malignancy. Moderate to severe bullous emphysema. And a liver mass which could represent metastatic lesion or malignancy. Patient's Pleurx chest tube was hooked to a Pleur-evac and suction. Patient's hydropneumothorax persisted, and a large bore right thoracotomy tube was placed on November 09 by cardiothoracic surgery. Patient is currently sitting up in bed, on 3 L/m nasal cannula, in no acute distress. There are 2 chest tubes as described above. Both Pleur-evacs have intermittent air leak and are hooked to suction at -20 cm H20. Most recent chest x-ray from yesterday continues to show significant amount of subcutaneous emphysema. Which makes it difficult to evaluate for small pneumothorax, however, no large pneumothorax appreciated. Incentive spirometry is at bedside. Most recent CBC from yesterday shows a WBC count of 2.7, hemoglobin 7.4, hematocrit 20.5, platelets 17,000. Patient did receive 1 unit PRBC 2 days ago for a hemoglobin of 6.7. BMP from yesterday shows sodium 130, potassium 3.4, chloride 92, serum bicarbonate 31, BUN 17, creatinine 0.65, glucose 100. Normal saline is infusing at 75 ml/hr. Patient appears hemodynamically stable at this time. Progress note dated 11/13/2022. 57-year-old male, who was seen in consultation yesterday. The patient has history of metastatic lung adenocarcinoma. The patient developed significant subcutaneous emphysema, and had a Pleurx catheter placed for a malignant pleural effusion. Subsequent to that, the patient developed a hydropneumothorax and required a formal chest tube placement. Therefore, on the right side, the patient has both a Pleurx catheter, and a large bore chest tube. Both her to low continuous suction. I did speak to cardiothoracic surgery about the patient, and they're recommending continuous suction over the weekend. Should the pneumothorax improved, a Heimlich valve will be placed. If it does not improve, they recommended sending patient to [facility], for consideration of a Horicon valve. The patient is currently on 3 L. He is not receiving any IV fluids. White count 2.5, heme him 7.3, hematocrit 20.1, and platelet count 16,000. Sodium 130, potassium 3.4, chlorides 92, CO2 32, BUN 11, creatinine 0.63. Chest x-ray shows diffuse subcutaneous emphysema, and a small right-sided pneumothorax. Progress note dated 11/14/2022. 57-year-old male with a history of lung cancer, which is metastatic, and, a right-sided pneumothorax, status post Pleurx catheter placement, as well as placement of a large bore chest tube. The patient has a persistent hy dropneumothorax, with an air leak. Cardiothoracic surgery saw the patient today and recommended In the Pleurx catheter, and keeping the large bore chest tube, to continuous suction. If the chest x-ray improves, or the week improves, they may choose a Heimlich valve, and discharge. Currently, the patient's getting saline at 10 mL an hour. He is also on oxygen at 3 L. Clinically he is about the same. White count 2.4, hemoglobin 6.9, hematocrit 19.7, and platelet count is 19,000. Sodium 130, potassium 3.2, chlorides 92, CO2 33, BUN 10, creatinine 0.61. The patient's chest x-ray shows no change in right lung opacity, and no change in the patient's subcutaneous emphysema. There is a small loculated pneumothorax at the right lung base. The patient is seen today 11/15/2022 in follow-up on the selective care unit. He is currently sitting up in chair. Awake and alert in no acute distress. He is maintaining good O2 saturations up to 100% on 3 L/m per nasal cannula. He's been afebrile. Hemodynamically stable. Today's chest x-ray reveals no definite right lung pneumothorax. No change in the right chest tube position. No change in the right lung infiltrate and subcutaneous emphysema. Right Pleurx catheter remains capped. Main chest tube remains to waterseal with minimal air leak with cough. He continues well with the incentive spirometer. On today's evaluation of 11/16/2022, the patient has been stable. No significant subcu emphysema. He is on 3 L of Oxymizer nasal cannula with a pulse ox of 99%. A repeat chest x-ray was done today and showed a stable right-sided hydropneumothorax. Output from the chest tube is minimal at this point in time. There is no evidence of any air leak. Note that the patient has a right-sided chest tube in place with a Heimlich valve and he also has a Pleurx catheter in place. The chest tube was inserted approximately week ago and the patient is currently postop day #7. Is known to have stage IV adenocarcinoma of the lung. Hematologically, the patient's hemoglobin is stable at 7.7. White second is low at 1.9. Platelet counts continue to improve and it's up to 39. Potassium levels at 3.2. magnesium level is at 1.5. He continues to use incentive spirometer. he was complaining of discomfort of the chest tube ins ertion site. No nausea. No emesis. No altered mentation. Objective - Vital Signs Vital signs: Vital Signs Temp 98.2 F 11/16/22 08:00 Pulse 81 11/16/22 11:59 Resp 16 11/16/22 11:59 BP 112/79 11/16/22 11:59 Pulse Ox 100 11/16/22 11:59 FiO2 Intake & Output 11/15/22 11/16/22 11/16/22 18:59 06:59 18:59 Intake Total 640 180 Output Total 402 Balance 640 -402 180 Intake: Intake, IV Titration 400 Amount Magnesium Sulfate-D5w Pmx 400 1 gm In Dextrose/Water 1 100ml.bag @ 100 mls/hr IVPB Q1H [facility] Rx#: [id number] Oral 240 180 Output: Chest Tube Drainage 42 Chest Tube Right Lateral 42 Chest Urine 360 Other: Voiding Method Bedside Commode Bedside Commode Bedside Commode Urinal Urinal Urinal # Voids 1 - Exam CONSTITUTIONAL: Appears comfortable, cooperative, no acute distress RESPIRATORY: Lungs sounds diminished bilaterally. Respirations even, nonlabored. Currently on 3 LPM NC with oxygen saturation 98%. Able to achieve 1500 mL on incentive spirometry. Strong cough. CARDIOVASCULAR: S1, S2 present. Regular rate and rhythm, sinus rhythm on telemetry. Palpable peripheral pulses bilaterally. No edema present GASTROINTESTINAL: Abdomen soft, nontender, nondistended. Active bowel sounds present 4 quadrants. Tolerating diet GENITOURINARY: Continues to void INTEGUMENTARY: Skin is warm and dry with evidence of good perfusion NEUROLOGIC: Cranial nerves II through XII intact MUSKULOSKELETAL: Able to move all extremities, strength equal bilaterally, gait normal PSYCHIATRIC: Alert and oriented to person place and time, appropriate affect, intact judgment and insight INVASIVE LINES AND TUBES: Right pleurx cath capped. Right pleural chest tube with Heimlich valve connected to pleura vac, 80 mL in atrium, air leak with coughing only - Labs CBC & Chem 7: 11/16/22 08:33 11/16/22 08:33 Labs: Abnormal Lab Results - Last 24 Hours (Table) 11/15/22 11/16/22 11/16/22 Range/Units 17:47 08:33 08:33 WBC 1.9 L (3.8-10.6) k/uL RBC 2.45 L (4.30-5.90) m/uL Hgb 7.7 L (13.0-17.5) gm/dL Hct 22.0 L (39.0-53.0) % RDW 15.8 H (11.5-15.5) % Plt Count 39 L (150-450) k/uL Potassium 3.1 L 3.2 L (3.5-5.1) mmol/L Magnesium 2.4 H 1.5 L (1.6-2.3) mg/dL Assessment and Plan Plan: Stage IV adenocarcinoma of the lung Right-sided pleural effusion, recurrent and the patient is a Pleurx catheter in place Right-sided hydropneumothorax post right-sided chest tube insertion patient is postop day #7. No evidence of any active air leak at this point in time. The chest wasn't placed on waterseal and the patient has a Heimlich valve attached to the chest tube. Output is minimal. Hypoxic respiratory failure, acute on chronic currently on 3 L of oxygen by nasal cannula COPD Pancytopenia, hemoglobin is stable and the platelet counts are improving Hypertension Hyperlipidemia Chronic anxiety Chronic cachexia and the patient is a body mass index of 23.5, attributed to his lung cancer Plan Continue the use of incentive spirometer May need to clamp the right-sided chest tube. There is no worsening of septic in his emphysema or development of pneumothorax, the right-sided chest tube can be removed next 24 hours. Case was discussed with cardiothoracic surgery. Utilize a Pleurx catheter draining the pleural fluid periodically. Increase mobility Wean down FiO2 as tolerated Daily chest x-rays Laxatives of choice We'll continue to follow.
[2022-11-16] MEDS: MAGNESIUM SULFATE-D5W PMX 1 GM in DEXTROSE/WATER 1 100ML.BAG IVPB SCH ×2 (15:24→16:50)
--- NOTE | 2022-11-16 15:43 | XR ---
EXAMINATION TYPE: XR KUB DATE OF EXAM: 11/16/2022 COMPARISON: Chest radiograph of the same date. HISTORY: Constipation TECHNIQUE: Upright supine KUB image of the abdomen is obtained FINDINGS: Small bowel demonstrates no evidence for dilatation or air fluid levels. Gas and fecal material is seen throughout the colon and rectum. No convincing evidence for pneumoperitoneum. No unusual calcifications. Small right pleural effusion with partial position of chest tubes. The visualized portion of the left lung is clear. The osseous structures are intact. IMPRESSION: 1. Overall nonobstructive bowel gas pattern. Moderate colonic stool burden. 2. Small right pleural effusion with partial visualization of chest tubes.
[2022-11-16] MEDS: HYDROCORTISONE 10 MG TAB PO SCH (16:50)
[2022-11-16] MEDS: DOCUSATE 100 MG CAP PO SCH (21:20)
[2022-11-16] MEDS: SENNOSIDES-DOCUSATE SODIUM 1 EACH TAB PO SCH (21:20)
[2022-11-17] MEDS: HYDROmorphone 0.5 MG/0.5 ML SYRINGE IVP PRN ×7 (00:07→20:18)
[2022-11-17] MEDS: BENZONATATE 100 MG CAP PO PRN ×2 (03:31→20:18)
[2022-11-17] MEDS: SYMBICORT 160-4.5 MCG INHALER INHALATION SCH ×2 (07:49→21:55)
[2022-11-17] MEDS: IPRATROPIUM 0.5 MG/2.5 ML NEBU INHALATION SCH ×4 (07:50→21:55)
[2022-11-17 07:57] LABS: MCH 31.1 pg (25.0-35.0); MCHC 34.9 g/dL (31.0-37.0); MCV 89.3 fL (80.0-100.0); Mean Platelet Volume 9.6; RBC 2.57 m/uL (4.30-5.90); RDW 15.9 % (11.5-15.5); WBC 2.2 k/uL (3.8-10.6)
[2022-11-17 08:19] LABS: Platelet Count 48 k/uL (150-450)
[2022-11-17 08:56] LABS: Band Neutrophils % 1 %; Eosinophils # (M) 0.07 k/uL (0-0.7); Monocytes # (M) 0.29 k/uL (0-1.0); Neutrophils % (M) 51 %; Nucleated Red Blood Cells 0 /100 WBC (0-0); Total Cells Counted 100
[2022-11-17 08:59] LABS: Anisocytosis (M) Present; Polychromasia Present
--- NOTE | 2022-11-17 09:10 | XR ---
EXAMINATION TYPE: XR chest 2V DATE OF EXAM: 11/17/2022 COMPARISON: 11/16/2022 TECHNIQUE: PA and lateral views submitted. HISTORY: Postop FINDINGS: There is a right-sided hydropneumothorax is stable. Area of consolidation in the right lung is unchan ged. Left lung clear. Heart size normal. Mediport catheter and surgical clips in the upper quadrant n oted. IMPRESSION: 1. Stable small right-sided hydropneumothorax/area of consolidation.
[2022-11-17 09:12] LABS: African American GFR (CKD) >90 (>60 ml/min/1.73 sqM); Anion Gap 9 mmol/L; Blood Urea Nitrogen 8 mg/dL (9-20); Calcium 8.8 mg/dL (8.4-10.2); Carbon Dioxide 30 mmol/L (22-30); Chloride 93 mmol/L (98-107); Glucose 90 mg/dL (74-99); Non-African American GFR(CKD) >90 (>60 ml/min/1.73 sqM); Potassium 3.1 mmol/L (3.5-5.1); Sodium 132 mmol/L (137-145)
[2022-11-17] MEDS: MAGNESIUM SULFATE-D5W PMX 1 GM in DEXTROSE/WATER 1 100ML.BAG IVPB SCH ×4 (10:09→13:58)
[2022-11-17] MEDS: MAGNESIUM OXIDE 400 MG TAB PO SCH (10:18)
[2022-11-17] MEDS: HYDROCORTISONE 20 MG TAB PO SCH (10:18)
[2022-11-17] MEDS: BACITRACIN OINT 1 EACH PACKET TOPICAL SCH ×3 (10:18→21:25)
[2022-11-17] MEDS: bisacodyL 10 MG SUPP RECTAL SCH (10:18)
[2022-11-17] MEDS: FOLIC ACID 1 MG TAB PO SCH (10:19)
[2022-11-17] MEDS: CYANOCOBALAMIN 500 MCG TAB PO SCH (10:19)
[2022-11-17] MEDS: ONDANSETRON 4 MG TAB PO SCH ×2 (10:19→20:17)
[2022-11-17] MEDS: POTASSIUM CHLORIDE ER 20 MEQ TAB.ER PO SCH (10:19)
[2022-11-17] MEDS: FLUDROCORTISONE 0.1 MG TAB PO SCH (10:19)
[2022-11-17] MEDS: PANTOPRAZOLE 40 MG TABLET PO SCH (10:19)
[2022-11-17] MEDS: FLUoxetine HCL 20 MG CAP PO SCH (10:19)
[2022-11-17] MEDS: CHOLECALCIFEROL 25 MCG (1000 IU) TABLET PO SCH (10:20)
[2022-11-17] MEDS: ATORVASTATIN 40 MG TAB PO SCH (10:20)
[2022-11-17] MEDS: DOCUSATE 100 MG CAP PO SCH ×2 (10:20→20:18)
--- NOTE | 2022-11-17 10:55 | P.PN ---
Subjective Progress Note Date: 11/17/22 Principal diagnosis: Right-sided hydropneumothorax with subcutaneous emphysema. History of recurrent right-sided malignant pleural effusions status post right Pleurx catheter plac ement on 10/27/2022, stage IV lung cancer with adenocarcinoma, COPD, chronic hypoxic respiratory failure on 3 L nasal cannula continuously as an outpatient, adrenal insufficiency related to treatment, hypertension, dyslipidemia, anxiety POD#8 placement of additional right sided chest tube, persistent air leak Pancytopenia, hypokalemia, hypomagnesemia The patient was seen and examined sitting up in bed on the cardiac stepdown unit in no acute distress. Has been ambulatory in the room. Right pleural chest tube Heimlich valve clamped overnight, no increase air accumulation, discontinued this morning without incident. No increased subcu emphysema. Patient finally had bowel movement yesterday. States he feels good this morning. Objective - Vital Signs Vital signs: Vital Signs Temp 98.4 F 11/17/22 09:10 Pulse 80 11/17/22 09:10 Resp 18 11/17/22 09:10 BP 101/65 11/17/22 09:10 Pulse Ox 99 11/17/22 09:10 FiO2 Intake & Output 11/16/22 11/17/22 11/17/22 18:59 06:59 18:59 Intake Total 540 190 Balance 540 190 Intake: IV 10 Invasive Line 1 10 Oral 540 180 Other: Voiding Method Bedside Commode Bedside Commode Urinal Urinal # Voids 1 - Exam CONSTITUTIONAL: Appears comfortable, cooperative, no acute distress RESPIRATORY: Lungs sounds diminished bilaterally. Respirations even, nonlabored. Currently on 3 LPM NC with oxygen saturation 99%. Able to achieve 1500 mL on incentive spirometry. Strong cough. CARDIOVASCULAR: S1, S2 present. Regular rate and rhythm, sinus rhythm on telemetry. Palpable peripheral pulses bilaterally. No edema present GASTROINTESTINAL: Abdomen soft, nontender, nondistended. Active bowel sounds present 4 quadrants. Tolerating diet GENITOURINARY: Continues to void INTEGUMENTARY: Skin is warm and dry with evidence of good perfusion NEUROLOGIC: Cranial nerves II through XII intact MUSKULOSKELETAL: Able to move all extremities, strength equal bilaterally, gait normal PSYCHIATRIC: Alert and oriented to person place and time, appropriate affect, intact judgment and insight INVASIVE LINES AND TUBES: Right pleurx cath capped. Right pleural chest tube with Heimlich valve was clamped, since removed - Allied health notes Allied health notes reviewed: nursing - Labs CBC & Chem 7: 11/17/22 07:10 11/17/22 07:10 Labs: Abnormal Lab Results - Last 24 Hours (Table) 11/17/22 11/17/22 11/17/22 Range/Units 07:10 07:10 07:10 WBC 2.2 L (3.8-10.6) k/uL RBC 2.57 L (4.30-5.90) m/uL Hgb 8.0 L (13.0-17.5) gm/dL Hct 23.0 L (39.0-53.0) % RDW 15.9 H (11.5-15.5) % Plt Count 48 L (150-450) k/uL Neutrophils # (Manual) 1.10 L (1.3-7.7) k/uL Lymphocytes # (Manual) 0.70 L (1.0-4.8) k/uL Sodium 132 L (137-145) mmol/L Potassium 3.1 L (3.5-5.1) mmol/L Chloride 93 L (98-107) mmol/L BUN 8 L (9-20) mg/dL Creatinine 0.60 L (0.66-1.25) mg/dL Magnesium 1.4 L (1.6-2.3) mg/dL - Imaging and Cardiology Chest x-ray: report reviewed, image reviewed Assessment and Plan Assessment: Right-sided hydropneumothorax with subcutaneous emphysema to his right chest and neck, status post placement of additional right pleural chest tube History of recurrent right-sided malignant pleural effusions, status post right Pleurx catheter placement on 10/27/2022 Stage IV lung cancer COPD without exacerbation Chronic hypoxic respiratory failure on 3 L nasal cannula continuously as an outpatient Adrenal insufficiency related to treatment History of hypertension History of hypotension Dyslipidemia Anxiety Plan: Right pleural chest tube removed. Repeat chest x-ray in the morning Will drain Pleurx tomorrow Encourage use of incentive spirometry 10 times every hour while awake. Pain control per current when necessary orders. Increase activity as tolerated Medical management and other comorbidities per primary care service. Patient may be discharged home tomorrow from our standpoint when okay with other services
[2022-11-17] MEDS: HYDROcodone/APAP 5-325MG 1 EACH TAB PO PRN ×2 (11:20→23:41)
--- NOTE | 2022-11-17 12:16 | P.PN ---
Subjective Progress Note Date: 11/17/22 Patient is a 57-year-old male with known adenocarcinoma of the lung stage IV being followed at, [facility] complicated by adrenal insufficiency, HLD, [place] hypoxic respiraotry failure on 3L NC, and CPOD who presented to the ER with complaints of swelling over his left chest and neck. Patient had a right-sided Pleurx catheter placed on 10/27/22. On arrival to the ER he was tachycardic with a pulse of 111 and a respiratory rate of 28. He was slightly hypotensive with a blood pressure of 87/62. Laboratory analysis included CBC, basic metabolic profile, liver enzymes, and troponin which were remarkable for white blood cell count 3.1, hemoglobin 8.5, and platelets of 128. Initial checks x-ray demonstrated diffuse right-sided subcutaneous emphysema. CT of the chest demonstrated large right-sided hydropneumothorax with small chest tube in place in the posterior pleural space, large right suprahilar mass suspicious for malignancy, moderate emphysema, and possible liver mass. Cardiothoracic surgery was contacted by the ER. Arrangements were made for admission. His pleurx cath was hooked to a chest tube and suction. 11/10 Patient was seen and examined. Currently with chest tube to suction. Currently on 3L NC. He reports improvement in his breathing. Pain well controll ed on current pain regimen. 80 cc output from R pleurx catheter over the past 24H. reports last BM was on Wednesday. CBC shows WBC count 2.2, Hg 6.7, Hct 19.3, Plt 27. BMP shows Na 132, Cl 96, bicarb 31, BUN 25. CXR shows improved right subQ emphysema, no PTX, right chest consolidation. 11/11 Patient was seen and examined. Breathing is stable. Currently with chest tube to suction. He was transfused 1 unit pRBC on 11/10. CT surgery recommends continued suction with daily CXR. CBC shows WBC count 2.7, Hg 7.4, Hct 20.5, Plt 17. BMP shows Na 130, K 3.4, Cl 92, bicarb 31, Cr 0.65. Mag 1.0. CXR shows stable right subQ emphysema, no PTX, right chest consolidation. 11/12 Patient was seen and examined this morning. No changes in clinical condition. CT surgery recommends continued suction with daily CXR with possible transfer for [place] valve placement by interventional pulmonology. CBC shows WBC count 2.8, Hg 7.1, Hct 20.4, Plt 17. BMP shows Na 133, K 3, Cl 95, bicarb 34, Cr 0.65. Mag 1.8. CXR shows stable right subQ emphysema, small loculated right basilar PTX, right chest consolidation. 11/13 Patient was seen and examined. Clinical condition unchanged. CBC shows WBC count 2.5, Hg 7.3 and Plt 16. BMP shows Na 130, K 3.4, Cl 92, bicarb 32, Cr 0.63, glucose 115. Mag 1.1. Albumin 3.0. CT surgery recommends taking the patient off suction, heimlich valve if improvement over the weekend. If he worsens, will need transfer for interventional pulmonary eval at [facility]. CXR shows diffuse SQ emphysema and 5% PTX. 11/14 Patient was seen and examined. Clinical condition unchanged. No new complaints. Right pleurex catheter and chest tube placed to water seal. CBC shows WBC count 2.4, Hg 6.9 and Plt 19. BMP shows Na 130, K 3.2, Cl 92, bicarb 33, Cr 0.61. Mag 1.7. Albumin 2.9. Plans to transfuse 1 unit PRBC. CXR shows no changes from yesterday, stable. 11/15 Patient was seen and examined. Right Pleurx catheter capped plans for Heimlich valve to right pleural chest tube today. Small bowel movement yesterday. Pain well controlled. CBC shows WBC count 2.4, Hg 7.9 and Plt 30. BMP shows Na 131, K 3.1, Cl 94, Cr 0.6, glucose 111. Mag 1.3. CXR shows no changes from yesterday, stable. 11/16 Patient was seen and examined. CT surgery on board. Small bowel movement yesterday. Has received 2 suppositories over the past 2 days. Pain well controlled. CBC shows WBC count 1.9, Hg 7.7 and Plt 39. K 3.2, Mag 1.5. CXR shows stable changes. 11/17 Patient was seen and examined. Generally doing well, no complaints. Having small bowel movements. KUB showed moderate stool burden. CXR appears stable. CT surgery on board, right pleural chest tube Heimlich valve clamped overnight, no increase air accumulation, removed this morning without incident. Plans to repeat CXR tomorrow and discharge home if stable. CBC shows WBC count 2.2, Hg 8 and Plt 48. BMP shows Na 132, K 3.1, Cl 93, BUN 8, Cr 0.6. Mag 1.4. Mag sulfate 4g IV ordered along with KCl 40 meq IV. Vital signs reviewed General: nontoxic, no distress, appears older than stated age, improved crep itus over right and left neck Cardiovascular: S1S2 reg, no murmur Lungs: Decreased bs right, crepitus over right chest wall (significantly improved), no rhonchi, no rales , no accessory muscle use Abdominal: soft, nontender to palpation, no guarding, no appreciable organomegaly, + BS Ext: no gross muscle atrophy, no edema b/l lower extremities, no contractures Neuro: no focal neuro deficits Psych: Alert, oriented, appropriate affect Right sided hydropneumothorax s/p pigtail cath on 10/27/22 Hypokalemia and Hypomagnesemia Stage IV lung cancer COPD without exacerbation Chronic hypoxic respiratory failure at 3 L nasal cannula Pancytopenia, improving Adrenal insufficiency, secondary related to lung cancer treatment Chronic: Prior hypertension now has episodes of hypotension, Dyslipidemia Based on my assessment of this patient, this patient meets a high complexity level of care. Patient has an acute diagnosis of right hydroPTX that poses a threat to life or bodily function. He also has worsening pancytopenia status post 2 units PRBC. Right sided hydropneumothorax s/p pigtail cath on 10/27/22: CT surgery note reviewed, right pleural chest tube Heimlich valve clamped overnight, no increase air accumulation, removed this morning without incident. Plans to repeat CXR tomorrow and discharge home if stable. Hypokalemia and Hypomagnesemia: Mag sulfate 4g IV ordered along with KCl 40 meq IV. Stage IV lung cancer: Hematology/Oncology consulted and on board. COPD without exacerbation: Tessalon pearles PRN for cough. Symbicort INH. Atrovent INH QID. DuoNeb PRN for SOB. Chronic hypoxic respiratory failure at 3 L nasal cannula Pancytopenia: Improving with Hg 8 and Plt 48. s/p 1 unit PRBC 11/10 and 11/14. Transfuse PRBC if Hg < 7.Transfuse Plt if signs of bleeding of < 10. HIT panel negative. Adrenal insufficiency, secondary related to lung cancer treatment: Cortef 10 mg PO QHS. Cortef 20 mg PO QD. Lovenox SQ for DVT prophylaxis. FULL CODE. I have reviewed the following talent acquisition consultant notes: CT surgery note. I have reviewed the results of the following tests: CBC. BMP. I have ordered the following tests: Agree with daily CXR. CBC, BMP, Mg. I have discussed the care of this patient with the following independent historian: I have independently interpreted the following test below: CXR and KUB as above. I have discussed the management of this patient with the following physician: Objective - Vital Signs Vital signs: Vital Signs Temp 98.4 F 11/17/22 09:10 Pulse 80 11/17/22 09:10 Resp 18 11/17/22 09:10 BP 101/65 11/17/22 09:10 Pulse Ox 99 11/17/22 09:10 FiO2 Intake & Output 11/16/22 11/17/22 11/17/22 18:59 06:59 18:59 Intake Total 540 190 Balance 540 190 Intake: IV 10 Invasive Line 1 10 Oral 540 180 Other: Voiding Method Bedside Commode Bedside Commode Bedside Commode Urinal Urinal Urinal # Voids 1 - Labs CBC & Chem 7: 11/17/22 07:10 11/17/22 07:10 Labs: Abnormal Lab Results - Last 24 Hours (Table) 11/17/22 11/17/22 11/17/22 Range/Units 07:10 07:10 07:10 WBC 2.2 L (3.8-10.6) k/uL RBC 2.57 L (4.30-5.90) m/uL Hgb 8.0 L (13.0-17.5) gm/dL Hct 23.0 L (39.0-53.0) % RDW 15.9 H (11.5-15.5) % Plt Count 48 L (150-450) k/uL Neutrophils # (Manual) 1.10 L (1.3-7.7) k/uL Lymphocytes # (Manual) 0.70 L (1.0-4.8) k/uL Sodium 132 L (137-145) mmol/L Potassium 3.1 L (3.5-5.1) mmol/L Chloride 93 L (98-107) mmol/L BUN 8 L (9-20) mg/dL Creatinine 0.60 L (0.66-1.25) mg/dL Magnesium 1.4 L (1.6-2.3) mg/dL
[2022-11-17] MEDS: POTASSIUM CHLORIDE 10 MEQ in WATER FOR INJECTION 1 100ML.BAG IVPB SCH ×4 (12:34→16:28)
--- NOTE | 2022-11-17 12:45 | P.PN ---
Subjective Progress Note Date: 11/17/22 I am seeing this patient in new consultation today 11/12/2022 after presenting to the emergency room back on November 06 for neck and chest swelling after Pleurx catheter insertion 10 days earlier. We were not consulted until yesterday afternoon. 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 This was reportedly diagnosed at an outside facility back in May,. He has been following with Dr. Williamson in the office over the last year. He follows with his oncologist Dr. Dawson out of [facility]. He is status post chemo/radiation. Previously maintained on a combination of CarboplatinAlim ta/Keytruda. Apparently, back in May 2022 he started having issues with a right-sided pleural effusion. He's had the pleural effusion drained 3 times at [facility] and once at [facility]. A right sided Pleurx catheter was inserted by cardiothoracic surgery on his most recent admission back on October 27. 4 days after discharge, he started to notice increased chest and neck swelling. He states that when he moved his jaw it sounded like "Rice Krispies". He did come back to the emergency room back on November 06 for these symptoms. Chest CT showed a large right-sided hydropneumothorax with small chest tube in the posterior pleural space. There is a significant amount of subcutaneous emphysema. There was a large right suprahilar mass consistent with patient's known history of malignancy. Moderate to severe bullous emphysema. And a liver mass which could represent metastatic lesion or malignancy. Patient's Pleurx chest tube was hooked to a Pleur-evac and suction. Patient's hydropneumothorax persisted, and a large bore right thoracotomy tube was placed on November 09 by cardiothoracic surgery. Patient is currently sitting up in bed, on 3 L/m nasal cannula, in no acute distress. There are 2 chest tubes as described above. Both Pleur-evacs have intermittent air leak and are hooked to suction at -20 cm H20. Most recent chest x-ray from yesterday continues to show significant amount of subcutaneous emphysema. Which makes it difficult to evaluate for small pneumothorax, however, no large pneumothorax appreciated. Incentive spirometry is at bedside. Most recent CBC from yesterday shows a WBC count of 2.7, hemoglobin 7.4, hematocrit 20.5, platelets 17,000. Patient did receive 1 unit PRBC 2 days ago for a hemoglobin of 6.7. BMP from yesterday shows sodium 130, potassium 3.4, chloride 92, serum bicarbonate 31, BUN 17, creatinine 0.65, glucose 100. Normal saline is infusing at 75 ml/hr. Patient appears hemodynamically stable at this time. Progress note dated 11/13/2022. 57-year-old male, who was seen in consultation yesterday. The patient has history of metastatic lung adenocarcinoma. The patient developed significant subcutaneous emphysema, and had a Pleurx catheter placed for a malignant pleural effusion. Subsequent to that, the patient developed a hydropneumothorax and required a formal chest tube placement. Therefore, on the right side, the patient has both a Pleurx catheter, and a large bore chest tube. Both her to low continuous suction. I did speak to cardiothoracic surgery about the patient, and they're recommending continuous suction over the weekend. Should the pneumothorax improved, a Heimlich valve will be placed. If it does not improve, they recommended sending patient to [facility], for consideration of a [place] valve. The patient is currently on 3 L. He is not receiving any IV fluids. White count 2.5, heme him 7.3, hematocrit 20.1, and platelet count 16,000. Sodium 130, potassium 3.4, chlorides 92, CO2 32, BUN 11, creatinine 0.63. Chest x-ray shows diffuse subcutaneous emphysema, and a small right-sided pneumothorax. Progress note dated 11/14/2022. 57-year-old male with a history of lung cancer, which is metastatic, and, a right-sided pneumothorax, status post Pleurx catheter placement, as well as placement of a large bore chest tube. The patient has a persistent hy dropneumothorax, with an air leak. Cardiothoracic surgery saw the patient today and recommended In the Pleurx catheter, and keeping the large bore chest tube, to continuous suction. If the chest x-ray improves, or the week improves, they may choose a Heimlich valve, and discharge. Currently, the patient's getting saline at 10 mL an hour. He is also on oxygen at 3 L. Clinically he is about the same. White count 2.4, hemoglobin 6.9, hematocrit 19.7, and platelet count is 19,000. Sodium 130, potassium 3.2, chlorides 92, CO2 33, BUN 10, creatinine 0.61. The patient's chest x-ray shows no change in right lung opacity, and no change in the patient's subcutaneous emphysema. There is a small loculated pneumothorax at the right lung base. The patient is seen today 11/15/2022 in follow-up on the selective care unit. He is currently sitting up in chair. Awake and alert in no acute distress. He is maintaining good O2 saturations up to 100% on 3 L/m per nasal cannula. He's been afebrile. Hemodynamically stable. Today's chest x-ray reveals no definite right lung pneumothorax. No change in the right chest tube position. No change in the right lung infiltrate and subcutaneous emphysema. Right Pleurx catheter remains capped. Main chest tube remains to waterseal with minimal air leak with cough. He continues well with the incentive spirometer. On today's evaluation of 11/16/2022, the patient has been stable. No significant subcu emphysema. He is on 3 L of Oxymizer nasal cannula with a pulse ox of 99%. A repeat chest x-ray was done today and showed a stable right-sided hydropneumothorax. Output from the chest tube is minimal at this point in time. There is no evidence of any air leak. Note that the patient has a right-sided chest tube in place with a Heimlich valve and he also has a Pleurx catheter in place. The chest tube was inserted approximately week ago and the patient is currently postop day #7. Is known to have stage IV adenocarcinoma of the lung. Hematologically, the patient's hemoglobin is stable at 7.7. White second is low at 1.9. Platelet counts continue to improve and it's up to 39. Potassium levels at 3.2. magnesium level is at 1.5. He continues to use incentive spirometer. he was complaining of discomfort of the chest tube ins ertion site. No nausea. No emesis. No altered mentation. On today's evaluation of 11/17/2022, the patient is looking well. No significant shortness of breath. I reviewed the chest x-ray from earlier this morning. There was evidence of a stable right-sided hydropneumothorax. No evidence of any air leak. Based on that, we decided to remove the chest tube. Following the chest tube removal, the patient felt much more comfortable. He continues to have a right-sided Pleurx catheter in place. No chest pain or shortness of breath. He remains on oxygen at 3 L/m nasal cannula. His white ce ll count is at 2.2 with a hemoglobin of 8, BUN is at 8 with a creatinine of 0.6. His pulse ox is 90% liters of oxygen by nasal cannula. He has no other specific complaints for now. He is on Symbicort as maintenance and DuoNeb updrafts [id number]. Objective - Vital Signs Vital signs: Vital Signs Temp 98.4 F 11/17/22 09:10 Pulse 80 11/17/22 09:10 Resp 18 11/17/22 09:10 BP 101/65 11/17/22 09:10 Pulse Ox 99 11/17/22 09:10 FiO2 Intake & Output 11/16/22 11/17/22 11/17/22 18:59 06:59 18:59 Intake Total 540 190 Balance 540 190 Intake: IV 10 Invasive Line 1 10 Oral 540 180 Other: Voiding Method Bedside Commode Bedside Commode Urinal Urinal # Voids 1 - Exam CONSTITUTIONAL: Appears comfortable, cooperative, no acute distress RESPIRATORY: Lungs sounds diminished bilaterally. Respirations even, nonla bored. Currently on 3 LPM NC with oxygen saturation 98%. Able to achieve 1500 mL on incentive spirometry. The right-sided chest tube has been removed and the patient has a right-sided Pleurx catheter in place. CARDIOVASCULAR: S1, S2 present. Regular rate and rhythm, sinus rhythm on telemetry. Palpable peripheral pulses bilaterally. No edema present GASTROINTESTINAL: Abdomen soft, nontender, nondistended. Active bowel sounds present 4 quadrants. Tolerating diet GENITOURINARY: Continues to void INTEGUMENTARY: Skin is warm and dry with evidence of good perfusion NEUROLOGIC: Cranial nerves II through XII intact MUSKULOSKELETAL: Able to move all extremities, strength equal bilaterally, gait normal PSYCHIATRIC: Alert and oriented to person place and time, appropriate affect, intact judgment and insight INVASIVE LINES AND TUBES: Right pleurx cath capped. Right pleural chest tube has been removed. - Labs CBC & Chem 7: 10/03/23 07:10 11/17/22 07:10 Labs: Abnormal Lab Results - Last 24 Hours (Table) 11/17/22 11/17/22 11/17/22 Range/Units 07:10 07:10 07:10 WBC 2.2 L (3.8-10.6) k/uL RBC 2.57 L (4.30-5.90) m/uL Hgb 8.0 L (13.0-17.5) gm/dL Hct 23.0 L (39.0-53.0) % RDW 15.9 H (11.5-15.5) % Plt Count 48 L (150-450) k/uL Neutrophils # (Manual) 1.10 L (1.3-7.7) k/uL Lymphocytes # (Manual) 0.70 L (1.0-4.8) k/uL Sodium 132 L (137-145) mmol/L Potassium 3.1 L (3.5-5.1) mmol/L Chloride 93 L (98-107) mmol/L BUN 8 L (9-20) mg/dL Creatinine 0.60 L (0.66-1.25) mg/dL Magnesium 1.4 L (1.6-2.3) mg/dL Assessment and Plan Plan: Stage IV adenocarcinoma of the lung Right-sided pleural effusion, recurrent and the patient is a Pleurx catheter in place Right-sided hydropneumothorax post right-sided chest tube insertion patient is postop day #8, repeat chest x-ray today shows a stable right-sided hydropneumothorax. The patient has no evidence of any air leak. Chest x-ray findings have been stable and the right-sided chest tube has been removed. Pleurx catheter will be kept in place for now and the patient is going to undergo a drainage tomorrow. Pancytopenia, the white cell count is at 2.2 and a platelet count is essentially improving is currently up to 48 Hypoxic respiratory failure, acute on chronic currently on 3 L of oxygen by nasal cannula COPD Pancytopenia, hemoglobin is stable and the platelet counts are improving Hypertension Hyperlipidemia Chronic anxiety Chronic cachexia and the patient is a body mass index of 23.5, attributed to his lung cancer Plan Continue the use of incentive spirometer Right-sided chest tube has been removed Utilize a Pleurx catheter draining the pleural fluid periodically. The patient is going to undergo a drainage from this progress catheter tomorrow and possibly go home tomorrow. Increase mobility Wean down FiO2 as tolerated Daily chest x-rays, repeat chest x-ray in the morning Wean down FiO2 as the patient is currently on 3 L with a pulse ox of 99% Hematologic profile is improving Laxatives of choice We'll continue to follow.
--- NOTE | 2022-11-17 16:01 | P.PN ---
Subjective Progress Note Date: 11/17/22 Principal diagnosis: SOB Patient is resting comfortably in bed, spouse of bedside. Patient reports improvement in breathing. Thoravent and Pleurx in place. Reporting pain at robina st tube insertion site. Plan to remove chest tube today. SPO2 100% on 3 L. Denies any acute episodes of bleeding. Reports BM last night Objective - Vital Signs Vital signs: Vital Signs Temp 98.4 F 11/17/22 12:00 Pulse 80 11/17/22 12:00 Resp 16 11/17/22 12:00 BP 106/69 11/17/22 12:00 Pulse Ox 99 11/17/22 12:00 FiO2 Intake & Output 11/16/22 11/17/22 11/17/22 18:59 06:59 18:59 Intake Total 540 630 Balance 540 630 Intake: IV 30 Invasive Line 1 30 Intake, IV Titration 200 Amount Magnesium Sulfate-D5w Pmx 200 1 gm In Dextrose/Water 1 100ml.bag @ 100 mls/hr IVPB Q1H NANI Rx#: [id number] Oral 540 400 Other: Voiding Method Bedside Commode Bedside Commode Bedside Commode Urinal Urinal Urinal # Voids 1 - Constitutional General appearance: Present: average body habitus, no acute distress - EENT Eyes: Present: anicteric sclerae, EOMI ENT: Present: hearing grossly normal - Respiratory Details: breathing is even unlabored - Cardiovascular Details: skin warm and dry - Gastrointestinal General gastrointestinal: Present: soft. Absent: tenderness - Integumentary Integumentary: Present: pale. Absent: cyanotic - Neurologic Neurologic: Present: CNII-XII intact - Musculoskeletal Musculoskeletal: Present: strength equal bilaterally - Psychiatric Psychiatric: Present: A&O x's 3, appropriate affect, intact judgment & insight - Labs CBC & Chem 7: 11/17/22 07:10 11/17/22 07:10 Labs: Abnormal Lab Results - Last 24 Hours (Table) 11/17/22 11/17/22 11/17/22 Range/Units 07:10 07:10 07:10 WBC 2.2 L (3.8-10.6) k/uL RBC 2.57 L (4.30-5.90) m/uL Hgb 8.0 L (13.0-17.5) gm/dL Hct 23.0 L (39.0-53.0) % RDW 15.9 H (11.5-15.5) % Plt Count 48 L (150-450) k/uL Neutrophils # (Manual) 1.10 L (1.3-7.7) k/uL Lymphocytes # (Manual) 0.70 L (1.0-4.8) k/uL Sodium 132 L (137-145) mmol/L Potassium 3.1 L (3.5-5.1) mmol/L Chloride 93 L (98-107) mmol/L BUN 8 L (9-20) mg/dL Creatinine 0.60 L (0.66-1.25) mg/dL Magnesium 1.4 L (1.6-2.3) mg/dL - Imaging and Cardiology Chest x-ray: report reviewed Assessment and Plan (1) Non-small cell lung cancer Current Visit: Yes Status: Acute Priority: Medium Code(s): C34.90 - MALIGNANT NEOPLASM OF UNSP PART OF UNSP BRONCHUS OR LUNG SNOMED Code(s): 342111007 (2) Hydropneumothorax Current Visit: Yes Status: Acute Priority: High Code(s): J94.8 - OTHER SPECIFIED PLEURAL CONDITIONS SNOMED Code(s): 89113438 (3) Antineoplastic chemotherapy induced pancytopenia Current Visit: Yes Status: Acute Priority: High Code(s): D61.810 - ANTINEOPLASTIC CHEMOTHERAPY INDUCED PANCYTOPENIA; T45.1X5A - ADVERSE EFFECT OF ANTINEOPLASTIC AND IMMUNOSUP DRUGS, INIT SNOMED Code(s): 545443773208318 Plan: Air leak from Pleurx catheter, subcutaneous emphysema -Chest tube in place, management CTS. Plan for removal of chest tube today -Repeat chest x-ray today revealed stable small right-sided hydropneumothorax Chemotherapy-induced pancytopenia -Patient received treatment approx 3 weeks ago. He is at the end of solange. Counts slowly improving, would anticipate counts to continue to stabilize but e ffects could be prolonged by acute condition. -Hemoglobin 8.0 today. Transfuse for a hemoglobin less than 7 or if patient is symptomatic -WBCs 2.2, ANC 1100. SPO2 100% on 3L, patient has been afebrile -Platelets improved, 48,000 today. No anticoagulation, aspirin, NSAIDs until platelets are greater than 50,000. SCDs for DVT prophylaxis at this time. Transfuse for platelets less than 10,000 or if symptomatic. Hit antibody was negative. Coags were within normal limits. Fibrinogen greater than 500. No DIC -Continue CBC daily -Patient has home care scheduled through his oncologist for weekly blood draws. Encouraged close f/u with oncology to closely monitor counts. Bleeding precautions discussed with pt and spouse Metastatic non-small cell lung cancer -Treatment on hold at this time pending resolution/stability of current situation -Continue follow-up at [facility] in [place] as planned. Low potassium and magnesium -This is chronic for patient. He is on oral supplementation at home -Potassium 3.1, magnesium 1.4. Potassium and magnesium supplementation ordered. -Will continue to monitor
[2022-11-17] MEDS: HYDROCORTISONE 10 MG TAB PO SCH (16:28)
[2022-11-17] MEDS: SENNOSIDES-DOCUSATE SODIUM 1 EACH TAB PO SCH (20:18)
[2022-11-17] MEDS: ALPRAZolam 0.25 MG TAB PO PRN (22:14)
[2022-11-18] MEDS: HYDROmorphone 0.5 MG/0.5 ML SYRINGE IVP PRN ×2 (03:29→13:24)
[2022-11-18 08:20] LABS: HCT 23.3 % (39.0-53.0); HGB 8.2 gm/dL (13.0-17.5); MCH 31.4 pg (25.0-35.0); MCHC 35.3 g/dL (31.0-37.0); MCV 88.9 fL (80.0-100.0); Mean Platelet Volume 9.9; RBC 2.63 m/uL (4.30-5.90); RDW 15.8 % (11.5-15.5); WBC 2.7 k/uL (3.8-10.6)
[2022-11-18 08:21] LABS: Platelet Count 60 k/uL (150-450)
[2022-11-18 08:32] LABS: African American GFR (CKD) >90 (>60 ml/min/1.73 sqM); Anion Gap 11 mmol/L; Blood Urea Nitrogen 8 mg/dL (9-20); Calcium 8.8 mg/dL (8.4-10.2); Carbon Dioxide 28 mmol/L (22-30); Chloride 94 mmol/L (98-107); Glucose 108 mg/dL (74-99); Non-African American GFR(CKD) >90 (>60 ml/min/1.73 sqM); Sodium 133 mmol/L (137-145)
--- NOTE | 2022-11-18 08:35 | XR ---
EXAMINATION TYPE: XR chest 1V portable DATE OF EXAM: 11/18/2022 COMPARISON: 11/17/2022 HISTORY: Follow-up pneumothorax. TECHNIQUE: Single frontal view of the chest is obtained. FINDINGS: There is interval reduction in the size of the right-sided hydropneumothorax. The amount o f pleural fluid is reduced. There is consolidation right midlung stable. Apical pleural thickening. . Surgical volume loss and elevated right hemidiaphragm. IMPRESSION: A right-sided hydropneumothorax mildly improved.
[2022-11-18 08:43] LABS: Magnesium 1.5 mg/dL (1.6-2.3)
[2022-11-18] MEDS: FOLIC ACID 1 MG TAB PO SCH (08:54)
[2022-11-18] MEDS: CYANOCOBALAMIN 500 MCG TAB PO SCH (08:54)
[2022-11-18] MEDS: PANTOPRAZOLE 40 MG TABLET PO SCH (08:54)
[2022-11-18] MEDS: bisacodyL 10 MG SUPP RECTAL SCH (08:54)
[2022-11-18] MEDS: CHOLECALCIFEROL 25 MCG (1000 IU) TABLET PO SCH (08:54)
[2022-11-18] MEDS: DOCUSATE 100 MG CAP PO SCH (08:54)
[2022-11-18] MEDS: HYDROcodone/APAP 5-325MG 1 EACH TAB PO PRN ×2 (08:54→16:19)
[2022-11-18] MEDS: bisacodyL 5 MG TABLET.DR PO PRN (08:55)
[2022-11-18] MEDS: MAGNESIUM SULFATE-D5W PMX 1 GM in DEXTROSE/WATER 1 100ML.BAG IVPB SCH ×4 (08:55→16:13)
[2022-11-18] MEDS: FLUoxetine HCL 20 MG CAP PO SCH (08:55)
[2022-11-18] MEDS: ATORVASTATIN 40 MG TAB PO SCH (08:55)
[2022-11-18] MEDS: BENZONATATE 100 MG CAP PO PRN (08:55)
[2022-11-18] MEDS: ONDANSETRON 4 MG TAB PO SCH (08:55)
[2022-11-18] MEDS: BACITRACIN OINT 1 EACH PACKET TOPICAL SCH ×2 (08:56→16:14)
[2022-11-18] MEDS: FLUDROCORTISONE 0.1 MG TAB PO SCH (08:57)
[2022-11-18] MEDS: HYDROCORTISONE 20 MG TAB PO SCH (08:57)
[2022-11-18] MEDS ORDERED: POTASSIUM BICARBONATE/CIT AC 20 MEQ TABLET.EFF PO ONE (09:00)
[2022-11-18] MEDS: IPRATROPIUM 0.5 MG/2.5 ML NEBU INHALATION SCH ×3 (09:53→16:07)
[2022-11-18] MEDS ORDERED: POTASSIUM CHLORIDE ER 20 MEQ TAB.ER PO ONE (11:00)
[2022-11-18] MEDS: SYMBICORT 160-4.5 MCG INHALER INHALATION SCH (11:24)
[2022-11-18] MEDS: MAGNESIUM OXIDE 400 MG TAB PO SCH (11:27)
[2022-11-18 11:45] VITALS: BP 118/61; PULSE 77; RESP 18; TEMP 98.1
--- NOTE | 2022-11-18 14:24 | P.DS ---
Providers Date of admission: 11/06/22 14:25 Expected date of discharge: 11/18/22 Attending physician: Marlene Simeon DO Consults: 11/06/22 14:25 Consult Physician Urgent Consulting Provider: Sudhir Martinez Consult Reason/Comments: Hydropneumothorax Do you want consulting provider notified?: Yes 11/09/22 17:11 Consult Physician Routine Consulting Provider: Hunter Blandon Consult Reason/Comments: thrombocytopenia, chemo on 10/29 Do you want consulting provider notified?: Yes 11/11/22 14:35 Consult Physician Routine Consulting Provider: Jatinder Romero Consult Reason/Comments: persistent air leak Do you want consulting provider notified?: Yes Primary care physician: Sammy James Hospital Course: Discharge Diagnosis: Right sided hydropneumothorax s/p pigtail cath on 10/27/22 Stage IV lung cancer COPD without exacerbation Chronic hypoxic respiratory failure at 3L nasal cannula Pancytopenia, Chemotherapy related Adrenal insufficiency, secondary related to lung cancer treatment Chronic: Prior hypertension now has episodes of hypotension Dyslipidemia Hospital Course: Patient is a 57-year-old male with known adenocarcinoma of the lung stage IV being followed at [facility] complicated by adrenal insufficiency, HLD, Chornic hypoxic respiraotry failure on 3L NC, and CPOD who presented to the ER with complaints of swelling over his left chest and neck. Patient had a right-sided Pleurx catheter placed on 10/27/22. On arrival to the ER he was tachycardic with a pulse of 111 and a respiratory rate of 28. He was slightly hypotensive with a blood pressure of 87/62. Laboratory analysis included CBC, basic metabolic profile, liver enzymes, and troponin which were remarkable for white blood cell count 3.1, hemoglobin 8.5, and platelets of 128. Initial checks x-ray demonstrated diffuse right-sided subcutaneous emphysema. CT of the chest demonstrated large right-sided hydropneumothorax with small chest tube in place in the posterior pleural space, large right suprahilar mass suspicious for malignancy, moderate emphysema, and possible liver mass. Cardiothoracic surgery was contacted by the ER. Arrangements were made for admission. His pleurx cath was hooked to a chest tube and suction. He had an additional chest tube placed on the right on 11/09. His air leak improved. His Chest tube was removed on 11/17/22 with no worsening of pneumothorax. His Pleurx cath was continued and was last drained on 11/18/22. He had pancytopenia during his hospital stay related to his chemo and oncology was consulted, he did receive 2 units of pRBCs. He did developed hypokalemia and hypomagnesemia and required aggressive electrolyte replacement.He also struggled with constipation during his hospital stay and required an aggressive bowel regiment. Follow-up: Dr. James, [facility]. Patient seen and examined at bedside. Pain is well-controlled. He had a s ignificant bowel movement this morning. Denies any nausea or vomiting. Light. Vital signs reviewed and stable. General: nontoxic, no distress, appears at stated age Cardiovascular: S1S2 reg, no murmur, positive posterior tibial pulse bilateral, Lungs: CTA bilateral, no rhonchi, no rales , no accessory muscle use Abdominal: soft, nontender to palpation, no guarding, no appreciable organomegaly Ext: no gross muscle atrophy, no edema b/l lower extremities, no contractures Neuro: CN II-XI grossly intact, no focal neuro deficits Psych: Alert, oriented, appropriate affect A total of 32 minutes of time were spent preparing this complex discharge summary. Patient was discharged on 11/18/22. This dictation was prepared using [employer] voice recognition software. Though every attempt is made to correct errors during dictation some may still exist. Plan - Discharge Summary Discharge Rx Participant: No New Discharge Prescriptions: New bisacodyL [Dulcolax] 5 mg PO DAILY PRN #30 tab PRN Reason: Constipation Continue Cholecalciferol [Vitamin D3 (25 Mcg = 1000 Iu)] 50 mcg PO DAILY Folic Acid 1 mg PO DAILY Zolpidem Tartrate [Zolpidem Tartrate ER] 6.25 mg PO HS FLUoxetine HCL [PROzac] 20 mg PO DAILY Fludrocortisone [Florinef] 0.1 mg PO QAM Benzonatate [Tessalon Perles] 100 mg PO TID PRN PRN Reason: Cough Atorvastatin [Lipitor] 40 mg PO DAILY Cyanocobalamin (Vitamin B-12) [Vitamin B-12] 2,000 mcg PO DAILY polyethylene glycoL 3350 [Miralax] 17 gm PO DAILY PRN PRN Reason: Constipation Ipratropium-Albuterol Nebulize [Duoneb 0.5 mg-3 mg/3 ml Soln] 3 ml INHALATION RT-TID PRN PRN Reason: Shortness Of Breath Docusate Sodium [Dok] 100 mg PO BID PRN PRN Reason: Constipation Pantoprazole Sodium [Protonix] 40 mg PO DAILY ALPRAZolam [Xanax] 0.25 mg PO DAILY PRN PRN Reason: Anxiety Hydrocortisone [Cortef] 20 mg PO DAILY HYDROcodone/APAP 5-325MG [[place] 5-325] 2 tab PO Q6HR PRN 3 Days #24 tab PRN Reason: Pain Hydrocortisone [Cortef] 10 mg PO AC-SUPPER Budesonide/Glycopyr/Formoterol [Breztri Aerosphere Inhaler] 2 puff INHALATION RT-BID Albuterol Sulfate [Albuterol Sulfate Hfa] 2 puff PO RT-Q6H PRN PRN Reason: Shortness Of Breath ondansetron HCL [Zofran] 8 mg PO BID Acetaminophen Tab [Tylenol] 650 mg PO Q6HR PRN tab PRN Reason: Mild Pain Or Fever > 100.5 Slow-Mag 71.5mg 143 mg PO DAILY Hydrocortisone [Cortef] 20 mg PO DAILY Potassium Chloride [Klor-Con M20] 20 meq PO DAILY Sennosides-Docusate Sodium [Senokot-S] 1 tab PO HS Discontinued Ibuprofen [Advil] 200 - 400 mg PO Q8HR PRN PRN Reason: Pain Discharge Medication List ALPRAZolam [Xanax] 0.25 mg PO DAILY PRN 10/26/22 [History] Albuterol Sulfate [Albuterol Sulfate Hfa] 2 puff PO RT-Q6H PRN 10/26/22 [History] Atorvastatin [Lipitor] 40 mg PO DAILY 10/26/22 [History] Benzonatate [Tessalon Perles] 100 mg PO TID PRN 10/26/22 [History] Budesonide/Glycopyr/Formoterol [Breztri Aerosphere Inhaler] 2 puff INHALATION RT-BID 10/26/22 [History] Cholecalciferol [Vitamin D3 (25 Mcg = 1000 Iu)] 50 mcg PO DAILY 10/26/22 [History] Cyanocobalamin (Vitamin B-12) [Vitamin B-12] 2,000 mcg PO DAILY 10/26/22 [History] Docusate Sodium [Dok] 100 mg PO BID PRN 10/26/22 [History] FLUoxetine HCL [PROzac] 20 mg PO DAILY 10/26/22 [History] Fludrocortisone [Florinef] 0.1 mg PO QAM 10/26/22 [History] Folic Acid 1 mg PO DAILY 10/26/22 [History] Hydrocortisone [Cortef] 10 mg PO AC-SUPPER 10/26/22 [History] Ipratropium-Albuterol Nebulize [Duoneb 0.5 mg-3 mg/3 ml Soln] 3 ml INHALATION RT-TID PRN 10/26/22 [History] Pantoprazole Sodium [Protonix] 40 mg PO DAILY 10/26/22 [History] Zolpidem Tartrate [Zolpidem Tartrate ER] 6.25 mg PO HS 10/26/22 [History] ondansetron HCL [Zofran] 8 mg PO BID 10/26/22 [History] polyethylene glycoL 3350 [Miralax] 17 gm PO DAILY PRN 10/26/22 [History] Acetaminophen Tab [Tylenol] 650 mg PO Q6HR PRN tab 10/27/22 [Rx] Hydrocortisone [Cortef] 20 mg PO DAILY 11/06/22 [History] Hydrocortisone [Cortef] 20 mg PO DAILY 11/06/22 [History] Potassium Chloride [Klor-Con M20] 20 meq PO DAILY 11/06/22 [History] Sennosides-Docusate Sodium [Senokot-S] 1 tab PO HS 11/06/22 [History] Slow-Mag 71.5mg 143 mg PO DAILY 11/06/22 [History] HYDROcodone/APAP 5-325MG [[place] 5-325] 2 tab PO Q6HR PRN 3 Days #24 tab 11/18/22 [Rx] bisacodyL [Dulcolax] 5 mg PO DAILY PRN #30 tab 11/18/22 [Rx] Follow up Appointment(s)/Referral(s): [facility], [NON-STAFF] - Sammy James MD [Primary Care Provider] - 1-2 days Activity/Diet/Wound Care/Special Instructions: DISCHARGE INSTRUCTIONS: 1. No driving for 2 weeks, or until physician gives their ok. 2. No lifting, pushing, or pulling more than 10 pounds for 2 weeks. The physician will advise of any restriction changes. 3. Continue pain control per as needed orders. Alternate acetaminophen (Tylenol) and ibuprofen (Motrin/Advil) for pain. 4. Continue with incentive spirometry and splinting until otherwise directed by the physician. 5. Leave chest tube dressing for 48 hours. After that, remove all dressings and shower daily. 6. Routine incision care. No powders, lotions, ointments on incisions. 7. Please call surgeon/EC TEACHER for temp greater than 101 F or purulent drainage from incisions. 8. Pleurx may be drained daily, every other day, weekly, however the patient is symptomatic 9. Knee drainage bottle needed with each drainage 10. Do not drain more than 1 L per 1000 mL in 24 hours 11. Contact surgery office for any concerns regarding Pleurx catheter Keep your scheduled follow appointments with Sadia Cavazos. Discharge Disposition: HOME SELF-CARE
--- NOTE | 2022-11-18 16:33 | P.PN ---
Subjective Progress Note Date: 11/18/22 I am seeing this patient in new consultation today 11/12/2022 after presenting to the emergency room back on November 06 for neck and chest swelling after Pleurx catheter insertion 10 days earlier. We were not consulted until yesterday afternoon. 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 This was reportedly diagnosed at an outside facility back in May,. He has been following with Dr. Williamson in the office over the last year. He follows with his oncologist Dr. Dawson out of [facility]. He is status post chemo/radiation. Previously maintained on a combination of CarboplatinAlim ta/Keytruda. Apparently, back in May 2022 he started having issues with a right-sided pleural effusion. He's had the pleural effusion drained 3 times at [facility] and once at [facility]. A right sided Pleurx catheter was inserted by cardiothoracic surgery on his most recent admission back on October 27. 4 days after discharge, he started to notice increased chest and neck swelling. He states that when he moved his jaw it sounded like "Rice Krispies". He did come back to the emergency room back on November 06 for these symptoms. Chest CT showed a large right-sided hydropneumothorax with small chest tube in the posterior pleural space. There is a significant amount of subcutaneous emphysema. There was a large right suprahilar mass consistent with patient's known history of malignancy. Moderate to severe bullous emphysema. And a liver mass which could represent metastatic lesion or malignancy. Patient's Pleurx chest tube was hooked to a Pleur-evac and suction. Patient's hydropneumothorax persisted, and a large bore right thoracotomy tube was placed on November 09 by cardiothoracic surgery. Patient is currently sitting up in bed, on 3 L/m nasal cannula, in no acute distress. There are 2 chest tubes as described above. Both Pleur-evacs have intermittent air leak and are hooked to suction at -20 cm H20. Most recent chest x-ray from yesterday continues to show significant amount of subcutaneous emphysema. Which makes it difficult to evaluate for small pneumothorax, however, no large pneumothorax appreciated. Incentive spirometry is at bedside. Most recent CBC from yesterday shows a WBC count of 2.7, hemoglobin 7.4, hematocrit 20.5, platelets 17,000. Patient did receive 1 unit PRBC 2 days ago for a hemoglobin of 6.7. BMP from yesterday shows sodium 130, potassium 3.4, chloride 92, serum bicarbonate 31, BUN 17, creatinine 0.65, glucose 100. Normal saline is infusing at 75 ml/hr. Patient appears hemodynamically stable at this time. Progress note dated 11/13/2022. 57-year-old male, who was seen in consultation yesterday. The patient has history of metastatic lung adenocarcinoma. The patient developed significant subcutaneous emphysema, and had a Pleurx catheter placed for a malignant pleural effusion. Subsequent to that, the patient developed a hydropneumothorax and required a formal chest tube placement. Therefore, on the right side, the patient has both a Pleurx catheter, and a large bore chest tube. Both her to low continuous suction. I did speak to cardiothoracic surgery about the patient, and they're recommending continuous suction over the weekend. Should the pneumothorax improved, a Heimlich valve will be placed. If it does not improve, they recommended sending patient to [facility], for consideration of a [place] valve. The patient is currently on 3 L. He is not receiving any IV fluids. White count 2.5, heme him 7.3, hematocrit 20.1, and platelet count 16,000. Sodium 130, potassium 3.4, chlorides 92, CO2 32, BUN 11, creatinine 0.63. Chest x-ray shows diffuse subcutaneous emphysema, and a small right-sided pneumothorax. Progress note dated 11/14/2022. 57-year-old male with a history of lung cancer, which is metastatic, and, a right-sided pneumothorax, status post Pleurx catheter placement, as well as placement of a large bore chest tube. The patient has a persistent hy dropneumothorax, with an air leak. Cardiothoracic surgery saw the patient today and recommended In the Pleurx catheter, and keeping the large bore chest tube, to continuous suction. If the chest x-ray improves, or the week improves, they may choose a Heimlich valve, and discharge. Currently, the patient's getting saline at 10 mL an hour. He is also on oxygen at 3 L. Clinically he is about the same. White count 2.4, hemoglobin 6.9, hematocrit 19.7, and platelet count is 19,000. Sodium 130, potassium 3.2, chlorides 92, CO2 33, BUN 10, creatinine 0.61. The patient's chest x-ray shows no change in right lung opacity, and no change in the patient's subcutaneous emphysema. There is a small loculated pneumothorax at the right lung base. The patient is seen today 11/15/2022 in follow-up on the selective care unit. He is currently sitting up in chair. Awake and alert in no acute distress. He is maintaining good O2 saturations up to 100% on 3 L/m per nasal cannula. He's been afebrile. Hemodynamically stable. Today's chest x-ray reveals no definite right lung pneumothorax. No change in the right chest tube position. No change in the right lung infiltrate and subcutaneous emphysema. Right Pleurx catheter remains capped. Main chest tube remains to waterseal with minimal air leak with cough. He continues well with the incentive spirometer. On today's evaluation of 11/16/2022, the patient has been stable. No significant subcu emphysema. He is on 3 L of Oxymizer nasal cannula with a pulse ox of 99%. A repeat chest x-ray was done today and showed a stable right-sided hydropneumothorax. Output from the chest tube is minimal at this point in time. There is no evidence of any air leak. Note that the patient has a right-sided chest tube in place with a Heimlich valve and he also has a Pleurx catheter in place. The chest tube was inserted approximately week ago and the patient is currently postop day #7. Is known to have stage IV adenocarcinoma of the lung. Hematologically, the patient's hemoglobin is stable at 7.7. White second is low at 1.9. Platelet counts continue to improve and it's up to 39. Potassium levels at 3.2. magnesium level is at 1.5. He continues to use incentive spirometer. he was complaining of discomfort of the chest tube ins ertion site. No nausea. No emesis. No altered mentation. On today's evaluation of 11/17/2022, the patient is looking well. No significant shortness of breath. I reviewed the chest x-ray from earlier this morning. There was evidence of a stable right-sided hydropneumothorax. No evidence of any air leak. Based on that, we decided to remove the chest tube. Following the chest tube removal, the patient felt much more comfortable. He continues to have a right-sided Pleurx catheter in place. No chest pain or shortness of breath. He remains on oxygen at 3 L/m nasal cannula. His white ce ll count is at 2.2 with a hemoglobin of 8, BUN is at 8 with a creatinine of 0.6. His pulse ox is 90% liters of oxygen by nasal cannula. He has no other specific complaints for now. He is on Symbicort as maintenance and DuoNeb updrafts [id number]. On 11/18/2022, the patient is doing well, no specific complaints, no significant shortness of breath and the pulse ox is 97% liters of Oxymizer nasal cannula. His FiO2 can be obviously be gradually weaned off. Meanwhile, the patient had a drainage of his right lung through the Pleurx catheter total of 200 mL of fluid was aspirated. He is feeling comfortable. He has no specific complaints. His hematology profile is also improving. His platelet count is above 60. White cell count continues to improve is currently up to 2.7. Hemoglobin is also at 8.2. Creatinine is at 0.5. BUN is at 8. No fever. No chills. No other complaints otherwise for now. Objective - Vital Signs Vital signs: Vital Signs Temp 98.2 F 11/18/22 08:50 Pulse 106 H 11/18/22 08:50 Resp 20 11/18/22 08:50 BP 100/61 11/18/22 08:50 Pulse Ox 100 11/18/22 08:50 FiO2 Intake & Output 11/17/22 11/18/22 11/18/22 18:59 06:59 18:59 Intake Total 1470 240 Balance 1470 240 Intake: IV 30 Invasive Line 1 30 Intake, IV Titration 800 Amount Magnesium Sulfate-D5w Pmx 400 1 gm In Dextrose/Water 1 100ml.bag @ 100 mls/hr IVPB Q1H NANI Rx#: [id number] Potassium Chloride 10 meq 400 In Water For Injection 1 100ml.bag @ 100 mls/hr IVPB Q1HR NANI Rx#: [id number] Oral 640 240 Other: Voiding Method Bedside Commode Bedside Commode Bedside Commode Urinal Urinal Urinal # Voids 3 1 # Bowel Movements 1 - Exam CONSTITUTIONAL: Appears comfortable, cooperative, no acute distress RESPIRATORY: Lungs sounds diminished bilaterally. Respirations even, nonlabored. Currently on 3 LPM NC with oxygen saturation 98%. Able to achieve 1500 mL on incentive spirometry. The right-sided chest tube has been removed and the patient has a right-sided Pleurx catheter in place. CARDIOVASCULAR: S1, S2 present. Regular rate and rhythm, sinus rhythm on telemetry. Palpable peripheral pulses bilaterally. No edema present GASTROINTESTINAL: Abdomen soft, nontender, nondistended. Active bowel sounds present 4 quadrants. Tolerating diet GENITOURINARY: Continues to void INTEGUMENTARY: Skin is warm and dry with evidence of good perfusion NEUROLOGIC: Cranial nerves II through XII intact MUSKULOSKELETAL: Able to move all extremities, strength equal bilaterally, gait normal PSYCHIATRIC: Alert and oriented to person place and time, appropriate affect, intact judgment and insight INVASIVE LINES AND TUBES: Right pleurx cath capped. Right pleural chest tube has been removed. - Labs CBC & Chem 7: 11/18/22 07:39 11/18/22 07:39 Labs: Abnormal Lab Results - Last 24 Hours (Table) 11/18/22 11/18/22 Range/Units 07:39 07:39 WBC 2.7 L (3.8-10.6) k/uL RBC 2.63 L (4.30-5.90) m/uL Hgb 8.2 L (13.0-17.5) gm/dL Hct 23.3 L (39.0-53.0) % RDW 15.8 H (11.5-15.5) % Plt Count 60 L (150-450) k/uL Sodium 133 L (137-145) mmol/L Chloride 94 L (98-107) mmol/L BUN 8 L (9-20) mg/dL Creatinine 0.50 L (0.66-1.25) mg/dL Glucose 108 H (74-99) mg/dL Magnesium 1.5 L (1.6-2.3) mg/dL Assessment and Plan Plan: Stage IV adenocarcinoma of the lung Right-sided pleural effusion, recurrent and the patient is a Pleurx catheter in place, drainage was done and a total of 200 mL's of fluid was aspirated Right-sided hydropneumothorax post right-sided chest tube insertion patient is postop day # 9, repeat chest x-ray today shows a stable right-sided hydropneumothorax. The patient has no evidence of any air leak. Chest x-ray fi ndings have been stable and the right-sided chest tube has been removed. Pleurx catheter will be kept in place to be used on an outpatient basis for periodic drainage Pancytopenia, the white cell count is at 2.7 and a patient's platelet count is up to 60,000 Hypoxic respiratory failure, acute on chronic currently on 3 L of oxygen by nasal cannula COPD Pancytopenia, hemoglobin is stable and the platelet counts are improving Hypertension Hyperlipidemia Chronic anxiety Chronic cachexia and the patient is a body mass index of 23.5, attributed to his lung cancer Plan Continue the use of incentive spirometer Right-sided chest tube has been removed 200 mL of pleural fluid was aspirated through the Pleurx catheter Increase mobility Wean down FiO2 as tolerated, currently on 3 L Hematologic profile is improving Laxatives of choice We'll continue to follow. Possible discharge home today.
[2022-11-18] MEDS: HYDROCORTISONE 10 MG TAB PO SCH (18:19)
== END 2022-11-18 18:52 | disposition home or self-care (01) | DRG 186 ==
LOC: EC 09:34 → 3SCARD 14:25
PROVIDERS: ADMIT Internal Medicine; ATTEND Internal Medicine
PROC: 0W9930Z Drainage of Right Pleural Cavity with Drainage Device, Percutaneous Approach (ICD-10-PCS; principal; 2022-11-09)
PROC: 0WP9X0Z Removal of Drainage Device from Right Pleural Cavity, External Approach (ICD-10-PCS; 2022-11-18)
DX: J94.2 Hemothorax (principal); D61.810 Antineoplastic chemotherapy induced pancytopenia; C34.90 Malignant neoplasm of unspecified part of unspecified bronchus or lung; C79.9 Secondary malignant neoplasm of unspecified site; E27.40 Unspecified adrenocortical insufficiency; J93.82 Other air leak; J96.11 Chronic respiratory failure with hypoxia; T79.7XXA Traumatic subcutaneous emphysema, initial encounter; R64 Cachexia; R91.8 Other nonspecific abnormal finding of lung field; I95.9 Hypotension, unspecified; E78.5 Hyperlipidemia, unspecified; E83.42 Hypomagnesemia; E87.6 Hypokalemia; F41.1 Generalized anxiety disorder; I10 Essential (primary) hypertension; I44.4 Left anterior fascicular block; J43.9 Emphysema, unspecified; K59.00 Constipation, unspecified; T45.1X5A Adverse effect of antineoplastic and immunosuppressive drugs, initial encounter; Z79.51 Long term (current) use of inhaled steroids; Z68.23 Body mass index [BMI] 23.0-23.9, adult; Z79.899 Other long term (current) drug therapy; Z80.1 Family history of malignant neoplasm of trachea, bronchus and lung; Z92.3 Personal history of irradiation; Z92.21 Personal history of antineoplastic chemotherapy; Z81.8 Family history of other mental and behavioral disorders
CPT/HCPCS: 36415; 71045; 71046; 71250; 74018; 80048; 80053; 83735; 84132; 84484; 85025; 85027; 85384; 85610; 85730; 86022; 86850; 86900; 86901; 86920; 93005; 94640; 94760; 96374; 96375; 99285

== ENCOUNTER 2023-01-04 12:34 | Emergency (ER) | payer BC ==
[2023-01-04 13:02] VITALS: TEMP 97.9
--- NOTE | 2023-01-04 13:04 | ED ---
General Adult HPI - General Chief complaint: Shortness of Breath Stated complaint: fluid in lungs Time Seen by Provider: 01/04/23 12:43 Source: patient, family, RN notes reviewed Mode of arrival: wheelchair Limitations: no limitations - History of Present Illness Initial comments: Patient is a pleasant 57-year-old male presenting to the emergency department with concerns with dyspnea. Symptoms have been the past couple of days. Patient has been draining his lung like normal through his tube. Patient does have mild cough. No fevers. No congestion. 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 Patient did go to urgent care and x-ray was already done. Patient advised to come to emergency department to check his electrolytes. - Related Data Home Medications Medication Instructions Recorded Confirmed ALPRAZolam [Xanax] 0.25 mg PO DAILY PRN 10/26/22 01/04/23 Albuterol Sulfate [Albuterol 2 puff PO RT-Q6H PRN 10/26/22 01/04/23 Sulfate Hfa] Atorvastatin [Lipitor] 40 mg PO DAILY 10/26/22 01/04/23 Benzonatate [Tessalon Perles] 100 mg PO TID 10/26/22 01/04/23 Budesonide/Glycopyr/Formoterol 2 puff INHALATION RT-BID 10/26/22 01/04/23 [Breztri Aerosphere Inhaler] FLUoxetine HCL [PROzac] 20 mg PO DAILY 10/26/22 01/04/23 Fludrocortisone [Florinef] 0.1 mg PO DAILY 10/26/22 01/04/23 Folic Acid 1 mg PO DAILY 10/26/22 01/04/23 Ipratropium-Albuterol Nebulize 3 ml INHALATION RT-TID PRN 10/26/22 01/04/23 [Duoneb 0.5 mg-3 mg/3 ml Soln] Pantoprazole Sodium [Protonix] 40 mg PO DAILY PRN 10/26/22 01/04/23 Zolpidem Tartrate [Zolpidem 6.25 mg PO HS PRN 10/26/22 01/04/23 Tartrate ER] ondansetron HCL [Zofran] 8 mg PO BID PRN 10/26/22 01/04/23 Potassium Chloride [Klor-Con M20] 40 meq PO BID 11/06/22 01/04/23 Sennosides-Docusate Sodium 1 tab PO HS PRN 11/06/22 01/04/23 [Senokot-S] Slow-Mag 71.5mg 143 mg PO DAILY 11/06/22 01/04/23 HYDROcodone/APAP 10-325MG [[place] 1 - 2 tab PO Q8H 01/04/23 01/04/23 10-325] Hydrocortisone [Cortef] 20 mg PO BID@0900,1700 01/04/23 01/04/23 Ibuprofen [Motrin Ib] 600 mg PO BID 01/04/23 01/04/23 LORazepam [Ativan] 1 mg PO BID PRN 01/04/23 01/04/23 Prochlorperazine [Compazine] 10 mg PO Q6H PRN 01/04/23 01/04/23 Allergies Allergy/AdvReac Type Severity Reaction Status Date / Time No Known Allergies Allergy Verified 01/04/23 13:39 Review of Systems ROS Statement: Those systems with pertinent positive or pertinent negative responses have been documented in the HPI. ROS Other: All systems not noted in ROS Statement are negative. Constitutional: Denies: fever, chills Eyes: Denies: eye pain ENT: Denies: ear pain, congestion Respiratory: Reports: as per HPI, dyspnea Cardiovascular: Denies: chest pain Endocrine: Reports: fatigue Gastrointestinal: Denies: abdominal pain Past Medical History Past Medical History: Cancer, COPD, Hyperlipidemia, Hypertension, Pneumonia Additional Past Medical History / Comment(s): Wears O2@3L NC ATC,recurrent rt lung CA receiving chemo last dose 10-08-22 @ [facility]-Next cheom due 10-29-22/ thorocentesis in last 5 weeks, 1rst dx 2020 of stage 4 lung CA and adrenal left gland, had pneumonitis, 17 day stay in ICU with intial chemo and immuno therapy, emphysema,b/p runs low now since cancer dx and treatment had prior htn hx-has dizziness w/ falls at times improved with cortef; recurrent right-sided malignant pleural effusion History of Any Multi-Drug Resistant Organisms: None Reported Past Surgical History: Cholecystectomy Additional Past Surgical History / Comment(s): rt port a cath (power port); right sided thoracentesis 4, status post right Pleurx catheter placement on 10/27/2022 Past Anesthesia/Blood Transfusion Reactions: No Reported Reaction Additional Past Anesthesia/Blood Transfusion Reaction / Comment(s): no hx blood transfusions Past Psychological History: Anxiety Smoking Status: Former smoker Past Alcohol Use History: None Reported Past Drug Use History: Marijuana - Past Family History Mother Additional Family Medical History / Comment(s): Kidney failure, status post kidney transplant history of manic depressive Father Family Medical History: Cancer Additional Family Medical History / Comment(s): rt lung CA General Exam Limitations: no limitations General appearance: alert, in no apparent distress Head exam: Present: normocephalic Eye exam: Present: normal appearance Neck exam: Present: normal inspection Respiratory exam: Present: decreased breath sounds (Right base) Cardiovascular Exam: Present: tachycardia GI/Abdominal exam: Present: soft. Absent: tenderness Extremities exam: Present: normal inspection. Absent: pedal edema, calf tenderness Neurological exam: Present: alert Psychiatric exam: Present: normal affect, normal mood Skin exam: Present: normal color Course Vital Signs 01/04/23 12:40 Temperature 97.9 F Pulse Rate 116 H Respiratory 22 Rate Blood Pressure 106/76 O2 Sat by Pulse 96 Oximetry EKG Findings - EKG Results: EKG: interpreted by ERMD (Superior axis. Normal QRS. No acute ST change.), sinus rhythm EKG shows: tachycardia Medical Decision Making - Medical Decision Making Was pt. sent in by a medical professional or institution (ARTEMIO Roger, CUE SELECTOR, urgent care, hospital, or half-way...) When possible be specific @ -Patient was sent from urgent care to have electrolytes checked. Did you speak to anyone other than the patient for history (EMS, parent, family, police, friend...)? What history was obtained from this source @ - also provide history including urgent cares desire to have a left lites checked. Did you review nursing and triage notes (agree or disagree)? Why? @ -I reviewed and agree with nursing and triage notes Were old charts reviewed (outside hosp., previous admission, EMS record, old EKG, old radiological studies, urgent care reports/EKG's, half-way records)? Report findings @ -No old charts were reviewed Differential Diagnosis (chest pain, altered mental status, abdominal pain women, abdominal pain men, vaginal bleeding, weakness, fever, dyspnea, syncope, headache, dizziness, GI bleed, back pain, seizure, CVA, palpatations, mental health, musculoskeletal)? @ -Differential Dyspnea: Coronary syndrome, arrhythmia, tamponade, asthma, COPD, pulmonary embolism, pneumonia, pneumothorax, pulmonary effusion, anaphylaxis, diabetic ketoacidosis, flailed chest, pulmonary contusion, diaphragmatic rupture, anemia, neuromuscular, this is not meant to be an all-inclusive list. EKG interpreted by me (3pts min.). @ -As above X-rays interpreted by me (1pt min.). @ -Chest x-ray shows right-sided effusion CT interpreted by me (1pt min.). @ -None done U/S interpreted by me (1pt. min.). @ -None done What testing was considered but not performed or refused? (CT, X-rays, U/S, labs)? Why? @ -None What meds were considered but not given or refused? Why? @ -None Did you discuss the management of the patient with other professionals (professionals i.e. , PA, CUE SELECTOR, lab, RT, psych nurse, social service manager, bar captain, teacher, loan workout officer, case management coordinator)? Give summary @ -Case was discussed with Dr. De La Torre who recommends patient have his pleural tube drained Was smoking cessation discussed for >3mins.? @ -No Was critical care preformed (if so, how long)? @ -No Were there social determinants of health that impacted care today? How? (Homel essness, low income, unemployed, alcoholism, drug addiction, transportation, low edu. Level, literacy, decrease access to med. care, [facility], rehab)? @ -No Was there de-escalation of care discussed even if they declined (Discuss DNR or withdrawal of care, Hospice)? DNR status @ -No What co-morbidities impacted this encounter? (DM, HTN, Smoking, COPD, CAD, Cancer, CVA, ARF, Chemo, Hep., AIDS, mental health diagnosis, sleep apnea, morbid obesity)? @ -None Was patient admitted / discharged? Hospital course, mention meds given and route, prescriptions, significant lab abnormalities, going to OR and other pertinent info. @ -Patient reevaluated and resting comfortably in bed. Patient states he is comfortable with draining his troponin. We will attempt to drain this prior to discharge. Patient also will be provided magnesium Prior to Discharge. Undiagnosed new problem with uncertain prognosis? @ -No Drug Therapy requiring intensive monitoring for toxicity (Heparin, Nitro, Insulin, Cardizem)? @ -No Were any procedures done? @ -No Diagnosis/symptom? @ -Hypomagnesemia, pleural effusion Acute, or Chronic, or Acute on Chronic? @ -Acute on chronic, acute on chronic Uncomplicated (without systemic symptoms) or Complicated (systemic symptoms)? @ -default Side effects of treatment? @ -No Exacerbation, Progression, or Severe Exacerbation? @ -No Poses a threat to life or bodily function? How? (Chest pain, USA, PA, pneumonia, PE, COPD, DKA, ARF, appy, cholecystitis, CVA, Diverticulitis, Homicidal, Suicidal, threat to staff... and all critical care pts) @ -No - Lab Data Result diagrams: 01/04/23 13:16 01/04/23 13:16 Lab Results 01/04/23 01/04/23 01/04/23 Range/Units 13:16 13:16 13:16 WBC 10.2 (3.8-10.6) k/uL RBC 3.31 L (4.30-5.90) m/uL Hgb 9.3 L (13.0-17.5) gm/dL Hct 30.4 L (39.0-53.0) % MCV 91.9 (80.0-100.0) fL MCH 28.1 (25.0-35.0) pg MCHC 30.6 L (31.0-37.0) g/dL RDW 16.8 H (11.5-15.5) % Plt Count 173 D (150-450) k/uL MPV 10.6 Neutrophils % 86 % Lymphocytes % 6 % Monocytes % 6 % Eosinophils % 0 % Basophils % 0 % Neutrophils # 8.8 H (1.3-7.7) k/uL Lymphocytes # 0.6 L (1.0-4.8) k/uL Monocytes # 0.7 (0-1.0) k/uL Eosinophils # 0.0 (0-0.7) k/uL Basophils # 0.0 (0-0.2) k/uL Hypochromasia Moderate Poikilocytosis Slight Anisocytosis Slight PT 10.6 (10.0-12.5) sec INR 1.0 (<1.2) APTT 23.0 (22.0-30.0) sec Sodium 135 L (137-145) mmol/L Potassium 4.0 (3.5-5.1) mmol/L Chloride 103 (98-107) mmol/L Carbon Dioxide 23 (22-30) mmol/L Anion Gap 9 mmol/L BUN 12 (9-20) mg/dL Creatinine 0.56 L (0.66-1.25) mg/dL Est GFR (CKD-EPI)AfAm >90 (>60 ml/min/1.73 sqM) Est GFR (CKD-EPI)NonAf >90 (>60 ml/min/1.73 sqM) Glucose 130 H (74-99) mg/dL Plasma Lactic Acid Deric (0.7-2.0) mmol/L Calcium 9.0 (8.4-10.2) mg/dL Magnesium 1.2 L (1.6-2.3) mg/dL Total Bilirubin 0.4 (0.2-1.3) mg/dL AST 25 (17-59) U/L ALT 17 (4-49) U/L Alkaline Phosphatase 99 (38-126) U/L NT-Pro-B Natriuret Pep 167 pg/mL Total Protein 6.0 L (6.3-8.2) g/dL Albumin 3.1 L (3.5-5.0) g/dL Influenza Type A (PCR) (Not Detectd) Influenza Type B (PCR) (Not Detectd) RSV (PCR) (Not Detectd) SARS-CoV-2 (PCR) (Not Detectd) 01/04/23 01/04/23 Range/Units 13:16 13:16 WBC (3.8-10.6) k/uL RBC (4.30-5.90) m/uL Hgb (13.0-17.5) gm/dL Hct (39.0-53.0) % MCV (80.0-100.0) fL MCH (25.0-35.0) pg MCHC (31.0-37.0) g/dL RDW (11.5-15.5) % Plt Count (150-450) k/uL MPV Neutrophils % % Lymphocytes % % Monocytes % % Eosinophils % % Basophils % % Neutrophils # (1.3-7.7) k/uL Lymphocytes # (1.0-4.8) k/uL Monocytes # (0-1.0) k/uL Eosinophils # (0-0.7) k/uL Basophils # (0-0.2) k/uL Hypochromasia Poikilocytosis Anisocytosis PT (10.0-12.5) sec INR (<1.2) APTT (22.0-30.0) sec Sodium (137-145) mmol/L Potassium (3.5-5.1) mmol/L Chloride (98-107) mmol/L Carbon Dioxide (22-30) mmol/L Anion Gap mmol/L BUN (9-20) mg/dL Creatinine (0.66-1.25) mg/dL Est GFR (CKD-EPI)AfAm (>60 ml/min/1.73 sqM) Est GFR (CKD-EPI)NonAf (>60 ml/min/1.73 sqM) Glucose (74-99) mg/dL Plasma Lactic Acid Deric 1.5 (0.7-2.0) mmol/L Calcium (8.4-10.2) mg/dL Magnesium (1.6-2.3) mg/dL Total Bilirubin (0.2-1.3) mg/dL AST (17-59) U/L ALT (4-49) U/L Alkaline Phosphatase (38-126) U/L NT-Pro-B Natriuret Pep pg/mL Total Protein (6.3-8.2) g/dL Albumin (3.5-5.0) g/dL Influenza Type A (PCR) Not Detected (Not Detectd) Influenza Type B (PCR) Not Detected (Not Detectd) RSV (PCR) Not Detected (Not Detectd) SARS-CoV-2 (PCR) Not Detected (Not Detectd) Disposition Clinical Impression: Hypomagnesemia, Pleural effusion Disposition: HOME SELF-CARE Condition: Stable Instructions (If sedation given, give patient instructions): Pleural Effusion (DC), Hypomagnesemia (ED) Additional Instructions: Please do follow-up to primary care physician in the next day or 2 for recheck. Consider repeat x-ray. Have magnesium level rechecked. Return for difficulty breathing, fevers, worsening or changing symptoms or any other concerns. Is patient prescribed a controlled substance at d/c from ED?: No Referrals: Sammy James MD [Primary Care Provider] - 1-2 days Obdulia Serra MD [STAFF PHYSICIAN] - 1-2 days Time of Disposition: 16:00
[2023-01-04 13:41] LABS: Anisocytosis Slight; Basophils % (A) 0 %; Eosinophils % (A) 0 %; HCT 30.4 % (39.0-53.0); HGB 9.3 gm/dL (13.0-17.5); Hypochromasia Moderate; Lymphocytes # (A) 0.6 k/uL (1.0-4.8); Lymphocytes % (A) 6 %; MCH 28.1 pg (25.0-35.0); MCHC 30.6 g/dL (31.0-37.0); MCV 91.9 fL (80.0-100.0); Mean Platelet Volume 10.6; Monocytes # (A) 0.7 k/uL (0-1.0); Monocytes % (A) 6 %; Neutrophils # (A) 8.8 k/uL (1.3-7.7); Neutrophils % (A) 86 %; Poikilocytosis Slight; RBC 3.31 m/uL (4.30-5.90); RDW 16.8 % (11.5-15.5); WBC 10.2 k/uL (3.8-10.6)
--- NOTE | 2023-01-04 13:44 | XR ---
EXAMINATION TYPE: XR chest 2V DATE OF EXAM: 01/04/2023 COMPARISON: 11/18/2022 HISTORY: Shortness of breath TECHNIQUE: Frontal and lateral views of the chest are obtained. FINDINGS: Scattered senescent parenchymal changes noted. Hyperinflation compatible with COPD. Right basilar opacity with air-fluid level persists in right basilar chest tube. Heart size is stable. Mediastinal structures are stable and grossly unremarkable. No evidence for hilar prominence. Degenerative changes dorsal spine. IMPRESSION: 1. Right basilar hydropneumothorax is unchanged. Right-sided chest tube is stable in position.
[2023-01-04 14:02] LABS: Prothrombin Time 10.6 sec (10.0-12.5)
[2023-01-04 14:18] LABS: ALT 17 U/L (4-49); AST 25 U/L (17-59); African American GFR (CKD) >90 (>60 ml/min/1.73 sqM); Albumin 3.1 g/dL (3.5-5.0); Alkaline Phosphatase 99 U/L (38-126); Anion Gap 9 mmol/L; Blood Urea Nitrogen 12 mg/dL (9-20); Carbon Dioxide 23 mmol/L (22-30); Chloride 103 mmol/L (98-107); Glucose 130 mg/dL (74-99); Magnesium 1.2 mg/dL (1.6-2.3); Non-African American GFR(CKD) >90 (>60 ml/min/1.73 sqM); Sodium 135 mmol/L (137-145); Total Bilirubin 0.4 mg/dL (0.2-1.3)
[2023-01-04 14:23] LABS: Platelet Count 173 k/uL (150-450)
[2023-01-04 14:25] LABS: NT-Pro-B-Type Natriuretic Pept 167 pg/mL
[2023-01-04] MEDS: MAGNESIUM SULFATE-D5W PMX 1 GM in DEXTROSE/WATER 1 100ML.BAG IVPB SCH ×2 (15:15→16:08)
[2023-01-04 17:32] VITALS: BP 96/79; PULSE 63; RESP 18
== END 2023-01-04 17:29 | disposition home or self-care (01) ==
LOC: EC 12:34
DX: E83.42 Hypomagnesemia (principal); J90 Pleural effusion, not elsewhere classified; J43.9 Emphysema, unspecified; R00.0 Tachycardia, unspecified; J44.9 Chronic obstructive pulmonary disease, unspecified; E78.5 Hyperlipidemia, unspecified; I10 Essential (primary) hypertension; F41.9 Anxiety disorder, unspecified; F12.90 Cannabis use, unspecified, uncomplicated; Z87.891 Personal history of nicotine dependence; Z20.822 Contact with and (suspected) exposure to COVID-19; Z90.49 Acquired absence of other specified parts of digestive tract; Z79.899 Other long term (current) drug therapy; Z79.51 Long term (current) use of inhaled steroids
CPT/HCPCS: 36415; 93005; 83880; 80053; 83605; 83735; 85025; 85610; 85730; 87636; 71046; 99285; 96365; 96366; J3475

== ENCOUNTER 2023-01-13 11:06 | Inpatient (IN) | payer BC ==
[2023-01-13] MEDS ORDERED: SODIUM CHLORIDE 0.9% 1,000 ML IV STA (11:34)
--- NOTE | 2023-01-13 11:59 | XR ---
EXAMINATION TYPE: XR chest 2V DATE OF EXAM: 01/13/2023 COMPARISON: 01/04/2023 TECHNIQUE: PA and lateral views submitted. HISTORY: Chest pain and fever FINDINGS: Mediport catheter stable and there is air-fluid level in the right lower lobe with chest tube likely representing a component of hydropneumothorax. Similar to prior exam. Left lung clear. Underlying AUTOMATED WEAVER D. Right apical pleural thickening. Surgical clips in the right upper quadrant. Few prominent small b owel loops are incidentally noted correlate clinically. IMPRESSION: 1. Right-sided consolidation and hydropneumothorax stable. Chest tube noted in position.
[2023-01-13 12:22] LABS: Anisocytosis Slight; HCT 37.5 % (39.0-53.0); HGB 12.4 gm/dL (13.0-17.5); MCH 29.5 pg (25.0-35.0); MCV 89.4 fL (80.0-100.0); Mean Platelet Volume 10.3; Platelet Count 121 k/uL (150-450); RBC 4.19 m/uL (4.30-5.90); RDW 16.9 % (11.5-15.5)
[2023-01-13] MEDS ORDERED: SODIUM CHLORIDE 0.9% 1,000 ML IV ONE ×2 (12:24→14:23)
[2023-01-13 12:27] LABS: ALT 24 U/L (4-49); AST 26 U/L (17-59); African American GFR (CKD) >90 (>60 ml/min/1.73 sqM); Albumin 3.5 g/dL (3.5-5.0); Alkaline Phosphatase 115 U/L (38-126); Anion Gap 12 mmol/L; Blood Urea Nitrogen 17 mg/dL (9-20); Calcium 8.9 mg/dL (8.4-10.2); Carbon Dioxide 25 mmol/L (22-30); Chloride 96 mmol/L (98-107); Glucose 94 mg/dL (74-99); Non-African American GFR(CKD) >90 (>60 ml/min/1.73 sqM); Potassium 4.1 mmol/L (3.5-5.1); Sodium 133 mmol/L (137-145); Total Bilirubin 1.4 mg/dL (0.2-1.3); Total Protein 6.7 g/dL (6.3-8.2)
[2023-01-13 12:31] LABS: WBC 0.5 k/uL (3.8-10.6)
[2023-01-13] MEDS ORDERED: IBUPROFEN IV 600 MG in SODIUM CHLORIDE 0.9% 250 ML IV ONE (12:40)
[2023-01-13] MEDS ORDERED: CEFEPIME 2 GM in SODIUM CHLORIDE 0.9% 100 ML IVPB STA (12:43)
[2023-01-13] MEDS ORDERED: FLUDROCORTISONE 0.1 MG TAB PO STA (12:44)
--- NOTE | 2023-01-13 12:47 | ED ---
General Adult HPI - General Chief complaint: Syncope Stated complaint: dehydration Time Seen by Provider: 01/13/23 11:11 Source: patient, EMS Mode of arrival: EMS - History of Present Illness Initial comments: 57-year-old male with past medical history of lung cancer on chemo who presents to the emergency department reporting a syncopal episode lasting less than 30 seconds at home. Family states that the patient is extremely dehydrated. He is on chemotherapy. Last dose of chemo was 2 weeks ago. States that he has significant oral irritation due to the chemotherapy and has not been eating or drinking. Patient fell and hit the left shoulder. Has a left lateral shoulder abrasion denies any shoulder pain. He denies hitting his head. EMS gave 500 fluid bolus and 4 of Zofran. Patient denies any chest pain. No shortness of breath. Does have a right-sided chest catheter in place due to recurrent pleural effusion. Patient also states he's had diarrhea for the past 4 days. Denies black or bloody stools. Patient has a history of metastatic disease to the liver and adrenal glands. He has had adrenal radiation and therefore requires Florinef and hydrocortisone for his renal insufficiency. He has had difficulty taking his medications because of his oral pain. He has been using Magic mouthwash however this has not been helping. Upon arrival to the hospital the patient is on had a fever. Patient did not know that he had one at this time. He denies productive cough. No abdominal pain. No changes in his urination. No other alleviating, precipitating or modifying factors - Related Data Home Medications Medication Instructions Recorded Confirmed ALPRAZolam [Xanax] 0.25 mg PO DAILY PRN 10/26/22 01/13/23 Albuterol Sulfate [Albuterol 2 puff INHALATION RT-Q6H PRN 10/26/22 01/13/23 Sulfate Hfa] Atorvastatin [Lipitor] 40 mg PO DAILY 10/26/22 01/13/23 Benzonatate [Tessalon Perles] 100 mg PO TID 10/26/22 01/13/23 Budesonide/Glycopyr/Formoterol 2 puff INHALATION RT-BID 10/26/22 01/13/23 [Breztri Aerosphere Inhaler] Fludrocortisone [Florinef] 0.1 mg PO DAILY 10/26/22 01/13/23 Ipratropium-Albuterol Nebulize 3 ml INHALATION RT-TID PRN 10/26/22 01/13/23 [Duoneb 0.5 mg-3 mg/3 ml Soln] Pantoprazole Sodium [Protonix] 40 mg PO DAILY PRN 10/26/22 01/13/23 Zolpidem Tartrate [Zolpidem 6.25 mg PO HS PRN 10/26/22 01/13/23 Tartrate ER] ondansetron HCL [Zofran] 8 mg PO BID PRN 10/26/22 01/13/23 Potassium Chloride [Klor-Con M20] 40 meq PO BID 11/06/22 01/13/23 Slow-Mag 71.5mg 143 mg PO QID@,,,11/06/22 01/13/23 HYDROcodone/APAP 10-325MG [[place] 1 - 2 tab PO Q8H 01/04/23 01/13/23 10-325] Hydrocortisone [Cortef] 20 mg PO DAILY@0900 01/04/23 01/13/23 LORazepam [Ativan] 1 mg PO BID PRN 01/04/23 01/13/23 Prochlorperazine [Compazine] 10 mg PO Q6H PRN 01/04/23 01/13/23 Celecoxib [CeleBREX] 100 mg PO BID 01/13/23 01/13/23 DULoxetine HCL [Cymbalta] 30 mg PO DAILY 01/13/23 01/13/23 Hydrocortisone [Cortef] 10 mg PO DAILY@1700 01/13/23 01/13/23 Sennosides [Senokot] 8.6 mg PO BID PRN 01/13/23 01/13/23 Allergies Allergy/AdvReac Type Severity Reaction Status Date / Time No Known Allergies Allergy Verified 01/13/23 12:13 Review of Systems ROS Statement: Those systems with pertinent positive or pertinent negative responses have been documented in the HPI. ROS Other: All systems not noted in ROS Statement are negative. Past Medical History Past Medical History: Cancer, COPD, Hyperlipidemia, Hypertension, Pneumonia Additional Past Medical History / Comment(s): Wears O2@3L NC ATC,recurrent rt lung CA receiving chemo last dose 10-08-22 @ [facility]-Next cheom due 10-29-22/ thorocentesis in last 5 weeks, 1rst dx 2020 of stage 4 lung CA and adrenal left gland, had pneumonitis, 17 day stay in ICU with intial chemo and immuno therapy, emphysema,b/p runs low now since cancer dx and treatment had prior htn hx-has dizziness w/ falls at times improved with cortef; recurrent right-sided mal ignant pleural effusion History of Any Multi-Drug Resistant Organisms: None Reported Past Surgical History: Cholecystectomy Additional Past Surgical History / Comment(s): rt port a cath (power port); right sided thoracentesis 4, status post right Pleurx catheter placement on 10/27/2022 Past Anesthesia/Blood Transfusion Reactions: No Reported Reaction Additional Past Anesthesia/Blood Transfusion Reaction / Comment(s): no hx blood transfusions Past Psychological History: Anxiety Smoking Status: Former smoker Past Alcohol Use History: None Reported Past Drug Use History: Marijuana - Past Family History Mother Additional Family Medical History / Comment(s): Kidney failure, status post kidney transplant history of manic depressive Father Family Medical History: Cancer Additional Family Medical History / Comment(s): rt lung CA General Exam Limitations: no limitations General appearance: cachectic Head exam: Present: atraumatic, normocephalic, normal inspection Eye exam: Present: normal appearance, PERRL, EOMI. Absent: scleral icterus, c onjunctival injection, periorbital swelling ENT exam: Present: mucous membranes dry, other (Erythema of his uvula. No identifiable ulcerations or thrush) Neck exam: Present: normal inspection. Absent: tenderness, meningismus, lymphadenopathy Respiratory exam: Present: rales (Right lower lobe where insertion of Pleurx catheter is) Cardiovascular Exam: Present: normal rhythm, tachycardia GI/Abdominal exam: Present: soft Extremities exam: Present: normal inspection, full ROM, normal capillary refill. Absent: tenderness, pedal edema, joint swelling, calf tenderness Neurological exam: Present: alert, oriented X3, CN II-XII intact Psychiatric exam: Present: normal affect, normal mood Skin exam: Present: dry Course Vital Signs 01/13/23 01/13/23 01/13/23 11:08 13:26 15:27 Temperature 102.4 F H Pulse Rate 120 H 96 81 Respiratory 18 18 18 Rate Blood Pressure 100/81 88/62 93/67 O2 Sat by Pulse 97 97 99 Oximetry Medical Decision Making - Medical Decision Making Was pt. sent in by a medical professional or institution (, PA, HOT DIMPLING MACHINE OPERATOR, urgent care, hospital, or senior living...) When possible be specific @ -No Did you speak to anyone other than the patient for history (EMS, parent, family, police, friend...)? What history was obtained from this source @ -Spoke with the patient's family and EMS Did you review nursing and triage notes (agree or disagree)? Why? @ -I reviewed and agree with nursing and triage notes Were old charts reviewed (outside hosp., previous admission, EMS record, old EKG, old radiological studies, urgent care reports/EKG's, senior living records)? Report findings @ -Reviewed his discharge summary from 11/18 Differential Diagnosis (chest pain, altered mental status, abdominal pain women, abdominal pain men, vaginal bleeding, weakness, fever, dyspnea, syncope, headache, dizziness, GI bleed, back pain, seizure, CVA, palpatations, mental health, musculoskeletal)? @ -Differential Fever: Pneumonia, viral URI, endocarditis, myocarditis, pericarditis, otitis, sinusitis, peritonsillar Abscess, retropharyngeal Abscess, epiglottitis, perit onitis, appendicitis, Susan cystitis, diverticulitis, hepatitis, colitis, UTI, PID, TOA, pyelonephritis, prostatitis, epididymitis, meningitis, encephalitis, pulmonary embolism, CVA, thyroid storm, pancreatitis, adrenal crisis, cavernous sinus thrombosis, this is not meant to be an all-inclusive list. EKG interpreted by me (3pts min.). @ -Yes and demonstrates sinus tachycardia with a rate of 119. MD interval 153. QRS 86. QTC of 388. No acute ST segment elevations or depressions X-rays interpreted by me (1pt min.). @ -Yes and demonstrates stable hydropneumothorax on the right CT interpreted by me (1pt min.). @ -None done U/S interpreted by me (1pt. min.). @ -None done What testing was considered but not performed or refused? (CT, X-rays, U/S, labs)? Why? @ -None What meds were considered but not given or refused? Why? @ -None Did you discuss the management of the patient with other professionals (professionals i.e. , PA, HOT DIMPLING MACHINE OPERATOR, lab, RT, psych nurse, social services analyst, cafeteria associate, teacher, correctional officer sergeant, binder caser)? Give summary @ -Spoke with Dr. Upton who will admit the patient Was smoking cessation discussed for >3mins.? @ -No Was critical care preformed (if so, how long)? @ -No Were there social determinants of health that impacted care today? How? (Homelessness, low income, unemployed, alcoholism, drug addiction, transportation, low edu. Level, literacy, decrease access to med. care, custodial, rehab)? @ -No Was there de-escalation of care discussed even if they declined (Discuss DNR or withdrawal of care, Hospice)? DNR status @ -No What co-morbidities impacted this encounter? (DM, HTN, Smoking, COPD, CAD, Cancer, CVA, ARF, Chemo, Hep., AIDS, mental health diagnosis, sleep apnea, morbid obesity)? @ -Lung cancer with liver metastases and adrenal metastases Was patient admitted / discharged? Hospital course, mention meds given and route, prescriptions, significant lab abnormalities, going to OR and other pertinent info. @ -Admitted. Upon arrival patient is placed in a trauma 4. Thorough history and physical exam was performed. He was given 500 mL of normal saline by EMS and 4 g of Zofran. I did give the patient an additional 3 L. I also dosed his hydrocortisone and Florinef as he missed these medications. Laboratory studies are completed.. Chest x-ray was performed. Patient was given Motrin for fever control. Blood cultures obtained. Patient started on cefepime. Results are discussed with the patient. Recommended admission for neutropenic fever. Patient agreeable to the plan and is awaiting a bed on the floor in stable condition Undiagnosed new problem with uncertain prognosis? @ -No Drug Therapy requiring intensive monitoring for toxicity (Heparin, Nitro, Insulin, Cardizem)? @ -No Were any procedures done? @ -No Diagnosis/symptom? @ -Acute syncope, acute hypotension, dehydration, stomatitis, chemo-induced neutropenia, neutropenic fever, lung cancer with metastasis Acute, or Chronic, or Acute on Chronic? @ -Acute Uncomplicated (without systemic symptoms) or Complicated (systemic symptoms)? @ -Complicated Side effects of treatment? @ -No Exacerbation, Progression, or Severe Exacerbation? @ -No Poses a threat to life or bodily function? How? (Chest pain, [place], [place], pneumonia, PE, COPD, DKA, ARF, appy, cholecystitis, CVA, Diverticulitis, Homicidal, Suicidal, threat to staff... and all critical care pts) @ -Yes patient presents with extremely low white blood cell count and fever - Lab Data Result diagrams: 01/13/23 11:41 01/13/23 11:41 Lab Results 01/13/23 01/13/23 01/13/23 Range/Units 11:41 11:41 11:41 WBC 0.5 L* (3.8-10.6) k/uL RBC 4.19 L (4.30-5.90) m/uL Hgb 12.4 L D (13.0-17.5) gm/dL Hct 37.5 L (39.0-53.0) % MCV 89.4 (80.0-100.0) fL MCH 29.5 (25.0-35.0) pg MCHC 33.0 (31.0-37.0) g/dL RDW 16.9 H (11.5-15.5) % Plt Count 121 L (150-450) k/uL MPV 10.3 Differential Comment Manual Slide Review Performed Poikilocytosis (manual Present Anisocytosis Slight Sodium 133 L (137-145) mmol/L Potassium 4.1 (3.5-5.1) mmol/L Chloride 96 L (98-107) mmol/L Carbon Dioxide 25 (22-30) mmol/L Anion Gap 12 mmol/L BUN 17 (9-20) mg/dL Creatinine 0.64 L (0.66-1.25) mg/dL Est GFR (CKD-EPI)AfAm >90 (>60 ml/min/1.73 sqM) Est GFR (CKD-EPI)NonAf >90 (>60 ml/min/1.73 sqM) Glucose 94 (74-99) mg/dL Plasma Lactic Acid Deric 1.1 (0.7-2.0) mmol/L Calcium 8.9 (8.4-10.2) mg/dL Total Bilirubin 1.4 H (0.2-1.3) mg/dL AST 26 (17-59) U/L ALT 24 (4-49) U/L Alkaline Phosphatase 115 (38-126) U/L Total Protein 6.7 (6.3-8.2) g/dL Albumin 3.5 (3.5-5.0) g/dL Influenza Type A (PCR) (Not Detectd) Influenza Type B (PCR) (Not Detectd) RSV (PCR) (Not Detectd) SARS-CoV-2 (PCR) (Not Detectd) 01/13/23 Range/Units 11:41 WBC (3.8-10.6) k/uL RBC (4.30-5.90) m/uL Hgb (13.0-17.5) gm/dL Hct (39.0-53.0) % MCV (80.0-100.0) fL MCH (25.0-35.0) pg MCHC (31.0-37.0) g/dL RDW (11.5-15.5) % Plt Count (150-450) k/uL MPV Differential Comment Manual Slide Review Poikilocytosis (manual Anisocytosis Sodium (137-145) mmol/L Potassium (3.5-5.1) mmol/L Chloride (98-107) mmol/L Carbon Dioxide (22-30) mmol/L Anion Gap mmol/L BUN (9-20) mg/dL Creatinine (0.66-1.25) mg/dL Est GFR (CKD-EPI)AfAm (>60 ml/min/1.73 sqM) Est GFR (CKD-EPI)NonAf (>60 ml/min/1.73 sqM) Glucose (74-99) mg/dL Plasma Lactic Acid Deric (0.7-2.0) mmol/L Calcium (8.4-10.2) mg/dL Total Bilirubin (0.2-1.3) mg/dL AST (17-59) U/L ALT (4-49) U/L Alkaline Phosphatase (38-126) U/L Total Protein (6.3-8.2) g/dL Albumin (3.5-5.0) g/dL Influenza Type A (PCR) Not Detected (Not Detectd) Influenza Type B (PCR) Not Detected (Not Detectd) RSV (PCR) Not Detected (Not Detectd) SARS-CoV-2 (PCR) Not Detected (Not Detectd) Disposition Clinical Impression: Non-small cell lung cancer, Hydropneumothorax, Neutropenic fever Disposition: ADMITTED IP TO THIS HOSP Condition: Serious Is patient prescribed a controlled substance at d/c from ED?: No Time of Disposition: 13:54 Decision to Admit Reason: Admit from EC Decision Date: 01/13/23 Decision Time: 13:54
[2023-01-13 13:21] LABS: Poikilocytosis (M) Present
[2023-01-13] MEDS ORDERED: HYDROCORTISONE SUCCINATE 100 MG/2 ML VIAL IV STA (14:04)
[2023-01-13] MEDS ORDERED: IBUPROFEN 400 MG TAB PO PRN (14:34)
[2023-01-13] MEDS ORDERED: NALOXONE 0.4 MG/ML 1 ML VIAL IV PRN (14:34)
[2023-01-13] MEDS ORDERED: ACETAMINOPHEN TAB 325 MG TAB PO PRN (14:34)
[2023-01-13 16:01] LABS: Appearance,Urine Clear (Clear); Bilirubin,Urine Negative (Negative); Blood,Urine Negative (Negative); Color,Urine Yellow; Glucose,Urine (UA) Negative (Negative); Ketones,Urine Negative (Negative); Leukocyte Esterase,Urine Negative (Negative); Nitrite,Urine Negative (Negative); Protein,Urine Trace (Negative); Specific Gravity,Urine 1.022 (1.001-1.035); Urobilinogen,Urine <2.0 mg/dL (<2.0)
[2023-01-13] MEDS ORDERED: IPRATROPIUM-ALBUTEROL 3 ML NEB INHALATION PRN (16:02)
[2023-01-13] MEDS: SODIUM CHLORIDE 0.9% 1,000 ML IV SCH ×2 (16:44→21:39)
[2023-01-13] MEDS ORDERED: HYDROCORTISONE 10 MG TAB PO SCH (17:00)
[2023-01-13] MEDS: HYDROcodone/APAP 10-325MG 1 EACH TAB PO SCH ×2 (17:20→23:41)
[2023-01-13] MEDS ORDERED: VANCOMYCIN IV PER PHARMACY 1 EACH MISC MISCELLANE PRN (18:18)
[2023-01-13] MEDS ORDERED: MELATONIN 3 MG TABLET PO PRN (18:26)
[2023-01-13] MEDS ORDERED: LOPERAMIDE 2 MG CAP PO PRN (18:26)
[2023-01-13] MEDS ORDERED: ONDANSETRON 4 MG/2 ML VIAL IVP PRN (18:26)
[2023-01-13] MEDS ORDERED: PANTOPRAZOLE 40 MG TABLET PO PRN (18:38)
--- NOTE | 2023-01-13 18:47 | P.HPIM ---
History of Present Illness H&P Date: 01/13/23 Patient is a 57-year-old male with known adenocarcinoma of the lung stage IV being followed at, [facility] complicated by adrenal insufficiency, HLD, Chornic hypoxic respiratory failure on 3L NC, and CPOD who presented to the ER with complaints of a syncopal episode at home lasting less than 30 seconds. On arrival to the ER he was noted to be febrile with a tempe rature of 102.4 and tachycardic with pulse of 120. Initial laboratory analysis included CBC, CMP, magnesium, and urinalysis which were remarkable for white blood cell count 0.5, hemoglobin 12.4, platelets 121, sodium 133, magnesium 1.5, bilirubin 1.4. Urinalysis was negative for signs of infection. Coated 19, influenza A/B, RSV does state negative. C. diff was negative. Chest x-ray demonstrated right-sided consolidation and stable hydropneumothorax with chest tube in position. He then developed hypotension with blood pressure of 88/62. He was given 3 L of normal saline, Solu-Cortef 100 mg IV 1, Florinef 0.1 mg with improvements in his BP/He was givena dose of cefepime. Arrangements were made for admission and oncology was consulted. Patient was recently hospitalized here from 11/06 through 11/18 due to hydropneumothorax. Patient seen and examined at bedside. New chemotherapy regimen through [facility] with first treatment on 01/06/23. Since that point in time he has had severe mucositis as well as diarrhea. He reports poor oral intake. He has been exceedingly fatigued for the last several days. He has not contacted his oncologist regarding his severe mucositis. He does report that he has been taking his steroids at home. He states that his last PET scan was done in the middle to end of summer and his last MRI brain was quite some time ago. He has no metastatic lesions to the brain that are known. He has been needing to drain his Pleurx catheter less f requently and now takes out about 200-300 mL every 3 days. Vital signs reviewed General: ill appearing, mild distress, appears older than stated age Derm: warm, dry Eyes: EOMI, no lid lag, anicteric sclera, pupils equal round reactive to light ENT: Nose and ears atraumatic, no thrush, + pharyngeal erythema wiht ulceration Cardiovascular: S1S2 reg, no murmur, positive posterior tibial pulse bilateral, no edema, capillary refill less than 2 seconds Lungs: clear to auscultation bilateral, no rhonchi, no rales, no wheeze, no accessory muscle use Abdominal: soft, nontender to palpation, no guarding, no appreciable organomegaly, normal bowel sounds Ext: no gross muscle atrophy, no contractures Neuro: CN II-XII grossly intact, no focal neurodeficits Psych: Alert, oriented, appropriate affect Assessment/Plan: Neutropenic Fevers Severe stomatitis Syncope suspect due to dehydration Adrenal insufficiency due to immunotherapy and prior adrenal radiation Stage IV lung care with chornic right sided pleural effusion s/p pleurx cath Pancytopenia, chemo induced Hyponatremia due to dehydration Hypomagnesemia - admit to cardiac step down - Vanco D # 1 dosing by weight adn renal function, monitor Cr adn trough for toxicity - Cefepime 1 gm q 12 IVPB D # 1 - NS @ 130 cc/hr - repeat CXR in AM - Await Blood culture, patient has right sided port that is currently not accessed - consult oncology - solucortef 50 mg IVP q 8 hours - follow CBC and CMP - magnesium sulfate 4 gm IVPB and repeat magnesium in AM - check stat head CT and echo - tele - cools solution and soda and salt mouth wash Imaging: As per HPI Data Review: As Per HPI The patient is admitted with an anticipated greater than 2 midnight stay for evaluation of neutropenic fevers. Surrogate decision-maker: Darlene his CODE STATUS: No intubation or CPR, would be okay with vasopressors, shock and antiarrhythmics DVT prophylaxis: Lovenox Anticipated discharge date: Pending Clinical Course Anticipated discharge place: Pending Clinical Course This dictation was prepared using [employer] voice recognition software. Though every attempt is made to correct errors during dictation some may still exist. Past Medical History Past Medical History: Cancer, COPD, Hyperlipidemia, Hypertension, Pneumonia Additional Past Medical History / Comment(s): Wears O2@3L NC ATC,recurrent rt lung CA receiving chemo last [id number] @ [facility] 4 lung CA and adrenal left gland, had pneumonitis, 17 day stay in ICU with intial chemo and immuno therapy, emphysema,b/p runs low now since cancer dx and treatment had prior htn hx-has dizziness w/ falls at times improved with cortef; recurrent right-sided malignant pleural effusion History of Any Multi-Drug Resistant Organisms: None Reported Past Surgical History: Cholecystectomy Additional Past Surgical History / Comment(s): rt port a cath (power port); right sided thoracentesis 4, status post right Pleurx catheter placement on 10/27/2022 Past Anesthesia/Blood Transfusion Reactions: No Reported Reaction Additional Past Anesthesia/Blood Transfusion Reaction / Comment(s): no hx blood transfusions Past Psychological History: Anxiety Smoking Status: Former smoker Past Alcohol Use History: None Reported Past Drug Use History: Marijuana - Past Family History Mother Additional Family Medical History / Comment(s): Kidney failure, status post kidney transplant history of manic depressive Father Family Medical History: Cancer Additional Family Medical History / Comment(s): rt lung CA Medications and Allergies Home Medications Medication Instructions Recorded Confirmed Type ALPRAZolam [Xanax] 0.25 mg PO DAILY PRN 10/26/22 01/13/23 History Albuterol Sulfate [Albuterol 2 puff INHALATION RT-Q6H PRN 10/26/22 01/13/23 History Sulfate Hfa] Atorvastatin [Lipitor] 40 mg PO DAILY 10/26/22 01/13/23 History Benzonatate [Tessalon Perles] 100 mg PO TID 10/26/22 01/13/23 History Budesonide/Glycopyr/Formoterol 2 puff INHALATION RT-BID 10/26/22 01/13/23 History [Breztri Aerosphere Inhaler] Fludrocortisone [Florinef] 0.1 mg PO DAILY 10/26/22 01/13/23 History Ipratropium-Albuterol Nebulize 3 ml INHALATION RT-TID PRN 10/26/22 01/13/23 History [Duoneb 0.5 mg-3 mg/3 ml Soln] Pantoprazole Sodium [Protonix] 40 mg PO DAILY PRN 10/26/22 01/13/23 History Zolpidem Tartrate [Zolpidem 6.25 mg PO HS PRN 10/26/22 01/13/23 History Tartrate ER] ondansetron HCL [Zofran] 8 mg PO BID PRN 10/26/22 01/13/23 History Potassium Chloride [Klor-Con M20] 40 meq PO BID 11/06/22 01/13/23 History Slow-Mag 71.5mg 143 mg PO QID@,13,17,21 11/06/22 01/13/23 History HYDROcodone/APAP 10-325MG [[place] 1 - 2 tab PO Q8H 01/04/23 01/13/23 History 10-325] Hydrocortisone [Cortef] 20 mg PO DAILY@0900 01/04/23 01/13/23 History LORazepam [Ativan] 1 mg PO BID PRN 01/04/23 01/13/23 History Prochlorperazine [Compazine] 10 mg PO Q6H PRN 01/04/23 01/13/23 History Celecoxib [CeleBREX] 100 mg PO BID 01/13/23 01/13/23 History DULoxetine HCL [Cymbalta] 30 mg PO DAILY 01/13/23 01/13/23 History Hydrocortisone [Cortef] 10 mg PO DAILY@1700 01/13/23 01/13/23 History Magic 10 ml PO Q8H PRN 01/13/23 01/13/23 History Mouthwash(Mylanta/Benadryl/Lidocaine 1:1:1) Sennosides [Senokot] 8.6 mg PO BID PRN 01/13/23 01/13/23 History Allergies Allergy/AdvReac Type Severity Reaction Status Date / Time No Known Allergies Allergy Verified 01/13/23 12:13 Physical Exam Osteopathic Statement: *. No significant issues noted on an osteopathic structural exam other than those noted in the History and Physical/Consult. Vitals: Vital Signs Temp Pulse Resp BP Pulse Ox 01/13/23 17:19 98 F 73 18 112/72 90 L 01/13/23 15:27 81 18 93/67 99 01/13/23 13:26 96 18 88/62 97 01/13/23 11:08 102.4 F H 120 H 18 100/81 97 Intake and Output 01/13/23 01/13/23 01/13/23 06:59 14:59 22:59 Other: Weight 63.503 kg Results CBC & Chem 7: 01/13/23 11:41 01/13/23 11:41 Labs: Abnormal Lab Results - Last 24 Hours (Table) 01/13/23 01/13/23 01/13/23 Range/Units 11:41 11:41 11:41 WBC 0.5 L* (3.8-10.6) k/uL RBC 4.19 L (4.30-5.90) m/uL Hgb 12.4 L D (13.0-17.5) gm/dL Hct 37.5 L (39.0-53.0) % RDW 16.9 H (11.5-15.5) % Plt Count 121 L (150-450) k/uL Sodium 133 L (137-145) mmol/L Chloride 96 L (98-107) mmol/L Creatinine 0.64 L (0.66-1.25) mg/dL Magnesium (1.6-2.3) mg/dL Total Bilirubin 1.4 H (0.2-1.3) mg/dL Urine Protein Trace H (Negative) 01/13/23 Range/Units 16:05 WBC (3.8-10.6) k/uL RBC (4.30-5.90) m/uL Hgb (13.0-17.5) gm/dL Hct (39.0-53.0) % RDW (11.5-15.5) % Plt Count (150-450) k/uL Sodium (137-145) mmol/L Chloride (98-107) mmol/L Creatinine (0.66-1.25) mg/dL Magnesium 1.5 L (1.6-2.3) mg/dL Total Bilirubin (0.2-1.3) mg/dL Urine Protein (Negative)
[2023-01-13] MEDS: MAG HYDROX/AL HYDROX/SIMETH 30 ML, LIDOCAINE VISCOUS 2% 30 ML, diphenhydrAMINE ELIXIR 7... PO SCH ×8 (18:52→21:39)
--- NOTE | 2023-01-13 18:53 | CT ---
EXAMINATION TYPE: CT brain wo con CT DLP: 1085.7 mGycm, Automated exposure control for dose reduction was used. DATE OF EXAM: 01/13/2023 6:43 PM COMPARISON: None. CLINICAL INDICATION:Male, 57 years old with history of syncope, syncope TECHNIQUE: Brain: Axial CT images of the brain were obtained with coronal and sagittal reformats created and rev iewed. Contrast used: None. Oral contrast used: None. FINDINGS: Brain: Extra-axial spaces: No abnormal extra-axial fluid collections. Ventricular system: Within normal limits Cerebral parenchyma: No acute intraparenchymal hemorrhage or mass effect. The moise-white junction is well differentiated. Cerebellum: Unremarkable. Mass effect: No evidence of midline shift. Intracranial vasculature: unremarkable Soft tissues: Normal. Calvarium/osseous structures: No depressed skull fracture. Paranasal sinuses and mastoid air cells: Mild scattered paranasal sinus disease. Visualized orbits: Orbital contents are intact. IMPRESSION: No acute intracranial process.
[2023-01-13] MEDS: MAGNESIUM SULFATE-D5W PMX 1 GM in DEXTROSE/WATER 1 100ML.BAG IVPB SCH ×4 (19:01→23:42)
[2023-01-13] MEDS: VANCOMYCIN 1,250 MG in SODIUM CHLORIDE 0.9% 250 ML IVPB SCH (19:32)
[2023-01-13] MEDS: SYMBICORT 160-4.5 MCG INHALER INHALATION SCH (21:05)
[2023-01-13] MEDS: CEFEPIME 2 GM in SODIUM CHLORIDE 0.9% 100 ML IVPB SCH (21:38)
[2023-01-13] MEDS: BENZONATATE 100 MG CAP PO SCH (21:39)
[2023-01-13] MEDS: ALPRAZolam 0.25 MG TAB PO PRN (21:51)
[2023-01-13] MEDS: HYDROCORTISONE SUCCINATE 100 MG/2 ML VIAL IV SCH (23:42)
[2023-01-13] MEDS: SALT AND SODA MOUTHWASH 1,000 ML PO PRN (23:50)
[2023-01-14] MEDS: VANCOMYCIN 1,250 MG in SODIUM CHLORIDE 0.9% 250 ML IVPB SCH ×3 (03:25→18:37)
[2023-01-14] MEDS: SODIUM CHLORIDE 0.9% 1,000 ML IV SCH ×2 (03:25→12:51)
[2023-01-14] MEDS: MORPHINE SULFATE 4 MG/ML SYRINGE IVP PRN ×5 (03:39→21:00)
[2023-01-14] MEDS: MAGNESIUM OXIDE 400 MG TAB PO SCH (08:11)
[2023-01-14] MEDS: ENOXAPARIN 40 MG/0.4 ML SYRINGE SQ SCH (08:11)
[2023-01-14] MEDS: ATORVASTATIN 40 MG TAB PO SCH (08:11)
[2023-01-14] MEDS: HYDROcodone/APAP 10-325MG 1 EACH TAB PO SCH ×3 (08:11→23:34)
[2023-01-14] MEDS: BENZONATATE 100 MG CAP PO SCH ×3 (08:11→20:04)
[2023-01-14] MEDS: HYDROCORTISONE SUCCINATE 100 MG/2 ML VIAL IV SCH ×3 (08:12→23:34)
[2023-01-14] MEDS: CEFEPIME 2 GM in SODIUM CHLORIDE 0.9% 100 ML IVPB SCH ×3 (08:12→23:35)
[2023-01-14] MEDS: FLUDROCORTISONE 0.1 MG TAB PO SCH (08:13)
[2023-01-14] MEDS: MAG HYDROX/AL HYDROX/SIMETH 30 ML, LIDOCAINE VISCOUS 2% 30 ML, diphenhydrAMINE ELIXIR 7... PO SCH ×13 (08:13→21:00)
[2023-01-14] MEDS: DULoxetine HCL 30 MG CAPSULE.DR PO SCH (08:13)
[2023-01-14] MEDS: SALT AND SODA MOUTHWASH 1,000 ML PO PRN ×2 (08:23→20:06)
[2023-01-14 08:38] LABS: Anisocytosis Slight; HCT 27.3 % (39.0-53.0); Hypochromasia Moderate; MCH 29.7 pg (25.0-35.0); MCHC 31.8 g/dL (31.0-37.0); MCV 93.3 fL (80.0-100.0); Mean Platelet Volume 10.9; RBC 2.92 m/uL (4.30-5.90); RDW 16.7 % (11.5-15.5)
[2023-01-14 08:52] LABS: Prothrombin Time 10.6 sec (10.0-12.5)
[2023-01-14] MEDS: SYMBICORT 160-4.5 MCG INHALER INHALATION SCH ×2 (09:00→21:38)
[2023-01-14] MEDS ORDERED: HYDROCORTISONE 10 MG TAB PO SCH (09:00)
[2023-01-14] MEDS: TIOTROPIUM 2.5 MCG INHALER INHALATION SCH (09:00)
[2023-01-14 09:04] LABS: ALT 31 U/L (4-49); AST 25 U/L (17-59); African American GFR (CKD) >90 (>60 ml/min/1.73 sqM); Albumin 2.5 g/dL (3.5-5.0); Alkaline Phosphatase 87 U/L (38-126); Anion Gap 10 mmol/L; Blood Urea Nitrogen 11 mg/dL (9-20); Calcium 7.4 mg/dL (8.4-10.2); Carbon Dioxide 19 mmol/L (22-30); Chloride 103 mmol/L (98-107); Glucose 92 mg/dL (74-99); Magnesium 2.5 mg/dL (1.6-2.3); Non-African American GFR(CKD) >90 (>60 ml/min/1.73 sqM); Phosphorus 3.4 mg/dL (2.5-4.5); Potassium 2.9 mmol/L (3.5-5.1); Sodium 132 mmol/L (137-145); Total Bilirubin 0.8 mg/dL (0.2-1.3); Total Protein 5.2 g/dL (6.3-8.2)
[2023-01-14 09:13] LABS: WBC 0.5 k/uL (3.8-10.6)
[2023-01-14 09:14] LABS: HGB 8.7 gm/dL (13.0-17.5)
[2023-01-14] MEDS: POTASSIUM CHLORIDE 10 MEQ in WATER FOR INJECTION 1 100ML.BAG IVPB SCH ×6 (09:31→16:51)
--- NOTE | 2023-01-14 11:23 | CA ---
Transthoracic Echo Report Name: Darien Chen Age: 57 Gender: M : 1965 Exam Date: 01/14/2023 10:20 Exam Location: [facility] Ht (in): 69 Wt (lb): 140 Ordering Physician: Marlene Simeon DO Attending/Referring Phys: [id number], [employer] Worker Sam Marley Procedure CPT: Indications: Syncope Cardiac Hx: Technical Quality: Fair Contrast 1: Total Dose (mL): Contrast 2: Total Dose (mL): MEASUREMENTS (Male / Female) Normal Values 2D ECHO LV Diastolic Diameter PLAX 4.0 cm 4.2 - 5.9 / 3.9 - 5.3 cm LV Systolic Diameter PLAX 2.5 cm IVS Diastolic Thickness 1.1 cm 0.6 - 1.0 / 0.6 - 0.9 cm LVPW Diastolic Thickness 1.2 cm 0.6 - 1.0 / 0.6 - 0.9 cm LV Relative Wall Thickness 0.6 RV Internal Dim ED PLAX 2.7 cm LVOT Diameter 2.3 cm Aortic Root Diameter 3.3 cm LV Diastolic Volume MOD BP 44.8 cm??? 67 - 155 / 56 - 104 cm??? LV Systolic Volume MOD BP 21.5 cm??? 22 - 58 / 19 - 49 cm??? LV Ejection Fraction MOD BP 51.9 % >= 55 % LV Cardiac Index MOD BP 1126.4 cm???/min???m??? LV Diastolic Volume MOD 4C 64.6 cm??? LV Systolic Volume MOD 4C 27.9 cm??? LV Ejection Fraction MOD 4C 56.8 % LV Cardiac Index MOD 4C 1778.6 cm???/min???m??? LV Diastolic Length 4C 8.4 cm LV Systolic Length 4C 7.2 cm LV Diastolic Volume MOD 2C 30.2 cm??? LV Systolic Volume MOD 2C 15.0 cm??? LV Ejection Fraction MOD 2C 50.4 % LV Cardiac Index MOD 2C 738.6 cm???/min???m??? LV Diastolic Length 2C 8.1 cm LV Systolic Length 2C 6.4 cm LA Volume 31.6 cm??? 18 - 58 / 22 - 52 cm??? LA Volume Index 18.0 cm???/m??? 16 - 28 cm???/m??? Ascending Aorta Diameter 3.4 cm DOPPLER AV Peak Velocity 110.4 cm/s AV Peak Gradient 4.9 mmHg LVOT Peak Velocity 99.7 cm/s LVOT Peak Gradient 4.0 mmHg LVOT Velocity Time Integral 19.8 cm LVOT Stroke Volume 81.2 cm??? LVOT Stroke Volume Index 45.8 ml/m??? LVOT Cardiac Index 3938.6 cm???/min???m??? AV Area Cont Eq pk 3.7 cm??? MV Peak Velocity 92.5 cm/s MV Peak Gradient 3.4 mmHg MV Mean Velocity 56.0 cm/s MV Mean Gradient 1.5 mmHg MV Velocity Time Integral 23.0 cm Mitral E Point Velocity 97.3 cm/s Mitral A Point Velocity 75.7 cm/s Mitral E to A Ratio 1.3 MV Deceleration Time 179.3 ms PV Peak Velocity 113.7 cm/s PV Peak Gradient 5.2 mmHg FINDINGS Left Ventricle Normal LV size and wall thickness. Left ventricular ejection fraction is estimated at 50-55 %. Right Ventricle Normal right ventricular size. Right Atrium Normal right atrial size. Left Atrium Normal left atrial size. LA volume index= 18ml/m2 Mitral Valve Structurally normal mitral valve. No mitral regurgitation. Aortic Valve Trileaflet aortic valve. Mild AV calcification. No aortic regurgitation. No aortic stenosis. Tricuspid Valve Structurally normal tricuspid valve. No tricuspid regurgitation. Pulmonic Valve Pulmonic valve not well visualized. No pulmonic regurgitation. Pericardium Normal pericardium. Aorta Normal size aortic root. CONCLUSIONS Normal LV function Previewed by: Dr. Yann Tian MD (Electronically Signed) Final Date: 14 January 2023 11:22
[2023-01-14 12:17] VITALS: BMI 21.8
[2023-01-14 14:08] LABS: Platelet Count 95 k/uL (150-450)
[2023-01-14 15:23] LABS: African American GFR (CKD) >90 (>60 ml/min/1.73 sqM); Anion Gap 6 mmol/L; Blood Urea Nitrogen 11 mg/dL (9-20); Calcium 7.2 mg/dL (8.4-10.2); Carbon Dioxide 21 mmol/L (22-30); Chloride 105 mmol/L (98-107); Glucose 135 mg/dL (74-99); Non-African American GFR(CKD) >90 (>60 ml/min/1.73 sqM); Potassium 3.1 mmol/L (3.5-5.1); Sodium 132 mmol/L (137-145)
--- NOTE | 2023-01-14 15:47 | P.PN ---
Subjective Progress Note Date: 01/14/23 (andrew charting seen at 1215) Patient is a 57-year-old male with known adenocarcinoma of the lung stage IV being followed at, [facility] complicated by adrenal insufficie ncy, HLD, Chornic hypoxic respiratory failure on 3L NC, and COPD who presented to the ER with complaints of a syncopal episode at home lasting less than 30 seconds. On arrival to the ER he was noted to be febrile with a temperature of 102.4 and tachycardic with pulse of 120. Initial laboratory analysis included CBC, CMP, magnesium, and urinalysis which were remarkable for white blood cell count 0.5, hemoglobin 12.4, platelets 121, sodium 133, magnesium 1.5, bilirubin 1.4. Urinalysis was negative for signs of infection. COVID19, influenza A/B, RSV testing was negative. C. diff was negative. Chest x-ray demonstrated right-sided consolidation and stable hydropneumothorax with chest tube in position. He then developed hypotension with blood pressure of 88/62. He was given 3 L of normal saline, Solu-Cortef 100 mg IV 1, Florinef 0.1 mg with improvements in his BP. He was givena dose of cefepime. Arrangements were made for admission and oncology was consulted. He was continued on cefepime and vancomycin was added. He was noted have significant mucositis and was started on Magic mouthwash. CT head negaitve and echo with EF 50-55% Patient seen and examined at bedside. He continues to have significant mouth pain. He is feeling slightly better than yesterday. No nausea or vomiting. Vital signs reviewed General: ill appearing, no distress, appears at stated age Cardiovascular: S1S2 reg, no murmur, positive posterior tibial pulse bilateral, Lungs: Course bs b/l, no rhonchi, no rales , no accessory muscle use Abdominal: soft, nontender to palpation, no guarding, no appreciable organomegaly Ext: no gross muscle atrophy, no edema b/l lower extremities, no contractures Neuro: CN II-XI grossly intact, no focal neuro deficits Psych: Alert, oriented, appropriate affect Assessment/Plan: Neutropenic Fevers Severe stomatitis Syncope due to dehydration Adrenal insufficiency due to immunotherapy and prior adrenal radiation Stage IV lung cancer with chronic right sided pleural effusion s/p pleurx cath Pancytopenia, chemo induced Hyponatremia due to dehydration - Vanco D #2 dosing by weight adn renal function, monitor Cr adn trough for toxicity - Cefepime 1 gm q 12 IVPB D # 2 - NS @ 75 cc/hr - repeat CXR in AM - Await Blood cultures - Await oncology recs - solucortef to 25 mg IVP q 8 hours, florinef 0.1 mg daily - follow CBC and CMP - echo and head CT normal. - tele - cools solution and soda and salt mouth wash Hypomagnesemia, resolved Imaging: Echocardiogram-ejection fraction 50-55%, no significant valvular disease. CT head showed no acute process. Data Review: Labs reviewed from today include CBC and basic metabolic profile which were remarkable for white blood cell count 0.5, hemoglobin 8.7, platelets 95, sodium 132, potassium 2.9, carbon dioxide 19, magnesium 2.5 DVT prophylaxis: Lovenox Anticipated discharge date: Pending Clinical Course Anticipated discharge place: Pending Clinical Course This dictation was prepared using [employer] voice recognition software. Though every attempt is made to correct errors during dictation some may still exist. Objective - Vital Signs Vital signs: Vital Signs Temp 97.6 F 01/14/23 11:15 Pulse 102 H 01/14/23 13:04 Resp 20 01/14/23 11:15 BP 103/74 01/14/23 11:15 Pulse Ox 92 L 01/14/23 11:15 FiO2 Intake & Output 01/13/23 01/14/23 01/14/23 18:59 06:59 18:59 Intake Total 0 180 Output Total 400 Balance -400 180 Weight 63.503 kg 63.503 kg 67.041 kg Intake: Oral 0 180 Output: Urine 400 Other: Voiding Method Toilet Bedside Commode Urinal Urinal # Voids 1 - Labs CBC & Chem 7: 01/14/23 07:25 01/14/23 14:37 Labs: Abnormal Lab Results - Last 24 Hours (Table) 01/13/23 01/13/23 01/14/23 Range/Units 11:41 16:05 07:25 WBC 0.5 L* (3.8-10.6) k/uL RBC 2.92 L (4.30-5.90) m/uL Hgb 8.7 L D (13.0-17.5) gm/dL Hct 27.3 L (39.0-53.0) % RDW 16.7 H (11.5-15.5) % Plt Count 95 L (150-450) k/uL Sodium (137-145) mmol/L Potassium (3.5-5.1) mmol/L Carbon Dioxide (22-30) mmol/L Creatinine (0.66-1.25) mg/dL Glucose (74-99) mg/dL Calcium (8.4-10.2) mg/dL Magnesium 1.5 L (1.6-2.3) mg/dL Total Protein (6.3-8.2) g/dL Albumin (3.5-5.0) g/dL Urine Protein Trace H (Negative) 01/14/23 01/14/23 Range/Units 07:25 14:37 WBC (3.8-10.6) k/uL RBC (4.30-5.90) m/uL Hgb (13.0-17.5) gm/dL Hct (39.0-53.0) % RDW (11.5-15.5) % Plt Count (150-450) k/uL Sodium 132 L 132 L (137-145) mmol/L Potassium 2.9 L 3.1 L (3.5-5.1) mmol/L Carbon Dioxide 19 L 21 L (22-30) mmol/L Creatinine 0.40 L 0.40 L (0.66-1.25) mg/dL Glucose 135 H (74-99) mg/dL Calcium 7.4 L 7.2 L (8.4-10.2) mg/dL Magnesium 2.5 H (1.6-2.3) mg/dL Total Protein 5.2 L (6.3-8.2) g/dL Albumin 2.5 L (3.5-5.0) g/dL Urine Protein (Negative)
[2023-01-14] MEDS: ALPRAZolam 0.25 MG TAB PO PRN (16:27)
[2023-01-14] MEDS: FILGRASTIM-SNDZ 480 MCG/0.8 ML SYRINGE SQ SCH (20:04)
--- NOTE | 2023-01-14 21:55 | P.CONS ---
History of Present Illness - Reason for Consult Consult date: 01/14/23 neutropenic fever Requesting physician: Tram Chappell - Chief Complaint fever - History of Present Illness Mr Chen is a 57-year-old patient with we have been asked to see because of neutropenic fever. Patient has history stage IV lung cancer, metastatic to bilateral adrenal glands at the time of diagnosis, back in 2020 at [facility] in [place], followed currently by Med Onc Dr. Dawson. He was treated first-line carbo/Alimta/keytruda, followed by maintenance Alimta and keytruda. On follow- up 05/06 patient was found to have a pulmonary nodule with increased FDG activit y, lesion was treated with SBRT. He also received radiation to right hilar lymph nodes. He continued on Alimta and Keytruda until July 2021 when patient had symptoms and imaging suggestive of pneumonitis. IO was held, he was started on a steroid taper. His symptoms recurred several times over the next few months, he was hospitalized for acute on chronic hypoxic respiratory failure. [place] that pt had incompletely treated pneumonia versus a drug-induced pneumonitis. He ultimately recovered and was back on room air by Nov. He did well on nothing until April 2022, imaging showed a new lesion in the left adrenal gland, this was treated with SBRT. August 2022 patient had enlarging left upper lobe mass, liquid biopsy performed, no targetable mutations found. He ultimately resumed carboplatin and Alimta. He was having to have frequent thoracentesies and had Pleurx catheter placed 10/27/22. Since his last admit in 10/2022, pt reports there was noted disease progression to the liver and elpidio atment was subsequently changed. Patient was unaware of what his new regimen is but states he received his second cycle on 01/06/2023. I spoke to Dr. Dawson, patient's primary oncologist who states patient is currently on treatment with Cyramza and Taxotere. He did not receive Neulasta with his last treatment. Patient presented to the emergency room for fever and painful mouth sores. Patient reports has had decreased oral intake due to mouth pain. He also is reporting persisting diarrhea over the last 4 days Tmax at home was 100.8. Upon admission Tmax 102.4. Patient reports diarrhea has since subsided and had 1 loose bowel movement last night. Denies nausea and vomiting and abdominal pain. C. difficile negative. UA not suspicious for UTI. RSV, COVID, influenza negative. Blood cultures negative thus far. Chest x-ray stable from previous image on 01/04/23. CT head negative for acute intracranial processes. Patient has been started empirically on IV antibiotics. Today CBC revealed WBC 500, hemoglobin 8.7, platelets 95,000. Pt afebirle since admission Review of Systems 10 point ROS is negative except as stated in the HPI Past Medical History Past Medical History: Cancer, COPD, Hyperlipidemia, Hypertension, Pneumonia Additional Past Medical History / Comment(s): Wears O2@3L NC ATC,recurrent rt lung CA receiving chemo last [id number] @ [facility] roseosstage 4 lung CA and adrenal left gland, had pneumonitis, 17 day stay in ICU with intial chemo and immuno therapy, emphysema,b/p runs low now since cancer dx and treatment had prior htn hx-has dizziness w/ falls at times improved with cortef; recurrent right-sided malignant pleural effusion History of Any Multi-Drug Resistant Organisms: None Reported Past Surgical History: Cholecystectomy Additional Past Surgical History / Comment(s): rt port a cath (power port); right sided thoracentesis 4, status post right Pleurx catheter placement on 10/27/2022 Past Anesthesia/Blood Transfusion Reactions: No Reported Reaction Additional Past Anesthesia/Blood Transfusion Reaction / Comm: no hx blood transfusions Past Psychological History: Anxiety Smoking Status: Former smoker Past Alcohol Use History: None Reported Additional Past Alcohol Use History / Comment(s): quit smoking 2011,<1 ppd Past Drug Use History: Marijuana Additional Drug Use History / Comment(s): use marijuana gummies at bedtime - Past Family History Mother Additional Family Medical History / Comment(s): Kidney failure, status post kidney transplant history of manic depressive Father Family Medical History: Cancer Additional Family Medical History / Comment(s): rt lung CA Medications and Allergies Home Medications Medication Instructions Recorded Confirmed Type ALPRAZolam [Xanax] 0.25 mg PO DAILY PRN 10/26/22 01/13/23 History Albuterol Sulfate [Albuterol 2 puff INHALATION RT-Q6H PRN 10/26/22 01/13/23 History Sulfate Hfa] Atorvastatin [Lipitor] 40 mg PO DAILY 10/26/22 01/13/23 History Benzonatate [Tessalon Perles] 100 mg PO TID 10/26/22 01/13/23 History Budesonide/Glycopyr/Formoterol 2 puff INHALATION RT-BID 10/26/22 01/13/23 History [Breztri Aerosphere Inhaler] Fludrocortisone [Florinef] 0.1 mg PO DAILY 10/26/22 01/13/23 History Ipratropium-Albuterol Nebulize 3 ml INHALATION RT-TID PRN 10/26/22 01/13/23 History [Duoneb 0.5 mg-3 mg/3 ml Soln] Pantoprazole Sodium [Protonix] 40 mg PO DAILY PRN 10/26/22 01/13/23 History Zolpidem Tartrate [Zolpidem 6.25 mg PO HS PRN 10/26/22 01/13/23 History Tartrate ER] ondansetron HCL [Zofran] 8 mg PO BID PRN 10/26/22 01/13/23 History Potassium Chloride [Klor-Con M20] 40 meq PO BID 11/06/22 01/13/23 History Slow-Mag 71.5mg 143 mg PO QID@09,13,17,21 11/06/22 01/13/23 History HYDROcodone/APAP 10-325MG [Pollock 1 - 2 tab PO Q8H 01/04/23 01/13/23 History 10-325] Hydrocortisone [Cortef] 20 mg PO DAILY@0900 01/04/23 01/13/23 History LORazepam [Ativan] 1 mg PO BID PRN 01/04/23 01/13/23 History Prochlorperazine [Compazine] 10 mg PO Q6H PRN 01/04/23 01/13/23 History Celecoxib [CeleBREX] 100 mg PO BID 01/13/23 01/13/23 History DULoxetine HCL [Cymbalta] 30 mg PO DAILY 01/13/23 01/13/23 History Hydrocortisone [Cortef] 10 mg PO DAILY@1700 01/13/23 01/13/23 History Magic 10 ml PO Q8H PRN 01/13/23 01/13/23 History Mouthwash(Mylanta/Benadryl/Lidocaine 1:1:1) Sennosides [Senokot] 8.6 mg PO BID PRN 01/13/23 01/13/23 History Allergies Allergy/AdvReac Type Severity Reaction Status Date / Time No Known Allergies Allergy Verified 01/13/23 12:13 Physical Exam Vitals: Vital Signs Temp Pulse Pulse Resp BP BP Pulse Ox 01/14/23 08:06 97.9 F 82 16 122/79 98 01/14/23 03:58 97.9 F 69 19 127/79 99 01/14/23 00:00 98.0 F 88 19 109/72 96 01/13/23 21:51 97.9 F 71 19 107/72 100 01/13/23 20:27 72 18 107/75 99 01/13/23 17:19 98 F 73 18 112/72 90 L 01/13/23 15:27 81 18 93/67 99 01/13/23 13:26 96 18 88/62 97 01/13/23 11:08 102.4 F H 120 H 18 100/81 97 Intake and Output 01/13/23 01/14/23 01/14/23 22:59 06:59 14:59 Intake Total 0 Output Total 400 Balance 0 -400 Intake: Oral 0 Output: Urine 400 Other: Voiding Method Toilet Urinal Weight 63.503 kg - Constitutional General appearance: average body habitus, no acute distress - EENT Eyes: anicteric sclerae ENT: hearing grossly normal - Respiratory breathing is even and unlabored Respiratory: right: diminished, left: CTA - Cardiovascular Rhythm: regular Heart sounds: normal: S1, S2 - Gastrointestinal General gastrointestinal: soft, no tenderness - Integumentary Integumentary: no cyanotic, no jaundiced - Neurologic grossly intact - Musculoskeletal Musculoskeletal: strength equal bilaterally - Psychiatric Psychiatric: A&O x's 3 Results CBC & Chem 7: 01/14/23 07:25 01/14/23 14:37 Labs: Abnormal Lab Results - Last 24 Hours (Table) 01/13/23 01/13/23 01/13/23 Range/Units 11:41 11:41 11:41 WBC 0.5 L* (3.8-10.6) k/uL RBC 4.19 L (4.30-5.90) m/uL Hgb 12.4 L D (13.0-17.5) gm/dL Hct 37.5 L (39.0-53.0) % RDW 16.9 H (11.5-15.5) % Plt Count 121 L (150-450) k/uL Sodium 133 L (137-145) mmol/L Chloride 96 L (98-107) mmol/L Creatinine 0.64 L (0.66-1.25) mg/dL Magnesium (1.6-2.3) mg/dL Total Bilirubin 1.4 H (0.2-1.3) mg/dL Urine Protein Trace H (Negative) 01/13/23 Range/Units 16:05 WBC (3.8-10.6) k/uL RBC (4.30-5.90) m/uL Hgb (13.0-17.5) gm/dL Hct (39.0-53.0) % RDW (11.5-15.5) % Plt Count (150-450) k/uL Sodium (137-145) mmol/L Chloride (98-107) mmol/L Creatinine (0.66-1.25) mg/dL Magnesium 1.5 L (1.6-2.3) mg/dL Total Bilirubin (0.2-1.3) mg/dL Urine Protein (Negative) Chest x-ray: report reviewed CT Scan - head: report reviewed Assessment and Plan (1) Neutropenic fever Current Visit: Yes Status: Acute Priority: High Code(s): D70.9 - NEUTROPENIA, UNSPECIFIED; R50.81 - FEVER PRESENTING WITH CONDITIONS CLASSIFIED ELSEWHERE SNOMED Code(s): 920562539 (2) Non-small cell lung cancer Current Visit: Yes Status: Acute Priority: High Code(s): C34.90 - MALIGNANT NEOPLASM OF UNSP PART OF UNSP BRONCHUS OR LUNG SNOMED Code(s): 799288088 (3) Antineoplastic chemotherapy induced pancytopenia Current Visit: Yes Status: Acute Priority: High Code(s): D61.810 - ANTINEOPLASTIC CHEMOTHERAPY INDUCED PANCYTOPENIA; T45.1X5A - ADVERSE EFFECT OF ANTINEOPLASTIC AND IMMUNOSUP DRUGS, INIT SNOMED Code(s): 313360051842768 Plan: Neutropenic fever: -Presented with fever. T max 102.3, afebrile since admission -Pancultures negative thus far -Continues on empiric abx Chemotherapy-induced pancytopenia -Patient received treatment on 01/06/23. He is currently in [facility] -Hemoglobin 8.7 today. Transfuse for a hemoglobin less than 7 or if patient is symptomatic -WBCs 500. Will add G-CSF daily, until goal of ANC greater than 1000 reached -Platelets 95,000 today. Can continue prophylactic dose lovenox as long as platelets greater than 50,000. -Continue CBC daily Mucositis: -Continue Kools solution and salt and soda rinses Metastatic non-small cell lung cancer -Full history in HPI -Last received treatment on 01/06/23 with Cyramza and taxotere -Treatment on hold at this time pending resolution/stability of current situation -Continue follow-up at [facility] in [place] as planned. Spoke with primary oncologist Dr. Dawson, who is agreeable with plan
[2023-01-15] MEDS: VANCOMYCIN 1,250 MG in SODIUM CHLORIDE 0.9% 250 ML IVPB SCH ×3 (04:35→18:21)
[2023-01-15] MEDS: SODIUM CHLORIDE 0.9% 1,000 ML IV SCH ×2 (04:35→14:46)
[2023-01-15] MEDS: MORPHINE SULFATE 4 MG/ML SYRINGE IVP PRN ×4 (04:38→21:51)
[2023-01-15] MEDS: SYMBICORT 160-4.5 MCG INHALER INHALATION SCH ×2 (08:36→19:59)
[2023-01-15] MEDS: TIOTROPIUM 2.5 MCG INHALER INHALATION SCH (08:36)
[2023-01-15] MEDS: BENZONATATE 100 MG CAP PO SCH ×3 (08:48→21:50)
[2023-01-15] MEDS: DULoxetine HCL 30 MG CAPSULE.DR PO SCH (08:48)
[2023-01-15] MEDS: HYDROcodone/APAP 10-325MG 1 EACH TAB PO SCH ×2 (08:48→15:59)
[2023-01-15] MEDS: MAGNESIUM OXIDE 400 MG TAB PO SCH (08:48)
[2023-01-15] MEDS: HYDROCORTISONE SUCCINATE 100 MG/2 ML VIAL IV SCH ×3 (08:48→17:11)
[2023-01-15] MEDS: ATORVASTATIN 40 MG TAB PO SCH (08:48)
[2023-01-15] MEDS: CEFEPIME 2 GM in SODIUM CHLORIDE 0.9% 100 ML IVPB SCH ×2 (08:48→15:59)
[2023-01-15] MEDS: ENOXAPARIN 40 MG/0.4 ML SYRINGE SQ SCH (08:48)
[2023-01-15] MEDS: FLUDROCORTISONE 0.1 MG TAB PO SCH (08:50)
[2023-01-15] MEDS: MAG HYDROX/AL HYDROX/SIMETH 30 ML, LIDOCAINE VISCOUS 2% 30 ML, diphenhydrAMINE ELIXIR 7... PO SCH ×20 (08:50→21:52)
[2023-01-15 09:28] LABS: African American GFR (CKD) >90 (>60 ml/min/1.73 sqM); Non-African American GFR(CKD) >90 (>60 ml/min/1.73 sqM)
[2023-01-15 09:29] LABS: ALT 17 U/L (4-49); AST 19 U/L (17-59); African American GFR (CKD) >90 (>60 ml/min/1.73 sqM); Albumin 2.5 g/dL (3.5-5.0); Alkaline Phosphatase 83 U/L (38-126); Anion Gap 8 mmol/L; Blood Urea Nitrogen 12 mg/dL (9-20); Calcium 7.6 mg/dL (8.4-10.2); Carbon Dioxide 23 mmol/L (22-30); Chloride 104 mmol/L (98-107); Glucose 141 mg/dL (74-99); Magnesium 2.1 mg/dL (1.6-2.3); Non-African American GFR(CKD) >90 (>60 ml/min/1.73 sqM); Potassium 3.2 mmol/L (3.5-5.1); Sodium 135 mmol/L (137-145); Total Bilirubin 0.6 mg/dL (0.2-1.3); Total Protein 5.1 g/dL (6.3-8.2)
[2023-01-15 09:36] LABS: Anisocytosis Slight; HCT 25.4 % (39.0-53.0); HGB 8.6 gm/dL (13.0-17.5); Hypochromasia Slight; MCH 30.6 pg (25.0-35.0); MCHC 33.7 g/dL (31.0-37.0); MCV 90.8 fL (80.0-100.0); Mean Platelet Volume 11.2; Platelet Count 87 k/uL (150-450); RDW 16.6 % (11.5-15.5)
[2023-01-15 09:41] LABS: WBC 0.8 k/uL (3.8-10.6)
[2023-01-15] MEDS ORDERED: VANCOMYCIN TROUGH DUE 1 EACH MISC MISCELLANE ONE (10:00)
[2023-01-15] MEDS: POTASSIUM CHLORIDE 10 MEQ in WATER FOR INJECTION 1 100ML.BAG IVPB SCH ×4 (12:59→18:21)
--- NOTE | 2023-01-15 16:07 | P.PN ---
Subjective Progress Note Date: 01/15/23 (delayed charting seen at 1230) Patient is a 57-year-old male with known adenocarcinoma of the lung stage IV being followed at, [facility] complicated by adrenal insufficie ncy, HLD, Chornic hypoxic respiratory failure on 3L NC, and COPD who presented to the ER with complaints of a syncopal episode at home lasting less than 30 seconds. On arrival to the ER he was noted to be febrile with a temperature of 102.4 and tachycardic with pulse of 120. Initial laboratory analysis included CBC, CMP, magnesium, and urinalysis which were remarkable for white blood cell count 0.5, hemoglobin 12.4, platelets 121, sodium 133, magnesium 1.5, bilirubin 1.4. Urinalysis was negative for signs of infection. COVID19, influenza A/B, RSV testing was negative. C. diff was negative. Chest x-ray demonstrated right-sided consolidation and stable hydropneumothorax with chest tube in position. He then developed hypotension with blood pressure of 88/62. He was given 3 L of normal saline, Solu-Cortef 100 mg IV 1, Florinef 0.1 mg with improvements in his BP. He was givena dose of cefepime. Arrangements were made for admission and oncology was consulted. He was continued on cefepime and vancomycin was added. He was noted have significant mucositis and was started on Magic mouthwash. CT head negative and echo with EF 50-55%. Patient seen and examined at bedside. He continues to have significant mouth pain but is feeling better than presentation. He is still unable to take in much food but is able to tolerate some ensure. Encouraged him to have his bring in some shakes and cold substances to eat. Vital signs reviewed General: ill appearing, no distress, appears at stated age Cardiovascular: S1S2 reg, no murmur, positive posterior tibial pulse bilateral, Lungs: Course bs b/l, no rhonchi, no rales , no accessory muscle use Abdominal: soft, nontender to palpation, no guarding, no appreciable organomegaly Ext: no gross muscle atrophy, no edema b/l lower extremities, no contractures Neuro: CN II-XI grossly intact, no focal neuro deficits Psych: Alert, oriented, appropriate affect Assessment/Plan: Neutropenic Fevers Severe stomatitis Syncope due to dehydration Adrenal insufficiency due to immunotherapy and prior adrenal radiation Stage IV lung cancer with chronic right sided pleural effusion s/p pleurx cath Pancytopenia, chemo induced Hyponatremia due to dehydration - Vanco D #3 dosing by weight adn renal function, monitor Cr adn trough for toxicity - Cefepime 2 gm q 12 IVPB D #3 - NS @ 75 cc/hr -Oncology consult reviewed from 01/14/23. Continue with empiric antibiotics until ANC greater then 1. Discussed with patient's outpatient oncologist and okay for G-CSF stimulator. - Blood cultures neg for 24 hours - Decrease IV cortef to his oral dosing of 20 in AM and 10 at 1700. Maintain IV due to painful swallowing - filgastim 480 SC daily - follow CBC and CMP - echo and head CT normal. - tele - cools solution and soda and salt mouth wash Hypomagnesemia, resolved Imaging: None new Hospital course imaging: Echocardiogram-ejection fraction 50-55%, no significant valvular disease. CT head showed no acute process. Data Review: Afebrile since admission Labs reviewed from today include CBC and CMP as well as magnesium which are remarkable for white blood cell count 0.8, HEENT: 8.6, platelet 87, sodium 135, potassium 3.2 DVT prophylaxis: Lovenox Anticipated discharge date: 24-[address]: home This dictation was prepared using [employer] voice recognition software. Though every attempt is made to correct errors during dictation some may still exist. Objective - Vital Signs Vital signs: Vital Signs Temp 97.7 F 01/15/23 08:46 Pulse 87 01/15/23 12:00 Resp 15 01/15/23 12:00 BP 124/65 01/15/23 12:00 Pulse Ox 97 01/15/23 12:00 FiO2 Intake & Output 01/14/23 01/15/23 01/15/23 18:59 06:59 18:59 Intake Total 360 723 Output Total 50 500 Balance 310 -500 723 Weight 67.041 kg Intake: IV 3 Invasive Line 4 3 Oral 360 720 Output: Chest Tube Drainage 50 Pleural Catheter Left 50 Urine 500 Other: Voiding Method Bedside Commode Toilet Toilet Urinal Urinal Urinal # Voids 1 3 - Labs CBC & Chem 7: 01/15/23 08:29 01/15/23 08:29 Labs: Abnormal Lab Results - Last 24 Hours (Table) 01/15/23 01/15/23 01/15/23 Range/Units 08:29 08:29 08:29 WBC 0.8 L* (3.8-10.6) k/uL RBC 2.80 L (4.30-5.90) m/uL Hgb 8.6 L (13.0-17.5) gm/dL Hct 25.4 L (39.0-53.0) % RDW 16.6 H (11.5-15.5) % Plt Count 87 L (150-450) k/uL Sodium 135 L (137-145) mmol/L Potassium 3.2 L (3.5-5.1) mmol/L Creatinine 0.40 L 0.40 L (0.66-1.25) mg/dL Glucose 141 H (74-99) mg/dL Calcium 7.6 L (8.4-10.2) mg/dL Total Protein 5.1 L (6.3-8.2) g/dL Albumin 2.5 L (3.5-5.0) g/dL Microbiology - Last 24 Hours (Table) 01/13/23 11:41 Blood Culture - Preliminary Blood 01/13/23 11:41 Blood Culture - Preliminary Blood
[2023-01-15] MEDS: FILGRASTIM-SNDZ 480 MCG/0.8 ML SYRINGE SQ SCH (18:21)
--- NOTE | 2023-01-15 20:52 | P.PN ---
Subjective Progress Note Date: 01/15/23 No acute changes. Patient reports diarrhea has resolved. Reporting persisting mouth discomfort, Neville solution providing mild improvement in symptoms. Denies nausea vomiting and abdominal pain. Objective - Vital Signs Vital signs: Vital Signs Temp 97.6 F 01/15/23 16:00 Pulse 70 01/15/23 16:00 Resp 18 01/15/23 16:00 BP 117/63 01/15/23 16:00 Pulse Ox 97 01/15/23 16:00 FiO2 Intake & Output 01/15/23 01/15/23 01/16/23 06:59 18:59 06:59 Intake Total 843 Output Total 500 Balance -500 843 Intake: IV 3 Invasive Line 4 3 Oral 840 Output: Urine 500 Other: Voiding Method Toilet Toilet Urinal Urinal # Voids 4 - Constitutional General appearance: Present: average body habitus, no acute distress - EENT Eyes: Present: anicteric sclerae ENT: Present: hearing grossly normal - Respiratory Details: breathing is even and unlabored - Cardiovascular Details: skin warm and dry - Gastrointestinal General gastrointestinal: Present: soft. Absent: tenderness - Integumentary Integumentary: Absent: cyanotic - Neurologic Neurologic: Present: CNII-XII intact - Musculoskeletal Musculoskeletal: Present: strength equal bilaterally - Psychiatric Psychiatric: Present: A&O x's 3, appropriate affect, intact judgment & insight - Labs CBC & Chem 7: 01/15/23 08:29 01/15/23 08:29 Labs: Abnormal Lab Results - Last 24 Hours (Table) 01/15/23 01/15/23 01/15/23 Range/Units 08:29 08:29 08:29 WBC 0.8 L* (3.8-10.6) k/uL RBC 2.80 L (4.30-5.90) m/uL Hgb 8.6 L (13.0-17.5) gm/dL Hct 25.4 L (39.0-53.0) % RDW 16.6 H (11.5-15.5) % Plt Count 87 L (150-450) k/uL Sodium 135 L (137-145) mmol/L Potassium 3.2 L (3.5-5.1) mmol/L Creatinine 0.40 L 0.40 L (0.66-1.25) mg/dL Glucose 141 H (74-99) mg/dL Calcium 7.6 L (8.4-10.2) mg/dL Total Protein 5.1 L (6.3-8.2) g/dL Albumin 2.5 L (3.5-5.0) g/dL Microbiology - Last 24 Hours (Table) 01/13/23 11:41 Blood Culture - Preliminary Blood 01/13/23 11:41 Blood Culture - Preliminary Blood Assessment and Plan (1) Neutropenic fever Current Visit: Yes Status: Acute Priority: High Code(s): D70.9 - NEUTROPENIA, UNSPECIFIED; R50.81 - FEVER PRESENTING WITH CONDITIONS CLASSIFIED ELSEWHERE SNOMED Code(s): 696246431 (2) Non-small cell lung cancer Current Visit: Yes Status: Acute Priority: High Code(s): C34.90 - MALIGNANT NEOPLASM OF UNSP PART OF UNSP BRONCHUS OR LUNG SNOMED Code(s): 804252203 (3) Antineoplastic chemotherapy induced pancytopenia Current Visit: Yes Status: Acute Priority: High Code(s): D61.810 - ANTINEOPLASTIC CHEMOTHERAPY INDUCED PANCYTOPENIA; T45.1X5A - ADVERSE EFFECT OF ANTINEOPLASTIC AND IMMUNOSUP DRUGS, INIT SNOMED Code(s): 057059347159999 Plan: Neutropenic fever: -Presented with fever. T max 102.3, afebrile since admission -Pancultures negative thus far -Continues on empiric abx Chemotherapy-induced pancytopenia -Patient received treatment on 01/06/23. He is currently in [facility] -Hemoglobin 8.6 today. Transfuse for a hemoglobin less than 7 or if patient is symptomatic -WBCs 800. G-CSF daily, until goal of ANC greater than 1000 reached -Platelets 87,000 today. Can continue prophylactic dose lovenox as long as platelets greater than 50,000. -Continue CBC daily Mucositis: -Continue Kools solution and salt and soda rinses Metastatic non-small cell lung cancer -Full history in consult HPI -Last received treatment on 01/06/23 with Cyramza and taxotere -Treatment on hold at this time pending resolution/stability of current situation -Continue [facility] at [facility] in [place] as planned. Spoke with primary oncologist Dr. Dawson, who is agreeable with plan Attests: I have seen and examined pt, performed H&P, developed impression and plan of care. Discussed with dictator. Agree with documentation, dictated as a scribe.
[2023-01-16] MEDS: HYDROcodone/APAP 10-325MG 1 EACH TAB PO SCH ×3 (00:53→16:06)
[2023-01-16] MEDS: CEFEPIME 2 GM in SODIUM CHLORIDE 0.9% 100 ML IVPB SCH ×3 (00:54→16:07)
[2023-01-16] MEDS: MORPHINE SULFATE 4 MG/ML SYRINGE IVP PRN ×3 (03:42→22:00)
[2023-01-16] MEDS: VANCOMYCIN 1,250 MG in SODIUM CHLORIDE 0.9% 250 ML IVPB SCH ×3 (03:48→18:36)
[2023-01-16] MEDS: SODIUM CHLORIDE 0.9% 1,000 ML IV SCH ×2 (04:48→17:09)
[2023-01-16] MEDS: SYMBICORT 160-4.5 MCG INHALER INHALATION SCH ×2 (08:05→21:17)
[2023-01-16] MEDS: TIOTROPIUM 2.5 MCG INHALER INHALATION SCH (08:05)
[2023-01-16] MEDS: BENZONATATE 100 MG CAP PO SCH ×3 (08:41→21:12)
[2023-01-16] MEDS: FLUDROCORTISONE 0.1 MG TAB PO SCH (08:41)
[2023-01-16] MEDS: DULoxetine HCL 30 MG CAPSULE.DR PO SCH (08:41)
[2023-01-16] MEDS: ENOXAPARIN 40 MG/0.4 ML SYRINGE SQ SCH (08:41)
[2023-01-16] MEDS: MAGNESIUM OXIDE 400 MG TAB PO SCH (08:42)
[2023-01-16] MEDS: ATORVASTATIN 40 MG TAB PO SCH (08:42)
[2023-01-16] MEDS: HYDROCORTISONE SUCCINATE 100 MG/2 ML VIAL IV SCH ×2 (08:43→17:03)
[2023-01-16] MEDS: MAG HYDROX/AL HYDROX/SIMETH 30 ML, LIDOCAINE VISCOUS 2% 30 ML, diphenhydrAMINE ELIXIR 7... PO SCH ×20 (08:44→21:12)
[2023-01-16 12:26] LABS: ALT 17 U/L (4-49); AST 22 U/L (17-59); African American GFR (CKD) >90 (>60 ml/min/1.73 sqM); Albumin 2.3 g/dL (3.5-5.0); Alkaline Phosphatase 64 U/L (38-126); Anion Gap 4 mmol/L; Blood Urea Nitrogen 13 mg/dL (9-20); Calcium 7.1 mg/dL (8.4-10.2); Carbon Dioxide 21 mmol/L (22-30); Chloride 109 mmol/L (98-107); Glucose 97 mg/dL (74-99); Magnesium 1.8 mg/dL (1.6-2.3); Non-African American GFR(CKD) >90 (>60 ml/min/1.73 sqM); Sodium 134 mmol/L (137-145); Total Bilirubin 0.9 mg/dL (0.2-1.3)
[2023-01-16 12:40] LABS: Potassium 2.7 mmol/L (3.5-5.1)
[2023-01-16 12:44] LABS: Anisocytosis Slight; HCT 24.4 % (39.0-53.0); HGB 7.9 gm/dL (13.0-17.5); Hypochromasia Slight; MCH 29.5 pg (25.0-35.0); MCHC 32.4 g/dL (31.0-37.0); MCV 91.2 fL (80.0-100.0); Mean Platelet Volume 11.5; Poikilocytosis Slight; RBC 2.67 m/uL (4.30-5.90)
[2023-01-16 12:47] LABS: Platelet Count 95 k/uL (150-450)
[2023-01-16] MEDS ORDERED: POTASSIUM BICARBONATE/CIT AC 20 MEQ TABLET.EFF PO ONE (13:23)
[2023-01-16] MEDS: POTASSIUM CHLORIDE 10 MEQ in WATER FOR INJECTION 1 100ML.BAG IVPB SCH ×4 (13:50→17:03)
--- NOTE | 2023-01-16 14:09 | P.PN ---
Subjective Progress Note Date: 01/16/23 Hospital course: Patient is a very pleasant 57-year-old male with known adenocarcinoma of the lung stage IV being followed at, [facility] complicated by adrenal insufficiency, HLD, Chornic hypoxic respiratory failure on 3L NC, and COPD who presented to the ER with complaints of a syncopal episode at home lasting less than 30 seconds. On arrival to the ER he was noted to be febrile with a temperature of 102.4 and tachycardic with pulse of 120. Initial laboratory analysis included CBC, CMP, magnesium, and urinalysis which were remarkable for white blood cell count 0.5, hemoglobin 12.4, platelets 121, sodium 133, magnesium 1.5, bilirubin 1.4. Urinalysis was negative for signs of infection. COVID19, influenza A/B, RSV testing was negative. C. diff was negative. Chest x-ray demonstrated right-sided consolidation and stable hydropneumothorax with chest tube in position. He then developed hypotension with blood pressure of 88/62. He was given 3 L of normal saline, Solu-Cortef 100 mg IV 1, Florinef 0.1 mg with improvements in his BP. He was givena dose of cefepime. Arrangements were made for admission and oncology was consulted. He was continued on cefepime and vancomycin was added. He was noted have significant mucositis and was started on Magic mouthwash. CT head negative and echo with EF 50-55%. Physical exam: Vital signs reviewed General: Chronically ill appearing, no acute distress, appears at stated age Cardiovascular: Regular rate and rhythm with S1S2 reg, no murmur, positive posterior tibial pulse bilateral, Lungs: Course breath sounds bilaterally with soft expiratory wheezes and no rhonchi or rales , no accessory muscle use Abdominal: soft, nontender to palpation, no guarding, no appreciable organomegaly Ext: No gross muscle atrophy, no edema b/l lower extremities, no contractures Neuro: CN II-XI grossly intact, no focal neuro deficits Psych: Alert, oriented, appropriate affect Assessment and Plan of Care: Neutropenic Fevers Severe stomatitis Syncope due to dehydration 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 Most recent vancomycin trough therapeutic at 21.5 and current renal function showing BUN 13, creatinine 0.42, and GFR greater than 90. -Continue with gentle IV fluid hydration with NS @ 75 cc/hr until patient is tolerating oral intake well. -Oncology consulted and reviewed documentation in chart. - Blood cultures showing no growth to date - Continue Filgrastim-sndz 480 g subcutaneously daily -Continued close monitoring with repeat CBC and CMP -Continuation of Cools solution and soda and salt mouth wash Hypomagnesemia, resolved Data and imaging reviewed: -Morning labs reviewed. CBC showing hemoglobin 7.9. BMP showing hyponatremia with sodium 134, hypokalemia with potassium of 2.7, hypochloremia with chloride of 109, bicarb of 21, and anion gap of 4. Magnesium 1.8. Liver profile unremarkable. -Vital signs reviewed. Blood pressure 139/88, heart rate 103, respiratory rate 20, temp 98.1F, SpO2 of 95% on 2 L O2. DVT prophylaxis: Lovenox Anticipated discharge date: 24-[address]: home Patient was seen independently by Nurse Pracitioner. This document was prepared using [employer] dictation software. Please allow for errors in care aid, while rare they do occur. Objective - Vital Signs Vital signs: Vital Signs Temp 97.7 F 01/16/23 04:00 Pulse 75 01/16/23 04:00 Resp 18 01/16/23 04:00 BP 139/83 01/16/23 04:00 Pulse Ox 96 01/16/23 04:00 FiO2 Intake & Output 01/15/23 01/16/23 01/16/23 18:59 06:59 18:59 Intake Total 843 Balance 843 Intake: IV 3 Invasive Line 4 3 Oral 840 Other: Voiding Method Toilet Toilet Urinal Urinal # Voids 4 - Labs CBC & Chem 7: 01/16/23 11:39 01/16/23 11:39 Labs: Abnormal Lab Results - Last 24 Hours (Table) 01/15/23 01/15/23 01/15/23 Range/Units 08:29 08:29 08:29 WBC 0.8 L* (3.8-10.6) k/uL RBC 2.80 L (4.30-5.90) m/uL Hgb 8.6 L (13.0-17.5) gm/dL Hct 25.4 L (39.0-53.0) % RDW 16.6 H (11.5-15.5) % Plt Count 87 L (150-450) k/uL Sodium 135 L (137-145) mmol/L Potassium 3.2 L (3.5-5.1) mmol/L Creatinine 0.40 L 0.40 L (0.66-1.25) mg/dL Glucose 141 H (74-99) mg/dL Calcium 7.6 L (8.4-10.2) mg/dL Total Protein 5.1 L (6.3-8.2) g/dL Albumin 2.5 L (3.5-5.0) g/dL Microbiology - Last 24 Hours (Table) 01/13/23 11:41 Blood Culture - Preliminary Blood 01/13/23 11:41 Blood Culture - Preliminary Blood
[2023-01-16] MEDS: FILGRASTIM-SNDZ 480 MCG/0.8 ML SYRINGE SQ SCH (17:04)
[2023-01-16 17:14] LABS: Band Neutrophils % 11 %; Metamyelocytes % 4 %; Myelocytes # (M) 0.09 k/uL (0); Myelocytes % 1 %; Neutrophils % (M) 68 %; Nucleated Red Blood Cells 2 /100 WBC (0-0); Total Cells Counted 200
[2023-01-16 17:15] LABS: Lymphocytes # (M) 0.77 k/uL (1.0-4.8); Metamyelocytes # (M) 0.34 k/uL (0); Monocytes # (M) 0.77 k/uL (0-1.0); WBC 8.5 k/uL (3.8-10.6)
[2023-01-16 17:18] LABS: Polychromasia Present
[2023-01-17] MEDS: HYDROcodone/APAP 10-325MG 1 EACH TAB PO SCH ×3 (00:04→16:53)
[2023-01-17] MEDS: CEFEPIME 2 GM in SODIUM CHLORIDE 0.9% 100 ML IVPB SCH ×3 (00:05→16:53)
[2023-01-17] MEDS: ALPRAZolam 0.25 MG TAB PO PRN ×2 (00:26→22:36)
[2023-01-17] MEDS: VANCOMYCIN 1,250 MG in SODIUM CHLORIDE 0.9% 250 ML IVPB SCH ×3 (03:29→20:00)
[2023-01-17] MEDS: MORPHINE SULFATE 4 MG/ML SYRINGE IVP PRN ×3 (04:34→20:03)
[2023-01-17] MEDS: SODIUM CHLORIDE 0.9% 1,000 ML IV SCH (06:51)
[2023-01-17] MEDS: HYDROCORTISONE SUCCINATE 100 MG/2 ML VIAL IV SCH ×2 (08:31→16:53)
[2023-01-17] MEDS: BENZONATATE 100 MG CAP PO SCH ×3 (08:31→22:30)
[2023-01-17] MEDS: DULoxetine HCL 30 MG CAPSULE.DR PO SCH (08:31)
[2023-01-17] MEDS: MAGNESIUM OXIDE 400 MG TAB PO SCH (08:31)
[2023-01-17] MEDS: FLUDROCORTISONE 0.1 MG TAB PO SCH (08:31)
[2023-01-17] MEDS: ATORVASTATIN 40 MG TAB PO SCH (08:31)
[2023-01-17] MEDS: MAG HYDROX/AL HYDROX/SIMETH 30 ML, LIDOCAINE VISCOUS 2% 30 ML, diphenhydrAMINE ELIXIR 7... PO SCH ×20 (08:32→22:30)
[2023-01-17] MEDS: ENOXAPARIN 40 MG/0.4 ML SYRINGE SQ SCH (08:32)
[2023-01-17] MEDS: TIOTROPIUM 2.5 MCG INHALER INHALATION SCH (09:38)
[2023-01-17] MEDS: SYMBICORT 160-4.5 MCG INHALER INHALATION SCH ×2 (09:38→21:16)
[2023-01-17] MEDS ORDERED: VANCOMYCIN TROUGH DUE 1 EACH MISC MISCELLANE ONE (10:00)
[2023-01-17] MEDS ORDERED: SODIUM CHLORIDE 0.65% NASAL SPRAY 44 ML BTL NASAL PRN (11:38)
[2023-01-17 11:41] LABS: Anisocytosis Slight; HCT 25.6 % (39.0-53.0); HGB 8.3 gm/dL (13.0-17.5); Hypochromasia Moderate; MCH 30.4 pg (25.0-35.0); MCHC 32.3 g/dL (31.0-37.0); MCV 94.1 fL (80.0-100.0); Mean Platelet Volume 11.3; Platelet Count 104 k/uL (150-450); RBC 2.72 m/uL (4.30-5.90); RDW 17.5 % (11.5-15.5); WBC 38.6 k/uL (3.8-10.6)
[2023-01-17 12:09] LABS: ALT 21 U/L (4-49); AST 28 U/L (17-59); African American GFR (CKD) >90 (>60 ml/min/1.73 sqM); Albumin 2.2 g/dL (3.5-5.0); Alkaline Phosphatase 88 U/L (38-126); Anion Gap 6 mmol/L; Blood Urea Nitrogen 18 mg/dL (9-20); Calcium 7.1 mg/dL (8.4-10.2); Carbon Dioxide 21 mmol/L (22-30); Chloride 106 mmol/L (98-107); Glucose 120 mg/dL (74-99); Magnesium 1.7 mg/dL (1.6-2.3); Non-African American GFR(CKD) >90 (>60 ml/min/1.73 sqM); Potassium 2.8 mmol/L (3.5-5.1); Sodium 133 mmol/L (137-145); Total Bilirubin 0.8 mg/dL (0.2-1.3); Total Protein 4.9 g/dL (6.3-8.2)
[2023-01-17] MEDS: POTASSIUM CHLORIDE 10 MEQ in WATER FOR INJECTION 1 100ML.BAG IVPB SCH ×6 (12:59→23:34)
--- NOTE | 2023-01-17 13:09 | P.PN ---
Subjective Progress Note Date: 01/17/23 Principal diagnosis: Metastatic non-small cell lung cancer -No acute events overnight -He notes having persistent mucositis along the gingiva, causing trouble with eating and swallowing -He continues to use saline mouth rinses with Magic mouthwash with mild relief -Notes nasal congestion and dryness with supplemental oxygen Objective - Vital Signs Vital signs: Vital Signs Temp 97.9 F 01/17/23 12:00 Pulse 91 01/17/23 12:00 Resp 20 01/17/23 12:00 BP 110/73 01/17/23 12:00 Pulse Ox 92 L 01/17/23 12:00 FiO2 Intake & Output 01/16/23 01/17/23 01/17/23 18:59 06:59 18:59 Intake Total 1300 200 118 Output Total 0 300 300 Balance 1300 -100 -182 Intake: Intake, IV Titration 1300 Amount Cefepime 2 gm In Sodium 200 Chloride 0.9% 100 ml @ 25 mls/hr IVPB Q8HR NANI Rx# :[id number] Potassium Chloride 10 meq 400 In Water For Injection 1 100ml.bag @ 100 mls/hr IVPB Q1H NANI Rx#: [id number] Sodium Chloride 0.9% 1, 450 000 ml @ 75 mls/hr IV . [id number] NANI Rx#:[id number] Vancomycin 1,250 mg In 250 Sodium Chloride 0.9% 250 ml @ 125 mls/hr IVPB Q8H NANI Rx#:[id number] Oral 200 118 Output: Gastric Drainage 0 Urine 0 300 300 Stool 0 0 Urine/Stool Mix 0 Emesis 0 Oral Regurgitation 0 Other 0 Other: Voiding Method Toilet Urinal # Voids 3 # Bowel Movements 0 - Constitutional General appearance: Present: cooperative, no acute distress - EENT Eyes: Present: EOMI - Respiratory Respiratory: bilateral: CTA - Cardiovascular Rhythm: regular - Gastrointestinal General gastrointestinal: Present: soft. Absent: distended, tenderness - Integumentary Integumentary Comment(s): Port site clean/dry/intact Integumentary: Absent: rash - Neurologic Neurologic: Present: CNII-XII intact. Absent: focal deficits - Labs CBC & Chem 7: 01/17/23 10:03 01/17/23 10:03 Labs: Abnormal Lab Results - Last 24 Hours (Table) 01/16/23 01/17/2301/17/23 Range/Units 11:39 10:03 10:03 WBC 38.6 H (3.8-10.6) k/uL RBC 2.72 L (4.30-5.90) m/uL Hgb 8.3 L (13.0-17.5) gm/dL Hct 25.6 L (39.0-53.0) % RDW 17.5 H (11.5-15.5) % Plt Count 95 L 104 L (150-450) k/uL Lymphocytes # (Manual) 0.77 L (1.0-4.8) k/uL Metamyelocytes # (Man) 0.34 H (0) k/uL Myelocytes # (Manual) 0.09 H (0) k/uL Nucleated RBCs 2 H (0-0) /100 WBC Sodium 133 L (137-145) mmol/L Potassium 2.8 L (3.5-5.1) mmol/L Carbon Dioxide 21 L (22-30) mmol/L Creatinine 0.44 L (0.66-1.25) mg/dL Glucose 120 H (74-99) mg/dL Calcium 7.1 L (8.4-10.2) mg/dL Total Protein 4.9 L (6.3-8.2) g/dL Albumin 2.2 L (3.5-5.0) g/dL Microbiology - Last 24 Hours (Table) 01/13/23 11:41 Blood Culture - Preliminary Blood 01/13/23 11:41 Blood Culture - Preliminary Blood Assessment and Plan (1) Antineoplastic chemotherapy induced pancytopenia Current Visit: Yes Status: Acute Priority: High Code(s): D61.810 - ANTINEOPLASTIC CHEMOTHERAPY INDUCED PANCYTOPENIA; T45.1X5A - ADVERSE EFFECT OF ANTINEOPLASTIC AND IMMUNOSUP DRUGS, INIT SNOMED Code(s): 389506686720636 (2) Neutropenic fever Current Visit: Yes Status: Acute Priority: High Code(s): D70.9 - NEUTROPENIA, UNSPECIFIED; R50.81 - FEVER PRESENTING WITH CONDITIONS CLASSIFIED ELSEWHERE SNOMED Code(s): 688951805 (3) Non-small cell lung cancer Current Visit: Yes Status: Acute Priority: High Code(s): C34.90 - MALIG NANT NEOPLASM OF UNSP PART OF UNSP BRONCHUS OR LUNG SNOMED Code(s): 132857106 Plan: Neutropenic fever: -Presented with fever. T max 102.3, afebrile since admission -Pancultures negative thus far -Continues on empiric cefipeme -Given that he has had recovery of neutrophils greater than 1000 with infectious workup being negative, he could be transition to oral fluoroquinolone that has Pseudomonas coverage to complete a 7-day course of antibiotics Chemotherapy-induced pancytopenia -Patient received treatment on 01/06/23 -He had received 3 days of filgrastim from 01/14/2023 [id number]/14/2023 through 01/16/2023 with neutrophilic leukocytosis and improvement in platelet counts to 104 -His WBC of 38.6 is secondary to filgrastim -Given ANC is above thousand, filgrastim was discontinued -Continue prophylactic dose lovenox as long as platelets greater than 50,000. -Continue CBC daily Mucositis: -Secondary to Taxotere chemotherapy -Noted lesions on the upper and lower gingiva -Continue Kools solution and salt and soda rinses -We discussed that this should continue to improve over the next few days as his neutrophils have recovered -Given he is on hydrocortisone for adrenal insufficiency, we will not add dexamethasone at this time, which can sometimes help with mucositis -If this does not improve in the next 24 hours, oral dexamethasone solution could be considered Metastatic non-small cell lung cancer -Full history in consult HPI -Last received treatment on 01/06/23 with cycle 1 Cyramza and taxotere -Treatment on hold at this time pending resolution/stability of current situation -Continue follow-up at [facility] in [place] as planned. Spoke with primary oncologist Dr. Dawson, who is agreeable with plan Cra Thacker MD
[2023-01-17] MEDS: MAGNESIUM SULFATE-D5W PMX 1 GM in DEXTROSE/WATER 1 100ML.BAG IVPB SCH ×2 (14:12→15:27)
--- NOTE | 2023-01-17 14:45 | P.PN ---
Subjective Progress Note Date: 01/17/23 Hospital course: Patient is a very pleasant 57-year-old male with known adenocarcinoma of the lung stage IV being followed at, [facility] complicated by adrenal insufficiency, HLD, Chornic hypoxic respiratory failure on 3L NC, and COPD who presented to the ER with complaints of a syncopal episode at home lasting less than 30 seconds. On arrival to the ER he was noted to be febrile with a temperature of 102.4 and tachycardic with pulse of 120. Initial laboratory analysis included CBC, CMP, magnesium, and urinalysis which were remarkable for white blood cell count 0.5, hemoglobin 12.4, platelets 121, sodium 133, magnesium 1.5, bilirubin 1.4. Urinalysis was negative for signs of infection. COVID19, influenza A/B, RSV testing was negative. C. diff was negative. Chest x-ray demonstrated right-sided consolidation and stable hydropneumothorax with chest tube in position. He then developed hypotension with blood pressure of 88/62. He was given 3 L of normal saline, Solu-Cortef 100 mg IV 1, Florinef 0.1 mg with improvements in his BP. He was givena dose of cefepime. Arrangements were made for admission and oncology was consulted. He was continued on cefepime and vancomycin was added. He was noted have significant mucositis and was started on Magic mouthwash. CT head negative and echo with EF 50-55%. Physical exam: Patient was seen and fully evaluated at the bedside. Patient reports he continues to have difficulty swallowing due to pain but has been taking his cools solution just prior to mealtime to assist with enabling him to tolerate oral intake. Patient reports overall he is feeling slightly better today than he did yesterday. Vital signs reviewed General: Chronically ill appearing, no acute distress, appears at stated age Cardiovascular: Regular rate and rhythm with S1S2 reg, no murmur, positive posterior tibial pulse bilateral, Lungs: Course breath sounds bilaterally with soft expiratory wheezes and no rhonchi or rales , no accessory muscle use Abdominal: soft, nontender to palpation, no guarding, no appreciable organo megaly Ext: No gross muscle atrophy, no edema b/l lower extremities, no contractures Neuro: CN II-XI grossly intact, no focal neuro deficits Psych: Alert, oriented, appropriate affect Assessment and Plan of Care: Neutropenic Fever Severe stomatitis Syncope due to dehydration Adrenal insufficiency due to immunotherapy and prior adrenal radiation Stage IV lung cancer with chronic right sided pleural effusion s/p pleurx cath Pancytopenia, chemo induced Hyponatremia due to dehydration -Continuation of IV antibiotics with vancomycin day #5 and cefepime 2 g every 12 hours day #4, monitor renal function and vancomycin trough closely. Most recent vancomycin trough therapeutic at 19.8 and current renal function showing BUN 18, creatinine 0.44, GFR greater than 90. -Patient is tolerating oral intake better today, discontinued IV fluid infusion. -Oncology following and reviewed documentation in chart. -Blood cultures showing no growth to date -WBC count increasing from 0.5 up to 38.6 this morning, Filgrastim-sndz was discontinued. -Continued close monitoring with repeat CBC and CMP -Continuation of Cools solution and soda and salt mouth wash Hypokalemia Potassium 2.8, orders placed for potassium chloride 10 mEq hourly 8 doses to a total of 80 mEq. Patient unable to swallow K Dur tablet and was unable to tolerate K-Lyte secondary to burning sensation was already severe stomatitis. Hypomagnesemia -Orders placed for magnesium sulfate 2 g IVPB 1 dose. Data and imaging reviewed: -Morning labs reviewed. CBC showing leukocytosis with WBC count increasing to 38.6, oncology discontinued filgrastim. CBC otherwise showing normocytic anemia with hemoglobin of 8.3 and thrombocytopenia of 104. BMP revealing a hyponatremia with sodium 133, hypokalemia with potassium of 2.8, and magnesium also low at 1.7. -Vital signs reviewed. Blood pressure 145/88, heart rate 79, respiratory rate 20, temperature 97.7F, SpO2 of 90% on 2 L O2. DVT prophylaxis: Lovenox Anticipated discharge date: Clinical course to determine Anticipated discharge place: home Patient was seen independently by Nurse Pracitioner. This document was prepared using [employer] dictation software. Please allow for errors in [employer] preparation worker, while rare they do occur. Objective - Vital Signs Vital signs: Vital Signs Temp 97.6 F 01/17/23 04:00 Pulse 79 01/17/23 04:00 Resp 16 01/17/23 04:00 BP 138/81 01/17/23 04:00 Pulse Ox 93 L 01/17/23 04:00 FiO2 Intake & Output 01/16/23 01/17/23 01/17/23 18:59 06:59 18:59 Intake Total 1300 200 Output Total 0 300 Balance 1300 -100 Intake: Intake, IV Titration 1300 Amount Cefepime 2 gm In Sodium 200 Chloride 0.9% 100 ml @ 25 mls/hr IVPB Q8HR NANI Rx# :[id number] Potassium Chloride 10 meq 400 In Water For Injection 1 100ml.bag @ 100 mls/hr IVPB Q1H NANI Rx#: [id number] Sodium Chloride 0.9% 1, 450 000 ml @ 75 mls/hr IV . [id number] NANI Rx#:[id number] Vancomycin 1,250 mg In 250 Sodium Chloride 0.9% 250 ml @ 125 mls/hr IVPB Q8H NANI Rx#:[id number] Oral 200 Output: Gastric Drainage 0 Urine 0 300 Stool 0 0 Urine/Stool Mix 0 Emesis 0 Oral Regurgitation 0 Other 0 Other: Voiding Method Toilet Urinal # Voids 3 # Bowel Movements 0 - Labs CBC & Chem 7: 01/17/23 10:03 01/17/23 10:03 Labs: Abnormal Lab Results - Last 24 Hours (Table) 01/16/23 01/16/23 Range/Units 11:39 11:39 RBC 2.67 L (4.30-5.90) m/uL Hgb 7.9 L (13.0-17.5) gm/dL Hct 24.4 L (39.0-53.0) % RDW 17.0 H (11.5-15.5) % Plt Count 95 L (150-450) k/uL Lymphocytes # (Manual) 0.77 L (1.0-4.8) k/uL Metamyelocytes # (Man) 0.34 H (0) k/uL Myelocytes # (Manual) 0.09 H (0) k/uL Nucleated RBCs 2 H (0-0) /100 WBC Sodium 134 L (137-145) mmol/L Potassium 2.7 L* (3.5-5.1) mmol/L Chloride 109 H (98-107) mmol/L Carbon Dioxide 21 L (22-30) mmol/L Creatinine 0.42 L (0.66-1.25) mg/dL Calcium 7.1 L (8.4-10.2) mg/dL Total Protein 5.0 L (6.3-8.2) g/dL Albumin 2.3 L (3.5-5.0) g/dL Microbiology - Last 24 Hours (Table) 01/13/23 11:41 Blood Culture - Preliminary Blood 01/13/23 11:41 Blood Culture - Preliminary Blood
[2023-01-17] MEDS: LORazepam 1 MG TAB PO PRN (16:27)
[2023-01-18] MEDS: POTASSIUM CHLORIDE 10 MEQ in WATER FOR INJECTION 1 100ML.BAG IVPB SCH ×2 (00:37→02:23)
[2023-01-18] MEDS: MORPHINE SULFATE 4 MG/ML SYRINGE IVP PRN ×2 (01:25→21:08)
[2023-01-18] MEDS: HYDROcodone/APAP 10-325MG 1 EACH TAB PO SCH ×3 (02:26→16:24)
[2023-01-18] MEDS: CEFEPIME 2 GM in SODIUM CHLORIDE 0.9% 100 ML IVPB SCH ×3 (02:27→16:26)
[2023-01-18] MEDS: VANCOMYCIN 1,250 MG in SODIUM CHLORIDE 0.9% 250 ML IVPB SCH ×3 (03:31→21:06)
[2023-01-18] MEDS: ATORVASTATIN 40 MG TAB PO SCH (08:25)
[2023-01-18] MEDS: FLUDROCORTISONE 0.1 MG TAB PO SCH (08:25)
[2023-01-18] MEDS: DULoxetine HCL 30 MG CAPSULE.DR PO SCH (08:25)
[2023-01-18] MEDS: BENZONATATE 100 MG CAP PO SCH ×3 (08:25→21:07)
[2023-01-18] MEDS: MAGNESIUM OXIDE 400 MG TAB PO SCH (08:25)
[2023-01-18] MEDS: ENOXAPARIN 40 MG/0.4 ML SYRINGE SQ SCH (08:26)
[2023-01-18] MEDS: MAG HYDROX/AL HYDROX/SIMETH 30 ML, LIDOCAINE VISCOUS 2% 30 ML, diphenhydrAMINE ELIXIR 7... PO SCH ×20 (08:27→21:09)
[2023-01-18] MEDS: HYDROCORTISONE SUCCINATE 100 MG/2 ML VIAL IV SCH ×2 (08:27→16:27)
[2023-01-18] MEDS: SYMBICORT 160-4.5 MCG INHALER INHALATION SCH ×2 (08:32→21:14)
[2023-01-18] MEDS: TIOTROPIUM 2.5 MCG INHALER INHALATION SCH (08:32)
--- NOTE | 2023-01-18 09:30 | P.PN ---
Subjective Progress Note Date: 01/18/23 Hospital course: Patient is a very pleasant 57-year-old male with known adenocarcinoma of the lung stage IV being followed at, [facility] complicated by adrenal insufficiency, HLD, Chornic hypoxic respiratory failure on 3L NC, and COPD who presented to the ER with complaints of a syncopal episode at home lasting less than 30 seconds. On arrival to the ER he was noted to be febrile with a temperature of 102.4 and tachycardic with pulse of 120. Initial laboratory analysis included CBC, CMP, magnesium, and urinalysis which were remarkable for white blood cell count 0.5, hemoglobin 12.4, platelets 121, sodium 133, magnesium 1.5, bilirubin 1.4. Urinalysis was negative for signs of infection. COVID19, influenza A/B, RSV testing was negative. C. diff was negative. Chest x-ray demonstrated right-sided consolidation and stable hydropneumothorax with chest tube in position. He then developed hypotension with blood pressure of 88/62. He was given 3 L of normal saline, Solu-Cortef 100 mg IV 1, Florinef 0.1 mg with improvements in his BP. He was givena dose of cefepime. Arrangements were made for admission and oncology was consulted. He was continued on cefepime and vancomycin was added. He was noted have significant mucositis and was started on Magic mouthwash. CT head negative and echo with EF 50-55%. Physical exam: Patient was seen and fully evaluated at the bedside. Patient was sitting in restroom at time of assessment, reports new onset bright red blood per rectum. Patient did have noted bright red blood in toilet with soft formed stools along with blood clots. Patient denies abdominal pain or discomfort. Awaiting morning labs to be drawn, orders to be changed from routine to stat labs. Vital signs reviewed General: Chronically ill appearing, no acute distress, appears at stated age Cardiovascular: Regular rate and rhythm with S1S2 reg, no murmur, positive posterior tibial pulse bilateral, Lungs: Course breath sounds bilaterally with soft expiratory wheezes and no rhonchi or rales , no accessory muscle use Abdominal: soft, nontender to palpation, no guarding, no appreciable organomegaly Ext: No gross muscle atrophy, no edema b/l lower extremities, no contractures Neuro: CN II-XI grossly intact, no focal neuro deficits Psych: Alert, oriented, appropriate affect Assessment and Plan of Care: Neutropenic Fever Severe stomatitis Syncope due to dehydration Adrenal insufficiency due to immunotherapy and prior adrenal radiation Stage IV lung cancer with chronic right sided pleural effusion s/p pleurx cath Pancytopenia, chemo induced Hyponatremia due to dehydration -Continuation of IV antibiotics with vancomycin day #5 and cefepime 2 g every 12 hours day #4, monitor renal function and vancomycin trough closely. Most recent vancomycin trough therapeutic at 19.8 and current renal function showing BUN 18, creatinine 0.44, GFR greater than 90. -Patient is tolerating oral intake better today, discontinued IV fluid infusion. 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 -Blood cultures showing no growth to date -WBC count increasing from 0.5 up to 38.6, Filgrastim-sndz was discontinued. -Continued close monitoring with repeat CBC and CMP -Continuation of Cools solution and soda and salt mouth wash Acute lower GI bleed, with bright red blood per rectum -Consult Gastroenterology. -Patient currently free from abdominal pain/discomfort, will let GI determine if they would like to proceed with CT abdomen and pelvis or if patient develops any complaints of pain, we will place order for CT abdomen and pelvis at that time. -Monitor H&H every 6 hours x 4 and transfuse as needed for hemoglobin less than 7. -Protonix 40 mg IVP twice daily. -Clear liquid diet until cleared by GI. -Continued gentle hydration with 0.9% normal. -SCDs for DVT prophylaxis. Hypokalemia Potassium was 2.8, patient received potassium chloride 10 mEq hourly 8 doses to a total of 80 mEq. Awaiting morning labs to be drawn. Will follow up on these results and place additional orders as indicated based upon these findings. Hypomagnesemia -Magnesium 1.7, patient received magnesium sulfate 2 g IVPB 1 dose. Awaiting morning labs to be drawn. Will follow up on these results and place additional orders as indicated based upon these findings. Data and imaging reviewed: -Awaiting morning labs to be drawn, discontinued routine orders and placed order for stat CBC now followed by every 6 hours 4 secondary to acute lower GI bleed. -Vital signs reviewed. Blood pressure 157/93, heart rate 72, respiratory rate 18, temp 97.6F, and SpO2 of 96% on 2 L. DVT prophylaxis: SCDs Anticipated discharge date: Clinical course to determine Anticipated discharge place: home Patient was seen independently by Nurse Pracitioner. This document was prepared using [employer] dictation software. Please allow for errors in barrel reamer, while rare they do occur. I reviewed the documentation as provided by the KYLIE above, who is the original author of this note. I agree with the documented assessment and plan, with the following changes: none Objective - Vital Signs Vital signs: Vital Signs Temp 97.6 F 01/18/23 03:35 Pulse 72 01/18/23 03:35 Resp 18 01/18/23 03:35 BP 157/93 01/18/23 03:35 Pulse Ox 96 01/18/23 03:35 FiO2 Intake & Output 01/17/23 01/18/23 01/18/23 18:59 06:59 18:59 Intake Total 1286 Output Total 600 300 Balance 686 -300 Intake: Intake, IV Titration 1050 Amount Cefepime 2 gm In Sodium 200 Chloride 0.9% 100 ml @ 25 mls/hr IVPB Q8HR NANI Rx# :[id number] Magnesium Sulfate-D5w Pmx 200 1 gm In Dextrose/Water 1 100ml.bag @ 100 mls/hr IVPB Q1H NANI Rx#: [id number] Potassium Chloride 10 meq 400 In Water For Injection 1 100ml.bag @ 100 mls/hr IVPB Q1H NANI Rx#: [id number] Vancomycin 1,250 mg In 250 Sodium Chloride 0.9% 250 ml @ 125 mls/hr IVPB Q8H NANI Rx#:[id number] Oral 236 Output: Urine 600 300 Other: Voiding Method Toilet Urinal # Voids 4 - Labs CBC & Chem 7: 01/18/23 09:37 01/18/23 09:37 Labs: Abnormal Lab Results - Last 24 Hours (Table) 01/17/23 01/17/23 Range/Units 10:03 10:03 WBC 38.6 H (3.8-10.6) k/uL RBC 2.72 L (4.30-5.90) m/uL Hgb 8.3 L (13.0-17.5) gm/dL Hct 25.6 L (39.0-53.0) % RDW 17.5 H (11.5-15.5) % Plt Count 104 L (150-450) k/uL Sodium 133 L (137-145) mmol/L Potassium 2.8 L (3.5-5.1) mmol/L Carbon Dioxide 21 L (22-30) mmol/L Creatinine 0.44 L (0.66-1.25) mg/dL Glucose 120 H (74-99) mg/dL Calcium 7.1 L (8.4-10.2) mg/dL Total Protein 4.9 L (6.3-8.2) g/dL Albumin 2.2 L (3.5-5.0) g/dL
[2023-01-18 10:17] LABS: Prothrombin Time 11.3 sec (10.0-12.5)
[2023-01-18 10:18] LABS: Partial Thromboplastin Time 26.2 sec (22.0-30.0)
[2023-01-18] MEDS: ALBUTEROL HFA INHALER INHALATION PRN ×2 (11:09→21:04)
[2023-01-18] MEDS: LORazepam 1 MG TAB PO PRN (11:29)
[2023-01-18 11:42] LABS: Anisocytosis Slight; HCT 28.6 % (39.0-53.0); HGB 9.3 gm/dL (13.0-17.5); Hypochromasia Slight; MCH 30.1 pg (25.0-35.0); MCHC 32.5 g/dL (31.0-37.0); MCV 92.7 fL (80.0-100.0); Mean Platelet Volume 12.6; Platelet Count 123 k/uL (150-450); RBC 3.09 m/uL (4.30-5.90); RDW 18.3 % (11.5-15.5)
[2023-01-18 11:45] LABS: WBC 51.5 k/uL (3.8-10.6)
[2023-01-18] MEDS: DEXAMETHASONE SOD PHOSPHATE 10 MG/ML 1 ML VIAL PO SCH ×2 (12:25→16:25)
[2023-01-18] MEDS: PANTOPRAZOLE 40 MG/10 ML VIAL IVP SCH ×2 (12:25→21:07)
--- NOTE | 2023-01-18 13:11 | P.PN ---
Subjective Progress Note Date: 01/18/23 -This morning pt reports having miguel blood in stool. Denies melena and blood clots. Reports this is his first BM in 3 days and was straining during BM. IM has consulted GI -He notes having persistent mucositis along the gingiva but does reports improvement today in sx but is still causing trouble with eating and swallowing. -He continues to use saline mouth rinses with Magic mouthwash with mild relief. Will add dex solution rinse Objective - Vital Signs Vital signs: Vital Signs Temp 97.3 F L 01/18/23 08:00 Pulse 70 01/18/23 08:00 Resp 16 01/18/23 08:00 BP 155/86 01/18/23 08:00 Pulse Ox 92 L 01/18/23 11:10 FiO2 Intake & Output 01/17/23 01/18/23 01/18/23 18:59 06:59 18:59 Intake Total 1286 225 Output Total 600 300 0 Balance 686 -300 225 Intake: Intake, IV Titration 1050 Amount Cefepime 2 gm In Sodium 200 Chloride 0.9% 100 ml @ 25 mls/hr IVPB Q8HR NANI Rx# :[id number] Magnesium Sulfate-D5w Pmx 200 1 gm In Dextrose/Water 1 100ml.bag @ 100 mls/hr IVPB Q1H NANI Rx#: [id number] Potassium Chloride 10 meq 400 In Water For Injection 1 100ml.bag @ 100 mls/hr IVPB Q1H NANI Rx#: [id number] Vancomycin 1,250 mg In 250 Sodium Chloride 0.9% 250 ml @ 125 mls/hr IVPB Q8H NANI Rx#:[id number] Oral 236 225 Output: Urine 600 300 Stool 0 Other: Voiding Method Toilet Toilet Urinal Urinal # Voids 4 1 # Bowel Movements 1 - Constitutional General appearance: Present: average body habitus, no acute distress - EENT Eyes: Present: anicteric sclerae, EOMI ENT: Present: hearing grossly normal - Respiratory Details: breathing is even and unlabored - Cardiovascular Details: skin warm and dry - Integumentary Integumentary: Present: pale. Absent: cyanotic - Musculoskeletal Musculoskeletal: Present: generalized weakness - Psychiatric Psychiatric: Present: A&O x's 3 - Labs CBC & Chem 7: 01/18/23 09:37 01/17/23 10:03 Labs: Abnormal Lab Results - Last 24 Hours (Table) 01/18/23 Range/Units 09:37 WBC 51.5 H* (3.8-10.6) k/uL RBC 3.09 L (4.30-5.90) m/uL Hgb 9.3 L (13.0-17.5) gm/dL Hct 28.6 L (39.0-53.0) % RDW 18.3 H (11.5-15.5) % Plt Count 123 L (150-450) k/uL Assessment and Plan (1) Neutropenic fever Current Visit: Yes Status: Acute Priority: High Code(s): D70.9 - NEUTROPENIA, UNSPECIFIED; R50.81 - FEVER PRESENTING WITH CONDITIONS CLASSIFIED ELSEWHERE SNOMED Code(s): 958792254 (2) Non-small cell lung cancer Current Visit: Yes Status: Acute Priority: High Code(s): C34.90 - MALIGNANT NEOPLASM OF UNSP PART OF UNSP BRONCHUS OR LUNG SNOMED Code(s): 192670198 (3) Antineoplastic chemotherapy induced pancytopenia Current Visit: Yes Status: Acute Priority: High Code(s): D61.810 - ANTINEOPLASTIC CHEMOTHERAPY INDUCED PANCYTOPENIA; T45.1X5A - ADVERSE EFFECT OF ANTINEOPLASTIC AND IMMUNOSUP DRUGS, INIT SNOMED Code(s): 647367626961229 Plan: Neutropenic fever: -Presented with fever. T max 102.3, afebrile since admission -Pancultures negative thus far -Continues on empiric cefipeme -Given that he has had recovery of neutrophils greater than 1000 with infectious workup being negative, he could be transition to oral fluoroquinolone that has Pseudomonas coverage to complete a 7-day course of antibiotics Chemotherapy-induced pancytopenia -Patient received treatment on 01/06/23 -He had received 3 days of filgrastim from 01/14/2023 [id number]/2023 through 01/16/2023 with neutrophilic leukocytosis and improvement in platelet counts to 123 -His WBC of 56.4 is secondary to filgrastim -Given ANC is above thousand, filgrastim was discontinued -Continue prophylactic dose lovenox as long as platelets greater than 50,000. -Continue CBC daily Mucositis: -Secondary to Taxotere chemotherapy -Noted lesions on the upper and lower gingiva -Continue Kools solution and salt and soda rinses. Will add dex solution rinse -We discussed that this should continue to improve over the next few days as his neutrophils have recovered Rectal bleeding: -This morning pt reports having miguel blood in stool. Denies melena and blood clots. Reports this is his first BM in 3 days and was straining during BM. Could likely be caused by hemorrhoids with straining. Hgb actually improved today 9.3 -GI has been consulted Metastatic non-small cell lung cancer -Full history in consult HPI -Last received treatment on 01/06/23 with cycle 1 Cyramza and taxotere -Treatment on hold at this time pending resolution/stability of current situation -Continue follow-up at [facility] in [place] as planned. Spoke with primary oncologist Dr. Dawson, who is agreeable with plan Attests: I have seen and examined pt, performed H&P, developed impression and plan of care. Discussed with dictator. Agree with documentation, dictated as a scribe.
--- NOTE | 2023-01-18 13:27 | P.CONS ---
History of Present Illness - Reason for Consult Consult date: 01/18/23 Acute lower GI bleed with bright red blood Requesting physician: Delfin Fritz - Chief Complaint Syncope, dehydration - History of Present Illness This a pleasant 57-year-old male with a history of lung cancer on chemotherapy who presented to the emergency department on 01/13/2023 with complaints of syncopal episodes, diarrhea and dehydration. Patient was diagnosed with stage IV metastatic lung cancer diagnosed about 3 years ago currently on chemotherapy, he was admitted with neutropenic fever and dehydration. The patient states he was diagnosed about 3 years ago had treatment and then things were stable and he was really sick from his chemotherapy so they stopped treatment. Recently cancer was growing and now has gone to the liver. During this hospitalization apparently today he had a bowel movement after not having one for the last 3 days duration and he had a little bit of blood in the toilet and on tissue. He states that he felt like he did have to strain a little bit however it was still soft. He had significant amount of diarrhea from his chemotherapy prior to coming into the hospital during his hospitalization up to last 3 days duration. Denied any blood in the stool at that time. States he does have a history of hemorrhoids. Denies any abdominal pain, nausea or vomiting at this time. Denies any history of GI bleed. Last colonoscopy was within the last few months done at [facility], reports currently not available. Patient's believes maybe he had a colon polyp at that time. Currently not on any anticoagulation. Labs WBC 51.5 hemoglobin 9.3 hematocrit 28.6 platelet count 123 INR 1.0 sodium 133 potassium 2.8 total bilirubin 0.8 AST 28 ALT 21 alkaline phosphatase 88 Review of Systems REVIEW OF SYSTEMS: CARDIOPULMONARY: No chest pain or shortness of breath. Gastrointestinal: No abdominal pain. No nausea or vomiting. No hematemesis, coffee-ground emesis. Small amount of bright red blood per rectum with bowel movement after straining. GENITOURINARY: No dysuria or hematuria. MUSCULOSKELETAL: Reports normal range of motion. SKIN: No rashes. No jaundice. ENDOCRINE: No chills, fevers. No excessive weight gain or loss. No polydipsia or polyuria. PSYCHIATRIC: Unremarkable. NEUROLOGY: No change in mental status. Denies dizziness, headache. ENT: Vision unremarkable. CONSTITUTIONAL: No recent weight loss. No fever, chills, night sweats. Past Medical History Past Medical History: Cancer, COPD, Hyperlipidemia, Hypertension, Pneumonia Additional Past Medical History / Comment(s): Wears O2@3L NC ATC,recurrent rt lung CA receiving chemo last [id number] @ [facility] 4 lung CA and adrenal left gland, had pneumonitis, 17 day stay in ICU with intial chemo and immuno therapy, emphysema,b/p runs low now since cancer dx and treatment had prior htn hx-has dizziness w/ falls at times improved with cortef; recurrent right-sided malignant pleural effusion History of Any Multi-Drug Resistant Organisms: None Reported Past Surgical History: Cholecystectomy Additional Past Surgical History / Comment(s): rt port a cath (power port); right sided thoracentesis 4, status post right Pleurx catheter placement on 10/27/2022 Past Anesthesia/Blood Transfusion Reactions: No Reported Reaction Additional Past Anesthesia/Blood Transfusion Reaction / Comm: no hx blood transfusions Past Psychological History: Anxiety Smoking Status: Former smoker Past Alcohol Use History: None Reported Additional Past Alcohol Use History / Comment(s): quit smoking 2011,<1 ppd Past Drug Use History: Marijuana Additional Drug Use History / Comment(s): use marijuana gummies at bedtime - Past Family History Mother Additional Family Medical History / Comment(s): Kidney failure, status post kidney transplant history of manic depressive Father Family Medical History: Cancer Additional Family Medical History / Comment(s): rt lung CA Medications and Allergies Home Medications Medication Instructions Recorded Confirmed Type ALPRAZolam [Xanax] 0.25 mg PO DAILY PRN 10/26/22 01/13/23 History Albuterol Sulfate [Albuterol 2 puff INHALATION RT-Q6H PRN 10/26/22 01/13/23 History Sulfate Hfa] Atorvastatin [Lipitor] 40 mg PO DAILY 10/26/22 01/13/23 History Benzonatate [Tessalon Perles] 100 mg PO TID 10/26/22 01/13/23 History Budesonide/Glycopyr/Formoterol 2 puff INHALATION RT-BID 10/26/22 01/13/23 History [Breztri Aerosphere Inhaler] Fludrocortisone [Florinef] 0.1 mg PO DAILY 10/26/22 01/13/23 History Ipratropium-Albuterol Nebulize 3 ml INHALATION RT-TID PRN 10/26/22 01/13/23 History [Duoneb 0.5 mg-3 mg/3 ml Soln] Pantoprazole Sodium [Protonix] 40 mg PO DAILY PRN 10/26/22 01/13/23 History Zolpidem Tartrate [Zolpidem 6.25 mg PO HS PRN 10/26/22 01/13/23 History Tartrate ER] ondansetron HCL [Zofran] 8 mg PO BID PRN 10/26/22 01/13/23 History Potassium Chloride [Klor-Con M20] 40 meq PO BID 11/06/22 01/13/23 History Slow-Mag 71.5mg 143 mg PO QID@,,,11/06/22 01/13/23 History HYDROcodone/APAP 10-325MG [[place] 1 - 2 tab PO Q8H 01/04/23 01/13/23 History 10-325] Hydrocortisone [Cortef] 20 mg PO DAILY@0900 01/04/23 01/13/23 History LORazepam [Ativan] 1 mg PO BID PRN 01/04/23 01/13/23 History Prochlorperazine [Compazine] 10 mg PO Q6H PRN 01/04/23 01/13/23 History Celecoxib [CeleBREX] 100 mg PO BID 01/13/23 01/13/23 History DULoxetine HCL [Cymbalta] 30 mg PO DAILY 01/13/23 01/13/23 History Hydrocortisone [Cortef] 10 mg PO DAILY@1700 01/13/23 01/13/23 History Magic 10 ml PO Q8H PRN 01/13/23 01/13/23 History Mouthwash(Mylanta/Benadryl/Lidocaine 1:1:1) Sennosides [Senokot] 8.6 mg PO BID PRN 01/13/23 01/13/23 History Allergies Allergy/AdvReac Type Severity Reaction Status Date / Time No Known Allergies Allergy Verified 01/13/23 12:13 Physical Exam Vitals: Vital Signs Temp Pulse Resp BP Pulse Ox 01/18/23 12:00 97.8 F 88 16 142/92 93 L 01/18/23 11:10 92 L 01/18/23 08:08 93 L 01/18/23 08:00 97.3 F L 70 16 155/86 95 01/18/23 03:35 97.6 F 72 18 157/93 96 01/18/23 02:00 69 01/17/23 23:38 69 18 155/99 94 L 01/17/23 20:17 97.7 F 70 20 147/90 94 L 01/17/23 20:00 70 01/17/23 17:00 97.7 F 78 20 138/85 91 L Intake and Output 01/17/23 01/18/23 01/18/23 22:59 06:59 14:59 Intake Total 1050 225 Output Total 300 300 0 Balance 750 -300 225 Intake: Intake, IV Titration 1050 Amount Cefepime 2 gm In Sodium 200 Chloride 0.9% 100 ml @ 25 mls/hr IVPB Q8HR NANI Rx# :[id number] Magnesium Sulfate-D5w Pmx 200 1 gm In Dextrose/Water 1 100ml.bag @ 100 mls/hr IVPB Q1H NANI Rx#: [id number] Potassium Chloride 10 meq 400 In Water For Injection 1 100ml.bag @ 100 mls/hr IVPB Q1H NANI Rx#: [id number] Vancomycin 1,250 mg In 250 Sodium Chloride 0.9% 250 ml @ 125 mls/hr IVPB Q8H NANI Rx#:[id number] Oral 225 Output: Urine 300 300 Stool 0 Other: Voiding Method Toilet Toilet Toilet Urinal Urinal Urinal # Voids 4 1 # Bowel Movements 1 General appearance: The patient is alert, oriented, appears in no acute distress. HET: Head is normocephalic and atraumatic. Conjunctiva pink. Sclera anicteric. Neck: Supple without lymphadenopathy. Trachea midline. Heart: Regular. Lungs: Equal expansion, normal respiratory effort. Abdomen: Soft, nontender, nondistended with bowel sounds. No guarding or rigidity. Skin: No rashes. No jaundice. Extremities: Normal skin color and turgor. No pedal edema. Neurological: No focal deficits. Alert and oriented x3. Results CBC & Chem 7: 01/18/23 09:37 01/17/23 10:03 Labs: Abnormal Lab Results - Last 24 Hours (Table) 01/18/23 Range/Units 09:37 WBC 51.5 H* (3.8-10.6) k/uL RBC 3.09 L (4.30-5.90) m/uL Hgb 9.3 L (13.0-17.5) gm/dL Hct 28.6 L (39.0-53.0) % RDW 18.3 H (11.5-15.5) % Plt Count 123 L (150-450) k/uL Assessment and Plan (1) Bright red blood per rectum Narrative/Plan: 57-year-old male here for dehydration and neutropenic fever with metastatic lung cancer had episode of bright red blood per rectum with bowel movement this morning. States he had not had a bowel movement for last 3 days and he did strain some. Does have a history of hemorrhoids. States there was a small amount seen a little on toilet tissue otherwise looks like maybe a little bit in the toilet and stool. No history of previous GI bleed. Recent colonoscopy done within the last few months duration and [facility]. We will request those records. No plans on colonoscopy at this time. Recommend Anusol per rectum. Continue to monitor for further GI bleed. Patient had recent significant amounts of diarrhea from chemotherapy, possible hemorrhoidal bleed. Current Visit: Yes Status: Acute Code(s): K62.5 - HEMORRHAGE OF ANUS AND RECTUM SNOMED Code(s): 85592471 (2) Antineoplastic chemotherapy induced pancytopenia Current Visit: Yes Status: Acute Priority: High Code(s): D61.810 - ANTINEOPLASTIC CHEMOTHERAPY INDUCED PANCYTOPENIA; T45.1X5A - ADVERSE EFFECT OF ANTINEOPLASTIC AND IMMUNOSUP DRUGS, INIT SNOMED Code(s): 611326395732660 (3) Non-small cell lung cancer Current Visit: Yes Status: Acute Priority: High Code(s): C34.90 - MALIGNANT NEOPLASM OF UNSP PART OF UNSP BRONCHUS OR LUNG SNOMED Code(s): 827715009 (4) Hypokalemia Current Visit: No Status: Acute Code(s): E87.6 - HYPOKALEMIA SNOMED Code(s): 06312299 (5) Leukocytosis Current Visit: Yes Status: Acute Code(s): D72.829 - ELEVATED WHITE BLOOD CELL COUNT, UNSPECIFIED SNOMED Code(s): 301181462 Plan: 1. Continue symptomatic and supportive care 2. Anusol per rectum 3. Daily CBC, transfuse for hemoglobin less than 7 4. Please get records of most recent colonoscopy at [facility] 5. No plans on colonoscopy at this time, patient had recent colonoscopy within last few months. Possible hemorrhoidal bleed. Thank you for this consultation, we will continue to follow. Dr. Tiffani Tian I agree with the dictator's note, documented as a scribe by Angy Hackett.
[2023-01-18 13:49] LABS: Band Neutrophils % 4 %; Lymphocytes # (M) 0.52 k/uL (1.0-4.8); Metamyelocytes # (M) 1.55 k/uL (0); Metamyelocytes % 3 %; Monocytes # (M) 1.03 k/uL (0-1.0); Myelocytes # (M) 2.58 k/uL (0); Myelocytes % 5 %; Neutrophils % (M) 87 %; Nucleated Red Blood Cells 0 /100 WBC (0-0); Total Cells Counted 200
[2023-01-18 13:50] LABS: Polychromasia Present
[2023-01-18 13:51] LABS: Poikilocytosis (M) Present
[2023-01-18 15:30] LABS: ALT 26 U/L (4-49); AST 35 U/L (17-59); African American GFR (CKD) >90 (>60 ml/min/1.73 sqM); Albumin 2.5 g/dL (3.5-5.0); Alkaline Phosphatase 140 U/L (38-126); Anion Gap 9 mmol/L; Blood Urea Nitrogen 21 mg/dL (9-20); Calcium 7.8 mg/dL (8.4-10.2); Carbon Dioxide 24 mmol/L (22-30); Chloride 99 mmol/L (98-107); Glucose 132 mg/dL (74-99); Non-African American GFR(CKD) >90 (>60 ml/min/1.73 sqM); Potassium 3.3 mmol/L (3.5-5.1); Sodium 132 mmol/L (137-145); Total Bilirubin 0.6 mg/dL (0.2-1.3); Total Protein 4.9 g/dL (6.3-8.2)
[2023-01-18 17:12] LABS: Anisocytosis Slight; HGB 8.4 gm/dL (13.0-17.5); Hypochromasia Slight; MCH 29.7 pg (25.0-35.0); MCHC 32.3 g/dL (31.0-37.0); MCV 91.9 fL (80.0-100.0); Mean Platelet Volume 12.5; Platelet Count 108 k/uL (150-450); Poikilocytosis Slight; RBC 2.83 m/uL (4.30-5.90); RDW 18.2 % (11.5-15.5)
[2023-01-18 17:34] LABS: WBC 54.4 k/uL (3.8-10.6)
[2023-01-18] MEDS ORDERED: POTASSIUM CHLORIDE ER 20 MEQ TAB.ER PO STA (17:35)
[2023-01-18] MEDS: HYDROCORTISONE 2.5% RECTAL CREAM 30 GM TUBE RECTAL SCH (21:08)
[2023-01-18 21:41] LABS: Anisocytosis Slight; HCT 26.1 % (39.0-53.0); HGB 8.5 gm/dL (13.0-17.5); Hypochromasia Slight; MCH 29.7 pg (25.0-35.0); MCHC 32.4 g/dL (31.0-37.0); MCV 91.6 fL (80.0-100.0); Mean Platelet Volume 11.3; Platelet Count 107 k/uL (150-450); Poikilocytosis Slight; RBC 2.85 m/uL (4.30-5.90); RDW 18.4 % (11.5-15.5)
[2023-01-18 21:43] LABS: WBC 47.1 k/uL (3.8-10.6)
[2023-01-19] MEDS: CEFEPIME 2 GM in SODIUM CHLORIDE 0.9% 100 ML IVPB SCH ×2 (00:03→09:39)
[2023-01-19] MEDS: HYDROcodone/APAP 10-325MG 1 EACH TAB PO SCH ×2 (00:04→09:37)
[2023-01-19] MEDS: DEXAMETHASONE SOD PHOSPHATE 10 MG/ML 1 ML VIAL PO SCH ×2 (00:04→06:20)
[2023-01-19] MEDS ORDERED: MAG HYDROX/AL HYDROX/SIMETH 30 ML, LIDOCAINE VISCOUS 2% 30 ML, diphenhydrAMINE ELIXIR 7... PO SCH ×5 (00:06)
[2023-01-19] MEDS: MORPHINE SULFATE 4 MG/ML SYRINGE IVP PRN ×3 (02:33→12:24)
[2023-01-19] MEDS: VANCOMYCIN 1,250 MG in SODIUM CHLORIDE 0.9% 250 ML IVPB SCH ×2 (02:36→12:21)
[2023-01-19 03:14] LABS: Anisocytosis Slight; HCT 23.9 % (39.0-53.0); HGB 7.8 gm/dL (13.0-17.5); Hypochromasia Slight; MCH 30.1 pg (25.0-35.0); MCHC 32.6 g/dL (31.0-37.0); MCV 92.3 fL (80.0-100.0); Mean Platelet Volume 12.2; Platelet Count 102 k/uL (150-450); RBC 2.59 m/uL (4.30-5.90); RDW 18.4 % (11.5-15.5); WBC 48.4 k/uL (3.8-10.6)
[2023-01-19 03:39] LABS: ALT 25 U/L (4-49); AST 29 U/L (17-59); African American GFR (CKD) >90 (>60 ml/min/1.73 sqM); Albumin 2.1 g/dL (3.5-5.0); Alkaline Phosphatase 99 U/L (38-126); Anion Gap 5 mmol/L; Blood Urea Nitrogen 19 mg/dL (9-20); Calcium 7.4 mg/dL (8.4-10.2); Carbon Dioxide 27 mmol/L (22-30); Chloride 100 mmol/L (98-107); Glucose 124 mg/dL (74-99); Magnesium 1.8 mg/dL (1.6-2.3); Non-African American GFR(CKD) >90 (>60 ml/min/1.73 sqM); Potassium 3.3 mmol/L (3.5-5.1); Sodium 132 mmol/L (137-145); Total Bilirubin 0.6 mg/dL (0.2-1.3); Total Protein 4.3 g/dL (6.3-8.2)
[2023-01-19] MEDS: ALBUTEROL HFA INHALER INHALATION PRN ×2 (08:07→15:31)
[2023-01-19] MEDS: TIOTROPIUM 2.5 MCG INHALER INHALATION SCH (08:10)
[2023-01-19] MEDS: SYMBICORT 160-4.5 MCG INHALER INHALATION SCH (08:10)
[2023-01-19] MEDS: MAGNESIUM OXIDE 400 MG TAB PO SCH (09:37)
[2023-01-19] MEDS: BENZONATATE 100 MG CAP PO SCH (09:37)
[2023-01-19] MEDS: DULoxetine HCL 30 MG CAPSULE.DR PO SCH (09:38)
[2023-01-19] MEDS: FLUDROCORTISONE 0.1 MG TAB PO SCH (09:38)
[2023-01-19] MEDS: ATORVASTATIN 40 MG TAB PO SCH (09:38)
[2023-01-19] MEDS: POTASSIUM CHLORIDE 10 MEQ in WATER FOR INJECTION 1 100ML.BAG IVPB SCH ×4 (09:38→13:28)
[2023-01-19] MEDS: PANTOPRAZOLE 40 MG/10 ML VIAL IVP SCH (09:40)
[2023-01-19] MEDS: HYDROCORTISONE SUCCINATE 100 MG/2 ML VIAL IV SCH (09:40)
[2023-01-19] MEDS: MAG HYDROX/AL HYDROX/SIMETH 30 ML, LIDOCAINE VISCOUS 2% 30 ML, diphenhydrAMINE ELIXIR 7... PO SCH ×10 (09:59→15:46)
[2023-01-19] MEDS: SALT AND SODA MOUTHWASH 1,000 ML PO PRN (09:59)
[2023-01-19 10:19] LABS: Anisocytosis Slight; HGB 8.3 gm/dL (13.0-17.5); Hypochromasia Slight; MCH 29.8 pg (25.0-35.0); MCHC 32.1 g/dL (31.0-37.0); MCV 92.9 fL (80.0-100.0); Mean Platelet Volume 11.4; Platelet Count 103 k/uL (150-450); RDW 18.6 % (11.5-15.5); WBC 43.2 k/uL (3.8-10.6)
[2023-01-19] MEDS: HYDROCORTISONE 2.5% RECTAL CREAM 30 GM TUBE RECTAL SCH (12:21)
[2023-01-19 12:40] VITALS: BP 157/87; PULSE 72; RESP 16; TEMP 98.1
--- NOTE | 2023-01-19 13:07 | P.PN ---
Subjective Progress Note Date: 01/19/23 Principal diagnosis: GI bleed This a pleasant 57-year-old male with a history of lung cancer on chemotherapy who presented to the emergency department on 01/13/2023 with complaints of syncopal episodes, diarrhea and dehydration. Patient was diagnosed with stage IV metastatic lung cancer diagnosed about 3 years ago currently on chemotherapy, he was admitted with neutropenic fever and dehydration. The patient states he was diagnosed about 3 years ago had treatment and then things were stable and he was really sick from his chemotherapy so they stopped treatment. Recently cancer was growing and now has gone to the liver. During this hospitalization apparently today he had a bowel movement after not having one for the last 3 days duration and he had a little bit of blood in the toilet and on tissue. He states that he felt like he did have to strain a little bit however it was still soft. He had significant amount of diarrhea from his chemotherapy prior to coming into the hospital during his hospitalization up to last 3 days duration. Denied any blood in the stool at that time. States he does have a history of hemorrhoids. Denies any abdominal pain, nausea or vomiting at this time. Denies any history of GI bleed. Last colonoscopy was within the last few months done at [facility], reports currently not available. Patient's believes maybe he had a colon polyp at that time. Currently not on any anticoagulation. Labs WBC 51.5 hemoglobin 9.3 hematocrit 28.6 platelet count 123 INR 1.0 sodium 133 potassium 2.8 total bilirubin 0.8 AST 28 ALT 21 alkaline phosphatase 88 01/19/2023 Patient states he hasn't had any further bowel movements no further rectal bleeding. Denies abdominal pain, nausea or vomiting. Plan is for discharge home today. Hemoglobin stable at 8.3 Objective - Vital Signs Vital signs: Vital Signs Temp 98.0 F 01/19/23 09:28 Pulse 78 01/19/23 09:28 Resp 18 01/19/23 09:28 BP 141/86 01/19/23 09:28 Pulse Ox 95 01/19/23 09:28 FiO2 Intake & Output 01/18/23 01/19/23 01/19/23 18:59 06:59 18:59 Intake Total 225 360 Output Total 200 1050 350 Balance 25 -1050 10 Weight 67.041 kg Intake: Oral 225 360 Output: Urine 200 1050 350 Stool 0 Other: Voiding Method Toilet Toilet Urinal Urinal # Voids 1 1 # Bowel Movements 1 - Exam General appearance: The patient is alert, oriented, appears in no acute distress. HET: Head is normocephalic and atraumatic. Conjunctiva pink. Sclera anicteric. Neck: Supple without lymphadenopathy. Abdomen: Soft, nontender, nondistended with bowel sounds. No guarding or rigidity. Extremities: Normal skin color and turgor. No pedal edema Skin: No rashes, no jaundice Neurological: No focal deficits. Alert and oriented. - Labs CBC & Chem 7: 01/19/23 09:39 01/19/23 03:02 Labs: Abnormal Lab Results - Last 24 Hours (Table) 01/18/23 01/18/23 01/18/23 Range/Units 09:37 09:37 16:34 WBC 51.5 H* 54.4 H* (3.8-10.6) k/uL RBC 3.09 L 2.83 L (4.30-5.90) m/uL Hgb 9.3 L 8.4 L (13.0-17.5) gm/dL Hct 28.6 L 26.0 L (39.0-53.0) % RDW 18.3 H 18.2 H (11.5-15.5) % Plt Count 123 L 108 L (150-450) k/uL Neutrophils # (Manual) 46.80 H (1.3-7.7) k/uL Lymphocytes # (Manual) 0.52 L (1.0-4.8) k/uL Monocytes # (Manual) 1.03 H (0-1.0) k/uL Metamyelocytes # (Man) 1.55 H (0) k/uL Myelocytes # (Manual) 2.58 H (0) k/uL Sodium 132 L (137-145) mmol/L Potassium 3.3 L (3.5-5.1) mmol/L BUN 21 H (9-20) mg/dL Creatinine 0.46 L (0.66-1.25) mg/dL Glucose 132 H (74-99) mg/dL Calcium 7.8 L (8.4-10.2) mg/dL Alkaline Phosphatase 140 H (38-126) U/L Total Protein 4.9 L (6.3-8.2) g/dL Albumin 2.5 L (3.5-5.0) g/dL 01/18/23 01/19/23 01/19/23 Range/Units 21:30 03:02 03:02 WBC 47.1 H 48.4 H (3.8-10.6) k/uL RBC 2.85 L 2.59 L (4.30-5.90) m/uL Hgb 8.5 L 7.8 L (13.0-17.5) gm/dL Hct 26.1 L 23.9 L (39.0-53.0) % RDW 18.4 H 18.4 H (11.5-15.5) % Plt Count 107 L 102 L (150-450) k/uL Neutrophils # (Manual) (1.3-7.7) k/uL Lymphocytes # (Manual) (1.0-4.8) k/uL Monocytes # (Manual) (0-1.0) k/uL Metamyelocytes # (Man) (0) k/uL Myelocytes # (Manual) (0) k/uL Sodium 132 L (137-145) mmol/L Potassium 3.3 L (3.5-5.1) mmol/L BUN (9-20) mg/dL Creatinine 0.47 L (0.66-1.25) mg/dL Glucose 124 H (74-99) mg/dL Calcium 7.4 L (8.4-10.2) mg/dL Alkaline Phosphatase (38-126) U/L Total Protein 4.3 L (6.3-8.2) g/dL Albumin 2.1 L (3.5-5.0) g/dL 01/19/23 Range/Units 09:39 WBC 43.2 H (3.8-10.6) k/uL RBC 2.80 L (4.30-5.90) m/uL Hgb 8.3 L (13.0-17.5) gm/dL Hct 26.0 L (39.0-53.0) % RDW 18.6 H (11.5-15.5) % Plt Count 103 L (150-450) k/uL Neutrophils # (Manual) (1.3-7.7) k/uL Lymphocytes # (Manual) (1.0-4.8) k/uL Monocytes # (Manual) (0-1.0) k/uL Metamyelocytes # (Man) (0) k/uL Myelocytes # (Manual) (0) k/uL Sodium (137-145) mmol/L Potassium (3.5-5.1) mmol/L BUN (9-20) mg/dL Creatinine (0.66-1.25) mg/dL Glucose (74-99) mg/dL Calcium (8.4-10.2) mg/dL Alkaline Phosphatase (38-126) U/L Total Protein (6.3-8.2) g/dL Albumin (3.5-5.0) g/dL Microbiology - Last 24 Hours (Table) 01/13/23 11:41 Blood Culture - Final Blood 01/13/23 11:41 Blood Culture - Final Blood Assessment and Plan (1) Bright red blood per rectum Narrative/Plan: 57-year-old male here for dehydration and neutropenic fever with metastatic lung cancer had episode of bright red blood per rectum with bowel movement this morning. States he had not had a bowel movement for last 3 days and he did strain some. Does have a history of hemorrhoids. States there was a small amount seen a little on toilet tissue otherwise looks like maybe a little bit in the toilet and stool. No history of previous GI bleed. Recent colonoscopy done within the last few months duration and [facility]. We will request those records. No plans on colonoscopy at this time. Recommend Anusol per rectum. Continue to monitor for further GI bleed. Patient had recent significant amounts of diarrhea from chemotherapy, possible hemorrhoidal bleed. No further bleeding. Likely all hemorrhoidal bleeding. Current Visit: Yes Status: Acute Code(s): K62.5 - HEMORRHAGE OF ANUS AND RECTUM SNOMED Code(s): 52027121 (2) Antineoplastic chemotherapy induced pancytopenia Current Visit: Yes Status: Acute Priority: High Code(s): D61.810 - ANTINEOPLASTIC CHEMOTHERAPY INDUCED PANCYTOPENIA; T45.1X5A - ADVERSE EFFECT OF ANTINEOPLASTIC AND IMMUNOSUP DRUGS, INIT SNOMED Code(s): 107022584523502 (3) Non-small cell lung cancer Current Visit: Yes Status: Acute Priority: High Code(s): C34.90 - MALIGNANT NEOPLASM OF UNSP PART OF UNSP BRONCHUS OR LUNG SNOMED Code(s): 278746283 (4) Hypokalemia Current Visit: No Status: Acute Code(s): E87.6 - HYPOKALEMIA SNOMED Code(s): 06721458 (5) Leukocytosis Current Visit: Yes Status: Acute Code(s): D72.829 - ELEVATED WHITE BLOOD CELL COUNT, UNSPECIFIED SNOMED Code(s): 413908374 Plan: 1. Continue symptomatic and supportive care 2. Anusol per rectum 3. No further bleeding per patient. No plans on endoscopic evaluation at this time. 4. Patient and instructed if any further bleeding can follow up outpatient and was scheduled for endoscopy at that time. 5. Plan is for discharge home today. Thank you for this consultation, patient is cleared from gastroenterology for discharge. Dr. Tiffani Tian I agree with the dictator's note, documented as a scribe by Angy Hackett.
--- NOTE | 2023-01-19 13:45 | P.DS ---
Providers Date of admission: 01/13/23 14:34 Expected date of discharge: 01/19/23 Attending physician: Cici Casas MD Consults: 01/13/23 14:36 Consult Physician Urgent Consulting Provider: Hunter Blandon Consult Reason/Comments: neutropenic fever, stomatitis Do you want consulting provider notified?: Yes 01/18/23 09:26 Consult Physician Routine Consulting Provider: Margot Tian Consult Reason/Comments: acute lower GI bleed with bright red blood per rectum Do you want consulting provider notified?: Yes Primary care physician: Sammy James Hospital Course: Discharge Diagnosis: Neutropenic Fever. No further episodes of fevers since admission to hospital and initiation of treatment of IV fluids, IV antibiotics, and steroids. Pt has remained afebrile 6 days. Severe stomatitis, improved. Syncope due to dehydration. Acute lower GI bleed, with bright red blood per rectum. Isolated event after patient was constipated 3 days. Bright red blood per rectum likely secondary to hemorrhoids. Hemoglobin was trended 24 hours and remained stable. Patient discharged home with external rectal hydrocortisone cream. Patient to follow up outpatient with gastroenterology in 1-2 weeks. 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 Stage IV lung cancer with chronic right sided pleural effusion s/p pleurx cath Pancytopenia, chemo induced. Leukocytosis. WBC count increasing from 0.5 up to 54.4, Filgrastim-sndz was discontinued. Hyponatremia due to dehydration. Hypokalemia, replaced. Patient to continue daily mediation management with K- Dur 40 mEq twice daily and have repeat he completed in 3 days with results to be sent to PCP for follow-up and management. Hypomagnesemia, replaced. Patient to continue daily mediation management with Alow-Mag 143 mg 4x daily and have repeat he completed in 3 days with results to be sent to PCP for follow-up and management. Hospital Course: Patient is a very pleasant 57-year-old male with known adenocarcinoma of the lung stage IV being followed at, [facility] complicated by adrenal insufficiency, HLD, Chornic hypoxic respiratory failure on 3L NC, and COPD who presented to the ER with complaints of a syncopal episode at home lasting less than 30 seconds. On arrival to the ER he was noted to be febrile with a temperature of 102.4 and tachycardic with pulse of 120. Initial laboratory analysis included CBC, CMP, magnesium, and urinalysis which were remarkable for white blood cell count 0.5, hemoglobin 12.4, platelets 121, sodium 133, magnesium 1.5, bilirubin 1.4. Urinalysis was negative for signs of infection. COVID19, influenza A/B, RSV testing was negative. C. diff was negative. Chest x-ray demonstrated right-sided consolidation and stable hydropneumothorax with chest tube in position. He then developed hypotension with blood pressure of 88/62. He was given 3 L of normal saline, Solu-Cortef 100 mg IV 1, Florinef 0.1 mg with improvements in his BP. He was givena dose of cefepime. Arrangements were made for admission and oncology was consulted. He was continued on cefepime and vancomycin. After initial temp of 102.4F patient had no further episodes of fevers since admission to hospital and initiation of treatment of IV fluids, IV antibiotics, and steroids. Pt has remained afebrile 6 days. Pt was noted to have significant mucositis and was started on Magic mouthwash with dexamethasone. CT head negative. Echo with EF 50-55%. Pt had isolated event of bright red blood per rectum after he was constipated 3 days. Bright red blood per rectum likely secondary to hemorrhoids. Hemoglobin was trended 24 hours and remained stable. He was started on external rectal hydrocortisone cream. Patient t is medically stable. He is tolerating oral intake. Reports significant improvement of pain in his mouth and tongue. Patient denies having any needs at this time. He is requesting discharge, cleared by hematology/oncology and gastroenterology. Patient discharged home with prescription for repeat CBC and BMP in 3 days with results to be sent to PCP for follow-up and management. Physical exam: Vital signs reviewed General: Chronically ill appearing, no acute distress, appears at stated age Cardiovascular: Regular rate and rhythm with S1S2 reg, no murmur, positive posterior tibial pulse bilateral, Lungs: Course breath sounds bilaterally with soft expiratory wheezes and no rhonchi or rales , no accessory muscle use Abdominal: soft, nontender to palpation, no guarding, no appreciable organomegaly Ext: No gross muscle atrophy, no edema b/l lower extremities, no contractures Neuro: CN II-XI grossly intact, no focal neuro deficits Psych: Alert, oriented, appropriate affect A total of 39 minutes of time were spent preparing this complex discharge summary. Pt was discharged on 01/19/23 at 12:59 PM. Patient was seen independently by Nurse Practitioner. This document was prepared using [employer] dictation software. Please allow for errors in actuarial science professor while rare they do occur. Delfin Fritz NP rendered care for this patient independently, reviewed the findings and plan as documented in the note above. I did not physically speak with or examine the patient on this date. Patient Condition at Discharge: Stable Plan - Discharge Summary Discharge Rx Participant: Yes New Discharge Prescriptions: New Hydrocortisone Pr Cream [Proctosol-Hc 2.5%] 1 applic RECTAL BID #1 each Continue Zolpidem Tartrate [Zolpidem Tartrate ER] 6.25 mg PO HS PRN PRN Reason: Insomnia Fludrocortisone [Florinef] 0.1 mg PO DAILY Benzonatate [Tessalon Perles] 100 mg PO TID Atorvastatin [Lipitor] 40 mg PO DAILY Ipratropium-Albuterol Nebulize [Duoneb 0.5 mg-3 mg/3 ml Soln] 3 ml INHALATION RT-TID PRN PRN Reason: Shortness Of Breath Pantoprazole Sodium [Protonix] 40 mg PO DAILY PRN PRN Reason: Gi Upset ALPRAZolam [Xanax] 0.25 mg PO DAILY PRN PRN Reason: Anxiety LORazepam [Ativan] 1 mg PO BID PRN PRN Reason: Anxiety HYDROcodone/APAP 10-325MG [[place] 10-325] 1 - 2 tab PO Q8H DULoxetine HCL [Cymbalta] 30 mg PO DAILY Hydrocortisone [Cortef] 10 mg PO DAILY@1700 Sennosides [Senokot] 8.6 mg PO BID PRN PRN Reason: Diarrhea Magic Mouthwash(Mylanta/Benadryl/Lidocaine 1:1:1) 10 ml PO Q8H PRN PRN Reason: Pain Budesonide/Glycopyr/Formoterol [Breztri Aerosphere Inhaler] 2 puff INHALATION RT-BID Albuterol Sulfate [Albuterol Sulfate Hfa] 2 puff INHALATION RT-Q6H PRN PRN Reason: Shortness Of Breath ondansetron HCL [Zofran] 8 mg PO BID PRN PRN Reason: Nausea And Vomiting Slow-Mag 71.5mg 143 mg PO QID@,,, Potassium Chloride [Klor-Con M20] 40 meq PO BID Hydrocortisone [Cortef] 20 mg PO DAILY@0900 Prochlorperazine [Compazine] 10 mg PO Q6H PRN PRN Reason: Nausea Celecoxib [CeleBREX] 100 mg PO BID Discharge Medication List ALPRAZolam [Xanax] 0.25 mg PO DAILY PRN 10/26/22 [History] Albuterol Sulfate [Albuterol Sulfate Hfa] 2 puff INHALATION RT-Q6H PRN 10/26/22 [History] Atorvastatin [Lipitor] 40 mg PO DAILY 10/26/22 [History] Benzonatate [Tessalon Perles] 100 mg PO TID 10/26/22 [History] Budesonide/Glycopyr/Formoterol [Breztri Aerosphere Inhaler] 2 puff INHALATION RT-BID 10/26/22 [History] Fludrocortisone [Florinef] 0.1 mg PO DAILY 10/26/22 [History] Ipratropium-Albuterol Nebulize [Duoneb 0.5 mg-3 mg/3 ml Soln] 3 ml INHALATION RT-TID PRN 10/26/22 [History] Pantoprazole Sodium [Protonix] 40 mg PO DAILY PRN 10/26/22 [History] Zolpidem Tartrate [Zolpidem Tartrate ER] 6.25 mg PO HS PRN 10/26/22 [History] ondansetron HCL [Zofran] 8 mg PO BID PRN 10/26/22 [History] Potassium Chloride [Klor-Con M20] 40 meq PO BID 11/06/22 [History] Slow-Mag 71.5mg 143 mg PO QID@,,17,21 11/06/22 [History] HYDROcodone/APAP 10-325MG [[place] 10-325] 1 - 2 tab PO Q8H 01/04/23 [History] Hydrocortisone [Cortef] 20 mg PO DAILY@0900 01/04/23 [History] LORazepam [Ativan] 1 mg PO BID PRN 01/04/23 [History] Prochlorperazine [Compazine] 10 mg PO Q6H PRN 01/04/23 [History] Celecoxib [CeleBREX] 100 mg PO BID 01/13/23 [History] DULoxetine HCL [Cymbalta] 30 mg PO DAILY 01/13/23 [History] Hydrocortisone [Cortef] 10 mg PO DAILY@1700 01/13/23 [History] Magic Mouthwash(Mylanta/Benadryl/Lidocaine 1:1:1) 10 ml PO Q8H PRN 01/13/23 [History] Sennosides [Senokot] 8.6 mg PO BID PRN 01/13/23 [History] Hydrocortisone Pr Cream [Proctosol-Hc 2.5%] 1 applic RECTAL BID #1 each 01/19/23 [Rx] Follow up Appointment(s)/Referral(s): Margot Tian MD [STAFF PHYSICIAN] - 03/05/23 10:30 am [facility], [NON-STAFF] - Ambulatory/Diagnostic Orders: Basic Metabolic Panel [LAB.AMB] Time Frame: 3 Days, Location: None Selected Complete Blood Count w/diff [LAB.AMB] Location: None Selected Patient Instructions/Handouts: Fever in Adults (GEN) Activity/Diet/Wound Care/Special Instructions: Activity: As tolerated. Take breaks as needed. Diet: Heart healthy and carb consistent diet. Avoid salts, or foods with hidden salts such as canned or boxed foods and frozen dinners. Extra salt makes your heart work harder and traps the fluid in your body for longer. Special Instructions: Take all of your medications as directed and remember to keep all of your doctor's appointments and follow-up as needed. Oncology has sent prescriptions for Salt and Soda mouthwash and magic mouthwash to [facility]. Thank you for allowing us to participate in your care, it was truly a pleasure having you for our patient!!! Discharge Disposition: HOME SELF-CARE
[2023-01-19 17:01] LABS: % Iron Saturation 81.41 (15.00-50.00)
[2023-01-20] MEDS ORDERED: VANCOMYCIN TROUGH DUE 1 EACH MISC MISCELLANE ONE (10:00)
--- NOTE | 2023-01-21 11:57 | CDI ---
Documentation Clarification Form Date: 01/21/2023 11:19:17 AM From: Janay Ha RN, CCDS Email: [email or web address] Admit Date: 01/13/2023 02:34:00 PM Patient Name: Darien Chen Visit Number: [id number] Discharge Date: 01/19/2023 04:02:00 PM ATTENTION: The Clinical Documentation Specialists (CDI) and [facility] Coding Staff appreciate your assistance in clarifying documentation. Please respond to the clarification below the line at the bottom and electronically sign. The CDI & [facility] Coding staff will review the response and follow-up if needed. Please note: Queries are made part of the Legal Health Record. If you have any questions, please contact the author of this message via ITS. Dr. Cici Casas The patient had severe stomatitis from chemotherapy, was febrile and tachycardic on admission. Based on this information and the findings below, is there an additional diagnosis that is clinically appropriate for this patient? History/Risk Factors: stage 4 adenocarcinoma, currently on chemotherapy. Chronic hypoxic respiratory failure on 3LNC home O2 and COPD. Presented with fever, tachycardia and hypotension. Clinical Indicators: H&P: "On arrival to the ER he was noted to be febrile with a temperature of 102.4 and tachycardic with pulse of 120. Neutropenic Fevers Severe stomatitis." Discharge summary: "Neutropenic Fever. No further episodes of fevers since admission to hospital and initiation of treatment of IV fluids, IV antibiotics, and steroids." 01/13-01/19 WBC: 0.5-0.8-8.5-38.6-51.5-54.5-47.1-43.2 01/16 Bands: 11% 01/18 Bands: 4% 01/13 Vital signs: Temp 102.4, HR 120, BP 88/62 Treatment: Ibuprofen 600mg IV x1 on 01/13; discontinued Filgrastim Antibiotics: IV Cefepime 2gm x1 on 01/13; IV Cefepime 2gm Q12H 01/13-01/14; IV Cefepime 2gm Q8H 01/14-01/19; IV Vancomycin 1250mg Q8H 01/13-01/19 IV Bolus: 3L total 0.9 NS IV bolus on 01/13 then 130mL/hr 01/13-01/15 then 75mL/hr 01/15-01/17 Is there an additional diagnosis that is clinically appropriate for this patient? [x ] Sepsis, present on admission [ ] No additional diagnosis [ ] Other, please specify [ ] Unable to determine SIRS Criteria: 2 or more of the following may indicate SIRS Temperature < 96.8F (36C) or > 101.0F (38.3C) Heart Rate > 90 bpm Respiratory Rate > 20 breaths/min or PaCO2 < 32 mmHg White Blood Cell Count > 12,000 or < 4,000 cells/mm3 or > 10% bands MTDD
== END 2023-01-19 16:02 | disposition home or self-care (01) | DRG 871 ==
LOC: EC 11:06 → 3SCARD 14:34
PROVIDERS: ADMIT Family Medicine; ATTEND Family Medicine
DX: A41.9 Sepsis, unspecified organism (principal); D61.810 Antineoplastic chemotherapy induced pancytopenia; C34.90 Malignant neoplasm of unspecified part of unspecified bronchus or lung; J96.11 Chronic respiratory failure with hypoxia; J90 Pleural effusion, not elsewhere classified; C79.9 Secondary malignant neoplasm of unspecified site; E87.1 Hypo-osmolality and hyponatremia; J94.8 Other specified pleural conditions; K12.1 Other forms of stomatitis; D70.9 Neutropenia, unspecified; J43.9 Emphysema, unspecified; Z20.822 Contact with and (suspected) exposure to COVID-19; J44.9 Chronic obstructive pulmonary disease, unspecified; E78.5 Hyperlipidemia, unspecified; E83.42 Hypomagnesemia; E87.6 Hypokalemia; F41.9 Anxiety disorder, unspecified; K12.30 Oral mucositis (ulcerative), unspecified; R50.81 Fever presenting with conditions classified elsewhere; S40.219A Abrasion of unspecified shoulder, initial encounter; T45.1X5A Adverse effect of antineoplastic and immunosuppressive drugs, initial encounter; Z79.1 Long term (current) use of non-steroidal anti-inflammatories (NSAID); Z79.52 Long term (current) use of systemic steroids; Z79.899 Other long term (current) drug therapy; X58.XXXA Exposure to other specified factors, initial encounter; Z87.01 Personal history of pneumonia (recurrent); K64.9 Unspecified hemorrhoids; K59.00 Constipation, unspecified; Z85.118 Personal history of other malignant neoplasm of bronchus and lung; Z87.19 Personal history of other diseases of the digestive system; Z90.49 Acquired absence of other specified parts of digestive tract; Z87.891 Personal history of nicotine dependence; R29.6 Repeated falls; Z91.81 History of falling
CPT/HCPCS: 36415; 70450; 71046; 80048; 80053; 80202; 81003; 82565; 82728; 83540; 83550; 83605; 83735; 84100; 85025; 85027; 85610; 85730; 87040; 87324; 87636; 93005; 93306; 94640; 94760; 96361; 96365; 96366; 96367; 96368; 96375; 99285

== ENCOUNTER 2023-01-22 14:43 | Inpatient (IN) | payer BC ==
[2023-01-22] MEDS ORDERED: ACETAMINOPHEN TAB 500 MG TAB PO STA (14:57)
--- NOTE | 2023-01-22 15:01 | ED ---
General Adult HPI - General Chief complaint: Shortness of Breath Stated complaint: SOB Time Seen by Provider: 01/22/23 14:51 Source: patient, family, RN notes reviewed Mode of arrival: wheelchair Limitations: no limitations - History of Present Illness Initial comments: Patient is a pleasant 57-year-old male presenting to the emergency department with dyspnea. Patient was discharged from the hospital 3 days ago. Symptoms have worsened since that time, especially today. Patient has had fevers at home yesterday and today. Rare cough. Patient has been somewhat fatigued. Patient did have 400 mL drained off his right long earlier today by visiting nurse. Patient does have a pleural cath in place. Patient has history of lung cancer and currently is on chemotherapy. Patient does have history of radiation 3. Pulse ox at home was in the upper 60s. With 5 L nasal cannula oxygen increased to 82. - Related Data Home Medications Medication Instructions Recorded Confirmed ALPRAZolam [Xanax] 0.25 mg PO DAILY PRN 10/26/22 01/22/23 Albuterol Sulfate [Albuterol 2 puff INHALATION RT-Q6H PRN 10/26/22 01/22/23 Sulfate Hfa] Atorvastatin [Lipitor] 40 mg PO DAILY 10/26/22 01/22/23 Benzonatate [Tessalon Perles] 100 mg PO TID 10/26/22 01/22/23 Budesonide/Glycopyr/Formoterol 2 puff INHALATION RT-BID 10/26/22 01/22/23 [Breztri Aerosphere Inhaler] Fludrocortisone [Florinef] 0.1 mg PO DAILY 10/26/22 01/22/23 Ipratropium-Albuterol Nebulize 3 ml INHALATION RT-TID PRN 10/26/22 01/22/23 [Duoneb 0.5 mg-3 mg/3 ml Soln] Pantoprazole Sodium [Protonix] 40 mg PO DAILY PRN 10/26/22 01/22/23 Zolpidem Tartrate [Zolpidem 6.25 mg PO HS PRN 10/26/22 01/22/23 Tartrate ER] ondansetron HCL [Zofran] 8 mg PO BID PRN 10/26/22 01/22/23 Potassium Chloride [Klor-Con M20] 40 meq PO BID 11/06/22 01/22/23 Slow-Mag 71.5mg 143 mg PO QID@09,13,17,21 11/06/22 01/22/23 HYDROcodone/APAP 10-325MG [Altus 1 - 2 tab PO Q8H 01/04/23 01/22/23 10-325] Hydrocortisone [Cortef] 20 mg PO DAILY@0900 01/04/23 01/22/23 LORazepam [Ativan] 1 mg PO BID PRN 01/04/23 01/22/23 Prochlorperazine [Compazine] 10 mg PO Q6H PRN 01/04/23 01/22/23 Celecoxib [CeleBREX] 100 mg PO BID 01/13/23 01/22/23 Hydrocortisone [Cortef] 10 mg PO DAILY@1700 01/13/23 01/22/23 Magic 10 ml PO Q8H PRN 01/13/23 01/22/23 Mouthwash(Mylanta/Benadryl/Lidocaine 1:1:1) Sennosides [Senokot] 8.6 mg PO BID PRN 01/13/23 01/22/23 Allergies Allergy/AdvReac Type Severity Reaction Status Date / Time No Known Allergies Allergy Verified 01/22/23 16:42 Review of Systems ROS Statement: Those systems with pertinent positive or pertinent negative responses have been documented in the HPI. ROS Other: All systems not noted in ROS Statement are negative. Constitutional: Reports: as per HPI, fever Eyes: Denies: eye pain ENT: Denies: ear pain Respiratory: Reports: as per HPI, dyspnea Cardiovascular: Denies: chest pain Endocrine: Reports: fatigue Gastrointestinal: Denies: abdominal pain Past Medical History Past Medical History: Cancer, COPD, Hyperlipidemia, Hypertension, Pneumonia Additional Past Medical History / Comment(s): Wears O2@3L NC ATC,recurrent rt lung CA [id number] and adrenal left gland, had pneumonitis, 17 day stay in ICU with intial chemo and immuno therapy, emphysema,b/p runs low now since cancer dx and treatment had prior htn hx-has dizziness w/ falls at times improved with cortef; recurrent right-sided malignant pleural effusion History of Any Multi-Drug Resistant Organisms: None Reported Past Surgical History: Cholecystectomy Additional Past Surgical History / Comment(s): rt port a cath (power port); right sided thoracentesis 4, status post right Pleurx catheter placement on 10/27/2022 Past Anesthesia/Blood Transfusion Reactions: No Reported Reaction Additional Past Anesthesia/Blood Transfusion Reaction / Comment(s): no hx blood transfusions Past Psychological History: Anxiety Smoking Status: Former smoker Past Alcohol Use History: None Reported Past Drug Use History: Marijuana - Past Family History Mother Additional Family Medical History / Comment(s): Kidney failure, status post kidney transplant history of manic depressive Father Family Medical History: Cancer Additional Family Medical History / Comment(s): rt lung CA General Exam Limitations: no limitations General appearance: alert Head exam: Present: normocephalic Eye exam: Present: normal appearance Neck exam: Present: normal inspection Respiratory exam: Present: decreased breath sounds (Right-sided) Cardiovascular Exam: Present: regular rate, normal rhythm GI/Abdominal exam: Present: soft. Absent: tenderness Extremities exam: Present: normal inspection. Absent: pedal edema, calf tenderness Neurological exam: Present: alert Psychiatric exam: Present: normal affect, normal mood Skin exam: Present: normal color Course Vital Signs 01/22/23 01/22/23 01/22/23 14:45 14:47 15:47 Temperature 97.3 F L Pulse Rate 100 85 Respiratory 20 17 Rate Blood Pressure 116/63 90/61 O2 Sat by Pulse 60 L 95 Oximetry 01/22/23 16:47 Temperature Pulse Rate 80 Respiratory 20 Rate Blood Pressure 92/66 O2 Sat by Pulse 90 L Oximetry EKG Findings - EKG Results: EKG: interpreted by ERMD, sinus rhythm, normal axis, normal QRS, normal ST/T Procedures - Sepsis Sepsis Focused Exam #1 Time Sepsis Criteria Met: 17:00 Sepsis Focused Exam Date: 01/22/23 Sepsis Focused Exam Time: 18:36 Sepsis Focused Exam Complete: Yes Vital Signs & RN Notes Reviewed: Yes Capillary Refill: None: Toes, < 2 Seconds: Fingers Peripheral Pulses: Normal: Radial (R), Radial (L) Skin Color: Normal for Patient Respiratory Exam: decreased breath sounds Cardiovascular Exam: regular rate, normal rhythm Medical Decision Making - Medical Decision Making Was pt. sent in by a medical professional or institution (, PA, HARDBOARD SUPERVISOR, urgent care, hospital, or prison...) When possible be specific @ -No Did you speak to anyone other than the patient for history (EMS, parent, family, police, friend...)? What history was obtained from this source @ -Family is present and helps provide history Did you review nursing and triage notes (agree or disagree)? Why? @ -I reviewed and agree with nursing and triage notes Were old charts reviewed (outside hosp., previous admission, EMS record, old EKG, old radiological studies, urgent care reports/EKG's, prison records)? Report findings @ -Previous discharge reviewed Differential Diagnosis (chest pain, altered mental status, abdominal pain women, abdominal pain men, vaginal bleeding, weakness, fever, dyspnea, syncope, headache, dizziness, GI bleed, back pain, seizure, CVA, palpatations, mental health, musculoskeletal)? @ -Differential Dyspnea: Coronary syndrome, arrhythmia, tamponade, asthma, COPD, pulmonary embolism, pneumonia, pneumothorax, pulmonary effusion, anaphylaxis, diabetic ketoacidosis, flailed chest, pulmonary contusion, diaphragmatic rupture, anemia, neuromuscular, this is not meant to be an all-inclusive list. EKG interpreted by me (3pts min.). @ -As above X-rays interpreted by me (1pt min.). @ -Chest x-ray concerning for new left infiltrate. Right-sided opacity and mass. CT interpreted by me (1pt min.). @ -None done U/S interpreted by me (1pt. min.). @ -None done What testing was considered but not performed or refused? (CT, X-rays, U/S, lab s)? Why? @ -None What meds were considered but not given or refused? Why? @ -None Did you discuss the management of the patient with other professionals (professionals i.e. , PA, HARDBOARD SUPERVISOR, lab, RT, psych nurse, adoption social worker, boat worker, teacher, security public safety officer, case packer)? Give summary @ -Case was discussed with Dr. Paz who is familiar with this patient and will admit. Was smoking cessation discussed for >3mins.? @ -No Was critical care preformed (if so, how long)? @ -32 minutes of critical care time Were there social determinants of health that impacted care today? How? (Homelessness, low income, unemployed, alcoholism, drug addiction, transportation, low edu. Level, literacy, decrease access to med. care, usp, rehab)? @ -No Was there de-escalation of care discussed even if they declined (Discuss DNR or withdrawal of care, Hospice)? DNR status @ -No What co-morbidities impacted this encounter? (DM, HTN, Smoking, COPD, CAD, Cancer, CVA, ARF, Chemo, Hep., AIDS, mental health diagnosis, sleep apnea, morbid obesity)? @ -None Was patient admitted / discharged? Hospital course, mention meds given and route, prescriptions, significant lab abnormalities, going to OR and other pertinent info. @ -Patient reevaluated. Patient and family updated. There is concern for pneumonia and patient will be admitted. IV antibiotics, blood culture and lactic acid ordered. Admission orders written. Consult placed for pulmonary. Undiagnosed new problem with uncertain prognosis? @ -No Drug Therapy requiring intensive monitoring for toxicity (Heparin, Nitro, Insulin, Cardizem)? @ -No Were any procedures done? @ -No Diagnosis/symptom? @ -Pneumonia Acute, or Chronic, or Acute on Chronic? @ -Acute Uncomplicated (without systemic symptoms) or Complicated (systemic symptoms)? @ -default Side effects of treatment? @ -No Exacerbation, Progression, or Severe Exacerbation? @ -No Poses a threat to life or bodily function? How? (Chest pain, USA, MD, pneumonia, PE, COPD, DKA, ARF, appy, cholecystitis, CVA, Diverticulitis, Homicidal, Suicidal, threat to staff... and all critical care pts) @ -No - Lab Data Result diagrams: 01/22/23 15:03 01/22/23 15:03 Lab Results 01/22/23 01/22/23 01/22/23 Range/Units 15:03 15:03 15:03 WBC 17.2 H (3.8-10.6) k/uL RBC 2.84 L (4.30-5.90) m/uL Hgb 8.8 L (13.0-17.5) gm/dL Hct 26.6 L (39.0-53.0) % MCV 93.4 (80.0-100.0) fL MCH 31.1 (25.0-35.0) pg MCHC 33.3 (31.0-37.0) g/dL RDW 19.8 H (11.5-15.5) % Plt Count 75 L (150-450) k/uL MPV 10.9 Neutrophils % 96 % Lymphocytes % 1 % Monocytes % 2 % Eosinophils % 0 % Basophils % 0 % Neutrophils # 16.6 H (1.3-7.7) k/uL Lymphocytes # 0.2 L (1.0-4.8) k/uL Monocytes # 0.4 (0-1.0) k/uL Eosinophils # 0.0 (0-0.7) k/uL Basophils # 0.0 (0-0.2) k/uL Manual Slide Review Performed Hypochromasia Slight Anisocytosis Slight Macrocytosis Slight PT 12.9 H (10.0-12.5) sec INR 1.2 H (<1.2) APTT 28.6 (22.0-30.0) sec Sodium 131 L (137-145) mmol/L Potassium 3.1 L (3.5-5.1) mmol/L Chloride 94 L (98-107) mmol/L Carbon Dioxide 27 (22-30) mmol/L Anion Gap 10 mmol/L BUN 10 (9-20) mg/dL Creatinine 0.45 L (0.66-1.25) mg/dL Est GFR (CKD-EPI)AfAm >90 (>60 ml/min/1.73 sqM) Est GFR (CKD-EPI)NonAf >90 (>60 ml/min/1.73 sqM) Glucose 118 H (74-99) mg/dL Lactic Ac Sepsis Rflx Plasma Lactic Acid Deric (0.7-2.0) mmol/L Calcium 7.5 L (8.4-10.2) mg/dL Total Bilirubin 1.6 H (0.2-1.3) mg/dL AST 72 H (17-59) U/L ALT 66 H (4-49) U/L Alkaline Phosphatase 111 (38-126) U/L Total Protein 4.7 L (6.3-8.2) g/dL Albumin 2.4 L (3.5-5.0) g/dL Influenza Type A (PCR) (Not Detectd) Influenza Type B (PCR) (Not Detectd) RSV (PCR) (Not Detectd) SARS-CoV-2 (PCR) (Not Detectd) 01/22/23 01/22/23 01/22/23 Range/Units 15:03 15:03 15:42 WBC (3.8-10.6) k/uL RBC (4.30-5.90) m/uL Hgb (13.0-17.5) gm/dL Hct (39.0-53.0) % MCV (80.0-100.0) fL MCH (25.0-35.0) pg MCHC (31.0-37.0) g/dL RDW (11.5-15.5) % Plt Count (150-450) k/uL MPV Neutrophils % % Lymphocytes % % Monocytes % % Eosinophils % % Basophils % % Neutrophils # (1.3-7.7) k/uL Lymphocytes # (1.0-4.8) k/uL Monocytes # (0-1.0) k/uL Eosinophils # (0-0.7) k/uL Basophils # (0-0.2) k/uL Manual Slide Review Hypochromasia Anisocytosis Macrocytosis PT (10.0-12.5) sec INR (<1.2) APTT (22.0-30.0) sec Sodium (137-145) mmol/L Potassium (3.5-5.1) mmol/L Chloride (98-107) mmol/L Carbon Dioxide (22-30) mmol/L Anion Gap mmol/L BUN (9-20) mg/dL Creatinine (0.66-1.25) mg/dL Est GFR (CKD-EPI)AfAm (>60 ml/min/1.73 sqM) Est GFR (CKD-EPI)NonAf (>60 ml/min/1.73 sqM) Glucose (74-99) mg/dL Lactic Ac Sepsis Rflx Y Plasma Lactic Acid Deric 4.0 H* (0.7-2.0) mmol/L Calcium (8.4-10.2) mg/dL Total Bilirubin (0.2-1.3) mg/dL AST (17-59) U/L ALT (4-49) U/L Alkaline Phosphatase (38-126) U/L Total Protein (6.3-8.2) g/dL Albumin (3.5-5.0) g/dL Influenza Type A (PCR) Not Detected (Not Detectd) Influenza Type B (PCR) Not Detected (Not Detectd) RSV (PCR) Not Detected (Not Detectd) SARS-CoV-2 (PCR) Not Detected (Not Detectd) Disposition Clinical Impression: Pneumonia Disposition: ADMITTED IP TO THIS [facility] Condition: Serious Is patient prescribed a controlled substance at d/c from ED?: No Referrals: Sammy James MD [Primary Care Provider] - 1-2 days Time of Disposition: 17:12
[2023-01-22 15:27] LABS: Anisocytosis Slight; Basophils % (A) 0 %; Eosinophils % (A) 0 %; HCT 26.6 % (39.0-53.0); HGB 8.8 gm/dL (13.0-17.5); Hypochromasia Slight; Lymphocytes # (A) 0.2 k/uL (1.0-4.8); Lymphocytes % (A) 1 %; MCH 31.1 pg (25.0-35.0); MCHC 33.3 g/dL (31.0-37.0); MCV 93.4 fL (80.0-100.0); Macrocytosis Slight; Mean Platelet Volume 10.9; Monocytes # (A) 0.4 k/uL (0-1.0); Monocytes % (A) 2 %; Neutrophils # (A) 16.6 k/uL (1.3-7.7); Neutrophils % (A) 96 %; RBC 2.84 m/uL (4.30-5.90); RDW 19.8 % (11.5-15.5); WBC 17.2 k/uL (3.8-10.6)
[2023-01-22 15:34] LABS: ALT 66 U/L (4-49); AST 72 U/L (17-59); African American GFR (CKD) >90 (>60 ml/min/1.73 sqM); Albumin 2.4 g/dL (3.5-5.0); Alkaline Phosphatase 111 U/L (38-126); Anion Gap 10 mmol/L; Blood Urea Nitrogen 10 mg/dL (9-20); Calcium 7.5 mg/dL (8.4-10.2); Carbon Dioxide 27 mmol/L (22-30); Chloride 94 mmol/L (98-107); Glucose 118 mg/dL (74-99); INR 1.2 (<1.2); Non-African American GFR(CKD) >90 (>60 ml/min/1.73 sqM); Partial Thromboplastin Time 28.6 sec (22.0-30.0); Potassium 3.1 mmol/L (3.5-5.1); Prothrombin Time 12.9 sec (10.0-12.5); Sodium 131 mmol/L (137-145); Total Bilirubin 1.6 mg/dL (0.2-1.3); Total Protein 4.7 g/dL (6.3-8.2)
--- NOTE | 2023-01-22 16:01 | XR ---
EXAMINATION TYPE: XR chest 2V DATE OF EXAM: 01/22/2023 COMPARISON: 01/13/2023 TECHNIQUE: PA and lateral views submitted. HISTORY: Shortness of breath FINDINGS: Mediport catheter stable and there is air-fluid level in the right lower lobe with chest tube likely representing a component of hydropneumothorax. Similar to prior exam. Interval development of small left pleural effusion and basilar consolidation.. Underlying COPD. Righ t apical pleural thickening. Surgical clips in the right upper quadrant. Few prominent small bowel lo ops are incidentally noted correlate clinically. IMPRESSION: 1. Stable right-sided hydropneumothorax with areas of consolidation in the right upper lobe. 2. Small left pleural effusion and interval development of left basilar infiltrate..
[2023-01-22 16:20] LABS: Platelet Count 75 k/uL (150-450)
[2023-01-22] MEDS ORDERED: AZITHROMYCIN 500 MG in SODIUM CHLORIDE 0.9% 250 ML IVPB STA (17:05)
[2023-01-22] MEDS ORDERED: PNEUMONIA PROTOCOL UTILIZED 1 EACH MISC PO PRN (17:05)
[2023-01-22] MEDS ORDERED: PIPERACILLIN-TAZOBACTAM 3.375 GM in SODIUM CHLORIDE 0.9% 100 ML IVPB STA (17:05)
[2023-01-22] MEDS ORDERED: SODIUM CHLORIDE 0.9% 1,000 ML IV STA ×2 (17:17)
--- NOTE | 2023-01-22 17:18 | P.HPIM ---
History of Present Illness H&P Date: 01/22/23 History of Presenting Illness: Patient is a very pleasant 57-year-old male with known adenocarcinoma of the lung stage IV being followed at, [facility] complicated by adrenal insufficiency, HLD, [place] hypoxic respiratory failure on 3L NC, and COPD . Patient recently underwent hospitalization from 01/13/23 through 01/19/23 secondary to neutropenic fever with severe stomatitis. Patient now presenting to the emergency department with a chief complaint of shortness of breath and was found to be in acute on chronic respiratory distress with hypoxia. Patient' s reports patient was doing well up until yesterday morning when he awoke and with a fever of 101F, she reports it was an isolated fever and he did well throughout the day and ate well so she was not very concerned, however this morning she reports he again awoke in with a fever of 101.2F and seemed significantly fatigued and complaining of shortness of breath. She reports she called his home care nurse who came out to the house and drained 400 cc of fluid from his right lung through his Pleurx catheter. Upon arrival to our facility patient underwent full evaluation. Blood pressure 116/63, heart rate 100, respiratory rate 20, temp 97.7F, and SpO2 of 60% on 5 L O2 via nasal cannula. Patient requiring placement on 9 L of oxygen on partial rebreather mask increasing SpO2 to 95%. EKG completed and reviewed. CBC showing normal sinus rhythm at 82 bpm with mild interference however no no significant T-wave or ST abnormalities showing no signs of acute ischemia. Chest x-ray completed showing stable right sided hydropneumothorax with areas of consolidation in the right upper lobe with small left pleural effusion and interval development of left basilar infiltrate. Labs completed and reviewed. CBC showing leukocytosis but improved from previous admission as patient received Filgrastim-sndz to increase his WBCs resulting in increased from 0.5-54.4. Hemoglobin of 8.8 and platelet count of 75. Ligation profile showing elevated PT of 12.99 or 1.2. BMP showing hyponatremia sodium 131, potassium 3.1, chloride 94, lactic acid elevated at 4.0. Total bili 1.6, AST 72, and ALT of 66. Influenza A, influenza B, and RSV and Covid negative. Patient admitted under the services of consultation to pulmonology and oncology. Review of systems: Pertinent positives and negatives as discussed in HPI, a complete review of systems was performed and all other systems are negative. Physical exam: Vital signs reviewed and stable. General: Nontoxic, no distress and appears stated age. Derm: Skin warm and dry, normal coloration for ethnicity. Head: Atraumatic, normocephalic and symmetric. Eyes: EOMs intact, no lid lag, and anicteric sclera Mouth: no lip lesions, mucus membranes moist Cardiovascular: regular rate and rhythm with normal S1S2, no murmur, positive posterior tibial pulses bilaterally, and cap refill < 2 seconds. Lungs: Respirations even, regular, and unlabored. Patient requiring high flow nasal cannula at 12 L to maintain SpO2 of 90%. No wheezes, rhonchi, rales, or crackles noted. Lungs diminished bilaterally worse on right. Abdominal: soft, nontender to palpation, no guarding, no appreciable organomegaly Ext: ROM intact. No gross muscle atrophy, no edema, no contractures Neuro: Speech clear, face symmetrical and CN II-XII grossly intact with no noted focal neuro deficits Psych: Alert and oriented to person, place, time, and situation. Appropriate and pleasant affect. Assessment and Plan of Care: Acute on chronic respiratory failure with hypoxia Lactic acidosis Adrenal insufficiency due to immunotherapy and prior adrenal radiation. Stage IV lung cancer with chronic right sided pleural effusion s/p pleurx cath Bycytopenia, chemo induced. Leukocytosis likely secondary to recent administration of Filgrastim-sndz, however cannot rule out infectious process at this time Transaminitis with hyperbilirubinemia, chronic Hyponatremia due to dehydration, chronic -Consult placed to pulmonology for acute on chronic respiratory failure requiring high flow oxygen. -Oxygenation to be administered and titrated as needed to maintain SPO2 equal to or greater than 92% weaning as patient tolerates. -Telemetry monitoring. - Monitor Pulse-oximetry -Duonebs as needed for SOB and/or wheezing -Incentive Spirometry -Antibiotics: Zosyn 3.375 g every 8 hours and azithromycin 500 mg IVPB daily. -Sputum culture and legionella . Hypokalemia, replaced. -Potassium 3.1. Orders place for K-Dur 40 mEq 1 dose and we will repeat CMP with morning labs to follow up on potassium levels. Data and imaging reviewed: -Vital signs reviewed. Blood pressure 116/63, heart rate 100, respiratory rate 20, temp 97.7F, and SpO2 of 60% on 5 L O2 via nasal cannula. Patient requiring placement on 9 L of oxygen on partial rebreather mask increasing SpO2 to 95%. -EKG completed and reviewed. CBC showing normal sinus rhythm at 82 bpm with mil d interference however no no significant T-wave or ST abnormalities showing no signs of acute ischemia. -Chest x-ray completed showing stable right sided hydropneumothorax with areas of consolidation in the right upper lobe with small left pleural effusion and interval development of left basilar infiltrate. -Labs completed and reviewed. CBC showing leukocytosis but improved from previous admission as patient received Filgrastim-sndz to increase his WBCs resulting in increased from 0.5-54.4. Hemoglobin of 8.8 and platelet count of 75. Ligation profile showing elevated PT of 12.99 or 1.2. BMP showing hyponatremia sodium 131, potassium 3.1, chloride 94, lactic acid elevated at 4.0. Total bili 1.6, AST 72, and ALT of 66. -Influenza A, influenza B, and RSV and Covid negative. CODE STATUS: Full code DVT prophylaxis: SCDs Anticipated discharge date: Clinical course to determine Anticipated discharge place: Clinical course to determine Patient was seen independently by Nurse Practitioner. This document was prepared using [employer] dictation software. Please allow for errors in head bone grinder while rare they do occur. Delfin Fritz [employer]ISHER MACHINE rendered care for this patient independently, reviewed the findings and plan as documented in the note above. I did not physically speak with or examine the patient on this date. Past Medical History Past Medical History: Cancer, COPD, Hyperlipidemia, Hypertension, Pneumonia Additional Past Medical History / Comment(s): Wears O2@3L NC ATC,recurrent rt lung CA receiving [id number] and adrenal left gland, had pneumonitis, 17 day stay in ICU with intial chemo and immuno therapy, emphysema,b/p runs low now since cancer dx and treatment had prior htn hx-has dizziness w/ falls at times improved with cortef; recurrent right-sided malignant pleural effusion History of Any Multi-Drug Resistant Organisms: None Reported Past Surgical History: Cholecystectomy Additional Past Surgical History / Comment(s): rt port a cath (power port); right sided thoracentesis 4, status post right Pleurx catheter placement on 10/27/2022 Past Anesthesia/Blood Transfusion Reactions: No Reported Reaction Additional Past Anesthesia/Blood Transfusion Reaction / Comment(s): no hx blood transfusions Past Psychological History: Anxiety Smoking Status: Former smoker Past Alcohol Use History: None Reported Past Drug Use History: Marijuana - Past Family History Mother Additional Family Medical History / Comment(s): Kidney failure, status post kidney transplant history of manic depressive Father Family Medical History: Cancer Additional Family Medical History / Comment(s): rt lung CA Medications and Allergies Home Medications Medication Instructions Recorded Confirmed Type ALPRAZolam [Xanax] 0.25 mg PO DAILY PRN 10/26/22 01/22/23 History Albuterol Sulfate [Albuterol 2 puff INHALATION RT-Q6H PRN 10/26/22 01/22/23 Hist ory Sulfate Hfa] Atorvastatin [Lipitor] 40 mg PO DAILY 10/26/22 01/22/23 History Benzonatate [Tessalon Perles] 100 mg PO TID 10/26/22 01/22/23 History Budesonide/Glycopyr/Formoterol 2 puff INHALATION RT-BID 10/26/22 01/22/23 History [Breztri Aerosphere Inhaler] Fludrocortisone [Florinef] 0.1 mg PO DAILY 10/26/22 01/22/23 History Ipratropium-Albuterol Nebulize 3 ml INHALATION RT-TID PRN 10/26/22 01/22/23 History [Duoneb 0.5 mg-3 mg/3 ml Soln] Pantoprazole Sodium [Protonix] 40 mg PO DAILY PRN 10/26/22 01/22/23 History Zolpidem Tartrate [Zolpidem 6.25 mg PO HS PRN 10/26/22 01/22/23 History Tartrate ER] ondansetron HCL [Zofran] 8 mg PO BID PRN 10/26/22 01/22/23 History Potassium Chloride [Klor-Con M20] 40 meq PO BID 11/06/22 01/22/23 History Slow-Mag 71.5mg 143 mg PO QID@09,13,17,21 11/06/22 01/22/23 History HYDROcodone/APAP 10-325MG [[place] 1 - 2 tab PO Q8H 01/04/23 01/22/23 History 10-325] Hydrocortisone [Cortef] 20 mg PO DAILY@0900 01/04/23 01/22/23 History LORazepam [Ativan] 1 mg PO BID PRN 01/04/23 01/22/23 History Prochlorperazine [Compazine] 10 mg PO Q6H PRN 01/04/23 01/22/23 History Celecoxib [CeleBREX] 100 mg PO BID 01/13/23 01/22/23 History Hydrocortisone [Cortef] 10 mg PO DAILY@1700 01/13/23 01/22/23 History Magic 10 ml PO Q8H PRN 01/13/23 01/22/23 History Mouthwash(Mylanta/Benadryl/Lidocaine 1:1:1) Sennosides [Senokot] 8.6 mg PO BID PRN 01/13/23 01/22/23 History Allergies Allergy/AdvReac Type Severity Reaction Status Date / Time No Known Allergies Allergy Verified 01/22/23 16:42 Physical Exam Vitals: Vital Signs Temp Pulse Resp BP Pulse Ox 01/22/23 16:47 80 20 92/66 90 L 01/22/23 15:47 90/61 01/22/23 14:47 85 17 95 01/22/23 14:45 97.3 F L 100 20 116/63 60 L Intake and Output 01/22/23 01/22/23 01/22/23 06:59 14:59 22:59 Other: Weight 65.771 kg Results CBC & Chem 7: 01/22/23 15:03 01/22/23 15:03 Labs: Abnormal Lab Results - Last 24 Hours (Table) 01/22/23 01/22/23 01/22/23 Range/Units 15:03 15:03 15:03 WBC 17.2 H (3.8-10.6) k/uL RBC 2.84 L (4.30-5.90) m/uL Hgb 8.8 L (13.0-17.5) gm/dL Hct 26.6 L (39.0-53.0) % RDW 19.8 H (11.5-15.5) % Plt Count 75 L (150-450) k/uL Neutrophils # 16.6 H (1.3-7.7) k/uL Lymphocytes # 0.2 L (1.0-4.8) k/uL PT 12.9 H (10.0-12.5) sec INR 1.2 H (<1.2) Sodium 131 L (137-145) mmol/L Potassium 3.1 L (3.5-5.1) mmol/L Chloride 94 L (98-107) mmol/L Creatinine 0.45 L (0.66-1.25) mg/dL Glucose 118 H (74-99) mg/dL Plasma Lactic Acid Deric (0.7-2.0) mmol/L Calcium 7.5 L (8.4-10.2) mg/dL Total Bilirubin 1.6 H (0.2-1.3) mg/dL AST 72 H (17-59) U/L ALT 66 H (4-49) U/L Total Protein 4.7 L (6.3-8.2) g/dL Albumin 2.4 L (3.5-5.0) g/dL 01/22/23 Range/Units 15:03 WBC (3.8-10.6) k/uL RBC (4.30-5.90) m/uL Hgb (13.0-17.5) gm/dL Hct (39.0-53.0) % RDW (11.5-15.5) % Plt Count (150-450) k/uL Neutrophils # (1.3-7.7) k/uL Lymphocytes # (1.0-4.8) k/uL PT (10.0-12.5) sec INR (<1.2) Sodium (137-145) mmol/L Potassium (3.5-5.1) mmol/L Chloride (98-107) mmol/L Creatinine (0.66-1.25) mg/dL Glucose (74-99) mg/dL Plasma Lactic Acid Deric 4.0 H* (0.7-2.0) mmol/L Calcium (8.4-10.2) mg/dL Total Bilirubin (0.2-1.3) mg/dL AST (17-59) U/L ALT (4-49) U/L Total Protein (6.3-8.2) g/dL Albumin (3.5-5.0) g/dL
[2023-01-22] MEDS ORDERED: MAGIC MOUTHWASH PO PRN (19:42)
[2023-01-22] MEDS ORDERED: SENNOSIDES 8.6 MG TAB PO PRN (19:42)
[2023-01-22] MEDS ORDERED: ZOLPIDEM 5 MG TAB PO PRN (19:42)
[2023-01-22] MEDS ORDERED: LORazepam 1 MG TAB PO PRN (19:42)
[2023-01-22] MEDS ORDERED: PANTOPRAZOLE 40 MG TABLET PO PRN (19:42)
[2023-01-22] MEDS ORDERED: IPRATROPIUM-ALBUTEROL 3 ML NEB INHALATION PRN (19:42)
[2023-01-22] MEDS ORDERED: PROCHLORPERAZINE 10 MG TAB PO PRN (19:42)
[2023-01-22] MEDS ORDERED: POTASSIUM CHLORIDE ER 20 MEQ TAB.ER PO STA (19:53)
[2023-01-22] MEDS: SODIUM CHLORIDE 0.9% 1,000 ML IV SCH (20:27)
[2023-01-22] MEDS: MAGNESIUM OXIDE 400 MG TAB PO SCH (20:27)
[2023-01-22] MEDS: IPRATROPIUM 0.5 MG/2.5 ML NEBU INHALATION SCH (20:29)
[2023-01-22] MEDS: SYMBICORT 160-4.5 MCG INHALER INHALATION SCH (20:29)
[2023-01-22 21:48] LABS: Glucose,Whole Blood 130 mg/dL (70-110)
[2023-01-22] MEDS ORDERED: MAG HYDROX/AL HYDROX/SIMETH 30 ML, diphenhydrAMINE ELIXIR 75 MG, LIDOCAINE VISCOUS 2% 3... PO PRN ×3 (22:00)
[2023-01-22] MEDS ORDERED: levETIRAcetam IV 1,000 MG in SODIUM CHLORIDE 0.9% 250 ML IVPB ONE (22:16)
[2023-01-22] MEDS ORDERED: levETIRAcetam IV 500 MG/5 ML VIAL IV ONE (22:30)
--- NOTE | 2023-01-23 00:09 | XR ---
EXAM: XR Chest, 1 View CLINICAL HISTORY: ITS.REASON XR Reason: SOB TECHNIQUE: Frontal view of the chest. COMPARISON: CXR, the same day. FINDINGS: Lungs: Lucent area in the RIGHT lower lung may represent large bulla or basilar pneumothorax, unchanged. Airspace consolidation throughout the RIGHT mid-to upper lung field and LEFT lower lung field, concerning for multilobar pneumonia. This is similar in appearance when compared to CXR from earlier same day. Pleural space: See above. Heart: Cardiomegaly. Mediastinum: Unremarkable. Normal mediastinal contour. Bones/joints: Unremarkable. No acute fracture. Tubes, lines and devices: RIGHT Port-A-Cath terminates in the SVC. IMPRESSION: 1. Lucent area in the RIGHT lower lung may represent large bulla or basilar pneumothorax, unchanged. 2. Airspace consolidation throughout the RIGHT mid-to upper lung field and LEFT lower lung field, concerning for multilobar pneumonia. This is similar in appearance when compared to CXR from earlier same day. 3. RIGHT Port-A-Cath terminates in the SVC.
[2023-01-23] MEDS: BENZONATATE 100 MG CAP PO SCH ×2 (00:20→10:03)
[2023-01-23] MEDS: KETOROLAC 15 MG/ML 1 ML VIAL IVP PRN ×2 (00:26→09:27)
[2023-01-23] MEDS: ALPRAZolam 0.25 MG TAB PO PRN ×2 (00:26→05:36)
[2023-01-23] MEDS: PIPERACILLIN-TAZOBACTAM 3.375 GM in SODIUM CHLORIDE 0.9% 100 ML IVPB SCH ×3 (00:27→10:13)
[2023-01-23] MEDS: SODIUM CHLORIDE 0.9% 1,000 ML IV SCH (04:04)
[2023-01-23] MEDS ORDERED: HYDROcodone/APAP 10-325MG 1 EACH TAB PO SCH (04:45)
--- NOTE | 2023-01-23 05:04 | P.EN ---
A- team: Indication: Hypoxemia Arrived on Scene to find: Activated at 2147. Arrived at the scene shortly after. Patient resting comfortably in bed with high flow nasal cannula. Case discussed with the RN who noted that the patient as he was sitting in bed suddenly became"stiff" and had shaking movements of his arms and legs and became unresponsive for roughly 10-15 seconds. Patient had some prodromal confusion lasting for roughly 1 minute. Patient denied experiencing tongue bites or urinary incontinence. Denies any prior history of seizures. Reports ongoing shortness of breath without chest discomfort, nausea, vomiting, diaphoresis, dizziness. Vital signs reviewed: BP 169/95, pulse 89, respiratory rate 28, SpO2 72% on 15 L nasal cannula high flow. Patient seen and examined at bedside General: [non toxic], [no distress], [appears at stated age] Derm: [warm], [dry] Head: [atraumatic], [normocephalic], [symmetric] Eyes: [EOMI], [no lid lag], [anicteric sclera] Mouth: [no lip lesion], [mucus membranes moist] Cardiovascular: [S1S2 reg], [no murmur], [positive posterior tibial pulse bilateral], Lungs: Scattered coarse breath sounds without wheezing, [no accessory muscle use] Abdominal: [soft], [ nontender to palpation], [no guarding], [no appreciable organomegaly] Ext: [no gross muscle atrophy], [no edema], [no contractures] Neuro: [ CN II-XI grossly intact], [no focal neuro deficits] Psych: [Alert], [oriented], [appropriate affect] Assessment: Acute on chronic hypoxic respiratory failure, suspect secondary to multifocal p neumonia with history of stage IV lung cancer Suspect tonic-clonic seizure Plan: Chest x-ray ordered Patient initiated on BiPAP Continue with azithromycin and Zosyn Pulmonary consulted Started on Keppra Neurology consulted Patient's goals of care discussed in detail with patient and his via phone. They both noted that they wish for all life-saving measures to be performed including CPR and being placed on a ventilator. Disposition: Transfer to A Total of 40 minutes of critical care time was spent on the complex care of this patient.
[2023-01-23 05:34] LABS: ABG PH 7.33 (7.35-7.45); Allen Test Performed? Yes
[2023-01-23 05:35] LABS: ABG Base Excess 3.8 mmol/L; ABG HCO3 30 mmol/L (21-25); ABG PCO2 57 mmHg (35-45); ABG PO2 44 mmHg (83-108); ABG TCO2 32 mmol/L (19-24)
[2023-01-23] MEDS ORDERED: VANCOMYCIN IV PER PHARMACY 1 EACH MISC MISCELLANE PRN ×2 (06:11→07:40)
[2023-01-23] MEDS ORDERED: FUROSEMIDE 10 MG/ML 10 ML VIAL IV STA (06:13)
[2023-01-23 06:17] LABS: ABG Base Excess 3.8 mmol/L; ABG HCO3 30 mmol/L (21-25); ABG Oxygen Saturation 75.5 % (94-97); ABG PCO2 63 mmHg (35-45); ABG PH 7.29 (7.35-7.45); ABG TCO2 32 mmol/L (19-24); Allen Test Performed? Yes
[2023-01-23 06:20] LABS: ABG PO2 48 mmHg (83-108)
[2023-01-23 06:44] LABS: Glucose,Whole Blood 100 mg/dL (70-110)
[2023-01-23] MEDS ORDERED: VANCOMYCIN 1,250 MG in SODIUM CHLORIDE 0.9% 250 ML IVPB SCH (07:00)
[2023-01-23 07:32] LABS: Anisocytosis Slight; HCT 29.9 % (39.0-53.0); HGB 9.6 gm/dL (13.0-17.5); Hypochromasia Marked; MCHC 32.1 g/dL (31.0-37.0); MCV 96.4 fL (80.0-100.0); Macrocytosis Slight; Mean Platelet Volume 10.3; RDW 19.6 % (11.5-15.5); WBC 21.8 k/uL (3.8-10.6)
[2023-01-23 07:39] LABS: Platelet Count 82 k/uL (150-450)
[2023-01-23 07:44] LABS: ALT 96 U/L (4-49); AST 84 U/L (17-59); African American GFR (CKD) >90 (>60 ml/min/1.73 sqM); Albumin 2.3 g/dL (3.5-5.0); Alkaline Phosphatase 117 U/L (38-126); Anion Gap 7 mmol/L; Blood Urea Nitrogen 14 mg/dL (9-20); Calcium 7.3 mg/dL (8.4-10.2); Carbon Dioxide 27 mmol/L (22-30); Chloride 101 mmol/L (98-107); Glucose 92 mg/dL (74-99); Non-African American GFR(CKD) >90 (>60 ml/min/1.73 sqM); Potassium 3.6 mmol/L (3.5-5.1); Sodium 135 mmol/L (137-145); Total Bilirubin 1.5 mg/dL (0.2-1.3); Total Protein 4.8 g/dL (6.3-8.2)
--- NOTE | 2023-01-23 07:48 | XR ---
EXAMINATION TYPE: XR chest 1V portable DATE OF EXAM: 01/23/2023 Comparison: 01/22/2023 Clinical History: 57-year-old male pneumonia Findings: Anterior chest wall injection port with catheter tip in the cavoatrial junction. Heart margins obscur ed by adjacent pleural parenchymal opacity. Loculated pneumothorax at the right base is redemonstrate d. Extensive consolidation throughout the remainder of the right lung and throughout the left lower l nasrin also persists. Background COPD. Right basilar chest tube. Impression: Overall similar exam with right basilar chest tube and loculated pleural air collection at the right lower lung. Extensive consolidation throughout the right lung and at the left lower lung persists.
--- NOTE | 2023-01-23 07:49 | P.PN ---
Subjective Progress Note Date: 01/23/23 Patient is a 77-year-old male with known metastatic adenocarcinoma of the lung currently being treated, [facility] complicated by adrenal insufficiency, chronic hypoxic respiratory failure on 3 L nasal cannula, chronic right-sided pleural effusion with Pleurx catheter, and dyslipidemia who presented to the hospital with complaints of a fever of 101 at home. Patient was recently here with neutropenic fevers from 01/13 through 01/19 and severe stomatitis. On arrival to the emergency department here patient was afebrile and satting 60% on 5 L nasal cannula. Initial laboratory analysis was remarkable for white blood cell count of 17.2, hemoglobin 8.8, platelets 75, sodium 131, potassium 3.0, bilirubin 1.6, AST 72, ALT 66. Influenza, RSV, and COVID-19 testing were negative. Chest x-ray showed right sided hydropneumothorax and bilateral interstitial infiltrate. He was admitted and was started on Zosyn and Zithromax. Pulmonary and oncology were consulted. Overnight the patient had possible seizure-like activity with post ictal state. Neurology consult was placed and patient was started on Keppra. Later that evening patient had worsening shortness of breath and therefore was transferred to the ICU. Patient seen and examined at bedside. [] Vital signs reviewed General: [nontoxic], [no distress], [appears at stated age] Cardiovascular: [S1S2 reg], [no murmur], [positive posterior tibial pulse bilateral], Lungs: [CTA bilateral], [no rhonchi, no rales] , [no accessory muscle use] Abdominal: [soft], [ nontender to palpation], [no guarding], [no appreciable org anomegaly] Ext: [no gross muscle atrophy], [no edema b/l lower extremities], [no contractures] Neuro: [ CN II-XI grossly intact], [no focal neuro deficits] Psych: [Alert], [oriented], [appropriate affect] Assessment/Plan: Healthcare associated pneumonia, possible gram-negative Sepsis secondary to above Acute on chronic hypoxic respiratory failure Adenocarcinoma of the lung stage IV Secondary adrenal insufficiency due to treatment of lung cancer -Add vancomycin with pharmacy to dose based on weight and creatinine. Monitor for toxicity with creatinine and trough levels -Continue with Zosyn 3.375 g IV piggyback every 8 hours day #2 -Continue with Zithromax 500 mg IV piggyback day #2 -Patient with known adrenal insufficiency. We'll discontinue oral Cortef dosing and started on stress dose steroids with Solu-Cortef 100 mg IV every 8 hours -Await blood cultures Chronic: Hypertension in the past, currently issues with hypotension Dyslipidemia Lactic acidosis, resolved Imaging: Chest x-ray as reviewed by myself continues to show known right sided hydropneumothorax with Pleurx catheter in place, right sided Port-A-Cath in place, diffuse interstitial infiltrate left upper lower, and right upper lobes. Data Review: [] DVT prophylaxis: [] Discussed with: [] Anticipated discharge date: [] Anticipated discharge place: [] This dictation was prepared using [employer] voice recognition software. Though every attempt is made to correct errors during dictation some may still exist. Objective - Vital Signs Vital signs: Vital Signs Temp 98.8 F 01/23/23 07:00 Pulse 106 H 01/23/23 07:00 Resp 40 H 01/23/23 07:00 BP 124/80 01/23/23 07:00 Pulse Ox 79 L 01/23/23 07:00 FiO2 100 01/23/23 06:35 Intake & Output 01/22/23 01/23/23 01/23/23 18:59 06:59 18:59 Intake Total 20 Output Total 150 175 Balance -150 -155 Weight 65.771 kg 65.771 kg Intake: IV 20 0.9 KVO 20 Output: Urine 150 175 - Labs CBC & Chem 7: 01/23/23 07:16 01/23/23 07:16 Labs: Abnormal Lab Results - Last 24 Hours (Table) 01/22/23 01/22/23 01/22/23 Range/Units 15:03 15:03 15:03 WBC 17.2 H (3.8-10.6) k/uL RBC 2.84 L (4.30-5.90) m/uL Hgb 8.8 L (13.0-17.5) gm/dL Hct 26.6 L (39.0-53.0) % RDW 19.8 H (11.5-15.5) % Plt Count 75 L (150-450) k/uL Neutrophils # 16.6 H (1.3-7.7) k/uL Lymphocytes # 0.2 L (1.0-4.8) k/uL PT 12.9 H (10.0-12.5) sec INR 1.2 H (<1.2) ABG pH (7.35-7.45) ABG pCO2 (35-45) mmHg ABG pO2 (83-108) mmHg ABG HCO3 (21-25) mmol/L ABG Total CO2 (19-24) mmol/L ABG O2 Saturation (94-97) % Sodium 131 L (137-145) mmol/L Potassium 3.1 L (3.5-5.1) mmol/L Chloride 94 L (98-107) mmol/L Creatinine 0.45 L (0.66-1.25) mg/dL Glucose 118 H (74-99) mg/dL POC Glucose (mg/dL) (70-110) mg/dL Plasma Lactic Acid Deric (0.7-2.0) mmol/L Calcium 7.5 L (8.4-10.2) mg/dL Total Bilirubin 1.6 H (0.2-1.3) mg/dL AST 72 H (17-59) U/L ALT 66 H (4-49) U/L Total Protein 4.7 L (6.3-8.2) g/dL Albumin 2.4 L (3.5-5.0) g/dL Procalcitonin (0.02-0.09) ng/mL 01/22/23 01/22/23 01/22/23 Range/Units 15:03 15:03 21:46 WBC (3.8-10.6) k/uL RBC (4.30-5.90) m/uL Hgb (13.0-17.5) gm/dL Hct (39.0-53.0) % RDW (11.5-15.5) % Plt Count (150-450) k/uL Neutrophils # (1.3-7.7) k/uL Lymphocytes # (1.0-4.8) k/uL PT (10.0-12.5) sec INR (<1.2) ABG pH (7.35-7.45) ABG pCO2 (35-45) mmHg ABG pO2 (83-108) mmHg ABG HCO3 (21-25) mmol/L ABG Total CO2 (19-24) mmol/L ABG O2 Saturation (94-97) % Sodium (137-145) mmol/L Potassium (3.5-5.1) mmol/L Chloride (98-107) mmol/L Creatinine (0.66-1.25) mg/dL Glucose (74-99) mg/dL POC Glucose (mg/dL) 130 H (70-110) mg/dL Plasma Lactic Acid Deric 4.0 H* (0.7-2.0) mmol/L Calcium (8.4-10.2) mg/dL Total Bilirubin (0.2-1.3) mg/dL AST (17-59) U/L ALT (4-49) U/L Total Protein (6.3-8.2) g/dL Albumin (3.5-5.0) g/dL Procalcitonin 0.45 H (0.02-0.09) ng/mL 01/23/23 01/23/23 01/23/23 Range/Units 05:14 05:55 07:16 WBC 21.8 H (3.8-10.6) k/uL RBC 3.10 L (4.30-5.90) m/uL Hgb 9.6 L (13.0-17.5) gm/dL Hct 29.9 L (39.0-53.0) % RDW 19.6 H (11.5-15.5) % Plt Count 82 L (150-450) k/uL Neutrophils # (1.3-7.7) k/uL Lymphocytes # (1.0-4.8) k/uL PT (10.0-12.5) sec INR (<1.2) ABG pH 7.33 L 7.29 L (7.35-7.45) ABG pCO2 57 H 63 H (35-45) mmHg ABG pO2 44 L* 48 L* (83-108) mmHg ABG HCO3 30 H 30 H (21-25) mmol/L ABG Total CO2 32 H 32 H (19-24) mmol/L ABG O2 Saturation 72.0 L 75.5 L (94-97) % Sodium (137-145) mmol/L Potassium (3.5-5.1) mmol/L Chloride (98-107) mmol/L Creatinine (0.66-1.25) mg/dL Glucose (74-99) mg/dL POC Glucose (mg/dL) (70-110) mg/dL Plasma Lactic Acid Deric (0.7-2.0) mmol/L Calcium (8.4-10.2) mg/dL Total Bilirubin (0.2-1.3) mg/dL AST (17-59) U/L ALT (4-49) U/L Total Protein (6.3-8.2) g/dL Albumin (3.5-5.0) g/dL Procalcitonin (0.02-0.09) ng/mL 01/23/23 Range/Units 07:16 WBC (3.8-10.6) k/uL RBC (4.30-5.90) m/uL Hgb (13.0-17.5) gm/dL Hct (39.0-53.0) % RDW (11.5-15.5) % Plt Count (150-450) k/uL Neutrophils # (1.3-7.7) k/uL Lymphocytes # (1.0-4.8) k/uL PT (10.0-12.5) sec INR (<1.2) ABG pH (7.35-7.45) ABG pCO2 (35-45) mmHg ABG pO2 (83-108) mmHg ABG HCO3 (21-25) mmol/L ABG Total CO2 (19-24) mmol/L ABG O2 Saturation (94-97) % Sodium 135 L (137-145) mmol/L Potassium (3.5-5.1) mmol/L Chloride (98-107) mmol/L Creatinine 0.43 L (0.66-1.25) mg/dL Glucose (74-99) mg/dL POC Glucose (mg/dL) (70-110) mg/dL Plasma Lactic Acid Deric (0.7-2.0) mmol/L Calcium 7.3 L (8.4-10.2) mg/dL Total Bilirubin 1.5 H (0.2-1.3) mg/dL AST 84 H (17-59) U/L ALT 96 H (4-49) U/L Total Protein 4.8 L (6.3-8.2) g/dL Albumin 2.3 L (3.5-5.0) g/dL Procalcitonin (0.02-0.09) ng/mL
[2023-01-23] MEDS ORDERED: HYDROCORTISONE SUCCINATE 100 MG/2 ML VIAL IV SCH (08:00)
[2023-01-23] MEDS ORDERED: Potassium Replacement Protocol 1 EACH MISC MISCELLANE PRN (08:50)
[2023-01-23] MEDS ORDERED: LORazepam 2 MG/ML INJ IV PRN (08:52)
[2023-01-23] MEDS ORDERED: FLUDROCORTISONE 0.1 MG TAB PO SCH (09:00)
[2023-01-23] MEDS ORDERED: MELOXICAM 7.5 MG TAB PO SCH (09:00)
[2023-01-23] MEDS ORDERED: HYDROCORTISONE 20 MG TAB PO SCH (09:00)
[2023-01-23] MEDS ORDERED: AZITHROMYCIN 500 MG in SODIUM CHLORIDE 0.9% 250 ML IVPB SCH (09:00)
[2023-01-23] MEDS ORDERED: levETIRAcetam IV 500 MG/5 ML VIAL IVP SCH (09:00)
[2023-01-23] MEDS ORDERED: ATORVASTATIN 40 MG TAB PO SCH (09:00)
[2023-01-23] MEDS ORDERED: ACETAMINOPHEN IV (For NPO) 1,000 MG in EMPTY BAG 1 BAG IVPB PRN (09:06)
[2023-01-23] MEDS ORDERED: IPRATROPIUM-ALBUTEROL 3 ML NEB INHALATION PRN (09:07)
[2023-01-23] MEDS ORDERED: MORPHINE SULFATE 4 MG/ML SYRINGE IVP PRN (09:07)
[2023-01-23] MEDS: SYMBICORT 160-4.5 MCG INHALER INHALATION SCH (09:17)
[2023-01-23] MEDS: IPRATROPIUM 0.5 MG/2.5 ML NEBU INHALATION SCH (09:18)
[2023-01-23] MEDS: POTASSIUM CHLORIDE 10 MEQ in WATER FOR INJECTION 1 100ML.BAG IVPB SCH ×2 (09:19→10:13)
[2023-01-23 09:51] VITALS: TEMP 98.5
[2023-01-23] MEDS: MAGNESIUM OXIDE 400 MG TAB PO SCH (10:04)
[2023-01-23 11:20] VITALS: BP 99/60; PULSE 0; RESP 40
[2023-01-23] MEDS ORDERED: IPRATROPIUM-ALBUTEROL 3 ML NEB INHALATION SCH (12:00)
--- NOTE | 2023-01-23 13:48 | P.DS ---
Providers Date of admission: 01/22/23 17:06 Expected date of discharge: 01/23/23 Attending physician: Andrew Roberson MD Consults: 01/22/23 17:05 Consult Physician Routine Consulting Provider: Obdulia Serra Consult Reason/Comments: dyspnea Do you want consulting provider notified?: Yes 01/22/23 19:50 Consult Physician Routine Consulting Provider: Hunter Blandon Consult Reason/Comments: Stage IV lung cancer with chronic right-sided pleural effusion and respirat Do you want consulting provider notified?: Yes, Notify in am Primary care physician: [facility] Course: Discharge Diagnosis: Healthcare associated pneumonia, possible gram-negative Sepsis secondary to above Acute on chronic hypoxic respiratory failure Adenocarcinoma of the lung stage IV Secondary adrenal insufficiency due to treatment of lung cancer Hypokalemia Transaminitis Lactic acidosis Bicytopenia- anemia and thrombocytopenia Hyponatremia, due to increased water losses Hospital Course: Patient is a 77-year-old male with known metastatic adenocarcinoma of the lung currently being treated, [facility] complicated by adrenal insufficiency, chronic hypoxic respiratory failure on 3 L nasal cannula, chronic right-sided pleural effusion with Pleurx catheter, and dyslipidemia who presented to the hospital with complaints of a fever of 101 at home. Patient was recently here with neutropenic fevers from 01/13 through 01/19 and severe stomatitis. On arrival to the emergency department here patient was afebrile and satting 60% on 5 L nasal cannula. Initial laboratory analysis was remarkable for white blood cell count of 17.2, hemoglobin 8.8, platelets 75, sodium 131, potassium 3.0, bilirubin 1.6, AST 72, ALT 66. Influenza, RSV, and COVID-19 testing were negative. Chest x-ray showed right sided hydropneumothorax and bilateral interstitial infiltrate. He was admitted and was started on Zosyn and Zithromax. Pulmonary and oncology were consulted. Overnight the patient had possible seizure-like activity with post ictal state. Neurology consult was placed and patient was started on Keppra. Later that evening patient had worsening shortness of breath and therefore was transferred to the ICU. On the morning of 01/23 he ws stared on vanco and stress dose steroids. I discussed is progosis with his and children and they verified that he will remain no code. We continued with aggressive medical care in conjunction [facility] medications to treat his pain and anxiety to ensure that he remained comfortable. Despite aggressive care he passed peacefully on 01/23/23 at 1057. Patient seen and examined at bedside at approx 0905. He was denying anxiety but complaining of pain, he was on BiPap General: ill appeaing moderate disctress. Cardiovascular: S1S2 tachy, no murmur, positive posterior tibial pulse bilateral, Lungs: Course bs bilateral, 3 word conversational dyspnea, + Accessory muscle use Abdominal: soft, nontender to palpation, no guarding, no appreciable organomegaly Ext: no gross muscle atrophy, no edema b/l lower extremities, no contractures Neuro: CN II-XI grossly intact, no focal neuro deficits Psych: Alert, oriented, appropriate affect A total of 37 minutes of time were spent preparing this complex discharge summary. Patient was discharged on 01/23/23. This dictation was prepared using [employer] voice recognition software. Though every attempt is made to correct errors during dictation some may still exist. Plan - Discharge Summary Discharge Rx Participant: Yes New Discharge Prescriptions: No Action RX: Zolpidem Tartrate [Zolpidem Tartrate ER] 6.25 mg PO HS PRN PRN Reason: Insomnia RX: Fludrocortisone [Florinef] 0.1 mg PO DAILY RX: Benzonatate [Tessalon Perles] 100 mg PO TID RX: Atorvastatin [Lipitor] 40 mg PO DAILY RX: Ipratropium-Albuterol Nebulize [Duoneb 0.5 mg-3 mg/3 ml Soln] 3 ml INHALATION RT-TID PRN PRN Reason: Shortness Of Breath RX: Pantoprazole Sodium [Protonix] 40 mg PO DAILY PRN PRN Reason: Gi Upset RX: ALPRAZolam [Xanax] 0.25 mg PO DAILY PRN PRN Reason: Anxiety RX: LORazepam [Ativan] 1 mg PO BID PRN PRN Reason: Anxiety RX: HYDROcodone/APAP 10-325MG [[place] 10-325] 1 - 2 tab PO Q8H RX: Hydrocortisone [Cortef] 10 mg PO DAILY@1700 RX: Sennosides [Senokot] 8.6 mg PO BID PRN PRN Reason: Diarrhea Magic Mouthwash(Mylanta/Benadryl/Lidocaine 1:1:1) 10 ml PO Q8H PRN PRN Reason: Pain RX: Budesonide/Glycopyr/Formoterol [Breztri Aerosphere Inhaler] 2 puff INHALATION RT-BID RX: Albuterol Sulfate [Albuterol Sulfate Hfa] 2 puff INHALATION RT-Q6H PRN PRN Reason: Shortness Of Breath RX: ondansetron HCL [Zofran] 8 mg PO BID PRN PRN Reason: Nausea And Vomiting Slow-Mag 71.5mg 143 mg PO QID@09,,17,21 RX: Potassium Chloride [Klor-Con M20] 40 meq PO BID RX: Hydrocortisone [Cortef] 20 mg PO DAILY@0900 RX: Prochlorperazine [Compazine] 10 mg PO Q6H PRN PRN Reason: Nausea RX: Celecoxib [CeleBREX] 100 mg PO BID Discharge Medication List RX: ALPRAZolam [Xanax] 0.25 mg PO DAILY PRN 10/26/22 [History] RX: Albuterol Sulfate [Albuterol Sulfate Hfa] 2 puff INHALATION RT-Q6H PRN 10/26/22 [History] RX: Atorvastatin [Lipitor] 40 mg PO DAILY 10/26/22 [History] RX: Benzonatate [Tessalon Perles] 100 mg PO TID 10/26/22 [History] RX: Budesonide/Glycopyr/Formoterol [Breztri Aerosphere Inhaler] 2 puff INHALATION RT-BID 10/26/22 [History] RX: Fludrocortisone [Florinef] 0.1 mg PO DAILY 10/26/22 [History] RX: Ipratropium-Albuterol Nebulize [Duoneb 0.5 mg-3 mg/3 ml Soln] 3 ml INHALATION RT-TID PRN 10/26/22 [History] RX: Pantoprazole Sodium [Protonix] 40 mg PO DAILY PRN 10/26/22 [History] RX: Zolpidem Tartrate [Zolpidem Tartrate ER] 6.25 mg PO HS PRN 10/26/22 [History] RX: ondansetron HCL [Zofran] 8 mg PO BID PRN 10/26/22 [History] RX: Potassium Chloride [Klor-Con M20] 40 meq PO BID 11/06/22 [History] Slow-Mag 71.5mg 143 mg PO QID@09,13,17,21 11/06/22 [History] RX: HYDROcodone/APAP 10-325MG [[place] 10-325] 1 - 2 tab PO Q8H 01/04/23 [History] RX: Hydrocortisone [Cortef] 20 mg PO DAILY@0900 01/04/23 [History] RX: LORazepam [Ativan] 1 mg PO BID PRN 01/04/23 [History] RX: Prochlorperazine [Compazine] 10 mg PO Q6H PRN 01/04/23 [History] Magic Mouthwash(Mylanta/Benadryl/Lidocaine 1:1:1) 10 ml PO Q8H PRN 01/13/23 [History] RX: Celecoxib [CeleBREX] 100 mg PO BID 01/13/23 [History] RX: Hydrocortisone [Cortef] 10 mg PO DAILY@1700 01/13/23 [History] RX: Sennosides [Senokot] 8.6 mg PO BID PRN 01/13/23 [History] Follow up Appointment(s)/Referral(s): Sammy James MD [Primary Care Provider] - 1-2 days
[2023-01-23] MEDS ORDERED: HYDROCORTISONE 10 MG TAB PO SCH (17:00)
[2023-01-24] MEDS ORDERED: VANCOMYCIN TROUGH DUE 1 EACH MISC MISCELLANE ONE (06:00)
--- NOTE | 2023-01-26 10:38 | CDI ---
Documentation Clarification Form Date: 01/26/2023 From: Zandra Harris Admit Date: 01/22/2023 05:06:00 PM Patient Name: Darien Chen Visit Number: [id number] Discharge Date: 01/23/2023 02:15:00 PM ATTENTION: The Clinical Documentation Specialists (CDI) and [facility] Coding Staff appreciate your assistance in clarifying documentation. Please respond to the clarification below the line at the bottom and electronically sign. The CDI & [facility] Coding staff will review the response and follow-up if needed. Please note: Queries are made part of the Legal Health Record. If you have any questions, please contact the author of this message via ITS. Dr. Marlene Simeon Per ED note Sepsis focused exam 01/22/2023, 18:36. sepsis focus exam completed. Based on this information and the findings below, is there an additional diagnosis that is clinically appropriate for this patient? History/Risk Factors: Gram negative pneumonia, Adenocarcinoma Lung, lactic acidosis, kidney transplant Clinical Indicators: WBC 17.2 Lactic acid: 4.0 Blood cultures: Vitals signs: 97.3 F, 100 bpm, 20, 116/63, 60% 5 NC Treatment: IV antibiotics Antibiotics: Tithromax, Zosyn, Vancomycin Is there an additional diagnosis that is clinically appropriate for this patient? [ ] Sepsis, present on admission [ ] Sepsis, developed during stay, not present on admission [ ] Sepsis ruled out [ ] Severe Sepsis with organ failure [ ] Septic Shock [ ] SIRS, without underlying infectious process [ ] Other, please specify [ ] Unable to determine SIRS Criteria: 2 or more of the following may indicate SIRS Temperature < 96.8F (36C) or > 101.0F (38.3C) Heart Rate > 90 bpm Respiratory Rate > 20 breaths/min or PaCO2 < 32 mmHg White Blood Cell Count > 12,000 or < 4,000 cells/mm3 or > 10% bands MTDD
== END 2023-01-23 14:15 | disposition expired | DRG 871 ==
LOC: EC 14:43 → 4SSUR 17:06 → 5NMEDONC 19:13 → 3SCARD 22:55 → 2SICU 01-23 06:45
PROVIDERS: ADMIT Student in an Organized Health Care Education/Training Program; ATTEND Student in an Organized Health Care Education/Training Program
PROC: 5A09357 Assistance with Respiratory Ventilation, Less than 24 Consecutive Hours, Continuous Positive Airway Pressure (ICD-10-PCS; principal; 2023-01-22)
DX: A41.50 Gram-negative sepsis, unspecified (principal); J15.69 Pneumonia due to other Gram-negative bacteria; J96.21 Acute and chronic respiratory failure with hypoxia; C34.90 Malignant neoplasm of unspecified part of unspecified bronchus or lung; E27.49 Other adrenocortical insufficiency; E87.1 Hypo-osmolality and hyponatremia; J94.2 Hemothorax; J90 Pleural effusion, not elsewhere classified; Z94.0 Kidney transplant status; D69.6 Thrombocytopenia, unspecified; G40.409 Other generalized epilepsy and epileptic syndromes, not intractable, without status epilepticus; D64.9 Anemia, unspecified; E78.5 Hyperlipidemia, unspecified; E87.6 Hypokalemia; F41.9 Anxiety disorder, unspecified; I10 Essential (primary) hypertension; Z66 Do not resuscitate; J43.9 Emphysema, unspecified; K12.1 Other forms of stomatitis; R79.1 Abnormal coagulation profile; Y95 Nosocomial condition; Z11.52 Encounter for screening for COVID-19; Z79.899 Other long term (current) drug therapy; Z80.1 Family history of malignant neoplasm of trachea, bronchus and lung; Z92.3 Personal history of irradiation
CPT/HCPCS: 36415; 36600; 71045; 71046; 80053; 82805; 83605; 84145; 85025; 85027; 85610; 85730; 87040; 87070; 87205; 87449; 87636; 93005; 94640; 94660; 96365; 96368; 99291